=== PATIENT | male | born 1955 | race African-American/Black ===

== ENCOUNTER 2020-05-12 06:02 | Outpatient (REF) | payer MEDICARE, SELFPAY ==
[2020-05-12 07:50] LABS: Anion Gap 11 (12-20); Blood Urea Nitrogen 18 mg/dL (9-16); Calcium 9.6 mg/dL (8.4-10.2); Carbon Dioxide 28 mmol/L (22-29); Chloride 98 mmol/L (96-108); Cholesterol 183 mg/dL; Estimated Glomerular Filt Rate 48; Glucose Fasting 100 mg/dL (60-99); HDL Cholesterol 32 mg/dL; LDL Cholesterol Calculated 85 mg/dl; Potassium 4.3 mmol/l (3.3-5.1); Sodium 133 mmol/L (135-145); Triglycerides 330 mg/dL
[2020-05-12 07:51] LABS: Creatinine Urine 92.76 mg/dL; Microalbumin Urine < 5.0 mg/L
[2020-05-12 07:58] LABS: Estimated Average Glucose 166 mg/dL; Hemoglobin A1c % 7.4 %
[2020-05-13 07:07] LABS: LDL Cholesterol Direct 96 mg/dL (<100)
[2020-05-20 06:18] LABS: Fructosamine 292 umol/L (205-285)
== END 2020-05-12 06:03 | disposition home or self-care (01) ==
LOC: HO.LAB 06:02
PROVIDERS: PCP Family Medicine; Visit Provider Nurse Practitioner Gerontology
DX: E11.65 Type 2 diabetes mellitus with hyperglycemia (principal)
CPT/HCPCS: 80048; 80061; 82043; 82985; 83036; 83721

== ENCOUNTER → 2020-05-16 08:37 | Outpatient (BNVA) | payer MEDICARE, SELFPAY | PROVIDERS: PCP Family Medicine; Referring Provider Family Medicine; Visit Provider Nurse Practitioner Gerontology | DX: Z13.89 Encounter for screening for other disorder (principal) | CPT/HCPCS: 99212 ==

== ENCOUNTER 2020-08-09 07:31 | Outpatient (REF) | payer MEDICARE, SELFPAY ==
[2020-08-09 07:56] LABS: MANUAL DIFF FLAG NO
[2020-08-09 08:02] LABS: Basophils Absolute Auto 0.1 X10*3/uL (0.0-0.2); Basophils Percent Auto 1.1 % (0-2); Eosinophils Absolute Auto 0.5 X10*3/uL (0.0-0.4); Eosinophils Percent Auto 4.5 % (0-4); Hematocrit 41.6 % (42-52); Imm Gran Abs Auto 0.03 X10*3/uL (0.00-0.03); Imm Gran Pct Auto 0.3 % (0.0-0.4); Lymphocytes Absolute Auto 4.8 X10*3/uL (1.2-4.9); Lymphocytes Percent Auto 46.4 % (20-40); Mean Corpuscular HGB Conc 31.3 g/dl (31.0-36.0); Mean Corpuscular Hemoglobin 25.1 pg (27.0-33.0); Mean Corpuscular Volume 80.3 fL (80-98); Mean Platelet Volume 9.2 fL (9.4-12.4); Monocytes Absolute Auto 0.8 X10*3/uL (0.1-1.2); Monocytes Percent Auto 7.9 % (2-11); Neutrophils Absolute Auto 4.1 X10*3/uL (2.0-8.3); Neutrophils Percent Auto 39.8 % (45-73); Platelet Count 350 X10*3/uL (160-400); Red Blood Count 5.18 X10*6/uL (4.60-5.80); Red Cell Distribution Width 16.9 % (11.0-16.0); White Blood Count 10.3 X10*3/uL (4.8-10.8)
[2020-08-09 08:09] LABS: Estimated Average Glucose 163 mg/dL; Hemoglobin A1c % 7.3 %
[2020-08-09 08:31] LABS: Alanine Aminotransferase 32 U/L (0-40); Albumin Level 4.3 g/dL (3.5-5.0); Alkaline Phosphatase 100 U/L (39-117); Anion Gap 15 (12-20); Aspartate Amino Transferase 32 U/L (5-37); Bilirubin Total 0.6 mg/dL (0.0-1.0); Blood Urea Nitrogen 22 mg/dL (9-16); Calcium 9.4 mg/dL (8.4-10.2); Carbon Dioxide 25 mmol/L (22-29); Chloride 98 mmol/L (96-108); Estimated Glomerular Filt Rate 43; Glucose Random 157 mg/dL (60-115); Potassium 4.4 mmol/L (3.3-5.1); Sodium 134 mmol/L (135-145); Total Protein 8.1 g/dL (6.5-8.0)
== END 2020-08-09 07:32 | disposition home or self-care (01) ==
LOC: HO.LAB 07:31
PROVIDERS: Internal Medicine Medical Oncology; PCP Family Medicine; Visit Provider Nurse Practitioner Gerontology
DX: D75.1 Secondary polycythemia (principal); E11.65 Type 2 diabetes mellitus with hyperglycemia; Z79.4 Long term (current) use of insulin
CPT/HCPCS: 36415; 80053; 83036; 85025

== ENCOUNTER → 2020-08-09 08:01 | Outpatient (BNV) | payer MEDICARE, SELFPAY | PROVIDERS: PCP Family Medicine; Visit Provider Internal Medicine Medical Oncology | DX: D75.1 Secondary polycythemia (principal) | CPT/HCPCS: 99213; 99214 ==

== ENCOUNTER → 2020-08-15 08:34 | Outpatient (BNVA) | payer MEDICARE, SELFPAY | PROVIDERS: PCP Family Medicine; Visit Provider Nurse Practitioner Gerontology | DX: E11.65 Type 2 diabetes mellitus with hyperglycemia (principal); E11.42 Type 2 diabetes mellitus with diabetic polyneuropathy; Z79.4 Long term (current) use of insulin; I10 Essential (primary) hypertension; E78.5 Hyperlipidemia, unspecified; E66.09 Other obesity due to excess calories; Z68.39 Body mass index [BMI] 39.0-39.9, adult | CPT/HCPCS: 82947; 99212 ==

== ENCOUNTER → 2020-08-17 08:06 | Outpatient (BNVA) | payer MEDICARE, SELFPAY | PROVIDERS: PCP Nurse Practitioner Family; Visit Provider Nurse Practitioner | DX: K59.04 Chronic idiopathic constipation (principal); K21.9 Gastro-esophageal reflux disease without esophagitis; R14.0 Abdominal distension (gaseous) | CPT/HCPCS: Q3014 ==

== ENCOUNTER 2020-08-30 | Outpatient (REF) | payer MEDICARE, SELFPAY ==
[2020-09-01 12:04] LABS: FIT Int Ctl YES; FIT1 NEGATIVE (NEGATIVE); FIT2 NEGATIVE (NEGATIVE)
== END 2020-08-30 00:01 | disposition home or self-care (01) ==
LOC: HO.LNP
PROVIDERS: Visit Provider Nurse Practitioner
DX: K21.9 Gastro-esophageal reflux disease without esophagitis (principal); K58.9 Irritable bowel syndrome, unspecified
CPT/HCPCS: 82274

== ENCOUNTER 2020-09-01 11:26 | Outpatient (REF) | payer MEDICARE, SELFPAY | END 2020-09-01 11:27 | disposition home or self-care (01) | LOC: HO.LNP 11:26 | PROVIDERS: Visit Provider Nurse Practitioner | DX: Z13.89 Encounter for screening for other disorder (principal) ==

== ENCOUNTER → 2020-09-16 08:09 | Outpatient (BNVA) | payer MEDICARE, SELFPAY | PROVIDERS: PCP Nurse Practitioner Family; Visit Provider Nurse Practitioner | DX: Z12.11 Encounter for screening for malignant neoplasm of colon (principal); R14.0 Abdominal distension (gaseous); K21.9 Gastro-esophageal reflux disease without esophagitis; K59.04 Chronic idiopathic constipation | CPT/HCPCS: 99212 ==

== ENCOUNTER 2020-11-07 06:01 | Outpatient (REF) | payer MEDICARE, SELFPAY ==
[2020-11-07 06:29] LABS: MANUAL DIFF FLAG NO
[2020-11-07 06:44] LABS: Basophils Absolute Auto 0.1 X10*3/uL (0.0-0.2); Eosinophils Absolute Auto 0.3 X10*3/uL (0.0-0.4); Eosinophils Percent Auto 2.9 % (0-4); Hemoglobin 13.2 g/dl (14.0-18.0); Imm Gran Abs Auto 0.03 X10*3/uL (0.00-0.03); Imm Gran Pct Auto 0.3 % (0.0-0.4); Lymphocytes Absolute Auto 3.7 X10*3/uL (1.2-4.9); Mean Corpuscular HGB Conc 31.4 g/dl (31.0-36.0); Mean Corpuscular Hemoglobin 25.2 pg (27.0-33.0); Mean Corpuscular Volume 80.2 fL (80-98); Mean Platelet Volume 9.7 fL (9.4-12.4); Monocytes Absolute Auto 0.9 X10*3/uL (0.1-1.2); Monocytes Percent Auto 8.9 % (2-11); Neutrophils Absolute Auto 4.8 X10*3/uL (2.0-8.3); Neutrophils Percent Auto 48.9 % (45-73); Platelet Count 357 X10*3/uL (160-400); Red Blood Count 5.24 X10*6/uL (4.60-5.80); Red Cell Distribution Width 16.2 % (11.0-16.0); White Blood Count 9.7 X10*3/uL (4.8-10.8)
[2020-11-07 06:53] LABS: Alanine Aminotransferase 29 U/L (0-40); Albumin Level 4.4 g/dL (3.5-5.0); Alkaline Phosphatase 93 U/L (39-117); Anion Gap 13 (12-20); Aspartate Amino Transferase 28 U/L (5-37); Bilirubin Total 0.2 mg/dL (0.0-1.0); Blood Urea Nitrogen 22 mg/dL (9-16); Calcium 10.2 mg/dL (8.4-10.2); Carbon Dioxide 27 mmol/L (22-29); Chloride 100 mmol/L (96-108); Estimated Glomerular Filt Rate 41; Glucose Random 128 mg/dL (60-115); Potassium 4.5 mmol/L (3.3-5.1); Sodium 135 mmol/L (135-145); Total Protein 7.8 g/dL (6.5-8.0)
[2020-11-12 00:22] LABS: Fructosamine 273 umol/L (205-285)
== END 2020-11-07 06:02 | disposition home or self-care (01) ==
LOC: HO.LAB 06:01
PROVIDERS: Internal Medicine Medical Oncology; Visit Provider Nurse Practitioner Gerontology
DX: E11.22 Type 2 diabetes mellitus with diabetic chronic kidney disease (principal); N18.9 Chronic kidney disease, unspecified; D75.1 Secondary polycythemia
CPT/HCPCS: 36415; 80053; 82985; 85025; 85610

== ENCOUNTER → 2020-12-09 08:56 | Outpatient (BNVA) | payer MEDICARE, SELFPAY | PROVIDERS: Visit Provider Nurse Practitioner Gerontology | DX: E11.42 Type 2 diabetes mellitus with diabetic polyneuropathy (principal); I10 Essential (primary) hypertension; E78.5 Hyperlipidemia, unspecified; E66.01 Morbid (severe) obesity due to excess calories; Z79.4 Long term (current) use of insulin; Z68.37 Body mass index [BMI] 37.0-37.9, adult | CPT/HCPCS: 82947; 99212 ==

== ENCOUNTER → 2021-03-20 09:59 | Outpatient (BNVA) | payer MEDICARE, SELFPAY | PROVIDERS: Visit Provider Nurse Practitioner ==

== ENCOUNTER 2021-04-12 07:35 | Outpatient (REF) | payer MEDICARE, SELFPAY ==
[2021-04-12 08:50] LABS: Alanine Aminotransferase 27 U/L (0-40); Albumin Level 4.4 g/dL (3.5-5.0); Alkaline Phosphatase 82 U/L (39-117); Anion Gap 14 (12-20); Aspartate Amino Transferase 22 U/L (5-37); Bilirubin Total 0.4 mg/dL (0.0-1.0); Blood Urea Nitrogen 15 mg/dL (9-16); Carbon Dioxide 26 mmol/L (22-29); Chloride 96 mmol/L (96-108); Cholesterol 170 mg/dL; Estimated Glomerular Filt Rate 44; Glucose Fasting 149 mg/dL (60-99); HDL Cholesterol 30 mg/dL; LDL Cholesterol Calculated 74 mg/dl; Potassium 4.6 mmol/L (3.3-5.1); Sodium 131 mmol/L (135-145); Total Protein 7.9 g/dL (6.5-8.0); Triglycerides 331 mg/dL
[2021-04-12 09:10] LABS: Vitamin D 25-OH Total 78.8 ng/mL (>30)
[2021-04-12 09:25] LABS: Creatinine Urine 172.54 mg/dL; Microalbum/Creatinine Ratio Ur 2.8 ug/mg cr
== END 2021-04-12 07:36 | disposition home or self-care (01) ==
LOC: HO.LAB 07:35
PROVIDERS: Visit Provider Nurse Practitioner Gerontology
DX: E11.42 Type 2 diabetes mellitus with diabetic polyneuropathy (principal)
CPT/HCPCS: 36415; 80053; 80061; 82043; 82306

== ENCOUNTER → 2021-04-20 13:33 | Outpatient (BNVA) | payer MEDICARE, SELFPAY | PROVIDERS: Visit Provider Nurse Practitioner | DX: Z12.11 Encounter for screening for malignant neoplasm of colon (principal); K21.9 Gastro-esophageal reflux disease without esophagitis; K59.04 Chronic idiopathic constipation | CPT/HCPCS: 99212 ==

== ENCOUNTER → 2021-04-21 08:59 | Outpatient (BNVA) | payer MEDICARE, SELFPAY | PROVIDERS: PCP Registered Nurse; Visit Provider Nurse Practitioner Gerontology | DX: E11.42 Type 2 diabetes mellitus with diabetic polyneuropathy (principal); E78.5 Hyperlipidemia, unspecified; E66.01 Morbid (severe) obesity due to excess calories; I10 Essential (primary) hypertension; Z79.4 Long term (current) use of insulin; Z68.37 Body mass index [BMI] 37.0-37.9, adult | CPT/HCPCS: 82947; 83036; 99212 ==

== ENCOUNTER → 2021-07-31 09:25 | Outpatient (BNVA) | payer MEDICARE, SELFPAY | PROVIDERS: PCP Registered Nurse; Visit Provider Nurse Practitioner Gerontology | DX: E11.42 Type 2 diabetes mellitus with diabetic polyneuropathy (principal); E78.5 Hyperlipidemia, unspecified; E66.01 Morbid (severe) obesity due to excess calories; I10 Essential (primary) hypertension; Z79.4 Long term (current) use of insulin; Z68.35 Body mass index [BMI] 35.0-35.9, adult | CPT/HCPCS: 82947; 83036; 99212 ==

== ENCOUNTER → 2021-09-25 20:30 | Outpatient (REF) | payer OTHER, SELFPAY | LOC: HO.SL 20:30 | PROVIDERS: PCP Registered Nurse; Visit Provider Registered Nurse | DX: G47.33 Obstructive sleep apnea (adult) (pediatric) (principal) | CPT/HCPCS: 95810; 95811 ==

== ENCOUNTER → 2021-10-19 07:07 | Outpatient (BNVA) | payer OTHER, SELFPAY | PROVIDERS: PCP Registered Nurse; Visit Provider Nurse Practitioner | DX: K58.2 Mixed irritable bowel syndrome (principal); K21.9 Gastro-esophageal reflux disease without esophagitis; Z79.899 Other long term (current) drug therapy | CPT/HCPCS: 99212 ==

== ENCOUNTER → 2021-10-27 20:24 | Outpatient (REF) | payer OTHER, SELFPAY | LOC: HO.SL 20:24 | PROVIDERS: PCP Registered Nurse; Visit Provider Registered Nurse | DX: Z13.89 Encounter for screening for other disorder (principal) ==

== ENCOUNTER → 2021-11-17 09:03 | Outpatient (BNVA) | payer OTHER, SELFPAY | PROVIDERS: PCP Registered Nurse; Referring Provider Registered Nurse; Visit Provider Nurse Practitioner | DX: K58.2 Mixed irritable bowel syndrome (principal); K21.9 Gastro-esophageal reflux disease without esophagitis | CPT/HCPCS: 99212 ==

== ENCOUNTER 2022-03-01 08:49 | Day surgery (SDC) | payer OTHER, SELFPAY ==
--- NOTE | 2022-02-28 10:20 | HO.ANESPROP2 ---
Documented by User: Sherita Garrett NP 02/28/22 10:24 HPI - Anesthesia Eval Consult details Narrative: 66yo M for Colonoscopy chronic prn opioid PMFSH Active Problems Active Problems: All Active Problems (Updated 10/19/21 @ 09:11 by LILIA Caceres) Irritable bowel syndrome with both constipation and diarrhea (Acute) penitentiary current use of insulin (Acute) Colon cancer screening (Acute) Abdominal bloating (Acute) GERD (gastroesophageal reflux disease) (Acute) Chronic idiopathic constipation (Acute) Erythrocytosis (Acute) Renal mass (Acute) Type 2 diabetes mellitus with hyperglycemia, with long-term current use of insulin (Acute) Type 2 diabetes mellitus with polyneuropathy (Acute) Essential hypertension (Acute) Hyperlipidemia LDL goal <70 (Acute) Obesity due to excess calories (Acute) Type 2 diabetes mellitus with hyperglycemia (Acute) Past Medical History Medical History BPH (benign prostatic hyperplasia) CAD (coronary artery disease) Chronic kidney disease, stage 3 CTS (carpal tunnel syndrome) Essential hypertension Fibromyalgia GERD (gastroesophageal reflux disease) Gout Hepatitis C Hyperlipidemia LDL goal <70 Hypogonadism 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 Obesity due to excess calories Polycythemia vera Seizures Type 2 diabetes mellitus with hyperglycemia Type 2 diabetes mellitus with hyperglycemia, with long-term current use of insulin Type 2 diabetes mellitus with polyneuropathy Vitamin D deficiency Family History Family History Father Bladder cancer Mother CVD (cardiovascular disease) Diabetes Sister Colon cancer Surgical History Surgical History History of prostate surgery Hx of angioplasty Hx of biopsy Hx of colonoscopy Hx of cystoscopy Social History Social History Household Members: Spouse Housing: Apartment Are you a primary healthcare administration internship to a significant other at home: No Do you presently have visiting nurse or other home services: Yes (every 2 months through insurance) Alcohol intake: former Patient Tobacco Use Status: Current everyday Tobacco user Tobacco use type: Cigarette Substance Use Type: Crack/Cocaine, Former Substance User and Marijuana Are you DNR?: No Advance Directives: No Advance Directives Information Provided: Yes Recently lost weight without trying: No Nutrition Risks: No Nutritional Risk service: No Current occupational status: disabled Meds Allergies Allergy/AdvReac Type Severity Reaction Status Date / Time atorvastatin [Lipitor] Allergy Unknown muscle Verified 11/17/21 09:13 damage rosuvastatin [Crestor] Allergy Unknown muscle Verified 11/17/21 09:13 damage From CRESTOR Allergy Severe MUSCLES Uncoded 11/17/21 09:13 PAIN From LIPITOR Allergy Severe MUSCLES Uncoded 11/17/21 09:13 PAIN Home Medications Medication Instructions Recorded Confirmed Last Taken Type aspirin 81 mg tablet,delayed 81 mg PO DAILY 05/16/20 03/01/22 02/25/22 History release febuxostat 40 mg tablet (Uloric) 40 mg PO DAILY 05/16/20 03/01/22 Unknown History hydrochlorothiazide 25 mg tablet 25 mg PO DAILY 05/16/20 03/01/22 Unknown History losartan 50 mg tablet 50 mg PO DAILY 05/16/20 03/01/22 Unknown History metoprolol tartrate 50 mg tablet 50 mg PO BID 05/16/20 03/01/22 Unknown History mirtazapine 30 mg tablet 30 mg PO BEDTIME 05/16/20 09/01/21 Unknown History oxycodone-acetaminophen 5 mg-325 1 tab PO TID PRN Pain 05/16/20 09/01/21 Unknown History mg tablet mirabegron 50 mg tablet,extended 1 tab PO DAILY 08/09/20 09/01/21 Unknown History release 24 hr (Myrbetriq) topiramate 50 mg tablet (Topamax) 50 mg PO DAILY 08/09/20 09/01/21 Unknown History cetirizine 10 mg tablet 10 mg PO DAILY 04/21/21 03/01/22 Unknown History Exam Exam Date and Time: February 28, 2022 1020 Pertinent Lab Results Pertinent Lab Results: Laboratory Tests 09/01/21 09/01/21 08:46 08:46 WBC 9.2 Hgb 15.0 Hct 46.1 Plt Count 324 Sodium 133 L Potassium 3.7 Chloride 101 Carbon Dioxide 23 BUN 15 Creatinine 1.43 H Assessment and Plan Assessment Anesthesia Assessment: Chart Reviewed Documented by User: Johana Owen MD 03/01/22 09:14 [facility] Past Medical History Medical History BPH (benign prostatic hyperplasia) CAD (coronary artery disease) Chronic kidney disease, stage 3 CTS (carpal tunnel syndrome) Essential hypertension Fibromyalgia GERD (gastroesophageal reflux disease) Gout Hepatitis C Hyperlipidemia LDL goal <70 Hypogonadism 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 bowel syndrome) penitentiary current use of insulin Obesity due to excess calories Polycythemia vera Seizures Type 2 diabetes mellitus with hyperglycemia Type 2 diabetes mellitus with hyperglycemia, with long-term current use of insulin Type 2 diabetes mellitus with polyneuropathy Vitamin D deficiency Functional capacity: independent ambulation Family History Family History Father Bladder cancer Mother CVD (cardiovascular disease) Diabetes Sister Colon cancer Family history of problems with anesthesia: No Surgical History Surgical History History of prostate surgery Hx of angioplasty Hx of biopsy Hx of colonoscopy Hx of cystoscopy History of Problems with Anesthesia: No Social History Social History Household Members: Spouse Housing: Apartment Are you a primary healthcare administration internship to a significant other at home: No Do you presently have visiting nurse or other home services: Yes (every 2 months through insurance) Alcohol intake: former Patient Tobacco Use Status: Current everyday Tobacco user Tobacco use type: Cigarette Substance Use Type: Crack/Cocaine, Former Substance User and Marijuana Are you DNR?: No Advance Directives: No Advance Directives Information Provided: Yes Recently lost weight without trying: No Nutrition Risks: No Nutritional Risk service: No Current occupational status: disabled Meds Allergies Allergy/AdvReac Type Severity Reaction Status Date / Time atorvastatin [Lipitor] Allergy Unknown muscle Verified 11/17/21 09:13 damage rosuvastatin [Crestor] Allergy Unknown muscle Verified 11/17/21 09:13 damage From CRESTOR Allergy Severe MUSCLES Uncoded 11/17/21 09:13 PAIN From LIPITOR Allergy Severe MUSCLES Uncoded 11/17/21 09:13 PAIN Home Medications Medication Instructions Recorded Confirmed Last Taken Type aspirin 81 mg tablet,delayed 81 mg PO DAILY 05/16/20 03/01/22 02/25/22 History release febuxostat 40 mg tablet (Uloric) 40 mg PO DAILY 05/16/20 03/01/22 Unknown History hydrochlorothiazide 25 mg tablet 25 mg PO DAILY 05/16/20 03/01/22 Unknown History losartan 50 mg tablet 50 mg PO DAILY 05/16/20 03/01/22 Unknown History metoprolol tartrate 50 mg tablet 50 mg PO BID 05/16/20 03/01/22 Unknown History mirtazapine 30 mg tablet 30 mg PO BEDTIME 05/16/20 09/01/21 Unknown History oxycodone-acetaminophen 5 mg-325 1 tab PO TID PRN Pain 05/16/20 09/01/21 Unknown History mg tablet mirabegron 50 mg tablet,extended 1 tab PO DAILY 08/09/20 09/01/21 Unknown History release 24 hr (Myrbetriq) topiramate 50 mg tablet (Topamax) 50 mg PO DAILY 08/09/20 09/01/21 Unknown History cetirizine 10 mg tablet 10 mg PO DAILY 04/21/21 03/01/22 Unknown History Exam Airway Mallampati Class: III TM Dist: >3cm Neck ROM: Full Heart: RRR Lungs: CTA Assessment and Plan Final Anesthetic Review Family History of Problems with Anesthesia: No History of Problems with Anesthesia: No ASA Class: III Final Preanesthetic Review: No Changes in Pt Med Stat, Meds/Allgs Chart Reviewed, Consent Obtained/Reviewed and Anes Risks/Benef Reviewed Patient Risk: Low Anesthetic Plan Anesthetic Plan: MAC: Disposition: Standard PACU
[2022-03-01 07:23] VITALS: BMI 36.1
[2022-03-01 08:53] VITALS: BP 147/86; PULSE 79; RESP 18; TEMP 36.1; O2SAT 97
[2022-03-01 09:07] LABS: Glucose, Whole Blood 104 mg/dL (60-115)
[2022-03-01] MEDS: Lactated Ringers 1,000 ML 100 ML IVCONT (09:12)
--- NOTE | 2022-03-01 09:12 | MHC.SHP ---
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 ) History 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 Operations: Relevant previous surgery/procedure and date(s) (History of prostate surgery Hx of angioplasty Hx of biopsy Hx of colonoscopy Hx of cystoscopy) Allergies: Allergies Allergy/AdvReac Type Severity Reaction Status Date / Time atorvastatin [Lipitor] Allergy Unknown muscle Verified 11/17/21 09:13 damage rosuvastatin [Crestor] Allergy Unknown muscle Verified 11/17/21 09:13 damage From CRESTOR Allergy Severe MUSCLES Uncoded 11/17/21 09:13 PAIN From LIPITOR Allergy Severe MUSCLES Uncoded 11/17/21 09:13 PAIN Review of Systems Sugical H&P ROS: Negative: Constitution, Cardiovascular, Respiratory, Neurological, Psychiatric, Hem-Onc, Allergic/Immunologic, Gastrointestinal, Genitourinary, Musculoskeletal, Integumentary, Endocrine and Eyes/Ears/Nose/Throat Exam Surgical H&P Exam: Normal: HEENT, Normal: Heart, Normal: Lungs, Normal: Extremities, Normal: Abdomen, Normal: Skin and Normal: Neurological Plan Diagnosis/Plan: Unchanged I have reviewed the history and physical and performed a pertinent physical examination on my patient. No changes have occurred unless specified.
--- NOTE | 2022-03-01 09:37 | P.CONAN_ITS ---
[facility] Active Problems Active Problems: All Active Problems (Updated 10/19/21 @ 09:11 by LILIA Caceres) Irritable bowel syndrome with both constipation and diarrhea (Acute) snf current use of insulin (Acute) Colon cancer screening (Acute) Abdominal bloating (Acute) GERD (gastroesophageal reflux disease) (Acute) Chronic idiopathic constipation (Acute) Erythrocytosis (Acute) Renal mass (Acute) Type 2 diabetes mellitus with hyperglycemia, with long-term current use of insulin (Acute) Type 2 diabetes mellitus with polyneuropathy (Acute) Essential hypertension (Acute) Hyperlipidemia LDL goal <70 (Acute) Obesity due to excess calories (Acute) Type 2 diabetes mellitus with hyperglycemia (Acute) Past Medical History Medical History BPH (benign prostatic hyperplasia) CAD (coronary artery disease) Chronic kidney disease, stage 3 CTS (carpal tunnel syndrome) Essential hypertension Fibromyalgia GERD (gastroesophageal reflux disease) Gout Hepatitis C Hyperlipidemia LDL goal <70 Hypogonadism 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 syndrome) 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 Obesity due to excess calories Polycythemia vera Seizures Type 2 diabetes mellitus with hyperglycemia Type 2 diabetes mellitus with hyperglycemia, with long-term current use of insulin Type 2 diabetes mellitus with polyneuropathy Vitamin D deficiency Functional capacity: independent ambulation Family History Family History Father Bladder cancer Mother CVD (cardiovascular disease) Diabetes Sister Colon cancer Family history of problems with anesthesia: No Surgical History Surgical History History of prostate surgery Hx of angioplasty Hx of biopsy Hx of colonoscopy Hx of cystoscopy History of Problems with Anesthesia: No Social History Social History Household Members: Spouse Housing: Apartment Are you a primary care director to a significant other at home: No Do you presently have visiting nurse or other home services: Yes (every 2 months through insurance) Alcohol intake: former Patient Tobacco Use Status: Current everyday Tobacco user Tobacco use type: Cigarette Substance Use Type: Crack/Cocaine, Former Substance User and Marijuana Are you DNR?: No Advance Directives: No Advance Directives Information Provided: Yes Recently lost weight without trying: No Nutrition Risks: No Nutritional Risk service: No Current occupational status: disabled Meds Allergies Allergy/AdvReac Type Severity Reaction Status Date / Time atorvastatin [Lipitor] Allergy Unknown muscle Verified 11/17/21 09:13 damage rosuvastatin [Crestor] Allergy Unknown muscle Verified 11/17/21 09:13 damage From CRESTOR Allergy Severe MUSCLES Uncoded 11/17/21 09:13 PAIN From LIPITOR Allergy Severe MUSCLES Uncoded 11/17/21 09:13 PAIN Active Medications: Current Medications Lactated Ringer's (Lr) 1,000 mls @ 100 mls/hr IVCONT .Q10H ANGE Last Admin: 03/01/22 09:12 Dose: 100 mls/hr Home Medications Medication Instructions Recorded Confirmed Last Taken Type aspirin 81 mg tablet,delayed 81 mg PO DAILY 05/16/20 03/01/22 02/25/22 History release febuxostat 40 mg tablet (Uloric) 40 mg PO DAILY 05/16/20 03/01/22 Unknown History hydrochlorothiazide 25 mg tablet 25 mg PO DAILY 05/16/20 03/01/22 Unknown History losartan 50 mg tablet 50 mg PO DAILY 05/16/20 03/01/22 Unknown History metoprolol tartrate 50 mg tablet 50 mg PO BID 05/16/20 03/01/22 Unknown History mirtazapine 30 mg tablet 30 mg PO BEDTIME 05/16/20 09/01/21 Unknown History oxycodone-acetaminophen 5 mg-325 1 tab PO TID PRN Pain 05/16/20 09/01/21 Unknown History mg tablet mirabegron 50 mg tablet,extended 1 tab PO DAILY 08/09/20 09/01/21 Unknown History release 24 hr (Myrbetriq) topiramate 50 mg tablet (Topamax) 50 mg PO DAILY 08/09/20 09/01/21 Unknown History cetirizine 10 mg tablet 10 mg PO DAILY 04/21/21 03/01/22 Unknown History Exam Exam Date and Time: March 01, 2022 0937 Height,Weight and Vital Signs: Height 5 ft 5 in Weight 98.43 kg Last Vital Signs Temp 96.9 F 03/01/22 08:53 Pulse 79 03/01/22 08:53 Resp 18 03/01/22 08:53 BP 147/86 H 03/01/22 08:53 Pulse Ox 97 10/13/22 08:53 O2 Del Method 03/01/22 08:53 Pertinent Lab Results Pertinent Lab Results: Laboratory Tests 03/01/22 09:01 POC Glucose 104 Airway Mallampati Class: III TM Dist: >3cm Heart: RRR Lungs: CTA Assessment and Plan Final Anesthetic Review Family History of Problems with Anesthesia: No History of Problems with Anesthesia: No NPO: Yes ASA Class: III Final Preanesthetic Review: No Changes in Pt Med Stat, Meds/Allgs Chart Reviewed, Consent Obtained/Reviewed and Anes Risks/Benef Reviewed Patient Risk: Low Procedure Risk: Low Anesthetic Plan Anesthetic Plan: MAC: Disposition: Standard PACU
--- NOTE | 2022-03-01 09:41 | P.OP_ITS ---
Operative Note Operative Note Date of Service: 03/01/22 Narrative: Operative Information Procedure Description: Colonoscopy Indication: screening Anesthesia: MAC COLONOSCOPY Instrument: Olympus variable stiffness adult scope 190L Colonoscopy Monitoring: Vital signs and clinical assessment, continuous EKG monitoring, Pulse oximetry, Carbon Dioxide monitoring and blood pressure monitoring were done throughout the procedure. Colon withdrawal time was 10 minutes. Procedure: The patient was placed in the left lateral decubitis position and pre-procedure medications were administered. After a digital rectal examination of the ano-rectum, the video colonoscope was inserted into the rectum and advanced through the colon to the cecum/TI. The colonoscope was slowly withdrawn in a retrograde panoramic fashion and the colon mucosa was carefully examined including a retroflexed view of the rectum. Findings and interventions are described below. Procedure Difficulty: easy Findings: Terminal Ileum-normal Cecum: few tics seen Ascending Colon: normal Transverse Colon -normal Descending Colon:normal Sigmoid Colon: mild diverticulosis Rectum: Retroflexion with small internal hemorrhoids, grade I Anorectum - normal Colon preparation: [place] Bowel Preparation Scale Right colon; 2 Transverse colon: 3 Left colon; 3 (0 = Unprepared colon segment with mucosa not seen due to solid stool that cannot be cleared. 1 = Portion of mucosa of the colon segment seen, but other areas of the colon segment not well seen due to staining, residual stool and/or opaque liquid. 2 = Minor amount of residual staining, small fragments of stool and/or opaque liquid, but mucosa of colon segment seen well. 3 = Entire mucosa of colon segment seen well with no residual staining, small fragments of stool or opaque liquid) Impression and Post Procedure Diagnosis: internal hemorrhoids diverticular disease Plan: High fiber diet leaflet Avoid straining at stool, epsom salts and sitz bath, anusol supps or cream Repeat Colonoscopy in 10 years or earlier if clinically indicated Above findings were reviewed with the patient and relevant handouts were provided if indicated.
[2022-03-01 09:46] VITALS: BP 128/86; PULSE 75; RESP 16; TEMP 36.1; O2SAT 97
--- NOTE | 2022-03-01 09:47 | HO.POSTANES ---
Post Anesthesia Evaluation Post Anesthesia Evaluation Vital Signs: Vital Signs Temp Pulse Resp BP Pulse Ox O2 Del Method 03/01/22 08:53 96.9 F 79 18 147/86 H 97 Room Air Anesthesia: Monitored Mental Status: Awake Pain Control: Satisfactory Nausea/Vomiting: None Hydration: Adequate Anesthesia-Related Issues: No Anes. Related Issues
[2022-03-01 10:01] VITALS: BP 119/75; PULSE 91; RESP 16
== END 2022-03-01 10:20 | disposition home or self-care (01) ==
PROVIDERS: PCP Registered Nurse; Visit Provider Internal Medicine Gastroenterology
PROC: 0DJD8ZZ Inspection of Lower Intestinal Tract, Via Natural or Artificial Opening Endoscopic (ICD-10-PCS; CPT 45378; principal; 2022-03-01 10:10)
DX: Z12.11 Encounter for screening for malignant neoplasm of colon (principal); Z86.010 Personal history of colon polyps; Z80.0 Family history of malignant neoplasm of digestive organs; K57.30 Diverticulosis of large intestine without perforation or abscess without bleeding; K64.0 First degree hemorrhoids; K59.04 Chronic idiopathic constipation; K21.9 Gastro-esophageal reflux disease without esophagitis; E11.22 Type 2 diabetes mellitus with diabetic chronic kidney disease; I12.9 Hypertensive chronic kidney disease with stage 1 through stage 4 chronic kidney disease, or unspecified chronic kidney disease; N18.30 Chronic kidney disease, stage 3 unspecified; E11.65 Type 2 diabetes mellitus with hyperglycemia; E11.42 Type 2 diabetes mellitus with diabetic polyneuropathy; M79.7 Fibromyalgia; B19.20 Unspecified viral hepatitis C without hepatic coma; Z79.4 Long term (current) use of insulin; Z79.82 Long term (current) use of aspirin; Z79.899 Other long term (current) drug therapy; Z88.8 Allergy status to other drugs, medicaments and biological substances; F17.210 Nicotine dependence, cigarettes, uncomplicated
CPT/HCPCS: G0105; 82947

== ENCOUNTER → 2022-03-15 08:51 | Outpatient (BNVA) | payer OTHER, SELFPAY | PROVIDERS: PCP Registered Nurse; Visit Provider Nurse Practitioner | DX: K58.2 Mixed irritable bowel syndrome (principal); K21.9 Gastro-esophageal reflux disease without esophagitis; R14.0 Abdominal distension (gaseous); Z80.9 Family history of malignant neoplasm, unspecified | CPT/HCPCS: 99212 ==

== ENCOUNTER → 2022-05-08 09:03 | Outpatient (BNVA) | payer OTHER, SELFPAY | PROVIDERS: PCP Registered Nurse; Referring Provider Registered Nurse; Visit Provider Nurse Practitioner | DX: K58.2 Mixed irritable bowel syndrome (principal); K21.9 Gastro-esophageal reflux disease without esophagitis; K59.04 Chronic idiopathic constipation; R14.0 Abdominal distension (gaseous) | CPT/HCPCS: 99212 ==

== ENCOUNTER → 2022-09-05 08:23 | Outpatient (BNVA) | payer OTHER, SELFPAY | PROVIDERS: PCP Registered Nurse; Visit Provider Nurse Practitioner | DX: K58.2 Mixed irritable bowel syndrome (principal); K21.9 Gastro-esophageal reflux disease without esophagitis | CPT/HCPCS: 99212 ==

== ENCOUNTER → 2022-10-30 08:39 | Outpatient (BNVA) | payer OTHER, SELFPAY | PROVIDERS: Visit Provider Nurse Practitioner | DX: K59.04 Chronic idiopathic constipation (principal); K58.2 Mixed irritable bowel syndrome; K21.9 Gastro-esophageal reflux disease without esophagitis | CPT/HCPCS: 99212 ==

== ENCOUNTER 2023-04-23 07:43 | Outpatient (AMB) | payer OTHER, SELFPAY ==
--- NOTE | 2023-04-23 07:44 | MHC.OFFVIS ---
Intake Vital Signs 04/23/23 07:59 Height 5 ft 7 in Weight 221 lb BMI 34.6 BP 111/67 Blood Pressure Location Lt brachial Position Sitting Pulse 62 Intake Visit Reasons: 6 mnth follow up Intake Note: Patient 6 month follow chronic constipation Patient denies any GI issues. 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 Code(s): K59.04 - Chronic idiopathic constipation Plan: He continues to do well with his medications. He is on creon, omeprazole, senna and famotidine. He is very worried about his because she has a colostomy and she is stubbornly insisting on having it reversed - despite her lungs being a possible problem. ROV 6 mos. (2) Irritable bowel syndrome with both constipation and diarrhea: Code(s): K58.2 - Mixed irritable bowel syndrome (3) GERD (gastroesophageal reflux disease): Code(s): K21.9 - Gastro-esophageal reflux disease without esophagitis Medications: Refilled famotidine 40 mg PO BID 180 t abs 2RF K21.9 - Gastro-eso phageal reflux dis ease without esoph agitis gyyyqk-ujfdkvqj-ev ylase 24,000-76,00 0 -120,000 unit (C reon) administe r with meals and/o r snacks 1 cap PO .TIDAC 90 caps 6RF 30 days K58.9 - Irritable bowel syndrome wit hout diarrhea omeprazole 20 mg PO DAILY 90 caps 2RF TODAY'S VISIT We discuss his daughters , she had cancer of uncertain origin but them lost her vision and had a mass in her brain. She on her birthday. His had her colostomy reversed and she is doing well!! He continues to do well with his medications. He is on creon, omeprazole, senna and famotidine. He remains satisfied with his GI regimen. 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 Obesity due to excess calories Polycythemia vera Seizures Type 2 diabetes mellitus with hyperglycemia Type 2 diabetes mellitus with hyperglycemia, with long-term current use of insulin Type 2 diabetes mellitus with polyneuropathy Vitamin D deficiency Surgical History History of prostate surgery Hx of biopsy Hx of angioplasty Hx of cystoscopy Hx of colonoscopy Family History Father Bladder cancer Mother CVD (cardiovascular disease) Diabetes Sister Colon cancer Social History Household Members: Spouse Housing: Apartment Are you a primary manager of care to a significant other at home: No Do you presently have visiting nurse or other home services: Yes (every 2 months through insurance) Alcohol intake: former Patient Tobacco Use Status: Current everyday Tobacco user Tobacco use type: Cigarette Substance Use Type: Crack/Cocaine, Former Substance User and Marijuana service: No Current occupational status: disabled Review of Systems Const Denies fatigue, Denies fever(s), Denies night sweats, Denies poor appetite and Denies weight loss Eyes Details: glasses Reports requires corrective lenses ENT Reports Normal hearing present, Denies dental pain, Denies dysphagia, Denies hearing loss, Denies mouth pain, Denies odynophagia, Denies throat swelling, Denies tongue swelling and Reports other (Dentition adequate) Card Reports no additional complaints Resp Reports no additional complaints GI Denies abdominal pain, Denies melena, Reports bloating, Denies hematochezia, Reports constipation, Denies GI cramping, Denies dysphagia, Denies excessive flatus, Denies early satiety, Reports heartburn, Reports diarrhea, Denies nausea, Denies odynophagia, Denies vomiting and Denies hematemesis Skin/Breast Denies pruritus, Denies lesions, Denies rash and Denies jaundice Neuro Reports Normal hearing present and Denies Abnormal speech present Endo Denies fatigue Aller/Immun Denies throat swelling and Denies tongue swelling Physical Exam Vital Signs: Last Vital Signs Pulse 62 04/23/23 07:59 BP 111/67 04/23/23 07:59 BMI result Body Mass Index 34.6 Const General: cooperative, no acute distress, well developed and well groomed Nutritional Appearance: well nourished and obese Orientation/consciousness: oriented to person, oriented to place and oriented to time Limitations: No language barrier HEENT Head: Yes normocephalic and Yes atraumatic Eyes General: appearance normal, both eyes and all related structures Pupils: Equal, round and reactive pupils present Neck Neck: Yes normal visual inspection and Yes no lymphadenopathy Thyroid: Thyroid normal Resp Effort & Inspection: normal respiratory effort and able to speak in complete sentences Auscultation: clear to auscultation bilaterally Cardio Rate: regular rate Rhythm: regular rhythm Heart sounds: Normal, physiologic split S2 sound present Peripheral pulses: radial pulses present and posterior tibial pulses present GI Inspection: No distended, No Abdominal panniculus present and Yes obesity Palpation (GI): Soft to palpation, nontender, no guarding, not rigid and No hepatosplenomegaly present Percussion: Yes normal to percussion Auscultation: normal bowel sounds Rectal Exam - Male: Yes deferred Skin General skin exam: no rashes or lesions noted, turgor normal, skin not dry, no jaundice, No spider nevi and no striae Rashes: no rashes Nails: normal Neuro General: oriented to person, oriented to place and oriented to time Cranial nerves: Yes Equal, round and reactive pupils present and Yes Normal hearing present Speech: No Abnormal speech present Extrem General: Yes normal to inspection, No clubbing, No cyanosis and No edema Psych Appearance: grossly normal and well kempt Mental Status: mental status grossly normal Speech and movement: Normal speech and movement present Affect: normal affect Attitude: cooperative Thought process: Normal thought process present and not confabulating Thought content: Normal thought content present Insight: Fair insight present (Psych) Judgement: Fair judgement present (Psych) Assessment & Plan Assessment & Plan (1) Irritable bowel syndrome with both constipation and diarrhea: Code(s): K58.2 - Mixed irritable bowel syndrome (2) GERD (gastroesophageal reflux disease): Code(s): K21.9 - Gastro-esophageal reflux disease without esophagitis (3) Chronic idiopathic constipation: Comment: Occasional and resolves well with senna. Code(s): K59.04 - Chronic idiopathic constipation Plan We discuss his daughters , she had cancer of uncertain origin but them lost her vision and had a mass in her brain. She on her birthday. However, he seems to be coping well with this despite the tragedy of the situation. His had her colostomy reversed and she is doing well!! He continues to do well with his medications. He is on creon, omeprazole, senna and famotidine. He remains satisfied with his GI regimen. Return office visit in 6 months Medications: Refilled famotidine 40 mg PO BID 180 tabs 2RF K21.9 - Gastro-esophageal reflux disease without esophagitis iwdyde-vuhgwgzf-pykvojm 24,000-76,000 -120,000 unit (Creon) administer with meals and/or snacks 1 cap PO .TIDAC 30 days 90 caps 6RF K58.9 - Irritable bowel syndrome without diarrhea omeprazole 20 mg PO DAILY 90 caps 2RF sennosides (senna) 17.2 mg (2 x 8.6 mg) PO BEDTIME 30 days 60 caps 6RF constipation K59.04 - Chronic idiopathic constipation Coding Level of Care Code Est Pt Level 3 (47794) Diagnoses Irritable bowel syndrome with both constipation and diarrhea K58.2 GERD (gastroesophageal reflux disease) K21.9 Chronic idiopathic constipation K59.04
[2023-04-23 07:59] VITALS: BP 111/67; PULSE 62; BMI 34.6
== END 2023-04-23 08:33 | disposition home or self-care (01) ==
PROVIDERS: Visit Provider Nurse Practitioner
DX: K58.2 Mixed irritable bowel syndrome (principal); K21.9 Gastro-esophageal reflux disease without esophagitis; K59.04 Chronic idiopathic constipation
CPT/HCPCS: 99213

== ENCOUNTER → 2023-04-23 07:43 | Outpatient (BNVA) | payer OTHER, SELFPAY | PROVIDERS: Visit Provider Nurse Practitioner | DX: K58.2 Mixed irritable bowel syndrome (principal); K21.9 Gastro-esophageal reflux disease without esophagitis; K59.04 Chronic idiopathic constipation | CPT/HCPCS: 99212 ==

== ENCOUNTER 2023-10-23 07:27 | Outpatient (REF) | payer OTHER, SELFPAY ==
[2023-10-23 09:07] LABS: MANUAL DIFF FLAG NO
[2023-10-23 09:51] LABS: Basophils Absolute Auto 0.1 X10*3/uL (0.0-0.2); Basophils Percent Auto 1.3 % (0-2); Eosinophils Absolute Auto 0.4 X10*3/uL (0.0-0.4); Eosinophils Percent Auto 5.1 % (0-4); Hemoglobin 16.2 g/dl (14.0-18.0); Imm Gran Abs Auto 0.02 X10*3/uL (0.00-0.03); Imm Gran Pct Auto 0.2 % (0.0-0.4); Lymphocytes Absolute Auto 3.8 X10*3/uL (1.2-4.9); Lymphocytes Percent Auto 43.4 % (20-40); Mean Corpuscular HGB Conc 34.5 g/dl (31.0-36.0); Mean Corpuscular Hemoglobin 29.8 pg (27.0-33.0); Mean Corpuscular Volume 86.4 fL (80.0-98.0); Monocytes Percent Auto 11.3 % (2-11); Neutrophils Absolute Auto 3.3 x10*3/uL (2.0-8.3); Neutrophils Percent Auto 38.7 % (45-73); Platelet Count 296 X10*3/uL (160-400); Red Blood Count 5.44 X10*6/uL (4.60-5.80); Red Cell Distribution Width 14.3 % (11.0-16.0); White Blood Count 8.6 X10*3/uL (4.8-10.8)
[2023-10-23 10:20] LABS: Creatinine Urine 87.17 mg/dL; Microalbumin Urine < 5.0 mg/L
[2023-10-23 10:25] LABS: Alanine Aminotransferase 35 U/L (0-40); Albumin Level 4.2 g/dL (3.5-5.0); Alkaline Phosphatase 101 U/L (39-117); Aspartate Amino Transferase 36 U/L (5-37); Bilirubin Direct 0.2 mg/dL (0.0-0.5); Bilirubin Total 0.4 mg/dL (0.0-1.0); Blood Urea Nitrogen 20 mg/dL (9-16); Calcium 9.8 mg/dL (8.4-10.2); Carbon Dioxide 22 mmol/L (22-29); Chloride 98 mmol/L (96-108); Cholesterol 88 mg/dL (<200); Estimated Glomerular Filt Rate 44; Glucose Random 140 mg/dL (60-115); HDL Cholesterol 30 mg/dL (>40); LDL Cholesterol Calculated 8 mg/dL (<100); Potassium 3.6 mmol/L (3.3-5.1); Sodium 132 mmol/L (135-145); Total Protein 7.8 g/dL (6.5-8.0); Triglycerides 250 mg/dL (<150)
[2023-10-23 10:28] LABS: TSH reflex Free T4 1.85 uIU/mL (0.32-4.0)
[2023-10-23 10:30] LABS: HBS Num1 1.44 mIU/mL (0-7.99); HBc Num1 0.07 S/CO (0.00-0.79); HBsAGNum1 0.26 S/CO (0.00-0.99); HIV AB/AG Nonreactive (Nonreactive); HIV Num 1 0.05 S/CO (0.00-0.99); Hepatitis A Antibody IgM 0.35 Index (0-0.79); Hepatitis B Core Antibody Nonreactive (Nonreactive); Hepatitis B Surface Antigen Negative (Negative); ~HepC Num1 0.07 S/CO (0.00-0.79); ~Hepatitis A Antibody IgM Nonreactive (Nonreactive); ~Hepatitis B Surface Antibody NONREACTIVE (Nonreactive); ~Hepatitis C Antibody Nonreactive (Nonreactive)
[2023-10-23 10:43] LABS: Anion Gap 14 (12-20); Ferritin 74 ng/mL (20-250); Gamma Glutamyl Transpeptidase 175 U/L (11-51)
[2023-10-25 09:49] LABS: RPR Rapid Plasma Reagin NON-REACTIVE (NON-REACTIVE)
[2023-10-25 13:23] LABS: Alpha Fetoprotein 3.1 ng/mL (<6.1)
[2023-10-25 14:28] LABS: HCV Log PCR <1.18 NOT DETECTED Log IU/mL (NOT DETECTED); HepC Viral Load <15 NOT DETECTED IU/mL (NOT DETECTED)
[2023-10-26 22:24] LABS: Anti Nuclear Antibody Screen NEGATIVE (NEGATIVE)
[2023-10-29 06:24] LABS: Mitochondrial Antibodies NEGATIVE (NEGATIVE)
[2023-10-31 14:03] LABS: Smooth Muscle Antibody <20 U (<20)
[2023-11-09 18:53] LABS: FIB-ALT 32 U/L (9-46); FIB-Alpha-2-Macroglobulin 333 mg/dL (106-279); FIB-Apolipoprotein A1 141 mg/dL (94-176); FIB-GGT 144 U/L (3-70); FIB-Haptoglobin 157 mg/dL (43-212); FIB-Total Bilirubin 0.4 mg/dL (0.2-1.2); Liver Fibrosis Score 0.68; Liver Fibrosis Stage F3; Nec Inflam Act Grade A0-A1; Nec Inflam Act Score 0.26
== END 2023-10-23 07:28 | disposition home or self-care (01) ==
LOC: HO.LAB 07:27
PROVIDERS: PCP Registered Nurse; Visit Provider Nurse Practitioner
DX: Z00.00 Encounter for general adult medical examination without abnormal findings (principal); K76.0 Fatty (change of) liver, not elsewhere classified; K74.60 Unspecified cirrhosis of liver; K58.2 Mixed irritable bowel syndrome; K21.9 Gastro-esophageal reflux disease without esophagitis; K59.04 Chronic idiopathic constipation; M54.6 Pain in thoracic spine; Q79.0 Congenital diaphragmatic hernia; R06.00 Dyspnea, unspecified; M25.511 Pain in right shoulder; M54.50 Low back pain, unspecified
CPT/HCPCS: 36415; 80053; 80061; 80076; 81596; 82043; 82105; 82248; 82570; 82728; 82977; 84443; 85025; 86015; 86038; 86381; 86592; 86704; 86706; 86709; 86803; 87340; 87389; 87522; 99212

== ENCOUNTER 2023-10-23 07:27 | Outpatient (AMB) | payer OTHER, SELFPAY ==
--- NOTE | 2023-10-23 07:55 | A.OFFVIS_ITS ---
Vital Signs 10/23/23 07:58 Height 5 ft 6.5 in Weight 222 lb 10.67 oz BMI 35.4 BP 124/72 Blood Pressure Location Lt brachial Position Sitting Pulse 62 Intake Visit Reasons: 6 month follow up Intake Note: Rommel presents in the office as a 6 month follow up. CC: He states that he had a CT scan done that he would like to review. Pains on the right side shoulder that goes down to the lower back. told him that he needs to call his correction officer city or county jail. Sometimes he gets dizziness and he needs to lay down. He states that his correction officer city or county jail is in [facility]. He needs to go today to make an appt with them to discuss this issue. 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: No Allergies atorvastatin [Lipitor] Allergy (Unknown, Verified 10/23/23 07:58) muscle damage rosuvastatin [Crestor] Allergy (Unknown, Verified 10/23/23 07:58) muscle damage From CRESTOR Allergy (Severe, Uncoded 10/23/23 07:58) MUSCLES PAIN From LIPITOR Allergy (Severe, Uncoded 10/23/23 07:58) MUSCLES PAIN HPI HPI 6 month follow up: Details: Assessment & Plan (1) Irritable bowel syndrome with both constipation and diarrhea: Code(s): K58.2 - Mixed irritable bowel syndrome (2) GERD (gastroesophageal reflux disease): Code(s): K21.9 - Gastro-esophageal reflux disease without esophagitis (3) Chronic idiopathic constipation: Comment: Occasional and resolves well with senna. Code(s): K59.04 - Chronic idiopathic constipation Plan We discuss his daughters , she had cancer of uncertain origin but them lost her vision and had a mass in her brain. She on her birthday. However, he seems to be coping well with this despite the tragedy of the situation. His had her colostomy reversed and she is doing well!! He continues to do well with his medications. He is on creon, omeprazole, senna and famotidine. He remains satisfied with his GI regimen. Return office visit in 6 months Medications: Refilled famotidine 40 mg PO BID 180 tabs 2RF K21.9 - Gastro-esophageal reflux disease without esophagitis xrbuxe-lvnypmih-pwowvdv 24,000-76,000 -120,000 unit (Creon) administer with meals and/or snacks 1 cap PO .TIDAC 30 days 90 caps 6RF K58.9 - Irritable bowel syndrome without diarrhea omeprazole 20 mg PO DAILY 90 caps 2RF sennosides (senna) 17.2 mg (2 x 8.6 mg) PO BEDTIME 30 days 60 caps 6RF constipation K59.04 - Chronic idiopathic constipation TODAY'S VISIT [place] hernia from urology CT, ? cirrhosis He is having pain right sided chest pain that starts in the middle of the chest and then goes to the right shoulder and to the right flank/RUQ. Iti s described as a throbbing/squeezing/pumping pain. He has associated dyspnea and dizziness. It can occur at any time and he can not name any precipitating factors and will last a couple of hours. He will have to lay down r/t weakness. He shows me a urology CT that shows a possible Bochdalek hernia but does not describe the size or location. He also has possible steatosis of the liver/cirrhosis - but he has normal transaminases. I will get a liver work up and a CT of the abd to further assess this hernia as a c/f. He will be seeing his correction officer city or county jail at [facility]. This problem is not associated with eating or moving his bowels. He is on creon, omeprazole, senna and famotidine. He remains satisfied with his GI regimen. 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 Chronic idiopathic constipation Hepatitis C Hypogonadism Vitamin D deficiency CTS (carpal tunnel syndrome) Seizures 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 bowel syndrome) GERD (gastroesophageal reflux disease) Gout Chronic kidney disease, stage 3 Polycythemia vera Fibromyalgia BPH (benign prostatic hyperplasia) CAD (coronary artery disease) Type 2 diabetes mellitus with hyperglycemia, with long-term current use of insulin Type 2 diabetes mellitus with polyneuropathy Essential hypertension Hyperlipidemia LDL goal <70 Obesity due to excess calories Type 2 diabetes mellitus with hyperglycemia Surgical History History of prostate surgery Hx of biopsy Hx of angioplasty Hx of cystoscopy Hx of colonoscopy Family History Father Bladder cancer Mother CVD (cardiovascular disease) Diabetes Sister Colon cancer Social History Household Members: Spouse Housing: Apartment Are you a primary intensive care nurse to a significant other at home: No Do you presently have visiting nurse or other home services: Yes (every 2 months through insurance) Alcohol intake: former Patient Tobacco Use Status: Current everyday Tobacco user Tobacco use type: Cigarette Substance Use Type: Crack/Cocaine, Former Substance User and Marijuana service: No Current occupational status: disabled Review of Systems Const Denies fatigue, Denies fever(s), Denies night sweats, Denies poor appetite and Denies weight loss Eyes Details: glasses Reports requires corrective lenses ENT Reports Normal hearing present, Denies dental pain, Denies dysphagia, Denies hearing loss, Denies mouth pain, Denies odynophagia, Denies throat swelling, Denies tongue swelling and Reports other (Dentition adequate) Card Reports chest pain, Reports lightheadedness and Reports dyspnea Resp Reports dyspnea GI Details: Reports abdominal pain, Denies melena, Denies bloating, Denies hematochezia, Reports constipation, Denies GI cramping, Denies dysphagia, Denies excessive flatus, Denies early satiety, Reports heartburn, Denies diarrhea, Denies nausea, Denies odynophagia, Denies vomiting and Denies hematemesis Musc Reports back pain Skin/Breast Denies pruritus, Denies lesions, Denies rash and Denies jaundice Neuro Reports Normal hearing present and Denies Abnormal speech present Endo Denies fatigue Aller/Immun Denies throat swelling and Denies tongue swelling Physical Exam Vital Signs: Last Vital Signs Pulse 62 10/23/23 07:58 BP 124/72 10/23/23 07:58 BMI result Body Mass Index 35.4 Const General: cooperative, no acute distress, well developed and well groomed Nutritional Appearance: well nourished and obese Orientation/consciousness: oriented to person, oriented to place and oriented to time Limitations: No language barrier HEENT Head: Yes normocephalic and Yes atraumatic Eyes General: appearance normal, both eyes and all related structures Pupils: Equal, round and reactive pupils present Neck Neck: Yes normal visual inspection and Yes no lymphadenopathy Thyroid: Thyroid normal Resp Effort & Inspection: normal respiratory effort and able to speak in complete sentences Auscultation: clear to auscultation bilaterally Cardio Rate: regular rate Rhythm: regular rhythm Heart sounds: Normal, physiologic split S2 sound present Peripheral pulses: radial pulses present and posterior tibial pulses present GI Inspection: No distended, No Abdominal panniculus present and Yes obesity Palpation (GI): Soft to palpation, nontender, no guarding, not rigid and No hepatosplenomegaly present Percussion: Yes normal to percussion Auscultation: normal bowel sounds Rectal Exam - Male: Yes deferred Skin General skin exam: no rashes or lesions noted, turgor normal, skin not dry, no jaundice, No spider nevi and no striae Rashes: no rashes Nails: normal Neuro General: oriented to person, oriented to place and oriented to time Cranial nerves: Yes Equal, round and reactive pupils present and Yes Normal hearing present Speech: No Abnormal speech present Extrem General: Yes normal to inspection, No clubbing, No cyanosis and No edema Psych Appearance: grossly normal and well kempt Mental Status: mental status grossly normal Speech and movement: Normal speech and movement present Affect: normal affect Attitude: cooperative Thought process: Normal thought process present and not confabulating Thought content: Normal thought content present Insight: Limited insight present (Psych) Judgement: Limited judgement present (Psych) Assessment & Plan Assessment & Plan (1) Bochdalek hernia: Code(s): 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 cirrhosis He is having pain right sided chest pain that starts in the middle of the chest and then goes to the right shoulder and to the right flank/RUQ. Iti s described as a throbbing/squeezing/pumping pain. He has associated dyspnea and dizziness. It can occur at any time and he can not name any precipitating factors and will last a couple of hours. He will have to lay down r/t weakness. He shows me a urology CT that shows a possible Bochdalek hernia but does not describe the size or location. He also has possible steatosis of the liver/cirrhosis - but he has normal transaminases. I will get a liver work up and a CT of the abd to further assess this hernia as a c/f. He will be seeing his correction officer city or county jail at [facility]. This problem is not associated with eating or moving his bowels. He is on creon, omeprazole, senna and famotidine. He remains satisfied with his GI regimen. Orders: Orders CT abdomen wo IV con 10/23/23 K76.0 - Fatty (change of) liver, not elsewhere classified, M54.6 - Pain in thoracic spine, Q79.0 - Congenital diaphragmatic hernia, R06.00 - Dyspnea, unspecified Gamma Glutamyl Transpeptidase 10/23/23 K74.60 - Unspecified cirrhosis of liver, K76.0 - Fatty (change of) liver, not elsewhere classified, M54.6 - Pain in thoracic spine, Q79.0 - Congenital diaphragmatic hernia, R06.00 - Dyspnea, unspecified Ferritin 10/23/23 K74.60 - Unspecified cirrhosis of liver, K76.0 - Fatty (change of) liver, not elsewhere classified, M54.6 - Pain in thoracic spine, Q79.0 - Congenital diaphragmatic hernia, R06.00 - Dyspnea, unspecified Smooth Muscle Antibody 10/23/23 K74.60 - Unspecified cirrhosis of liver, K76.0 - Fatty (change of) liver, not elsewhere classified, M54.6 - Pain in thoracic spine, Q79.0 - Congenital diaphragmatic hernia, R06.00 - Dyspnea, unspecified Mitochondrial Antibody 10/23/23 K74.60 - Unspecified cirrhosis of liver, K76.0 - Fatty (change of) liver, not elsewhere classified, M54.6 - Pain in thoracic spine, Q79.0 - Congenital diaphragmatic hernia, R06.00 - Dyspnea, unspecified Liver Panel 10/23/23 K74.60 - Unspecified cirrhosis of liver, K76.0 - Fatty (change of) liver, not elsewhere classified, M54.6 - Pain in thoracic spine, Q79.0 - Congenital diaphragmatic hernia, R06.00 - Dyspnea, unspecified Liver Fibrosis Pnl 10/23/23 K74.60 - Unspecified cirrhosis of liver, K76.0 - Fatty (change of) liver, not elsewhere classified, M54.6 - Pain in thoracic spine, Q79.0 - Congenital diaphragmatic hernia, R06.00 - Dyspnea, unspecified XR thoracic spine 2V 10/23/23 M54.6 - Pain in thoracic spine Alpha Fetoprotein 10/23/23 K74.60 - Unspecified cirrhosis of liver, K76.0 - Fatty (change of) liver, not elsewhere classified, M54.6 - Pain in thoracic spine, Q79.0 - Congenital diaphragmatic hernia, R06.00 - Dyspnea, unspecified JOSIAS Reflex Titer and Pattern 10/23/23 K74.60 - Unspecified cirrhosis of liver, K76.0 - Fatty (change of) liver, not elsewhere classified, M54.6 - Pain in thoracic spine, Q79.0 - Congenital diaphragmatic hernia, R06.00 - Dyspnea, unspecified Hepatitis A,B,C Profile 10/23/23 K74.60 - Unspecified cirrhosis of liver, K76.0 - Fatty (change of) liver, not elsewhere classified, M54.6 - Pain in thoracic spine, Q79.0 - Congenital diaphragmatic hernia, R06.00 - Dyspnea, unspecified HIV Ab/Ag 10/23/23 K74.60 - Unspecified cirrhosis of liver, K76.0 - Fatty (change of) liver, not elsewhere classified, M54.6 - Pain in thoracic spine, Q79.0 - Congenital diaphragmatic hernia, R06.00 - Dyspnea, unspecified Coding Level of Care Code Est Pt Level 4 (30045) Diagnoses Bochdalek hernia Q79.0 Dyspnea R06.00 Hepatic steatosis K76.0 Right-sided thoracic back pain M54.6 Cirrhosis K74.60
[2023-10-23 07:58] VITALS: BP 124/72; PULSE 62; BMI 35.4
== END 2023-10-23 08:45 | disposition home or self-care (01) ==
PROVIDERS: PCP Registered Nurse; Visit Provider Nurse Practitioner
DX: Q79.0 Congenital diaphragmatic hernia (principal); R06.00 Dyspnea, unspecified; K76.0 Fatty (change of) liver, not elsewhere classified; M54.6 Pain in thoracic spine; K74.60 Unspecified cirrhosis of liver
CPT/HCPCS: 99214

== ENCOUNTER 2023-12-05 09:10 | Outpatient (AMB) | payer OTHER, SELFPAY ==
--- NOTE | 2023-12-05 09:22 | A.OFFVIS_ITS ---
Vital Signs 12/05/23 09:42 Height 5 ft 7 in Weight 227 lb 8.273 oz BMI 35.6 BP 126/66 Blood Pressure Location Rt brachial Position Sitting Pulse 60 Intake Visit Reasons: 6 Week follow up Bochdal hernia/? cirrhosis Intake Note: Rommel returns to in office follow up of labs and cirrhosis. CC: Patient states that Dr. Davis ordered a CT scan because he is having Right flank and Rt back pain. He states that he was not called from radiology to schedule CT scan ordered by Gema Castro. Hydrate Control Tender Required: No Accompanied by: Self / Same As Patient Allergies atorvastatin [Lipitor] Allergy (Unknown, Verified 12/05/23 10:06) muscle damage rosuvastatin [Crestor] Allergy (Unknown, Verified 12/05/23 10:06) muscle damage From CRESTOR Allergy (Severe, Uncoded 10/23/23 07:58) MUSCLES PAIN From LIPITOR Allergy (Severe, Uncoded 10/23/23 07:58) MUSCLES PAIN HPI HPI 6 Week follow up Bochdal hernia/? 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 cirrhosis He is having pain right sided chest pain that starts in the middle of the chest and then goes to the right shoulder and to the right flank/RUQ. Iti s described as a throbbing/squeezing/pumping pain. He has associated dyspnea and dizziness. It can occur at any time and he can not name any precipitating factors and will last a couple of hours. He will have to lay down r/t weakness. He shows me a urology CT that shows a possible Bochdalek hernia but does not describe the size or location. He also has possible steatosis of the liver/cirrhosis - but he has normal transaminases. I will get a liver work up and a CT of the abd to further assess this hernia as a c/f. 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 This problem is not associated with eating or moving his bowels. He is on creon, omeprazole, senna and famotidine. He remains satisfied with his GI regimen. Orders: Orders CT abdomen wo IV con 10/23/23 K76.0 - Fatty (change of) liver, not elsewhere classified, M54.6 - Pain in thoracic spine, Q79.0 - Congenital diaphragmatic hernia, R06.00 - Dyspnea, unspecified Gamma Glutamyl Transpeptidase 10/23/23 K74.60 - Unspecified cirrhosis of liver, K76.0 - Fatty (change of) liver, not elsewhere classified, M54.6 - Pain in thoracic spine, Q79.0 - Congenital diaphragmatic hernia, R06.00 - Dyspnea, unspecified Ferritin 10/23/23 K74.60 - Unspecified cirrhosis of liver, K76.0 - Fatty (change of) liver, not elsewhere classified, M54.6 - Pain in thoracic spine, Q79.0 - Congenital diaphragmatic hernia, R06.00 - Dyspnea, unspecified Smooth Muscle Antibody 10/23/23 K74.60 - Unspecified cirrhosis of liver, K76.0 - Fatty (change of) liver, not elsewhere classified, M54.6 - Pain in thoracic spine, Q79.0 - Congenital diaphragmatic hernia, R06.00 - Dyspnea, unspecified Mitochondrial Antibody 10/23/23 K74.60 - Unspecified cirrhosis of liver, K76.0 - Fatty (change of) liver, not elsewhere classified, M54.6 - Pain in thoracic spine, Q79.0 - Congenital diaphragmatic hernia, R06.00 - Dyspnea, unspecified Liver Panel 10/23/23 K74.60 - Unspecified cirrhosis of liver, K76.0 - Fatty (change of) liver, not elsewhere classified, M54.6 - Pain in thoracic spine, Q79.0 - Congenital diaphragmatic hernia, R06.00 - Dyspnea, unspecified Liver Fibrosis Pnl 10/23/23 K74.60 - Unspecified cirrhosis of liver, K76.0 - Fatty (change of) liver, not elsewhere classified, M54.6 - Pain in thoracic spine, Q79.0 - Congenital diaphragmatic hernia, R06.00 - Dyspnea, unspecified XR thoracic spine 2V 10/23/23 M54.6 - Pain in thoracic spine Alpha Fetoprotein 10/23/23 K74.60 - Unspecified cirrhosis of liver, K76.0 - Fatty (change of) liver, not elsewhere classified, M54.6 - Pain in thoracic spine, Q79.0 - Congenital diaphragmatic hernia, R06.00 - Dyspnea, unspecified JOSIAS Reflex Titer and Pattern 10/23/23 K74.60 - Unspecified cirrhosis of liver, K76.0 - Fatty (change of) liver, not elsewhere classified, M54.6 - Pain in thoracic spine, Q79.0 - Congenital diaphragmatic hernia, R06.00 - Dyspnea, unspecified Hepatitis A,B,C Profile 10/23/23 K74.60 - Unspecified cirrhosis of liver, K76.0 - Fatty (change of) liver, not elsewhere classified, M54.6 - Pain in thoracic spine, Q79.0 - Congenital diaphragmatic hernia, R06.00 - Dyspnea, unspecified HIV Ab/Ag 10/23/23 K74.60 - Unspecified cirrhosis of liver, K76.0 - Fatty (change of) liver, not elsewhere classified, M54.6 - Pain in thoracic spine, Q79.0 - Congenital diaphragmatic hernia, R06.00 - Dyspnea, unspecified LABS: Laboratory Tests 10/23/23 12/05/23 09:06 08:05 Estimated GFR 39 Ferritin 74 Total Bilirubin 0.5 AST 26 ALT 29 Alkaline Phosphatase 100 Liver GGT 144 H Liver Fibrosis Stage F3 Alpha Fetoprotein 3.1 TSH 1.85 JOSIAS Screen NEGATIVE Anti-Mitochondrial Ab NEGATIVE Anti-Smooth Muscle Ab <20 Hepatitis A IgM Ab Nonreactive Hep Bs Antigen Negative Hep Bs Antibody NONREACTIVE Hep B Core Total Ab Nonreactive Hepatitis C Ab (EIA) Nonreactive Hep C Viral Load <15 NOT DETECTED Hep C Viral Load Log <1.18 NOT DETECTED HIV 1&2 Ab/P24 Ag 4thGn Nonreactive THORACIC SPINE X-RAY NOT OBTAINED CT ABDOMEN PELVIS NOT OBTAINED TODAYS VISIT He was never called for the CT, unsure why. He also had a CT of the chest ordered by Dr. Davis recently. (Bochdalek hernia from urology CT, ? cirrhosis He is having pain right sided chest pain that starts in the middle of the chest and then goes to the right shoulder and to the right flank/RUQ. Iti s described as a throbbing/squeezing/pumping pain. He has associated dyspnea and dizziness. It can occur at any time and he can not name any precipitating factors and will last a couple of hours. He will have to lay down r/t weakness. ) MONTIEL appears stable. He will be having surgery on his ? jaw to remove 2 bones. This will be an in office procedure, so likely not too complicated. 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 Chronic idiopathic constipation Hepatitis C Hypogonadism Vitamin D deficiency CTS (carpal tunnel syndrome) Seizures 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 bowel syndrome) GERD (gastroesophageal reflux disease) Gout Chronic kidney disease, stage 3 Polycythemia vera Fibromyalgia BPH (benign prostatic hyperplasia) CAD (coronary artery disease) Type 2 diabetes mellitus with hyperglycemia, with long-term current use of insulin Type 2 diabetes mellitus with polyneuropathy Essential hypertension Hyperlipidemia LDL goal <70 Obesity due to excess calories Type 2 diabetes mellitus with hyperglycemia Surgical History History of prostate surgery Hx of biopsy Hx of angioplasty Hx of cystoscopy Hx of colonoscopy Family History Father Bladder cancer Mother CVD (cardiovascular disease) Diabetes Sister Colon cancer Social History Household Members: Spouse Housing: Apartment Are you a primary ocular care aide to a significant other at home: No Do you presently have visiting nurse or other home services: Yes (every 2 months through insurance) Alcohol intake: former Patient Tobacco Use Status: Current everyday Tobacco user Tobacco use type: Cigarette Substance Use Type: Crack/Cocaine, Former Substance User and Marijuana service: No Current occupational status: disabled Review of Systems Const Denies fatigue, Denies fever(s), Denies night sweats, Denies poor appetite and Denies weight loss Eyes Details: glasses Reports requires corrective lenses ENT Reports Normal hearing present, Denies dental pain, Denies dysphagia, Denies hearing loss, Denies mouth pain, Denies odynophagia, Denies throat swelling, Denies tongue swelling and Reports other (Dentition adequate) Card Reports no additional complaints Resp Reports no additional complaints GI Details: Denies abdominal pain, Denies melena, Denies bloating, Denies hematochezia, Reports constipation, Denies GI cramping, Denies dysphagia, Denies excessive flatus, Denies early satiety, Reports heartburn, Denies diarrhea, Denies nausea, Denies odynophagia, Denies vomiting and Denies hematemesis Skin/Breast Denies pruritus, Denies lesions, Denies rash and Denies jaundice Neuro Reports Normal hearing present and Denies Abnormal speech present Endo Denies fatigue Aller/Immun Denies throat swelling and Denies tongue swelling Physical Exam Vital Signs: Last Vital Signs Pulse 60 12/05/23 09:42 BP 126/66 12/05/23 09:42 BMI result Body Mass Index 35.6 Const General: cooperative, no acute distress, well developed and well groomed Nutritional Appearance: well nourished and obese Orientation/consciousness: oriented to person, oriented to place and oriented to time Limitations: No language barrier HEENT Head: Yes normocephalic and Yes atraumatic Eyes General: appearance normal, both eyes and all related structures Pupils: Equal, round and reactive pupils present Neck Neck: Yes normal visual inspection and Yes no lymphadenopathy Thyroid: Thyroid normal Resp Effort & Inspection: normal respiratory effort and able to speak in complete sentences Auscultation: clear to auscultation bilaterally Cardio Rate: regular rate Rhythm: regular rhythm Heart sounds: Normal, physiologic split S2 sound present Peripheral pulses: radial pulses present and posterior tibial pulses present GI Inspection: No distended, Yes Abdominal panniculus present and Yes obesity Palpation (GI): Soft to palpation, nontender, no guarding, not rigid and No hepatosplenomegaly present Percussion: Yes normal to percussion Auscultation: normal bowel sounds Rectal Exam - Male: Yes deferred Skin General skin exam: no rashes or lesions noted, turgor normal, skin not dry, no jaundice, No spider nevi and no striae Rashes: no rashes Nails: normal Neuro General: oriented to person, oriented to place and oriented to time Cranial nerves: Yes Equal, round and reactive pupils present and Yes Normal hearing present Speech: No Abnormal speech present Extrem General: Yes normal to inspection, No clubbing, No cyanosis and No edema Psych Appearance: grossly normal and well kempt Mental Status: mental status grossly normal Speech and movement: Normal speech and movement present Affect: normal affect Attitude: cooperative Thought process: Normal thought process present and not confabulating Thought content: Normal thought content present Insight: Limited insight present (Psych) Judgement: Limited judgement present (Psych) Assessment & Plan Assessment & Plan (1) Bochdalek hernia: Code(s): 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 Code(s): K59.04 - Chronic idiopathic constipation Category: Medical (3) GERD (gastroesophageal reflux disease): Code(s): K21.9 - Gastro-esophageal reflux disease without esophagitis Category: Medical (4) Abdominal bloating: Code(s): R14.0 - Abdominal distension (gaseous) Category: Medical Plan He was never called for the CT, unsure why. He also had a CT of the chest ordered by Dr. Davis recently. (Bochdalek hernia from urology CT, ? cirrhosis He is having pain right sided chest pain that starts in the middle of the chest and then goes to the right shoulder and to the right flank/RUQ. Iti s described as a throbbing/squeezing/pumping pain. He has associated dyspnea and dizziness. It can occur at any time and he can not name any precipitating factors and will last a couple of hours. He will have to lay down r/t weakness. ) MONTIEL appears stable. He will be having surgery on his ? jaw to remove 2 bones. This will be an in office procedure, so likely not too complicated. ROV 8 weeks Orders: Orders CT angio chest PE protocol 2 Days R07.9 - Chest pain, unspecified Coding Level of Care Code Est Pt Level 3 (26950) Diagnoses Bochdalek hernia Q79.0 Chronic idiopathic constipation K59.04 GERD (gastroesophageal reflux disease) K21.9 Abdominal bloating R14.0
[2023-12-05 09:42] VITALS: BP 126/66; PULSE 60; BMI 35.6
== END 2023-12-05 10:35 | disposition home or self-care (01) ==
PROVIDERS: PCP Registered Nurse; Visit Provider Nurse Practitioner
DX: Q79.0 Congenital diaphragmatic hernia (principal); K59.04 Chronic idiopathic constipation; K21.9 Gastro-esophageal reflux disease without esophagitis; R14.0 Abdominal distension (gaseous)
CPT/HCPCS: 99213

== ENCOUNTER → 2023-12-05 09:10 | Outpatient (BNVA) | payer OTHER, SELFPAY | PROVIDERS: PCP Registered Nurse; Visit Provider Nurse Practitioner | DX: K76.0 Fatty (change of) liver, not elsewhere classified (principal); K74.60 Unspecified cirrhosis of liver; K59.04 Chronic idiopathic constipation; Q79.0 Congenital diaphragmatic hernia; M54.6 Pain in thoracic spine; R07.9 Chest pain, unspecified; R14.0 Abdominal distension (gaseous) | CPT/HCPCS: 99212 ==

== ENCOUNTER 2024-01-23 07:09 | Outpatient (REF) | payer OTHER, SELFPAY ==
--- NOTE | ~2024-01-23 | CT_ITS ---
EXAMINATION: CT ANGIOGRAM CHEST CLINICAL INFORMATION: Right-sided chest pain. COMPARISON: Chest CT April 03, 2012 TECHNIQUE: Multiple axial images were obtained through the chest after the administration of 65 mL of Omnipaque 350 intravenous contrast. Extensive vascular post-processing including two-dimensional and three-dimensional reformatted images were created and reviewed on an independent workstation. This CT examination was performed using dose optimization techniques as appropriate, variously including the following: *Automated exposure control *Adjustment of mA and/or kV according to patient size (this includes techniques or standardized protocols for targeted exams where dose is matched to indication/reason for exam; i.e. extremities or head) *Use of iterative reconstruction technique DLP: 178 mGy-cm FINDINGS: ANGIOGRAM: Suboptimal contrast bolus timing. There is no evidence of central filling defect within the pulmonary arterial vasculature. CHEST: Lungs: No suspicious pulmonary nodule. No focal consolidation. Central airways are patent. Mediastinum: The imaged thyroid gland is unremarkable. There are no pathologically enlarged mediastinal or hilar lymph nodes. Great vessels are of normal caliber. Heart size is normal. There is no pericardial effusion. Severe coronary artery calcifications. Pleura: No pleural effusion. Axilla/Chest Wall: No acute abnormality. No axillary lymphadenopathy. UPPER ABDOMEN: The imaged portions of the upper abdominal solid viscera are unremarkable in appearance. OSSEOUS STRUCTURES: No destructive bone lesions. CT/CT angio chest PE protocol IMPRESSION: Suboptimal contrast bolus timing. No central pulmonary embolus. No acute intrathoracic abnormality. Fleischner guidelines were followed. Electronically signed by: Vu Lizarraga MD 01/23/2024 09:06 AM EDT
[2024-01-23] MEDS: iohexoL 350 MG/ML 100 ML INFUS..BTL IV (08:08)
[2024-01-27 12:37] LABS: Creatinine POC 1.4 mg/dL (0.5-1.4); GFR POC 54
== END 2024-01-23 07:10 | disposition home or self-care (01) ==
LOC: HO.CT 07:09
PROVIDERS: Nurse Practitioner; PCP Registered Nurse; Visit Provider Internal Medicine Medical Oncology
DX: R07.9 Chest pain, unspecified (principal)
CPT/HCPCS: 71275; 82565; Q9967

== ENCOUNTER 2024-02-06 10:16 | Outpatient (AMB) | payer OTHER, SELFPAY ==
--- NOTE | 2024-02-06 10:19 | MHC.OFFVIS ---
Vital Signs 02/06/24 10:20 Height 5 ft 7 in Weight 227 lb 1.218 oz BMI 35.6 BP 147/78 H Blood Pressure Location Lt brachial Position Sitting Pulse 73 Intake Visit Reasons: 8 week follow up Intake Note: Rommel presents to in office visit today in follow up of CT scan. CC: Patient reports doing well from GI standpoint. He c/o pain from kidney region. Accompanied by: Self / Same As Patient Allergies atorvastatin [Lipitor] Allergy (Unknown, Verified 02/06/24 10:33) muscle damage rosuvastatin [Crestor] Allergy (Unknown, Verified 02/06/24 10:33) muscle damage From CRESTOR Allergy (Severe, Uncoded 10/23/23 07:58) MUSCLES PAIN From LIPITOR Allergy (Severe, Uncoded 10/23/23 07:58) MUSCLES PAIN HPI HPI 8 week follow up: Details: Assessment & Plan (1) Bochdalek hernia: Code(s): 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 Code(s): K59.04 - Chronic idiopathic constipation Category: Medical (3) GERD (gastroesophageal reflux disease): Code(s): K21.9 - Gastro-esophageal reflux disease without esophagitis Category: Medical (4) Abdominal bloating: Code(s): R14.0 - Abdominal distension (gaseous) Category: Medical Plan He was never called for the CT, unsure why. He also had a CT of the chest ordered by Dr. Davis recently. (Bochdalek hernia from urology CT, ? cirrhosis He is having pain right sided chest pain that starts in the middle of the chest and then goes to the right shoulder and to the right flank/RUQ. Iti s described as a throbbing/squeezing/pumping pain. He has associated dyspnea and dizziness. It can occur at any time and he can not name any precipitating factors and will last a couple of hours. He will have to lay down r/t weakness. ) MONTIEL appears stable. He will be having surgery on his ? jaw to remove 2 bones. This will be an in office procedure, so likely not too complicated. ROV 8 weeks Orders: Orders CT angio chest PE protocol 2 Days R07.9 - Chest pain, unspecified CT ANGIO 01/23/24 FINDINGS: ANGIOGRAM: Suboptimal contrast bolus timing. There is no evidence of central filling defect within the pulmonary arterial vasculature. CHEST: Lungs: No suspicious pulmonary nodule. No focal consolidation. Central airways are patent. Mediastinum: The imaged thyroid gland is unremarkable. There are no pathologically enlarged mediastinal or hilar lymph nodes. Great vessels are of normal caliber. Heart size is normal. There is no pericardial effusion. Severe coronary artery calcifications. Pleura: No pleural effusion. Axilla/Chest Wall: No acute abnormality. No axillary lymphadenopathy. UPPER ABDOMEN: The imaged portions of the upper abdominal solid viscera are unremarkable in appearance. OSSEOUS STRUCTURES: No destructive bone lesions. CT/CT angio chest PE protocol IMPRESSION: Suboptimal contrast bolus timing. No central pulmonary embolus. No acute intrathoracic abnormality. TODAY'S VISIT He is doing well on his GI regimen. He continues on his omeprazole 20 mg in the morning and famotidine at night, Creon, and senna. We review his chest CT and it does not bore out any significant herniation or disease. I will refer him to pulmonology for ongoing dyspnea. He continues to have pain in his thoracic back that radiates to his right flank. He is seeing PVSS and will be having injections soon to see if this helps - but they also recommended that he have my lungs evaluated. He already sees a industrial organizational psychologist at [facility]. He never had the jaw surgery, they are instead trying to get better fitting dentures. ROV 6 mos. 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 Chronic idiopathic constipation Hepatitis C Hypogonadism Vitamin D deficiency CTS (carpal tunnel syndrome) Seizures 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 bowel syndrome) GERD (gastroesophageal reflux disease) Gout Chronic kidney disease, stage 3 Polycythemia vera Fibromyalgia BPH (benign prostatic hyperplasia) CAD (coronary artery disease) Type 2 diabetes mellitus with hyperglycemia, with long-term current use of insulin Type 2 diabetes mellitus with polyneuropathy Essential hypertension Hyperlipidemia LDL goal <70 Obesity due to excess calories Type 2 diabetes mellitus with hyperglycemia Surgical History History of prostate surgery Hx of biopsy Hx of angioplasty Hx of cystoscopy Hx of colonoscopy Family History Father Bladder cancer Mother CVD (cardiovascular disease) Diabetes Sister Colon cancer Social History Household Members: Spouse Housing: Apartment Are you a primary special needs caregiver to a significant other at home: No Do you presently have visiting nurse or other home services: Yes (every 2 months through insurance) Alcohol intake: former Patient Tobacco Use Status: Current everyday Tobacco user Tobacco use type: Cigarette Substance Use Type: Crack/Cocaine, Former Substance User and Marijuana service: No Current occupational status: disabled Review of Systems Const Denies fatigue, Denies fever(s), Denies night sweats, Denies poor appetite and Denies weight loss Eyes Details: glasses Reports requires corrective lenses ENT Reports Normal hearing present, Denies dental pain, Denies dysphagia, Reports otalgia, Denies hearing loss, Reports mouth pain, Denies odynophagia, Denies throat swelling, Denies tongue swelling and Reports other (Dentition adequate) Card Reports no additional complaints and Reports dyspnea on exertion Resp Reports dyspnea on exertion GI Details: Denies abdominal pain, Denies melena, Denies bloating, Denies hematochezia, Reports constipation, Denies GI cramping, Denies dysphagia, Denies excessive flatus, Denies early satiety, Reports heartburn, Denies diarrhea, Denies nausea, Denies odynophagia, Denies vomiting and Denies hematemesis Reports flank pain Musc Reports back pain Skin/Breast Denies pruritus, Denies lesions, Denies rash and Denies jaundice Neuro Reports Normal hearing present and Denies Abnormal speech present Endo Denies fatigue Aller/Immun Denies throat swelling and Denies tongue swelling Physical Exam Vital Signs: Last Vital Signs Pulse 73 02/06/24 10:20 BP 147/78 H 02/06/24 10:20 BMI result Body Mass Index 35.6 Const General: cooperative, no acute distress, well developed and well groomed Nutritional Appearance: well nourished and obese morbidly obese Orientation/consciousness: oriented to person, oriented to place and oriented to time Limitations: No language barrier HEENT Head: Yes normocephalic and Yes atraumatic Eyes General: appearance normal, both eyes and all related structures Pupils: Equal, round and reactive pupils present Neck Neck: Yes normal visual inspection and Yes no lymphadenopathy Thyroid: Thyroid normal Resp Effort & Inspection: normal respiratory effort and able to speak in complete sentences Auscultation: clear to auscultation bilaterally Cardio Rate: regular rate Rhythm: regular rhythm Heart sounds: Normal, physiologic split S2 sound present Peripheral pulses: radial pulses present and posterior tibial pulses present GI Inspection: No distended, No Abdominal panniculus present and Yes obesity Palpation (GI): Soft to palpation, nontender, no guarding, not rigid and No hepatosplenomegaly present Percussion: Yes normal to percussion Auscultation: normal bowel sounds Rectal Exam - Male: Yes deferred Skin General skin exam: no rashes or lesions noted, turgor normal, skin not dry, no jaundice, No spider nevi and no striae Rashes: no rashes Nails: normal Neuro General: oriented to person, oriented to place and oriented to time Cranial nerves: Yes Equal, round and reactive pupils present and Yes Normal hearing present Speech: No Abnormal speech present Extrem General: Yes normal to inspection, No clubbing, No cyanosis and No edema Psych Appearance: grossly normal and well kempt Mental Status: mental status grossly normal Speech and movement: Normal speech and movement present Affect: normal affect Attitude: cooperative Thought process: Normal thought process present and not confabulating Thought content: Normal thought content present Insight: Limited insight present (Psych) Judgement: Limited judgement present (Psych) Assessment & Plan Assessment & Plan (1) Chronic idiopathic constipation: Comment: Occasional and resolves well with senna. Code(s): K59.04 - Chronic idiopathic constipation Category: Medical (2) GERD (gastroesophageal reflux disease): Code(s): K21.9 - Gastro-esophageal reflux disease without esophagitis Category: Medical (3) Bochdalek hernia: Comment: Not borne out on chest CT so of questionable clinical significance aeb Code(s): Q79.0 - Congenital diaphragmatic hernia Category: Medical (4) Dyspnea: Code(s): R06.00 - Dyspnea, unspecified Category: Medical Plan He is doing well on his GI regimen. He continues on his omeprazole 20 mg in the morning and famotidine at night, Creon, and senna. We review his chest CT and it does not bore out any significant herniation or disease. I will refer him to pulmonology for ongoing dyspnea. He continues to have pain in his thoracic back that radiates to his right flank. He is seeing PVSS and will be having injections soon to see if this helps - but they also recommended that he have my lungs evaluated. He already sees a industrial organizational psychologist at [facility]. He never had the jaw surgery, they are instead trying to get better fitting dentures. ROV 6 mos. Orders: Referrals Pulmonology Referral R06.00 - Dyspnea, unspecified Medications: New sennosides (senna) 17.2 mg (2 x 8.6 mg) PO DAILY 60 tabs 6RF Refilled [id number] 24,000-76,000 -120,000 unit (Creon) administer with meals and/or snacks 1 cap PO .TIDAC 90 caps 6RF 30 days K58.9 - Irritable bowel syndrome, unspecified famotidine 40 mg PO BID 180 tabs 2RF K21.9 - Gastro-esophageal reflux disease without esophagitis omeprazole 20 mg PO DAILY 90 caps 2RF Coding Level of Care Code Est Pt Level 3 (67046) Complex EM visit Add On G2211 Diagnoses Chronic idiopathic constipation K59.04 GERD (gastroesophageal reflux disease) K21.9 Bochdalek hernia Q79.0 Dyspnea R06.00
[2024-02-06 10:20] VITALS: BP 147/78; PULSE 73; BMI 35.6
== END 2024-02-06 12:26 | disposition home or self-care (01) ==
PROVIDERS: PCP Registered Nurse; Visit Provider Nurse Practitioner
DX: K59.04 Chronic idiopathic constipation (principal); K21.9 Gastro-esophageal reflux disease without esophagitis; Q79.0 Congenital diaphragmatic hernia; R06.00 Dyspnea, unspecified
CPT/HCPCS: 99213; G2211

== ENCOUNTER → 2024-02-06 10:16 | Outpatient (BNVA) | payer OTHER, SELFPAY | PROVIDERS: PCP Registered Nurse; Visit Provider Nurse Practitioner | DX: K59.04 Chronic idiopathic constipation (principal); K21.9 Gastro-esophageal reflux disease without esophagitis; R14.0 Abdominal distension (gaseous); Q79.0 Congenital diaphragmatic hernia; R06.00 Dyspnea, unspecified | CPT/HCPCS: 99212 ==

== ENCOUNTER 2024-04-20 09:08 | Outpatient (AMB) | payer OTHER, SELFPAY ==
--- NOTE | 2024-04-20 08:55 | A.OFFVIS_ITS ---
Vital Signs 04/20/24 09:20 Height 5 ft 7 in Weight 236 lb 15.951 oz BMI 37.1 BP 134/88 Blood Pressure Location Rt brachial Position Sitting Pulse 59 Pulse Source Pulse Oximeter Pulse Oximetry (%) 97 Oxygen Delivery Method Room Air Intake Visit Reasons: Dyspnea Allergies atorvastatin [Lipitor] Allergy (Unknown, Verified 04/20/24 09:23) muscle damage rosuvastatin [Crestor] Allergy (Unknown, Verified 04/20/24 09:23) muscle damage From CRESTOR Allergy (Severe, Uncoded 04/20/24 09:23) MUSCLES PAIN From LIPITOR Allergy (Severe, Uncoded 04/20/24 09:23) MUSCLES PAIN HPI HPI Dyspnea: Details: Rommel is a pleasant 68 year old male, 20+ pyh smoker, quit 2022 with underlying h/o NM, DENTON on CPAP, HTN, DMII, HLD, Epilepsy, CKDIII, Polycythemia Vera, and BPH. He was referred for pulmonary evaluation from for persistent dyspnea for the last few years. He reports dyspnea occurs on exertion only with occasional wheezing, chest tightness and cough. He was sent for CTA to rule out PE which was negative however did reveal severe coronary artery calcifications. He is under the care of [facility] and has upcoming appointment later this month. He denies h/o asthma. He denies seasonal allergies. 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 He reports multiple family members with cancer, daughter with lung cancer and parents with unknown cancers. 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 Chronic idiopathic constipation Hepatitis C Hypogonadism Vitamin D deficiency CTS (carpal tunnel syndrome) Seizures 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 bowel syndrome) GERD (gastroesophageal reflux disease) Gout Chronic kidney disease, stage 3 Polycythemia vera Fibromyalgia BPH (benign prostatic hyperplasia) CAD (coronary artery disease) Type 2 diabetes mellitus with hyperglycemia, with long-term current use of insulin Type 2 diabetes mellitus with polyneuropathy Essential hypertension Hyperlipidemia LDL goal <70 Obesity due to excess calories Type 2 diabetes mellitus with hyperglycemia Surgical History History of prostate surgery Hx of biopsy Hx of angioplasty Hx of cystoscopy Hx of colonoscopy Family History Father Bladder cancer Mother CVD (cardiovascular disease) Diabetes Sister Colon cancer Social History Household Members: Spouse Housing: Apartment Are you a primary progressive care manager to a significant other at home: No Do you presently have visiting nurse or other home services: Yes (every 2 months through insurance) Alcohol intake: former Patient Tobacco Use Status: Current everyday Tobacco user Tobacco use type: Cigarette Substance Use Type: Crack/Cocaine, Former Substance User and Marijuana service: No Current occupational status: disabled Review of Systems Const Denies chills, Denies excessive sweating, Denies fever(s), Denies headache(s) and Denies night sweats Eyes Denies dry eyes, Denies irritation and Denies itchy eyes ENT Reports Normal hearing present, Denies headache(s), Denies nasal congestion, Denies nasal discharge, Denies post nasal drip and Denies sore throat Card Denies chest pain, Denies chest pain at rest, Denies chest pain with activity, Denies claudication, Denies leg edema, Denies orthopnea and Denies paroxysmal nocturnal dyspnea Resp Denies chest congestion, Denies excessive phlegm production, Denies pain on inspiration, Denies pain with cough and Denies stridor Musc Denies myalgias Neuro Reports Normal hearing present and Denies headache(s) Endo Denies excessive sweating Garrett/Lymph Denies lymphadenopathy Aller/Immun Denies itchy eyes and Denies seasonal rhinorrhea Physical Exam Vital Signs: Last Vital Signs Pulse 59 04/20/24 09:20 BP 134/88 04/20/24 09:20 Pulse Ox 97 04/20/24 09:20 Oxygen Delivery Method Room Air 04/20/24 09:20 BMI result Body Mass Index 37.1 Const General: cooperative, healthy appearing, comfortable, no acute distress, well developed and alert Nutritional Appearance: obese Orientation/consciousness: patient oriented x3 Limitations: no limitations HEENT Head: Yes normal to inspection, Yes normocephalic and Yes atraumatic Ears: hearing grossly normal bilaterally and external ears normal Eyes General: appearance normal, both eyes and all related structures Eyelids: Yes eyelids normal Sclerae: sclerae normal EOM: EOMs intact bilaterally Neck Neck: Yes normal visual inspection and Yes no lymphadenopathy Lymphatic: no lymphadenopathy noted Chest Chest palpation & inspection: normal inspection of the chest Resp Other: bibasilar inspiratory crackles Effort & Inspection: normal respiratory effort, able to speak in complete sentences, no audible wheezes, no cough, no stridor, not tachypneic, no tripod positioning and no use of accessory muscles Cardio Jugular venous distension: no JVD Rate: regular rate Rhythm: regular rhythm Skin Other: warm, dry General skin exam: no rashes or lesions noted Neuro General: patient oriented x3 Cranial nerves: Yes Normal hearing present Cognition (Neuro): normal cognition Gait exam (Neuro): Normal gait present Extrem General: Yes normal to inspection, Yes capillary refill normal, Yes no clubbing, cyanosis or edema and Yes no pedal edema Psych Appearance: grossly normal and well kempt Speech and movement: Normal speech and movement present and Clear speech present Affect: normal affect Attitude: cooperative Thought process: Normal thought process present Thought content: Normal thought content present Insight: Good insight present (Psych) Judgement: Good judgement present (Psych) Results Reviewed Results Reviewed: [address] [address] [address] Scan Report Signed Patient: Rommel Narvaez MR#: [id number] : 1955 Acct:[id number] Age/Sex: 68 / M ADM Date: 01/23/24 Loc: .CT Attending Dr: Amy Davis MD Ordering Physician: Gema Castro Date of Service: 01/23/24 Procedure(s): CT angio chest PE protocol Accession Number(s): [id number] cc: Gema Castro; Yoli RuizP~ EXAMINATION: CT ANGIOGRAM CHEST CLINICAL INFORMATION: Right-sided chest pain. COMPARISON: Chest CT April 03, 2012 TECHNIQUE: Multiple axial images were obtained through the chest after the administration of 65 mL of Omnipaque 350 intravenous contrast. Extensive vascular post-processing including two-dimensional and three-dimensional reformatted images were created and reviewed on an independent workstation. This CT examination was performed using dose optimization techniques as appropriate, variously including the following: *Automated exposure control *Adjustment of mA and/or kV according to patient size (this includes techniques or standardized protocols for targeted exams where dose is matched to indication/reason for exam; i.e. extremities or head) *Use of iterative reconstruction technique DLP: 178 mGy-cm FINDINGS: ANGIOGRAM: Suboptimal contrast bolus timing. There is no evidence of central filling defect within the pulmonary arterial vasculature. CHEST: Lungs: No suspicious pulmonary nodule. No focal consolidation. Central airways are patent. Mediastinum: The imaged thyroid gland is unremarkable. There are no pathologically enlarged mediastinal or hilar lymph nodes. Great vessels are of normal caliber. Heart size is normal. There is no pericardial effusion. Severe coronary artery calcifications. Pleura: No pleural effusion. Axilla/Chest Wall: No acute abnormality. No axillary lymphadenopathy. UPPER ABDOMEN: The imaged portions of the upper abdominal solid viscera are unremarkable in appearance. OSSEOUS STRUCTURES: No destructive bone lesions. CT/CT angio chest PE protocol IMPRESSION: Suboptimal contrast bolus timing. No central pulmonary embolus. No acute intrathoracic abnormality. Fleischner guidelines were followed. Electronically signed by: Vu Lizarraga MD 01/23/2024 09:06 AM EDT Dictated By: Domenico Lizarraga MD Signed By: <Electronically signed by Domenico Lizarraga MD in OV> 01/23/24 0906 DD/ 0757 TD/TT: 01/23/24 0813 Assistant [employer] Public [employer]: Assessment & Plan Assessment & Plan (1) Dyspnea: Code(s): R06.00 - Dyspnea, unspecified Category: Medical (2) Cough: Code(s): R05.9 - Cough, unspecified Category: Medical (3) Personal history of tobacco use: Code(s): Z87.891 - Personal history of nicotine dependence Category: [facility] Rommel presents for pulmonary evaluation for ongoing dyspnea and cough. Unclear etiology however may be multifactorial as he has significant occupational exposures with welding, smoking history as well as cardiac history. Will send for PFT and chest CT to assess for an evovling ILD. All questions were answered and patient is in agreement of plan. Will follow up to review results or sooner if needed. Orders: Orders PFT pulmonary function test Today R05.9 - Cough, unspecified, R06.00 - Dyspnea, unspecified CT chest wo IV con Today R05.9 - Cough, unspecified Coding Level of Care Code New Pt Level 4 (82898) Diagnoses Dyspnea R06.00 Cough R05.9 Personal history of tobacco use Z87.891
[2024-04-20 09:20] VITALS: BP 134/88; PULSE 59; O2SAT 97; BMI 37.1
== END 2024-04-20 10:19 | disposition home or self-care (01) ==
PROVIDERS: PCP Registered Nurse; Referring Provider Nurse Practitioner; Visit Provider Nurse Practitioner Family
DX: R06.00 Dyspnea, unspecified (principal); R05.9 Cough, unspecified; Z87.891 Personal history of nicotine dependence
CPT/HCPCS: 99204

== ENCOUNTER → 2024-04-20 09:08 | Outpatient (BNVA) | payer OTHER, SELFPAY | PROVIDERS: PCP Registered Nurse; Referring Provider Nurse Practitioner; Visit Provider Nurse Practitioner Family | DX: R06.00 Dyspnea, unspecified (principal); R05.9 Cough, unspecified; Z87.891 Personal history of nicotine dependence | CPT/HCPCS: 99202 ==

== ENCOUNTER 2024-06-03 06:18 | Outpatient (REF) | payer OTHER, SELFPAY ==
--- NOTE | ~2024-06-03 | CT_ITS ---
CLINICAL HISTORY: R05.9 - Cough, unspecified CT chest without contrast Comparison: 01/23/2024 Findings: The heart size is normal. Moderate Atherosclerosis calcification of the coronary artery. The visualized thyroid and mediastinum are unremarkable. Mild atelectasis of the bilateral lung base. Small opacity of the left lower lobe series 4, image 35. No pleural effusion. The upper abdomen is unremarkable. No acute fractures. IMPRESSION: Small opacity of the left lower lobe could represent atelectatic change or infection. CT chest follow-up as indicated to confirm resolution. This document has been electronically signed by: Ingrid Huerta MD on 06/04/2024 07:23:58
--- NOTE | 2024-06-03 07:45 | PFT_ITS ---
Flows: FEV1: 77 % of predicted at 2.22 L FVC: 68 % of predicted at 2.60 L FEV1/FVC: 85 % Bronchodilator response: Absent Volumes: Total lung capacity: 73 % of predicted at 4.72 L Residual volume: 75 % of predicted at 1.74 L Slow vital capacity: 72 % of predicted at 2.98 L Expiratory reserve volume: 19 % of predicted at 0.21 L Diffusion capacity: Normal Impression: Moderate restrictive ventilatory defect with no bronchodilator response. Decreased expiratory reserve volume suggests extrathoracic restriction likely secondary to abdominal obesity. MTDD
== END 2024-06-03 06:19 | disposition home or self-care (01) ==
LOC: HO.CT 06:18
PROVIDERS: PCP Registered Nurse; Visit Provider Nurse Practitioner Family
DX: R05.9 Cough, unspecified (principal); R06.00 Dyspnea, unspecified
CPT/HCPCS: 71250; 94010; 94640; 94727; 94729

== ENCOUNTER → 2024-06-03 07:06 | Outpatient (BNV) | payer OTHER, SELFPAY | PROVIDERS: PCP Registered Nurse; Visit Provider Nuclear Medicine | DX: R05.9 Cough, unspecified (principal) | CPT/HCPCS: 71250 ==

== ENCOUNTER → 2024-06-03 07:45 | Outpatient (BNV) | payer OTHER, SELFPAY | PROVIDERS: PCP Registered Nurse; Visit Provider Internal Medicine Pulmonary Disease | DX: R06.00 Dyspnea, unspecified (principal); R05.9 Cough, unspecified | CPT/HCPCS: 94060; 94727; 94729 ==

== ENCOUNTER 2024-06-22 08:56 | Outpatient (AMB) | payer OTHER, SELFPAY ==
--- NOTE | 2024-06-22 08:47 | A.OFFVIS_ITS ---
Vital Signs 06/22/24 09:05 Height 5 ft 7 in Weight 224 lb 13.944 oz BMI 35.2 BP 142/70 H Blood Pressure Location Lt brachial Position Sitting Pulse 63 Pulse Source Pulse Oximeter Pulse Oximetry (%) 97 Oxygen Delivery Method Room Air Intake Visit Reasons: Dyspnea [employer] Salesperson Required: No Bungy Jump Master: Bungy Jump Master offered & declined Accompanied by: Self / Same As Patient Allergies atorvastatin [Lipitor] Allergy (Unknown, Verified 06/22/24 09:13) muscle damage rosuvastatin [Crestor] Allergy (Unknown, Verified 06/22/24 09:13) muscle damage From CRESTOR Allergy (Severe, Uncoded 06/22/24 09:13) MUSCLES PAIN From LIPITOR Allergy (Severe, Uncoded 06/22/24 09:13) MUSCLES PAIN Medication List - Last Reconciled 06/22/24 by Jada Hilario LPN aspirin 81 mg PO DAILY blood sugar diagnostic (FreeStyle Lite Strips) As directed four times a day blood-glucose meter (FreeStyle Lite Meter kit) As directed cetirizine 10 mg PO DAILY coenzyme Q10 (Co Q-10) 100 mg PO BID dulaglutide (Trulicity) 3 mg (0.5 mL) subcut QWEEK evolocumab (Repatha Syringe) 140 mg subcut Q2W ezetimibe 10 mg PO DAILY famotidine 40 mg PO BID febuxostat (Uloric) 40 mg PO DAILY gabapentin 300 mg PO DAILY hydrochlorothiazide 25 mg PO DAILY insulin aspart U-100 (Novolog FlexPen U-100 Insulin aspart) Sliding scale 6-8 units subcut; 30 days insulin degludec (Tresiba FlexTouch U-100 insulin) 16 units subcut DAILY lancets 4/day frgosu-kefebmvs-mavcdsj 24,000-76,000 -120,000 unit (Creon) 1 cap PO .TIDAC 30 days losartan 50 mg PO DAILY metformin ER 500 mg PO BID metoprolol tartrate 50 mg PO BID mirtazapine 30 mg PO BEDTIME naloxone 4 mg/actuation 4 sprays intranasal DAILY omeprazole 20 mg PO DAILY oxycodone-acetaminophen 5-325 mg 1 tab PO TID PRN pen needle, diabetic (BD Ultra-Fine Makenna Pen Needle) 1 ea subcut QID sennosides (senna) 17.2 mg (2 x 8.6 mg) PO DAILY testosterone 40.5 mg topical QAM topiramate (Topamax) 50 mg PO DAILY vibegron (Gemtesa) 75 mg DAILY HPI HPI Dyspnea: Details: Rommel is a pleasant 68 year old male, 20+ pyh smoker, quit 2022 with underlying h/o TN, DENTON on CPAP, HTN, DMII, HLD, Epilepsy, CKDIII, Polycythemia Vera, and BPH. He was initially referred for pulmonary evaluation from for persistent dyspnea for the last few years. He is under the care of [facility] and recently underwent nuclear stress test however awaiting results, scheduled for this month. Since the last visit, he was sent for chest CT and at that time, noted chest congestion chest CT revealed LLL opacity and PCP placed on Augmentin. He completed abx last week. He reports resolution of chest congestion however continues with dyspnea at rest as well as exertion, chest tightness and orthopnea. He denies BLE edema. Today he presents to review PFT results. Of note, he has lost 12 lbs since the last visit, with changes to diet. [facility] Medical History Colon cancer screening Irritable bowel syndrome with both constipation and diarrhea prison current use of insulin Chronic idiopathic constipation Hepatitis C Hypogonadism Vitamin D deficiency CTS (carpal tunnel syndrome) Seizures 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 bowel syndrome) GERD (gastroesophageal reflux disease) Gout Chronic kidney disease, stage 3 Polycythemia vera Fibromyalgia BPH (benign prostatic hyperplasia) CAD (coronary artery disease) Type 2 diabetes mellitus with hyperglycemia, with long-term current use of insulin Type 2 diabetes mellitus with polyneuropathy Essential hypertension Hyperlipidemia LDL goal <70 Obesity due to excess calories Type 2 diabetes mellitus with hyperglycemia Surgical History History of prostate surgery Hx of biopsy Hx of angioplasty Hx of cystoscopy Hx of colonoscopy Family History Father Bladder cancer Mother CVD (cardiovascular disease) Diabetes Sister Colon cancer Social History (Updated 06/22/24 @ 09:14 by Jada Hilario LPN) Household Members: Spouse Housing: Apartment Are you a primary long term care administrator to a significant other at home: No Do you presently have visiting nurse or other home services: Yes (every 2 months through insurance) Alcohol intake: former Patient Tobacco Use Status: Former Tobacco user Tobacco use type: Cigar Substance Use Type: Crack/Cocaine, Former Substance User and Marijuana service: No Current occupational status: disabled Review of Systems Const Denies chills, Denies excessive sweating, Denies fever(s), Denies headache(s) and Denies night sweats Eyes Denies dry eyes, Denies irritation and Denies itchy eyes ENT Reports Normal hearing present, Denies headache(s), Denies nasal congestion, Denies nasal discharge, Denies post nasal drip and Denies sore throat Card Denies chest pain, Denies chest pain at rest, Denies chest pain with activity, Denies claudication, Denies leg edema and Denies paroxysmal nocturnal dyspnea Resp Denies chest congestion, Denies excessive phlegm production, Denies pain on inspiration, Denies pain with cough and Denies stridor Musc Denies myalgias Neuro Reports Normal hearing present and Denies headache(s) Endo Denies excessive sweating Garrett/Lymph Denies lymphadenopathy Aller/Immun Denies itchy eyes and Denies seasonal rhinorrhea Physical Exam Vital Signs: Last Vital Signs Pulse 63 06/22/24 09:05 BP 142/70 H 06/22/24 09:05 Pulse Ox 97 06/22/24 09:05 Oxygen Delivery Method Room Air 06/22/24 09:05 BMI result Body Mass Index 35.2 Const General: cooperative, healthy appearing, comfortable, no acute distress, well developed and alert Nutritional Appearance: obese Orientation/consciousness: patient oriented x3 Limitations: no limitations HEENT Head: Yes normal to inspection, Yes normocephalic and Yes atraumatic Ears: hearing grossly normal bilaterally and external ears normal Eyes General: appearance normal, both eyes and all related structures Eyelids: Yes eyelids normal Sclerae: sclerae normal EOM: EOMs intact bilaterally Neck Neck: Yes normal visual inspection and Yes no lymphadenopathy Lymphatic: no lymphadenopathy noted Chest Chest palpation & inspection: normal inspection of the chest Resp Effort & Inspection: normal respiratory effort, able to speak in complete sentences, no audible wheezes, no cough, no stridor, not tachypneic, no tripod positioning and no use of accessory muscles Auscultation: clear to auscultation bilaterally Cardio Jugular venous distension: no JVD Rate: regular rate Rhythm: regular rhythm Skin Other: warm, dry General skin exam: no rashes or lesions noted Neuro General: patient oriented x3 Cranial nerves: Yes Normal hearing present Cognition (Neuro): normal cognition Gait exam (Neuro): Normal gait present Extrem General: Yes normal to inspection, Yes capillary refill normal, Yes no clubbing, cyanosis or edema and Yes no pedal edema Psych Appearance: grossly normal and well kempt Speech and movement: Normal speech and movement present and Clear speech present Affect: normal affect Attitude: cooperative Thought process: Normal thought process present Thought content: Normal thought content present Insight: Good insight present (Psych) Judgement: Good judgement present (Psych) Results Reviewed Results Reviewed: [address] [address] [address] Scan Report Signed Patient: Rommel Narvaez MR#: [id number] : 1955 Acct:[id number] Age/Sex: 68 / M ADM Date: 06/03/24 Loc: HO.CT Attending Dr: Coni Alvarado NP Ordering Physician: Coni Alvarado NP Date of Service: 06/03/24 Procedure(s): CT chest wo IV con Accession Number(s): [id number] cc: Yoli Ruiz CUSTOMER RELATIONS ASSISTANT; Coni Alvarado NP~ Report Number: [id number]: Total DLP = 221.00 mGy-cm CLINICAL HISTORY: R05.9 - Cough, unspecified CT chest without contrast Comparison: 01/23/2024 Findings: The heart size is normal. Moderate Atherosclerosis calcification of the coronary artery. The visualized thyroid and mediastinum are unremarkable. Mild atelectasis of the bilateral lung base. Small opacity of the left lower lobe series 4, image 35. No pleural effusion. The upper abdomen is unremarkable. No acute fractures. IMPRESSION: Small opacity of the left lower lobe could represent atelectatic change or infection. CT chest follow-up as indicated to confirm resolution. This document has been electronically signed by: Ingrid Huerta MD on 06/04/2024 07:23:58 Dictated By: Ingrid Huerta MD Signed By: <Electronically signed by Ingrid Huerta MD in OV> 06/04/24 0724 DD/ 2 TD/TT: 06/04/24722 Sheriffs: Assessment & Plan Assessment & Plan (1) Dyspnea: Code(s): R06.00 - Dyspnea, unspecified Category: Medical (2) Cough: Code(s): R05.9 - Cough, unspecified Category: Medical (3) Personal history of tobacco use: Code(s): Z87.891 - Personal history of nicotine dependence Category: Social Hx Plan Reviewed chest CT which revealed moderate atherosclerosis calcification of the coronary artery and recently underwent nuclear stress test on 06/18. He has not reviewed results with cardiology yet. There was also note of LLL opacity with associated atelectasis and evidence of small airways disease. He was treated for PNA by PCP and reports improvements in chest congestion, willl repeat chest CT in 8 weeks to assess for resolution. Reviewed PFT which revealed moderate restrictive ventilatory defect with no bronchodilator response. Decreased expiratory reserve volume suggests extrathoracic restriction likely secondary to abdominal obesity. Discussed importance of weight loss. There was bronchodilator response in small to medium airways only. DLCO normal. Will empirically trial Advair. Discussed importance of good oral hygiene to prevent thrush. All questions were answered and patient is in agreement of plan. Will follow up in 8-10 weeks or sooner if needed. Orders: Orders CT chest wo IV con 8 Weeks R91.8 - Other nonspecific abnormal finding of lung field, Z87.01 - Personal history of pneumonia (recurrent) Medications: New fluticasone propion-salmeterol 115-21 mcg/actuation (Advair HFA) 2 puffs inhalation Q12H 12 grams 3RF Coding Level of Care Code Est Pt Level 4 (02363) Diagnoses Dyspnea R06.00 Cough R05.9 Personal history of tobacco use Z87.891
[2024-06-22 09:05] VITALS: BP 142/70; PULSE 63; O2SAT 97; BMI 35.2
--- OUTSIDE RECORDS SUMMARY | 2024-06-22 09:15 | XMS_ITS | Encounter Summary ---
Author Organization [employer] Address [address] [place] [address] Care Team Providers Care Pci Security Consultant Name Role Phone Yoli Ruiz Primary Care Provider [phone] Encounter Details Date Type Department Care Team (Latest Contact Info) Description 08/20/2018 Abstract [facility] CONVERSIONS Dental, Provider, DDS Social History Tobacco Use Types Packs/Day Years Used Date Smoking Tobacco: Never Assessed Sex and Gender Information Value Date Recorded Sex Assigned at Male 03/19/2022 10:15 AM EDT Legal Sex Male 10:15 AM EDT Gender Identity Male 03/19/2022 10:15 AM EDT Sexual Orientation Straight 10/24/2022 8: 12 AM EDT documented as of this encounter Plan of Treatment Upcoming Encounters Date Type Department Care Team (Late st Contact Info) Description 08/05/2024 9:00 AM EDT Clinical Support [facility] MED & PEDS [address] [place] [address] Qunyh Walker, RN [address] [place] [address] documented as of this encounter Visit Diagnoses Not on filedocumented in this encounter Care Teams Pci Security Consultant Relationship Specialty Start Date End Date Yoli Ruiz FNP [address] [place] [address] PCP - General Family Medicine 03/13/21 documented as of this encounter
--- OUTSIDE RECORDS SUMMARY | 2024-06-22 09:15 | XMS_ITS | Clinical Summary ---
Author Organization [facility] Address [address] [facility] [address] [facility] [address] [place] [address] Phone Care Team Providers Care Watch Case Polisher Name Role Phone Yoli Ruiz STEPHEN Primary Care Provider [phone] Allergies Active Allergy Reactions Criticality Noted Date Comments Atorvastatin Other (see comments) 12/21/2020 Rosuvastatin Other (see comments) 12/21/2020 Medications Insulin Lispro, 1 Unit Dial, 100 UNIT/ML solution pen-injector Active Aspirin Low Dose 81 MG EC tablet Take 81 mg by mouth 1 (one) time each day 10/31/2020 Active famotidine (PEPCID) 20 MG tablet Take 20 mg by mouth 1 (one) time each day 11/07/2020 Active hydroCHLOROthia zide 25 MG tablet Take 25 mg by mouth 1 (one) time each day 12/06/2020 Active metoprolol tartrate (LOPRESSOR) 50 MG tablet Take 50 mg by mouth 2 (two) times a day 09/26/2011 Active mirtazapine (REMERON) 30 MG tablet Take 30 mg by mouth 1 (one) time each day 11/29/2020 Active gabapentin (NEURONTIN) 300 MG capsule Take 300 mg by mouth 1 (one) time each day Active Tresiba FlexTouch 200 UNIT/ML injection 09/15/2020 Active Dulaglutide (Trulicity) 1.5 MG/0.5ML solution pen-injector Inject 1 pre-filled pen syringe under the skin 1 (one) time each day Active metFORMIN (GLUCOPHAGE) 500 MG tablet Take 1,000 mg by mouth 2 (two) times a day with meals Active oxyCODONE-aceta minophen (PERCOCET) 5-325 MG per tablet Take 1 tablet by mouth every 8 (eight) hours if needed for moderate pain Active Febuxostat (ULORIC) 40 MG tablet Take 40 mg by mouth 1 (one) time each day Active losartan (COZAAR) 50 MG tabletIndicatio ns:Stage 3a chronic kidney disease (HCC) Take 1 tablet (50 mg total) by mouth 1 (one) time each day 30 tablet 1 07/24/2021 Active Creon 64848-62814 units capsule 12/27/2021 Activ e Testosterone (AndroGel Pump) 20.25 MG/ACT (1.62%) gel Place on the skin Active Repatha 140 MG/ML solution prefilled syringe Inject 140 mg under the skin 09/12/2023 Active Vibegron (Gemtesa) 75 MG tablet Take by mouth Active Active Problems Problem Noted Date Diagnosed Date 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 Pt in agreement with plan. Last Assessment & Plan: -Pt with initial BG 56 in office, said had not yet eaten lunch. Symptomatic: dry mouth. No sweating, dizziness, blurry vision, abd discomfort -Brought candies from home, consumed in office and reported resolution of symptoms -Did not have time for BG recheck, but reports will check as soon as he gets home. ED precautions reviewed Seizure disorder 06/19/2021 Polycythemia vera 06/19/2021 Migraine 03/21/2021 Chronic kidney disease stage 2 12/21/2020 Edema 12/21/2020 Hypertensive heart disease without heart failure 12/21/2020 Hypertensive renal disease 12/21/2020 Renal disorder due to type 2 diabetes mellitus 0 12/21/2020 Stage 3a chronic kidney disease 12/21/2020 Renal mass 08/06/2018 Insomnia 12/17/2014 Polymyositis 05/01/2012 Depressive disorder 02/22/2012 Male hypogonadism 02/22/2012 Gastroesophageal reflux disease 11/29/2011 Gout 11/29/2011 Left ventricular hypertrophy 11/29/2011 Osteoarthritis of hip 11/29/2011 Hyperlipidemia 11/13/2011 Hypertension 11/13/2011 Obstructive sleep apnea syndrome 11/13/2011 Overview (11/14/2022): -History of DENTON, completed sleep study in facility on 09/25/21 -Impression: mild to moderate degree of sleep apnea, loud snoring with increased severity in REM. The total AHI was 13/hr REM Ahi was 30/hr and oxygen rufus was 78% -Recommendation - Start pt on AutoPAP 5-20cm of water -Pt has been using machine with old supplies, and reports improvement in sleep quality and improvement in energy level and daily functioning when using CPAP Last Assessment & Plan: -Pt benefiting from use of CPAP and should continue with therapy Immunizations Name Administration Dates Next Due Influenza Split 02/10/2013,02/22/2012 Influenza Split High Dose Pr eservative Free IM 07/08/2019,01/26/2019 Influenza Vaccine, Quadrival ent, Adjuvanted 01/27/2020 Influenza, Quadrivalent, Pre servative Free 01/25/2018,03/21/2017,07/26/2016,01/17,01/21/2015 Influenza, Unspecified 01/29/2022,2021,03/05/2014,02/16 Moderna SARS-COV-2 05/29/2022 Pneumococcal Conjugate Pcv 20 12/20/2021 Pneumococcal Polysaccharide 09/16/2014 Shingrix 12/20/2021 Td 09/21/2004 Tdap 07/26/2016 Zoster 09/16/2014 Social History Tobacco Use Types Packs/Day Years Used Date Smoking Tobacco: Never Smokeless Tobacco: Never Alcohol Use Standard Drinks/Week Comments Never 0 (1 standard drink = 0.6 oz pur e alcohol) Sex and Gender Information Value Date Recorded Sex Assigned at Not on file Legal Sex Male 5:03 PM EST Gender Identity Not on file Sexual Orientation Not on file Last Filed Vital Signs Vital Sign Reading Time Taken Comments Blood Pressure 134/62 11/13/2023 1:57 PM EDT Pulse 84 11/13/2023 1:57 PM EDT Temperature - - Respiratory Rate - - Oxygen Saturation 96% 11/13/2023 1:57 PM EDT Inhaled Oxygen Concentration - - Weight 104 kg (228 lb 9.6 oz) 11/13/2023 1:57 PM EDT Height - - Body Mass Index - - Plan of Treatment Upcoming Encounters Date Type Department Care Team (Late st Contact Info) Description 08/12/2024 1:45 PM EDT Office Visit [facility] [address] [address] Nikita Peguero MD [address] [address] Health Maintenance Due Date Last Done Comments Colorectal Cancer Screening: Annual FOBT 2002 Colorectal Cancer Screening: Colonoscopy 2002 Colorectal Cancer Screening: Sigmoidoscopy 2002 Hepatitis B Vaccine (1 of 3 - Risk 3-dose series) 2013 Diabetes: Ophthalmology Exam 06/19/2020 Diabetes: Pedal Pulse Checked 06/19/2020 Diabetes: Sensory Foot Exam 06/19/2020 Diabetes: Visual Foot Exam 06/19/2020 Influenza Vaccine (#1) 2024 2, 07/26/2021, 01/27/2020, Additional history exists Diabetes: Hemoglobin A1C 01/21/2024 10/21/2023, 06/20 Pneumococcal Vaccine: 65+ Years Completed 2, 09/16/2014 Insurance [facility] ([id number]) [facility] ([id number]) Care Teams Watch Case Polisher Relationship Specialty Start Date End Date Yoli Ruiz FNP [address] [place], [place] [phone] PCP - General 11/13/23
--- OUTSIDE RECORDS SUMMARY | 2024-06-22 09:15 | XMS_ITS | Encounter Summary ---
Author Organization [facility] [employer] [facility] [employer] Address [address] [facility] [address] [place] [address] Care Team Providers Care Director Of Neighborhood Service Center Name Role Phone Yoli Ruiz Primary Care Provider [phone] Encounter Details Date Type Department Care Team (Late st Contact Info) Description 09/24/2022 Orders Only [facility] MED & PEDS [address] [place] [address] Alessandra Alcala LPN Social History Tobacco Use Types Packs/Day Years [...] Orientation Straight 10/24/2022 8: 12 AM EDT COVID-19 Exposure Response Date Recorded In the last 10 days, have yo u been in contact with someone who was confirmed or suspected to have Coronavirus/COVID-19? No / Unsure 09/27/2022 9:42 AM EDT documented as of this encounter Plan of Treatment Upcoming Encounters Date Type Department Care Team (Late st Contact Info) Description 08/05/2024 9:00 AM EDT Clinical Support [facility] MED & PEDS [address] [place] [address] Quynh Walker, NASRIN [address] [place] [address] documented as of this encounter Visit Diagnoses Not on filedocumented in this encounter Care Teams Director Of Neighborhood Service Center Relationship Specialty Start Date End Date Yoli Ruiz FNP [address] [place] [address] PCP - General Family Medicine 03/13/21 documented as of this encounter
--- OUTSIDE RECORDS SUMMARY | 2024-06-22 09:15 | XMS_ITS | Encounter Summary ---
Author Organization [employer] Address [address] [facility] [place] [address] Care Team Providers Care Materials Tech Name Role Phone Yoli Ruiz STEPHEN Primary Care Provider [phone] Encounter Details Date Type Department Care Team ([facility] st Contact Info) Description 04/05/[address] [facility] MEDICINE [address] [place], [place] [id number] Mis Boyd Social History Tobacco Use Types Packs/Day Years Used Date Smoking Tobacco: Some Days Cigarettes Passive Smoke Exposure: Never Smokeless Tobacco: Never Alcohol Use Standard Drinks/Week Comments Never 0 (1 standard drink = 0.6 oz pur e alcohol) Housing Stability Answer Date Recorded What is your housing situation today? I have sada kraus 03/11/[address] you li ve. Do you have problems with any of the following? None of the above 03/11/2023 Food Insecurity Answer Date Recorded Within the past 12 months, y ou worried that your food would run out before you got money to buy more: Never True 03/11/2023 Within the past 12 months,th e food you bought just didn't last and you didn't have enough money to get more: Never True Transportation Answer Date Recorded In the past 12 months, has l ack of transportation kept you from medical appts, meetings, work or from getting things needed for daily living? No 03/11/2023 Utilities Answer Date Recorded In the past 12 months, has t he electric, gas, oil or water company threatened to shut off services in your home? No 03/11/2023 Sex and Gender Information Value Date Recorded Sex Assigned at Male 03/19/2022 10:15 AM EDT Legal Sex Male 10:15 AM EDT Gender Identity Male 03/19/2022 10:15 AM EDT Sexual Orientation Straight 10/24/2022 8: 12 AM EDT documented as of this encounter Plan of Treatment Upcoming Encounters Date Type Department Care Team ([facility] st Contact Info) Description 08/05/2024 9:00 AM EDT Clinical Support [facility] MED & PEDS [address] [place] [address] Quynh Walker, RN [address] [place] [address] documented as of this encounter Procedures Procedure Name Priority Date/Time Associated Diagnosis Comments COLONOSCOPY Routine 03/01/2022 documented in this encounter Results * Hm Colonoscopy (03/01/2022) Colonoscopy Normal Normal Narrative Mis Boyd - 03/01/2022 Repeat in 10 years Historical Provider HEALTH MAINTENANCE Final Result documented in this encounter Visit Diagnoses Not on filedocumented in this encounter Care Teams Materials Tech Relationship Specialty Start Date End Date Yoli Ruiz FNP [address] [place] [address] PCP - General Family Medicine 03/13/21 documented as of this encounter
--- OUTSIDE RECORDS SUMMARY | 2024-06-22 09:15 | XMS_ITS | Encounter Summary ---
Author Organization [employer] Address [address] 7t [place] [address] Care Team Providers Care Furniture Packer Name Role Phone Yoli Ruiz Primary Care Provider [phone] Reason for Visit * Reason Onset Date Comments Med Refill 01/15/2024 Encounter Details Date Type Department Care Team (Late st Contact Info) Description 01/15/2024 Telephone [facility] MEDICINE [address] [place] [address] Yoli Ruiz FNP [address] [place] [address] Med Refill Social History Tobacco Use Types Packs/Day Years Used Date Smoking Tobacco: Former Cigarettes Passive Smoke Exposure: Never Smokeless Tobacco: Never Alcohol Use Standard Drinks/Week Comments Never 0 (1 standard drink = 0.6 oz pur e alcohol) Depression Answer Date Recorded Patient Health Questionnaire-9 Score 3 06/23/2023 Patient Health Questionnaire-9 Score 3 06/23/2023 Last PHQ-9: Questionnaire Data Not on file 0 06/23/2023 Housing Stability Answer Date Recorded What is [...] off services in your home? No 03/11/2023 Depression Answer Date Recorded Patient Health Questionnaire-2 Score 0 06/23/2023 Sex and Gender Information Value Date Recorded Sex Assigned at Male 03/19/2022 10:15 AM EDT Legal Sex Male 10:15 AM EDT Gender Identity Male 03/19/2022 10:15 AM EDT Sexual Orientation Straight 10/24/2022 8: 12 AM EDT documented as of this encounter Miscellaneous Notes * Telephone Encounter - Elroy Dykes - 01/15/2024 8:36 AM EDT TC from pt requesting medication refill. Medications needing refill : oxyCODONE-acetaminophen (Percocet) 5-325 MG tablet To be sent to: [facility]/pharmacy #[id number] MANDA REYES - [address] [facility] documented in this encounter Plan of Treatment Upcoming Encounters Date Type Department Care Team (Late st Contact Info) Description 08/05/2024 9:00 AM EDT Clinical Support [facility] MED & PEDS 505 [place] [address] Quynh Walker, RN 505 [place] [address] documented as of this encounter Visit Diagnoses Not on filedocumented in this encounter Additional Health Concerns Assessment Noted Time PHQ-9 Depression Total Score: 3 06/23/19 24 9:53 AM EST documented as of this encounter Care Teams Furniture Packer Relationship Specialty Start Date End Date Yoli Ruiz FNP [address] [place] [address] PCP - General Family Medicine 03/13/21 documented as of this encounter
--- OUTSIDE RECORDS SUMMARY | 2024-06-22 09:15 | XMS_ITS | Encounter Summary ---
Author Organization [employer] Address [address] 7t [place] [address] Care Team Providers Care Education Trainer Name Role Phone Yoli Ruiz Primary Care Provider [phone] Reason for Visit * Reason Onset Date Comments Med Refill 06/29/2022 Encounter Details Date Type Department Care Team (Late st Contact Info) Description 06/29/2022 Telephone [facility] MEDICINE [address] [place] [address] Yoli Ruiz FNP [address] [place] [address] Med Refill Social History Tobacco Use Types Packs/Day Years Used Date Smoking Tobacco: Never Assessed Depression Answer Date Recorded Patient Health Questionnaire-9 Score 3 06/23/2023 Patient Health Questionnaire-9 Score 3 06/23/2023 Last PHQ-9: Questionnaire Data Not on file 0 06/23/2023 Housing Stability Answer Date Recorded What is your housing situation today? Not on scotty e 03/27/[address] you li ve. Do you have problems with any of the following? None of the above 03/27/2024 Food Insecurity Answer Date Recorded Within the past 12 months, y ou worried that your food would run out before you got money to buy more: Never True 03/27/2024 Within the past 12 months,th e food you bought just didn't last and you didn't have enough money to get more: Never True 12/2023 Transportation Answer Date Recorded In the past 12 months, has l ack of transportation kept you from medical appts, meetings, work or from getting things needed for daily living? No 03/27/2024 Utilities Answer Date Recorded In the past 12 months, has t he electric, gas, oil or water company threatened to shut off services in your home? No 03/27/2024 Depression Answer Date Recorded Patient Health Questionnaire-2 Score 0 06/23/2023 Internet Access Answer Date Recorded Internet Access Q1 Yes 03/27/2024 Internet Access Q2 Not on file 03/27/2024 Sex and Gender Information Value Date Recorded [...] suspected to have Coronavirus/COVID-19? No / Unsure 11/26/2022 7:51 AM EDT documented as of this encounter Miscellaneous Notes * Telephone Encounter - Greta Parks - 06/29/2022 8:37 AM EST Tc from pt requesting a med refill on oxycodone 5 mg Please contact at [phone] documented in this encounter Plan of Treatment Upcoming Encounters Date Type Department Care Team ([facility] st Contact Info) Description 08/05/2024 9:00 AM EDT Clinical Support [facility] MED & PEDS [address] [place] [address] Quynh Walker RN 505 [place] [address] documented as of this encounter Visit Diagnoses Not on filedocumented in this encounter Care Teams Education Trainer Relationship Specialty Start Date End Date Yoli Ruiz FNP 230 [place] [address] PCP - General Family Medicine 03/13/21 documented as of this encounter
--- OUTSIDE RECORDS SUMMARY | 2024-06-22 09:15 | XMS_ITS | Encounter Summary ---
Author Organization [employer] Address [address] 7t [place] [address] Care Team Providers Care Deflector Operator Name Role Phone Yoli Ruiz Primary Care Provider [phone] Reason for Visit * Reason Onset Date Comments Med Refill 02/13/2024 Encounter Details Date Type Department Care Team (Late st Contact Info) Description 02/13/2024 Telephone [facility] MEDICINE [address] [place] [address] Yoli Ruiz FNP [address] [place] [address] Med Refill Social History Tobacco Use Types [...] * Telephone Encounter - Greta Parks - 02/13/2024 8:33 AM EDT Tc from pt requesting a refill for oxyCODONE-acetaminophen (Percocet) 5-325 MG tablet documented in this encounter Plan of Treatment Upcoming Encounters Date Type Department Care Team (Late st Contact Info) Description 08/05/2024 9:00 AM EDT Clinical Support [facility] MED & PEDS 505 [place] [address] Quynh Walker, RN 505 [place] [address] documented as of this encounter Visit Diagnoses Not on filedocumented in this encounter Additional Health Concerns Assessment Noted Time PHQ-9 Depression Total Score: 3 06/23/19 24 9:53 AM EST documented as of this encounter Care Teams Deflector Operator Relationship Specialty Start Date End Date Yoli Ruiz FNP [address] [place] [address] PCP - General Family Medicine 03/13/21 documented as of this encounter
--- OUTSIDE RECORDS SUMMARY | 2024-06-22 09:15 | XMS_ITS | Encounter Summary ---
Author Organization [employer] Address [address] 7t [place] [address] Care Team Providers Care Blunger Loader Name Role Phone Yoli Ruiz Primary Care Provider [phone] Reason for Visit * Reason Onset Date Comments FYI 05/14/2023 Encounter Details Date Type Department Care Team ([facility] st Contact Info) Description 05/14/2023 Telephone [facility] MEDICINE [address] [place] [address] Yoli Ruiz FNP [address] [place], [place] [phone] FYI Social History Tobacco Use Types Packs/Day Years [...] encounter Miscellaneous Notes * Telephone Encounter - Carmelina Salas RN - 05/14/2023 11:14 AM EST Returned call to [facility] pharmacy regarding message below. Informed pharmacist to add note to pt chart regarding intolerance to statins as well as documented allergy. Tin verbalized understanding and agrees with plan. * Telephone Encounter - STEPHEN Sommers - 05/14/2023 10:57 AM EST Similar message received from [facility] in Mar 2022: Tc from [facility] with [facility] requesting pcp to review chart to see if provider recommends statin therapy to prevent ASCVD. If you have any questions please contact [phone] EXT [phone] 03/29/2022 1:28 PM Yoli Ruiz Communication: Urgency:when available. Comment: Please inform [facility] that patient has a history of intolerance to statin listed in Cardiology consult notes, as well as allergy to atorvastatin and rosuvastatin listed in our records. History of elevated CPK in labs. Thank you. Please review information above with pharmacist so that they may add to patient's record. Thank you. * Telephone Encounter - Greta Parks - 05/14/2023 9:38 AM EST Tc from Tin clinical pharmacist from [facility] would like to inform PCP that through ADA guidelines since pt has diabetes they should be on a monitoring statins. Advised will leave message as a FYI Please contact at [phone] EXT [phone] documented in this encounter Plan of Treatment Upcoming Encounters Date Type Department Care Team ([facility] st Contact Info) Description 08/05/2024 9:00 AM EDT Clinical Support [facility] MED & PEDS [address] [place] [address] Quynh Walker, RN [address] [place] [address] documented as of this encounter Visit Diagnoses Not on filedocumented in this encounter Care Teams Blunger Loader Relationship Specialty Start Date End Date Yoli Ruiz FNP [address] [place] [address] PCP - General Family Medicine 03/13/21 documented as of this encounter
--- OUTSIDE RECORDS SUMMARY | 2024-06-22 09:15 | XMS_ITS | Encounter Summary ---
Author Organization [employer] Address [address] [facility] 7t [place] [address] Care Team Providers Care Soubrette Name Role Phone Yoil Ruiz STEPHEN Primary Care Provider [phone] Reason for Visit * Reason Comments Med Refill Encounter Details Date Type Department Care Team ([facility] Contact Info) Description 10/19/[address] [facility] MEDICINE 230 [place], [place] [phone] Name, MD Jam 230 [place] [address] Chronic pain syndrome Social History Tobacco Use Types Packs/Day Years Used Date Smoking Tobacco: Some Days Cigarettes Smokeless Tobacco: Never Alcohol Use Standard Drinks/Week [...] suspected to have Coronavirus/COVID-19? No / Unsure 10/11/2022 8:45 AM EDT documented as of this encounter Plan of Treatment Upcoming Encounters Date Type Department Care Team ([facility] Contact Info) Description 08/05/2024 9:00 AM EDT Clinical Support [facility] CHC MED & PEDS 505 [place], [place] [phone] Quynh Walker RN 505 [place] [address] documented as of this encounter Visit Diagnoses Diagnosis Chronic pain syndrome documented in this encounter Care Teams Soubrette Relationship Specialty Start Date End Date [place] [address] PCP - General Family Medicine 03/13/21 documented as of this encounter
--- OUTSIDE RECORDS SUMMARY | 2024-06-22 09:15 | XMS_ITS | Encounter Summary ---
Author Organization [employer] Address [address] [facility] 7t [place] [address] Care Team Providers Care Telecommunications Cable Jointer Name Role Phone Yoli Ruiz Primary Care Provider [phone] Reason for Visit * Reason Onset Date Comments Med Refill 06/05/2024 Encounter Details Date Type Department Care Team ([facility] st Contact Info) Description 06/05/2024 Refill [facility] CH[facility] MED & PEDS 505 [place] [address] Yoli Ruiz FNP [address] [place] [address] Chronic pain syndrome; Long-term current use of opiate analgesic; Osteoarthritis of hip, unspecified laterality, unspecified osteoarthritis type; Lumbar spondylosis Social History Tobacco Use Types Packs/Day Years [...] encounter Miscellaneous Notes * Telephone Encounter - Kirsten Stoddard - 06/05/2024 8:36 AM EST TC from pt requesting medication refill. Medications needing refill : oxyCODONE-acetaminophen (Percocet) 5-325 MG tablet To be sent to: [facility]/pharmacy #[id number] MANDA REYES - [address] [facility] documented in this encounter Plan of Treatment Upcoming Encounters Date Type Department Care Team ([facility] Contact Info) Description 08/05/2024 9:00 AM EDT Clinical Support [facility] CH[facility] MED & PEDS [address] [facility] [place] [address] Quynh Walker, NASRIN 505 [place] [address] documented as of this encounter Visit Diagnoses Diagnosis Chronic pain syndrome Long-term current use of opiate analgesic Encounter for long-term (current) use of other medications Osteoarthritis of hip, unspecified laterality, unspecified osteoarthritis type Lumbar spondylosis Lumbosacral spondylosis without myelopathy documented in this encounter Additional Health Concerns Assessment Noted Time PHQ-9 Depression Total Score: 3 06/23/19 24 9:53 AM EST documented as of this encounter Care Teams Telecommunications Cable Jointer Relationship Specialty Start Date End Date Yoli Ruiz FNP 230 [place] [address] PCP - General Family Medicine 03/13/21 documented as of this encounter
--- OUTSIDE RECORDS SUMMARY | 2024-06-22 09:15 | XMS_ITS | Encounter Summary ---
Author Organization [employer] Address [address] 7t [place] [address] Care Team Providers Care Nursing Assoc Name Role Phone Yoli Ruiz Primary Care Provider [phone] Reason for Visit * Reason Onset Date Comments Med Refill 03/28/2023 Encounter Details Date Type Department Care Team (Late st Contact Info) Description 03/28/2023 Telephone [facility] MEDICINE 230 [place] [address] Yoli Ruiz FNP [address] [place] [address] Med Refill Social History Tobacco Use Types [...] encounter Miscellaneous Notes * Telephone Encounter - Katarzyna Kelley - 03/28/2023 8:32 AM EST Tc from pt requesting med refill on; oxyCODONE-acetaminophen (Percocet) 5-325 MG tablet [facility]/pharmacy #[id number] MANDA REYES - [address] [facility] documented in this encounter Plan of Treatment Upcoming Encounters Date Type Department Care Team (Late st Contact Info) Description 08/05/2024 9:00 AM EDT Clinical Support [facility] MED & PEDS 505 [place] [address] Quynh Walker, RN 505 [place] [address] documented as of this encounter Visit Diagnoses Not on filedocumented in this encounter Care Teams Nursing Assoc Relationship Specialty Start Date End Date Yoli Ruiz FNP 230 [place] [address] PCP - General Family Medicine 03/13/21 documented as of this encounter
--- OUTSIDE RECORDS SUMMARY | 2024-06-22 09:15 | XMS_ITS | Encounter Summary ---
Author Organization [facility] Address [address] [place] [address] 7t [place] [address] Care Team Providers Care Head Filter Press Tender Name Role Phone Yoli Ruiz Primary Care Provider [phone] Encounter Details Date Type Department Care Team (Late Contact Info) Description 08/13/2022 Orders Only [facility] MED & PEDS [address] [place] [address] Alessandra Alcala LPN Social History Tobacco Use [...] Description 08/05/2024 9:00 AM EDT Clinical Support [facility] MED & PEDS 505 [place] [address] Quynh Walker, RN 505 [place] [address] documented as of this encounter Visit Diagnoses Not on filedocumented in this encounter Care Teams Head Filter Press Tender Relationship Specialty Start Date End Date Yoli Ruiz FNP [address] [place] [address] PCP - General Family Medicine 03/13/21 documented as of this encounter
--- OUTSIDE RECORDS SUMMARY | 2024-06-22 09:15 | XMS_ITS | Encounter Summary ---
Author Organization [facility] Address [address] [facility] [address] [place] [address] Phone Care Team Providers Care Site Administrator Name Role Phone Yoli Ruiz MANAGER SHIPPING Primary Care Provider [phone] Encounter Details Date Type Department Care Team (Late st Contact Info) Description 07/24/2021 Telephone [facility] [address] [facility] [address] [place] [address] Nikita Peguero MD [address] [address] Social History Tobacco Use Types Packs/Day Years Used Date Smoking Tobacco: Never Smokeless Tobacco: Never Alcohol Use Standard Drinks/Week Comments Never 0 (1 standard drink = 0.6 oz pur e alcohol) Sex and Gender Information Value Date Recorded Sex Assigned at Not on file Legal Sex Male 5:03 PM EST Gender Identity Not on file Sexual Orientation Not on file documented as of this encounter Miscellaneous Notes * Telephone Encounter - Kim Mendez - 07/24/2021 11:40 AM EST Pt called he needs a refill for losartan. Please send to [facility] on [facility] in [place]. Thank you documented in this encounter Plan of Treatment Upcoming Encounters Date Type Department Care Team (Late st Contact Info) Description 08/12/2024 1:45 PM EDT Office Visit [facility] [address] [facility] [address] [place] [address] [place] [address] [address] documented as of this encounter Visit Diagnoses Not on filedocumented in this encounter Care Teams Site Administrator Relationship Specialty Start Date End Date Yoli Ruiz FNP [address] [place] [address] PCP - General 11/13/23 documented as of this encounter
--- OUTSIDE RECORDS SUMMARY | 2024-06-22 09:15 | XMS_ITS | Encounter Summary ---
Author Organization [employer] Address [address] 7t [place] [address] Care Team Providers Care Missionary Coordinator Name Role Phone Yoli Ruiz Primary Care Provider Encounter Details Date Type Department Care Team (Late Contact Info) Description 11/28/2022 Orders Only [facility] MEDICINE [address] [place], [place] [phone] Yoli Ruiz FNP 505 [place], [place] [phone] Social History Tobacco Use Types Packs/Day Years [...] Encounters Date Type Department Care Team (Late Contact Info) Description 08/05/2024 9:00 AM EDT Clinical Support [facility] CH[facility] MED & PEDS 505 [place], [place] [phone] Quynh Walker, RN [address] [place], [place] [phone] documented as of this encounter Visit Diagnoses Not on filedocumented in this encounter Care Teams Missionary Coordinator Relationship Specialty Start Date End Date Yoli Ruiz FNP [address] [place] [address] PCP - General Family Medicine 03/13/21 documented as of this encounter
--- OUTSIDE RECORDS SUMMARY | 2024-06-22 09:15 | XMS_ITS | Encounter Summary ---
Author Organization [employer] Address [address] 7t [place] [address] Care Team Providers Care Ammonia Still Operator Name Role Phone Yoli Esteban Primary Care Provider [phone] Reason for Visit * Reason Onset Date Comments Walk-In 06/04/2024 Encounter Details Date Type Department Care Team ([facility] st Contact Info) Description 06/04/2024 Telephone [facility] MED & PEDS [address] [place] [address] Yoli Esteban FNP 505 [place] [address] Walk-In Social History Tobacco Use Types Packs/Day Years [...] encounter Miscellaneous Notes * Telephone Encounter - Dinorah Mayo RN - 06/04/2024 12:04 PM EST TC to patient to let patient know medication was sent to [facility] pharmacy. Pt stated understanding. * Addendum Note - STEPHEN Sommers - 06/04/2024 11:43 AM ESTAddended by: YOLI ESTEBAN on: 06/04/2024 11:43 AM Modules accepted: Orders * Telephone Encounter - STEPHEN Sommers - 06/04/2024 11:[address] scan reviewed. Augmentin twice daily x 7 days sent to the [facility] pharmacy. Please call to let Mr. Narvaez know and to follow-up with any concerning symptoms. Thank you!! * Telephone Encounter - Abhishek Whitney RN - 06/04/2024 10:39 AM EST Spoke with patient who state that he completed a CT of the chest yesterday that was ordered by Marcelle Alvarado NP from [facility]. Patient had a visit this morning with Dr. Davis (Hem/Onc) whoinformed patient of results and suggested to him to follow up with ordering provider Marcelle for possible treatment due to his medical conditions. Patient went to the ordering provider's office and spoke with the company secretary who sent the message to the provider but Marcelle only works at that officeonly on Saturday according to patient. Patient then came here since ordering provider is not responding and is requesting if PCP can prescribe the antibiotic. Pt reported mild REDD and cough yesterday. RN offered to schedule an appointment today, pt declined and would like message to be sent to PCP. CTchest report in the chart, please review and advise nurse's. Thanks. * Telephone Encounter - Maulikdarlene Raman - 06/04/2024 9:45 AM EST Pt walked in stating he was seen at [facility] -seeing cancer specialist who stated during -CT scan saw that pt may be on the verge of starting pneumonia. Pt is here sitting in the far back by window area. documented in this encounter Plan of Treatment Upcoming Encounters Date Type Department Care Team (Late st Contact Info) Description 08/05/2024 9:00 AM EDT Clinical Support [facility] MED & PEDS [address] [place] [address] Quynh Walker, NASRIN 505 [place] [address] documented as of this encounter Visit Diagnoses Not on filedocumented in this encounter Additional Health Concerns Assessment Noted Time PHQ-9 Depression Total Score: 3 06/23/19 24 9:53 AM EST documented as of this encounter Care Teams Ammonia Still Operator Relationship Specialty Start Date End Date Yoli Esteban FNP 230 [place] [address] PCP - General Family Medicine 03/13/21 documented as of this encounter
--- OUTSIDE RECORDS SUMMARY | 2024-06-22 09:15 | XMS_ITS | Encounter Summary ---
Author Organization [employer] Address [address] 7[address] [place] [address] Care Team Providers Care Padding Machine Operator Name Role Phone Yoli Ruiz Primary Care Provider [phone] Reason for Visit * Reason Onset Date Comments Med Refill 11/27/2023 Encounter Details Date Type Department Care Team (Late st Contact Info) Description 11/27/2023 Telephone [facility] MEDICINE [address] [place] [address] Yoli Ruiz FNP [address] [place] [address] Med Refill Social History Tobacco Use Types [...] * Telephone Encounter - Katarzyna Kelley - 11/27/2023 8:30 AM EDT TC from pt requesting medication refill. Medications needing refill : oxyCODONE-acetaminophen (Percocet) 5-325 MG tablet To be sent to: [facility]/pharmacy #[id number] MANDA REYES - [address] [facility] documented in this encounter Plan of Treatment Upcoming Encounters Date Type Department Care Team (Late st Contact Info) Description 08/05/2024 9:00 AM EDT Clinical Support [facility] MED & PEDS 505 [place] [address] Quynh Walker, RN 505 [place] [address] documented as of this encounter Visit Diagnoses Not on filedocumented in this encounter Additional Health Concerns Assessment Noted Time PHQ-9 Depression Total Score: 3 06/23/19 24 9:53 AM EST documented as of this encounter Care Teams Padding Machine Operator Relationship Specialty Start Date End Date Yoli Ruiz FNP [address] [place] [address] PCP - General Family Medicine 03/13/21 documented as of this encounter
--- OUTSIDE RECORDS SUMMARY | 2024-06-22 09:15 | XMS_ITS | Encounter Summary ---
Author Organization [email or web address] Address [address] [place] [address] Care Team Providers Care Marble Polisher Hand Name Role Phone Yoli Ruiz STEPHEN Primary Care Provider [phone] Encounter Details Date Type Department Care Team (Late st Contact Info) Description 06/03/2024 Orders Only [facility] External Provider, [facility] Social History Tobacco Use Types Packs/Day Years [...] Description 08/05/2024 9:00 AM EDT Clinical Support [facility] [address] [place] [address] Quynh Walker, RN [address] [place] [address] documented as of this encounter Procedures Procedure Name Priority Date/Time Associated Diagnosis Comments CT CHEST WO CONTRAST Routine 06/04/2024 7:23 AM EST documented in this encounter Results * CT Chest w/o Contrast (06/04/2024 7:23 AM EST) Anatomical Region Laterality Modality Body, Chest Computed Tomogra phy 06/04/2024 7:23 AM EST Narrative 06/04/2024 7:25 AM EST ? [facility] ?[address] ?[place] [address] ? CT Scan Report ? Signed ? Patient: Brice,Rommel ?MR#: [id number] ?? [id number] ? : 1955 ?Acct:[id number] ? Age/Sex: 68 / M ?ADM Date: 01/15/25 ? Loc: HO.CT ? Attending Dr: Coni Alvarado FILLING STATION ATTENDANT ? Ordering Physician: Coni Alvarado NP ?? Date of Service: 06/03/24 ?? Procedure(s): CT chest wo IV con ?? Accession Number(s): [id number] ? cc: Yoli Ruiz WIRE INSPECTOR; Coni Alvarado FILLING STATION ATTENDANT ? Report Number: ?? [id number]: Total DLP = ??221.00 mGy-cm ? CLINICAL HISTORY: R05.9 - Cough, unspecified ? CT chest without contrast ? Comparison: 01/23/2024 ? Findings: ?? The heart size is normal. Moderate Atherosclerosis calcification of the ?? coronary artery. ?? The visualized thyroid and mediastinum are unremarkable. ? Mild atelectasis of the bilateral lung base. Small opacity of the left ?? lower lobe series 4, image 35. No pleural effusion. ? The upper abdomen is unremarkable. ?? No acute fractures. ? IMPRESSION: ?? Small opacity of the left lower lobe could represent atelectatic change or ?? infection. CT chest follow-up as indicated to confirm resolution. ? This document has been electronically signed by: Ingrid Huerta MD on ?? 06/04/2024 07:23:58 ? Dictated By: ?Ingrid Huerta MD ? Signed By: ?<Electronically signed by Ingrid Huerta MD in OV> ? 06/04/24 0724 ? DD/ 2 ? TD/TT: 06/04/24722 ? Portfolio Lead: ? Procedure Note Ted Baumann - 06/04/[address] [place] [address] [address] Scan Report Signed Patient: Rommel NarvaezMR#: [id number] : 4Acct:[id number] Age/Sex: 68 / MADM Date: 06/03/24 Loc: HO.CT Attending Dr: Coni Alvarado NP Ordering Physician: Coni Alvarado NP Date of Service: 06/03/24 Procedure(s): CT chest wo IV con Accession Number(s): [id number] cc: Yoli Ruiz WIRE INSPECTOR; Coni Alvarado NP Report Number: [id number]: Total DLP = 221.00 mGy-cm CLINICAL HISTORY: R05.9 - Cough, unspecified CT chest without contrast Comparison: 01/23/2024 Findings: The heart size is normal. Moderate Atherosclerosis calcification of the coronary artery. The visualized thyroid and mediastinum are unremarkable. Mild atelectasis of the bilateral lung base. Small opacity of the left lower lobe series 4, image 35. No pleural effusion. The upper abdomen is unremarkable. No acute fractures. IMPRESSION: Small opacity of the left lower lobe could represent atelectatic change or infection. CT chest follow-up as indicated to confirm resolution. This document has been electronically signed by: Ingrid Huerta MD on 06/04/2024 07:23:58 Dictated By: Ingrid Huerta MD Signed By: <Electronically signed by Ingrid Huerta MD in OV> 06/04/24723 DD/ 2 TD/TT: 06/04/24722 Portfolio Lead: [facility] External Provider IMG CT PROCEDURES Edited Result - Final documented in this encounter Visit Diagnoses Not on filedocumented in this encounter Additional Health Concerns Assessment Noted Time PHQ-9 Depression Total Score: 3 06/23/19 24 9:53 AM EST documented as of this encounter Care Teams Marble Polisher Hand Relationship Specialty Start Date End Date Yoli Ruiz FNP [address] [place] [id number] PCP - General Family Medicine 03/13/21 documented as of this encounter
--- OUTSIDE RECORDS SUMMARY | 2024-06-22 09:15 | XMS_ITS | Encounter Summary ---
Author Organization [employer] Address [address] [place] [address] Care Team Providers Care Information Operator Name Role Phone Yoli Ruiz STEPHEN Primary Care Provider [phone] Reason for Visit * Reason Comments Med Refill Encounter Details Date Type Department Care Team (Late st Contact Info) Description 06/01/2024 Refill [facility] [address] [place] [address] Yoandy Adhikari MD [address] [place], [place] [id number] Primary hypertension (Primary Dx) Social History Tobacco Use Types Packs/Day Years [...] as of this encounter Miscellaneous Notes * Assessment & Plan Note - STEPHEN Sommers - 06/01/2024 1:52 PM ESTAssociated Problem(s): Hypertension Followed by Cardiology - Dr. Sanabria Med regimen: Losartan 50mg daily Metoprolol 50mg BID Hydrochlorothiazide 25mg daily Elevated in office, reports well controlled per home readings. No med adjustments made today. Continue low salt diet, routine physical activity documented in this encounter Plan of Treatment Upcoming Encounters Date Type Department Care Team (Late st Contact Info) Description 08/05/2024 9:00 AM EDT Clinical Support [facility] [address] [place] [address] Quynh Walker RN [address] [place] [address] documented as of this encounter Visit Diagnoses Diagnosis Primary hypertension- Primary Unspecified essential hypertension documented in this encounter Additional Health Concerns Assessment Noted Time PHQ-9 Depression Total Score: 3 06/23/19 24 9:53 AM EST documented as of this encounter Care Teams Information Operator Relationship Specialty Start Date End Date Yoli Ruiz FNP [address] [place] [address] PCP - General Family Medicine 03/13/21 documented as of this encounter
--- OUTSIDE RECORDS SUMMARY | 2024-06-22 09:16 | XMS_ITS | Clinical Summary ---
Author Organization [employer] Address [address] [place] [address] [address] [place] [address] Care Team Providers Care Pricing Director Name Role Phone Yoli Ruiz STEPHEN Primary Care Provider [phone] Allergies Active Allergy Reactions Criticality Noted Date Comments Statins 06/12/2010 Other reaction(s): myalgia: INCREASED CPK Medications omeprazole (PriLOSEC) [address] capsule Take 1 capsule by mouth at bed time. 022 Active Polyethyl Glycol-Propyl Glycol 0.4-0.3 % solution As needed 015 Active SUMAtriptan (Imitrex) 50 MG tablet Take 1 tablet by mouth. Active topiramate (Topamax) 50 MG tablet Take 1 tablet by mouth every 12 (twelve) hours. Active naloxone (Narcan) 4 mg/0.1 mL nasal sprayIndications: Lumbar spondylosis Administer 1 spray (4 mg) into affected nostril(s) if needed for opioid reversal. 2 each 2 023 Active famotidine (Pepcid) 40 MG tablet 023 Active hydroCHLOROthiazi de (HYDRODiuril) 25 MG tablet 023 Active Creon 37169-52359 units capsule PLEASE SEE ATTACHED FOR DETAILED DIRECTIONS 023 Active senna (Senokot) 8.6 MG tablet TAKE 2 SOFTGELS BY MOUTH AT BEDTIME FOR CONSTIPATION Active Testosterone 20.25 MG/ACT (1.62%) gel APPLY 3 PUMPS TO NONHAIRY AREA OF SKIN DAILY, ROTATE SITES. 023 Active Blood Glucose Monitoring Suppl (Furnish.co.uk Lite) w/Device kit Use to test blood sugar QID for diabetes 1 kit 1 023 Active cetirizine (ZyrTEC) 10 MG tabletIndications :Allergic rhinitis, unspecified seasonality, unspecified trigger TAKE 1 TABLET BY MOUTH EVERY DAY NEEDED FOR RUNNY NOSE/SEASONAL ALLERGIES. 90 tablet 3 023 Active dulaglutide (Trulicity) 3 MG/0.5ML solution pen-injector Inject 3 mg under the skin 1 (one) time per week. 12 each 2 024 Active glucose blood (FREESTYLE LITE) test stripIndications: Type 2 diabetes mellitus without complication, with long-term current use of insulin (CMS/HCC) USE TO TEST BLOOD SUGAR THREE TIMES A DAY 100 strip 11 024 Active losartan (Cozaar) 50 MG tabletIndications :Primary hypertension TOME ANDRES TABLETA TODOS LOS BISHOP 90 tablet 3 024 Active gabapentin (Neurontin) 300 MG capsuleIndication s:Type 2 diabetes mellitus with stage 3a chronic kidney disease, with long-term current use of insulin (CMS/HCC) TAKE 1 CAPSULE POR VIA ORAL AL ACOSTARSE 90 capsule 3 024 Active mirtazapine (Remeron) 30 MG tablet Take 30 mg by mouth at bedtime. CUBA RIVERA Active Repatha 140 MG/ML injection Inject 140 mg under the skin every 14 (fourteen) days. PEREZ PANG 024 Active ezetimibe (Zetia) 10 MG tablet Take 10 mg by mouth Once per day. PEREZ PANG 024 Active rosuvastatin (Crestor) 5 MG tablet Take 5 mg by mouth at bedtime. PEREZ PANG 024 Active Gemtesa 75 MG tablet Take 75 mg by mouth Once per day. 024 Active dulaglutide (Trulicity) 1.5 MG/0.5ML solution pen-injectorIndic ations:Type 2 diabetes mellitus with stage 3a chronic kidney disease, with long-term current use of insulin (CMS/[facility]) Inject 1.5 mg under the skin 1 (one) time per week. 12 each 2 024 Active Tresiba FlexTouch 100 UNIT/ML injection INJECT 16 UNITS UNDER THE SKIN ONCE DAILY BEFORE BED 15 mL 2 024 Active insulin aspart (NovoLOG FLEXPEN) 100 UNIT/ML penIndications:Ty pe 2 diabetes mellitus with stage 3a chronic kidney disease, with long-term current use of insulin ([facility]) INJECT INSULIN POR VIA SUBCUTANEA DIRECTED BEFORE MEALS: 6 UNITS WITH BREAKFAST, 8 UNITS WITH LUNCH, 8 UNITS WITH DINNER 3 mL 3 024 Active Icosapent Ethyl (Vascepa) 1 g capsule TOME 2 C PSULAS POR V A ORAL DOS VECES AL D A CON LAS COMIDAS FOR 90 DAYS 024 Active aspirin (Aspirin Low Dose) 81 MG EC tablet TAKE 1 TABLET BY MOUTH EVERY DAY 90 tablet 3 024 Active febuxostat (Uloric) 40 MG tabletIndications :Chronic gout without tophus, unspecified cause, unspecified site TAKE 1 TABLET BY MOUTH EVERY DAY 90 tablet 024 Active metFORMIN XR (Glucophage-XR) 500 MG 24 hr tabletIndications :Type 2 diabetes mellitus without complication, unspecified whether oysterman insulin use ([facility]) TAKE 1 TABLET BY MOUTH EVERY 12 HOURS 180 tablet 1 Active metoprolol tartrate (Lopressor) 50 MG tablet TAKE 1 TABLET BY MOUTH TWICE A DAY 180 tablet 1 025 Active oxyCODONE-acetami nophen (Percocet) 5-325 MG tabletIndications :Chronic pain syndrome,Long-ter m current use of opiate analgesic,Osteoar thritis of hip, unspecified laterality, unspecified osteoarthritis type,Lumbar spondylosis Take 1 tablet by mouth every 8 (eight) hours if needed for severe pain for up to 28 days. Do not start before June 08, 2024. 84 tablet 025 2024 Active metoprolol tartrate (Lopressor) 50 MG tablet TAKE 1 TABLET BY MOUTH TWICE A DAY 180 tablet 024 2024 Discontinued oxyCODONE-acetami nophen (Percocet) 5-325 MG tabletIndications :Chronic pain syndrome,Long-ter m current use of opiate analgesic,Osteoar thritis of hip, unspecified laterality, unspecified osteoarthritis type,Lumbar spondylosis Take 1 tablet by mouth every 8 (eight) hours if needed for severe pain for up to 28 days. Do not start before May 11, 2024. 84 tablet 024 2024 Discontinued(R eorder (will not trigger notification to Pharmacy)) amoxicillin-clavu lanate (Augmentin) 875-125 MG tablet Take 1 tablet by mouth 2 times daily for 7 days. 14 tablet 025 2024 Active Problems Problem Noted Date Diagnosed Date Shortness of breath 03/29/2024 Overview (03/29/2024): Referred to Pulm by [facility] in Jan 2024 for ongoing dyspnea Long-term current use of opiate analgesic 2023 Overview (01/15/2024): Medication: Percocet 5-325mg Q8H PRN Indication: lumbar spondylosis, hip OA Last ACCOUNTING OFFICER Agreement: 05/30/23 OAB (overactive bladder) 10/22/2023 Overview (10/22/2023): Following with [facility] Urology Previous tx: Sandro Continues on Gemtesa through Urology, well controlled Fatty infiltration of liver 06/23/2023 Overview (12/30/2023): -Feb 2023: CT with impression of diffuse fatty infiltration of liver, question of cirrhosis -Hep B&C neg 09/20/21 -10/23/23: Liver fibrosis panel - F3 -Pending further liver workup from [facility] starting 12/05/23 Assessment & Plan (10/22/2023 9:56 AM EDT): Reviewed basic information regarding condition as well as further monitoring/testing. Pt planning to follow up with [facility] tomorrow to discuss liver health Assessment & Plan (06/23/2023 9:42 AM EST): ?? Reviewed basic information regarding condition as well as further monitoring/testing. ?? Further labs: hepatitis ABC panel, liver function panel, liver fibrosis, AFP ?? Further imaging: Abd US with elastography ?? Pt currently with various responsibilities/upcoming appts. Handout with education provided, with plan for pt to review and further discuss at follow up. Other irritable bowel syndrome 03/10/2023 Overview (03/10/2023): ?? Followed by [facility] - August Castro DOCTOR OF DENTAL SURGERY ?? Continues with senna 2 tablets nightly and Creon through GI Healthcare maintenance 03/10/2023 Overview (03/29/2024): Optometry: SHAVONNE Jan 2024 at [facility]. Next due: Jan 2025. Dental: [facility] Dental Colonoscopy: last 01/07/[address] Monroe - tubular adenoma, followed by GI. Pt reports completed repeat colonoscopy and was told WNL. Request records. 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 Assessment & Plan (03/29/2024 8:20 PM EST): A1c today 7.6%, stable Continues with current regimen Assessment & Plan (10/22/2023 10:09 AM EDT): Continues with gabapentin 300mg nightly for neuropathy. Assessment & Plan (12/18/2022 7:30 PM EDT): ?? Start gabapentin 300mg nightly for neuropathy. Reviewed med safety and SE. May plan to increase to 600mg nightly after one month PRN Assessment & Plan (07/07/2022 2:50 PM EST): -Pt with initial BG 56 in office, said had not yet eaten lunch. Symptomatic: dry mouth. No sweating, dizziness, blurry vision, abd discomfort -Brought candies from home, consumed in office and reported resolution of symptoms -Did not have time for BG recheck, but reports will check as soon as he gets home. ED precautions reviewed Seizure disorder 06/19/2021 Assessment & Plan (10/22/2023 10:03 AM EDT): Followed by Neurology - Dr. Cano Continues with Topiramate 50mg BID Well controlled Lumbar spondylosis 06/19/2021 Overview (03/29/2024): Followed by PS&S - DONALD Canela August 2022: received bilateral L5 transforaminal steroid injections 04/23/23: PS&S consult note - f/up repeat bilat L5 transforaminal epidural steroid injections with reported 80% improvement in pain Mar 2024: s/p repeat bilateral L5 transforaminal epidural steroid injections Assessment & Plan (10/22/2023 10:16 AM EDT): Continues with oxycodone-acetaminophen 5-325mg Q8H PRN Established with ACCOUNTING OFFICER Program Encouraged use of pharm and non-pharm modalities Migraine 03/21/2021 Overview (10/22/2023): Followed by Neurology - Dr. Cano Continues with sumatriptan 50mg PRN Diabetic nephropathy associa mary with type 2 diabetes mellitus 12/21/2020 Stage 3b chronic kidney disease 12/21/2020 Overview (10/22/2023): Following with Nephrology - Dr. Peguero Scr stable: 1.3-1.6 RK mass s/p ablation, following with urology Encouraged monitor BP/BG values, avoid NSAIDs Hypertensive renal disease 12/21/2020 Renal mass 08/06/2018 Assessment & Plan (10/22/2023 10:08 AM EDT): Followed by [facility] Assessment & Plan (03/10/2023 9:28 PM EDT): ?? Followed by [facility] Insomnia 12/17/2014 Overview (10/22/2023): Following with Psychiatrist - Dr. Rivera Continues with mirtazapine 30mg nightly Assessment & Plan (10/22/2023 10:05 AM EDT): Sleeping approx 8 hours per night Dysthymia 12/17/2014 Overview (10/22/2023): Following with psychiatrist - Dr. 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 Followed by [facility] - August Gloria DOCTOR OF DENTAL SURGERY ?? Continues on famotidine 40mg BID and omeprazole 20mg nightly through GI Gout 11/29/2011 Left ventricular hypertrophy 11/29/2011 Assessment & Plan (10/22/2023 10:07 AM EDT): Followed by Cardiology - Dr. Sanabria Osteoarthritis of hip 11/29/2011 Hyperlipidemia 11/13/2011 Overview (10/22/2023): Followed by Cardiology w. hx rxn (elevated CK) with statin in past Current med regimen: Repatha 140mg/mL subcutaneous Q2 weeks Ezetimibe 10mg daily Rosuvastatin 5mg nightly Assessment & Plan (10/22/2023 10:12 AM EDT): -Check fasting lipids -Encouraged lifestyle interventions Hypertension 11/13/2011 Assessment & Plan (06/01/2024 1:52 PM EST): Followed by Cardiology - Dr. Sanabria Med regimen: Losartan 50mg daily Metoprolol 50mg BID Hydrochlorothiazide 25mg daily Elevated in office, reports well controlled per home readings. No med adjustments made today. Continue low salt diet, routine physical activity Assessment & Plan (10/22/2023 10:07 AM EDT): Followed by Cardiology - Dr. Sanabria Med regimen: Losartan 50mg daily Metoprolol 50mg daily Hydrochlorothiazide 25mg daily Elevated in office, reports well controlled per home readings. No med adjustments made today. Continue low salt diet, routine physical activity Assessment & Plan (03/11/2023 9:39 AM EDT): ?? Continues with hydrochlorothiazide metoprolol 50mg BID, losartan 50mg daily ?? Elevated in office, but reports well controlled at home ?? Follow up precautions reviewed Obstructive sleep apnea syndrome 11/13/2011 Overview (10/22/2023): -History of [facility], completed sleep study in facility on 09/25/21 -Impression: mild to moderate degree of sleep apnea, loud snoring with increased severity in REM. The total AHI was 13/hr REM Ahi was 30/hr and oxygen rufus was 78% -Recommendation - Start pt on AutoPAP 5-20cm of water -Reports improvement in sleep quality and improvement in energy level and daily functioning when using CPAP Assessment & Plan (07/07/2022 2:45 PM EST): -Pt benefiting from use of CPAP and should continue with therapy Resolved Problems Problem Noted Date Diagnosed Date Resolved Date Edema 12/21/2020 12/18/2022 Stage 3a chronic kidney disease 12/21/2020 03/10/2023 Depressive disorder 02/22/2012 10/22/19 24 Encounters Date Type Department Care Team Description 06/05/2024 Refill [facility] [address] [place] [address] Phalen, Yoli, DRAMA DIRECTOR Chronic pain syndrome; Long-term current use of opiate analgesic; Osteoarthritis of hip, unspecified laterality, unspecified osteoarthritis type; Lumbar spondylosis 06/04/2024 Telephone [facility] [address] [place] [address] Phalolive Yoli, DRAMA DIRECTOR Walk-In 06/03/2024 Orders Only [facility] External Provider, [facility] 06/01/2024 Refill [facility] [address] [place] [address] Yoandy Adhikari MD Primary hypertension (Primary Dx) 05/12/2024 Refill [facility] [address] [place] [address] Yoli Ruiz, DRAMA DIRECTOR Type 2 diabetes mellitus without complication, unspecified whether oysterman insulin use ([facility]) 05/07/2024 9:00 AM EST Clinical Support [facility] [address] [place] [address] Quynh Walker RN Lumbar spondylosis 05/07/2024 Travel 05/07/2024 Refill [facility] [address] [place] [address] Phalen, Yoli, DRAMA DIRECTOR Chronic pain syndrome; Long-term current use of opiate analgesic; Osteoarthritis of hip, unspecified laterality, unspecified osteoarthritis type; Lumbar spondylosis 04/28/2024 Refill [facility] [address] [place] [address] Phalolive Yoli, DRAMA DIRECTOR Chronic gout without tophus, unspecified cause, unspecified site 04/21/2024 Refill [facility] [address] [place] [address] Phalen, Yoli, DRAMA DIRECTOR 04/10/2024 Refill [facility] [address] [place] [address] Phalen, Yoli, DRAMA DIRECTOR Chronic pain syndrome; Long-term current use of opiate analgesic; Osteoarthritis of hip, unspecified laterality, unspecified osteoarthritis type; Lumbar spondylosis 04/08/2024 1:45 PM EST Office Visit [facility] [address] [place] [address] Nikita Arauz DMD 03/27/2024 9:15 AM EST Office Visit [facility] [address] [place] [address] Yoli Ruiz FNP Oral lesion (Primary Dx); Diabetic nephropathy associated with type 2 diabetes mellitus ([facility]); Type 2 diabetes mellitus with stage 3a chronic kidney disease, with long-term current use of insulin ([facility]); Healthcare maintenance; Shortness of breath; Lumbar spondylosis 03/27/2024 Travel 03/26/2024 Telephone [facility] [address] [place] [address] Pat Ivy MA Chart Prep from Last 3 Months Immunizations Name Administration Dates Next Due Influenza High-dose Quadriva lent Preservative Free 03/11/2023,01/29/2022,07/26/2021 Influenza Quadrivalent Adjuvanted 01/27/2020 Influenza injectable quadriv alent preservative free 01/25/2018,03/21/2017,07/26/2016,01/17,01/21/2015 Influenza, High Dose Seasona l, Preservative Free 07/08/2019,01/26/2019 Influenza, IIV3, injectable 03/05/2014, 1 Influenza, Split (incl. juan fied surface antigen) 02/10/2013,02/22/2012 Influenza, Unspecified 01/29/2022,2021,03/05/2014,02/16 Moderna Covid-19 Vaccine 6+ Bivalent 05/29/2022 Pfizer Covid-19 Vaccine 12+ 03/18/2023 Pneumococcal Conjugate PCV 20 12/20/2021 Pneumococcal Polysaccharide PPSV23 09/16/2014 RSV Adjuvant 05/22/2023 TD (adult), 2 Lf tetanus tox oid, preservative free, adsorbed 09/21/2004 Tdap 07/26/2016 Zoster, Recombinant 12/20/2021 Zoster, live 12/20/2021,09/16/2014 Social History Tobacco Use Types Packs/Day Years Used Date Smoking Tobacco: Former Cigarettes Passive Smoke Exposure: Never Smokeless Tobacco: Never Tobacco Cessation:Counseling Given: Not Answered Alcohol Use Standard Drinks/Week Comments Never 0 [...] Orientation Straight 10/24/2022 8: 12 AM EDT Last Filed Vital Signs Vital Sign Reading Time Taken Comments Blood Pressure 125/76 03/27/2024 9:11 AM EST Pulse 60 03/27/2024 9:11 AM EST Temperature 36.8 ??C (98.2 ??F) 03/27/2024 9:11 AM ES T Respiratory Rate 16 03/27/2024 9:11 AM EST Oxygen Saturation 98% 03/27/2024 9:11 AM EST Inhaled Oxygen Concentration - - Weight 104 kg (230 lb) 03/27/2024 9:11 AM EST Height 167.6 cm (5' 6 ) 03/27/2024 9:11 AM EST Body Mass Index 37.12 03/27/2024 9:11 AM EST Plan of Treatment Upcoming Encounters Date Type Department Care Team (Late st Contact Info) Description 08/05/2024 9:00 AM EDT Clinical Support [facility] [address] [place] [address] Quynh Walker, RN [address] [place] [address] Health Maintenance Due Date Last Done Comments CT Colonography 1955 FIT DNA/Cologuard 1955 FOBT 1955 Sigmoidoscopy 1955 Diabetes: Foot Exam 09/04/1963 Hepatitis A Vaccines (1 of 2 - Risk 2-dose series) 1972 Hepatitis B Vaccines (1 of 3 - Risk 3-dose series) 2013 FIT 08/30/2021 08/30/2020 Zoster Vaccines (3 of 3) 02/14/2022 022, 12/20/2021, 09/16/2014 Diabetes: Hemoglobin A1C 01/21/2024 024, 06/21/2023, 03/11/2023, Additional history exists SDOH Screening 03/11/2024 03/11/2023 Depression Screening 06/23/2024 06/23/2023, 06/23/19 Dental Oral Exam 08/10/2024 02/10/2024, , 10/11/2022, Additional history exists Dental Prophylaxis 08/10/2024 02/10/2024, 0 07/12/2023, 10/24/2022, Additional history exists Lipid Panel 10/22/2024 10/23/2023, 03/21, 04/12/2021 Dental X-Ray: Bitewings 02/10/2025 02/10/20 24, 10/11/2022, 08/20/2018, Additional history exists Tobacco Screening 03/20/2025 03/20/2024 Alcohol/Substance Use Screening 03/27/2025 03/27/2024 Dental X-Ray: Full Mouth 10/12/2025 10/11/2022, 12/18 Eye Exam 01/26/2026 01/27/2024 DTaP/Tdap/Td Vaccines (2 - Td or Tdap) 07/26/2026 07/26/2016, 09/21/2004 Colonoscopy 03/01/2032 03/01/2022 Colorectal Cancer Screening 03/01/2032 Pneumococcal Vaccine: 50+ Years Completed 12/20/2021, 09/16/2014 RSV Patients and Patients Aged 60 years or older Completed 05/22/2023 Hepatitis C Screening Completed 10/23/2023 , 10/23/2023, 09/20/2021 COVID-19 Vaccine Completed 03/19/2024, , 05/29/2022, Additional history exists Influenza Vaccine Completed 03/19/2024, , 01/29/2022, Additional history exists HIB Vaccines Aged Out No longer eligi ble based on patient's age to complete this topic HPV Vaccines Aged Out No longer eligi ble based on patient's age to complete this topic IPV Vaccines Aged Out No longer eligi ble based on patient's age to complete this topic Meningococcal Vaccine Aged Out No mary jo nato eligible based on patient's age to complete this topic RSV under 20 months Aged Out No longe r eligible based on patient's age to complete this topic Rotavirus Vaccines Aged Out No longer eligible based on patient's age to complete this topic Procedures Procedure Name Priority Date/Time Associated Diagnosis Comments CT CHEST WO CONTRAST Routine 06/04/2024 7:23 AM EST POCT RESHMA-14 URINE DRUG SCREEN Routine 05/07/2024 9:02 AM EST Lumbar spondylosis DIAGNOSTIC - CLINICAL ORAL EVALUATIONS - RE-EVALUATION - POST-OPERATIVE OFFICE VISIT Routine 04/08/2024 1:45 PM EST PROPHYLAXIS - ADULT Routine 02/10/2024 3 :00 PM EDT BITEWINGS - 4 RADIOGRAPHIC IMAGES Routine 02/10/2024 3:00 PM EDT PERIODIC ORAL EVALUATION - ESTABLISHED PATIENT Routine 02/10/2024 3:00 PM EDT Dental caries Periodontal disease Partial edentulism, class I HM DIABETES EYE EXAM Routine 01/27/2024 HEPATITIS PANEL, GENERAL Routine 10/23/2023 9:06 AM EDT LIPID PANEL, STANDARD Routine 10/23/2023 9:06 AM EDT Healthcare maintenance Encounter for routine history and physical examination of adult POCT GLYCATED HEMOGLOBIN, TOTAL Routine 10/21/2023 11:27 AM EDT Type 2 diabetes mellitus with stage 3a chronic kidney disease, with long-term current use of insulin (CMS/HCC) DIAGNOSTIC - DIAGNOSTIC IMAGING - INTRAORAL - COMPREHENSIVE SERIES OF RADIOGRAPHIC IMAGES Routine 10/11/2022 9:00 AM EDT HM COLONOSCOPY Routine 03/01/2022 [facility] HISTORICAL FECAL IMMUNOCHEMICAL TEST X1 (FIT) Routine 08/30/2020 12:00 AM EDT from Last 3 Months or Most Recently Relevant to Health Maintenance Results * CT Chest w/o Contrast (06/04/2024 7:23 AM EST) Anatomical Region Laterality Modality Body, Chest Computed Tomogra phy 06/04/2024 7:23 AM EST Narrative 06/04/2024 7:25 AM EST ? [facility] ?[address] ?[place] [address] ? CT Scan Report ? Signed ? Patient: Brice,Rommel ?MR#: [id number] ?? [id number] ? : 1955 ?Acct:[id number] ? Age/Sex: 68 / M ?ADM Date: 06/03/ ? Loc: HO.CT ? Attending Dr: Coni Alvarado SOLUTION CONSULTANT ? Ordering Physician: Coni Alvarado SOLUTION CONSULTANT ?? Date of Service: 01/15/25 ?? Procedure(s): CT chest wo IV con ?? Accession Number(s): [id number] ? cc: Yoli Ruiz DRAMA DIRECTOR; Coni Alvarado SOLUTION CONSULTANT ? Report Number: ?? [id number]: Total DLP = ??221.00 mGy-cm ? CLINICAL [...] ? DD/ 2 ? TD/TT: 06/04/24722 ? Dairy Technician: ? Procedure Note Pastor, Image - 06/04/[address] [place] [address] [address] Scan Report Signed Patient: Rommel NarvaezMR#: [id number] : 1955cct:[id number] Age/Sex: 68 / MADM Date: 06/03/24 Loc: HO.CT Attending Dr: Coni Alvarado NP Ordering Physician: Coni Alvarado NP Date of Service: 06/03/24 Procedure(s): CT chest wo IV con Accession Number(s): [id number] cc: Yoli Ruiz DRAMA DIRECTOR; Coni Alvarado NP Report Number: [id number]: Total DLP = 221.00 mGy-cm CLINICAL HISTORY: [...] signed by Ingrid Huerta MD in OV> 06/04/2424 DD/ 2 TD/TT: 06/04/24722 Dairy Technician: [facility] External Provider IMG CT PROCEDURES Edited Result - Final * POCT RESHMA-14 Urine Drug Screen (05/07/2024 9:02 AM EST) Oxycodone Screen, Urine Positive Urine Urine specimen obtained by clean catch procedure / Unknown 05/07/2024 9:02 AM EST Narrative Quynh Walker RN - 05/07/2024 9:02 AM EST Lot# [id number] Exp: 04-25-25 Yoli Ruiz DRAMA DIRECTOR POINT OF CARE TEST ENTER/EDIT ORDERABLES Final Result * Hm Diabetes Eye Exam (01/27/2024) Eye Exam Normal Normal Historical Provider HEALTH MAINTENANCE Edited Result - Final * Hepatitis Panel, General (10/23/2023 9:06 AM EDT) Hepatitis A IgM Nonreactive Nonreactive [facility] Comment:IgM antibodies to REDD V not detected; does not exclude earlyacute or recovered HAV infection. ~Hepatitis B Surface Antibody NONREACTIVE Nonreactive [facility] Comment:Nonreactive: < 8.00 mIU/mL Hepatitis B Core Antibody Nonreactive Nonreactive [facility] Hepatitis C Antibody Nonreactive Nonreactive [facility] Comment:Antibodies to HCV no t detected; does not exclude early acuteHCV infection. Hepatitis B Surface Ag Negative Negative [facility] 10/23/2023 9:06 AM EDT 10/23/2023 9:06 AM EDT us Generic External Data Provider LAB BLOOD ORDERAB LES Final Result [facility] [address] [place] [address] [phone] * (ABNORMAL) Lipid Panel, Standard (10/23/2023 9:06 AM EDT) Triglycerides 250(H) <150 mg/dL [facility] Comment:Desirable Triglyceri de: less than 150 mg/dLBorderline High Triglyceride 150-199 mg/dLHigh Triglyceride: 200-499 mg/dLVery High Triglyceride: greater than or equal to 5OO mg/dL Cholesterol 88 <200 mg/dL [facility] Comment:Desirable Cholestero l: less than 200 mg/dLBorderline High Cholesterol: 200-239 mg/dLHigh Cholesterol: greater than 239 mg/dL LDL Cholesterol Calculated 8 <100 mg/dL [facility] Comment:Desirable LDL: less than 100 mg/dLNear Optimal/Above Optimal LDL: 110- 129 mg/dLBorderline High LDL: 130-159 mg/dLHigh LDL: 160-189 mg/dLVery High LDL: greater than or equal to 190 mg/dL HDL Cholesterol 30(L) >40 mg/dL [facility] Comment:Desirable HDL: great er than 40 mg/dL Note: This HDL assay may give artificially low results in patients with liver disease. Blood Venous blood specimen / Unknown 10/23/2023 9:06 AM EDT 10/23/2023 9:06 AM EDT us Yoli Ruiz DRAMA DIRECTOR LAB BLOOD ORDERABLES Final Res ult [facility] [address] [place] [address] [phone] * (ABNORMAL) POCT HGB A1C (10/21/2023 11:27 AM EDT) Hemoglobin A1C 7.6(A) 4.0 - 6.0 % QC Media Lot # [id number] Lot# Expiration Date Blood 10/21/2023 11:2 7 AM EDT Yoli Odinolive DRAMA DIRECTOR POINT OF CARE TEST ENTER/EDIT ORDERABLES Final Result * Hm Colonoscopy (03/01/2022) Colonoscopy Normal Normal Narrative Mis Boyd - 03/01/2022 Repeat in 10 years Historical Provider MD HEALTH MAINTENANCE Final Result * Fecal immunochemical test x1 (FIT) (08/30/2020 12:00 AM EDT) FIT Date 1 4110620 [facility] FIT Date 2 4120620 [facility] FIT Lot [id number] [facility] FIT1 NEGATIVE NEGATIVE [facility] FIT2 NEGATIVE NEGATIVE [facility] 08/30/2020 Historical Provider HISTORICAL/NON ORDERABLE LABS Final Result [facility] [address] from Last 3 Months or Most Recently Relevant to Health Maintenance Insurance [facility] [place] [id number] [place] [id number] Care Teams Pricing Director Relationship Specialty Start Date End Date Yoli Ruiz FNP [address] [place] [id number] PCP - General Family Medicine 03/13/21
== END 2024-06-22 09:35 | disposition home or self-care (01) ==
PROVIDERS: PCP Registered Nurse; Visit Provider Nurse Practitioner Family
DX: R06.00 Dyspnea, unspecified (principal); R05.9 Cough, unspecified; Z87.891 Personal history of nicotine dependence
CPT/HCPCS: 99214

== ENCOUNTER → 2024-06-22 08:56 | Outpatient (BNVA) | payer OTHER, SELFPAY | PROVIDERS: PCP Registered Nurse; Visit Provider Nurse Practitioner Family | DX: R06.00 Dyspnea, unspecified (principal); R05.9 Cough, unspecified; Z87.891 Personal history of nicotine dependence | CPT/HCPCS: 99212 ==

== ENCOUNTER 2024-08-11 10:04 | Outpatient (AMB) | payer OTHER, SELFPAY ==
[2024-08-11 10:09] VITALS: BP 113/81; PULSE 60; BMI 36.2
--- NOTE | 2024-08-11 10:09 | MHC.OFFVIS ---
Vital Signs 08/11/24 10:09 Height 5 ft 7 in Weight 231 lb 0.711 oz BMI 36.2 BP 113/81 Blood Pressure Location Lt brachial Position Sitting Pulse 60 Intake Visit Reasons: CIC, GERD Intake Note: Patient in office today in follow up of CIC and GERD. CC: Patient reports bleeding from nose and mouth since he began fluticasone-salmeterol inhaler and was advised to d/c by his doctor. He also c/o lower back pain. Agricultural Equipment Operator Required: No Accompanied by: Self / Same As Patient Allergies atorvastatin [Lipitor] Allergy (Unknown, Verified 08/11/24 10:27) muscle damage rosuvastatin [Crestor] Allergy (Unknown, Verified 08/11/24 10:27) muscle damage From CRESTOR Allergy (Severe, Uncoded 06/22/24 09:13) MUSCLES PAIN From LIPITOR Allergy (Severe, Uncoded 06/22/24 09:13) MUSCLES PAIN HPI HPI CIC, GERD: Details: Assessment & Plan (1) Chronic idiopathic constipation: Comment: Occasional and resolves well with senna. Code(s): K59.04 - Chronic idiopathic constipation Category: Medical (2) GERD (gastroesophageal reflux disease): Code(s): K21.9 - Gastro-esophageal reflux disease without esophagitis Category: Medical (3) Bochdalek hernia: Comment: Not borne out on chest CT so of questionable clinical significance aeb Code(s): Q79.0 - Congenital diaphragmatic hernia Category: Medical (4) Dyspnea: Code(s): R06.00 - Dyspnea, unspecified Category: Medical Plan He is doing well on his GI regimen. He continues on his omeprazole 20 mg in the morning and famotidine at night, Creon, and senna. We review his chest CT and it does not bore out any significant herniation or disease. I will refer him to pulmonology for ongoing dyspnea. He continues to have pain in his thoracic back that radiates to his right flank. He is seeing [facility] and will be having injections soon to see if this helps - but they also recommended that he have my lungs evaluated. He already sees a punch out crew member at [facility]. He never had the jaw surgery, they are instead trying to get better fitting dentures. ROV 6 mos. Orders: Referrals Pulmonology Referral R06.00 - Dyspnea, unspecified Medications: New sennosides (senna) 17.2 mg (2 x 8.6 mg) PO DAILY 60 tabs 6RF Refilled pqjwkh-nnjhdvsc-xcyapxj 24,000-76,000 -120,000 unit (Creon) administer with meals and/or snacks 1 cap PO .TIDAC 90 caps 6RF 30 days K58.9 - Irritable bowel syndrome, unspecified famotidine 40 mg PO BID 180 tabs 2RF K21.9 - Gastro-esophageal reflux disease without esophagitis omeprazole 20 mg PO DAILY 90 caps 2RF TODAYS VISI He is moving to a new apt and this is quite a lot of work for him. He is having trouble fitting every thing in the new apt, despite it being larger! He continues to have dyspnea, has had recurrent pneumonias that he feels did not respond well to the strong abx. There is atelectasis and a haziness in the LLL and someone seems to have told him that it may be cancer - but he does not know who. He has a repeat CT upcoming. There was an rx for an Advair inhaler, but this caused bleeding from his throat and nose. It is unclear if he was following proper rinsing hygeine after use. He also will be seeing Dr. Peguero soon. ROV next available parviz joselineal response to CIC tx [facility] Medical History Colon cancer screening Irritable bowel syndrome with both constipation and diarrhea manager long term care current use of insulin Chronic idiopathic constipation Hepatitis C Hypogonadism Vitamin D deficiency CTS (carpal tunnel syndrome) Seizures 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 bowel syndrome) GERD (gastroesophageal reflux disease) Gout Chronic kidney disease, stage 3 Polycythemia vera Fibromyalgia BPH (benign prostatic hyperplasia) CAD (coronary artery disease) Type 2 diabetes mellitus with hyperglycemia, with long-term current use of insulin Type 2 diabetes mellitus with polyneuropathy Essential hypertension Hyperlipidemia LDL goal <70 Obesity due to excess calories Type 2 diabetes mellitus with hyperglycemia Surgical History History of prostate surgery Hx of biopsy Hx of angioplasty Hx of cystoscopy Hx of colonoscopy Family History Father Bladder cancer Mother CVD (cardiovascular disease) Diabetes Sister Colon cancer Social History Household Members: Spouse Housing: Apartment Are you a primary hospice care consultant to a significant other at home: No Do you presently have visiting nurse or other home services: Yes (every 2 months through insurance) Alcohol intake: former Patient Tobacco Use Status: Former Tobacco user Tobacco use type: Cigar Substance Use Type: Crack/Cocaine, Former Substance User and Marijuana service: No Current occupational status: disabled Review of Systems Const Denies fatigue, Denies fever(s), Denies night sweats, Denies poor appetite and Denies weight loss Eyes Details: glasses Reports requires corrective lenses ENT Reports Normal hearing present, Denies dental pain, Denies dysphagia, Denies hearing loss, Reports epistaxis, Denies mouth pain, Denies odynophagia, Denies throat swelling, Denies tongue swelling and Reports other (Dentition adequate) Card Reports dyspnea Resp Reports dyspnea GI Details: Denies abdominal pain, Denies melena, Reports bloating, Denies hematochezia, Denies constipation, Denies GI cramping, Denies dysphagia, Denies excessive flatus, Denies early satiety, Reports heartburn, Denies diarrhea, Denies nausea, Denies odynophagia, Denies vomiting and Denies hematemesis Musc Reports back pain, Reports myalgias and Reports arthralgias Skin/Breast Denies pruritus, Denies lesions, Denies rash and Denies jaundice Neuro Reports Normal hearing present and Denies Abnormal speech present Endo Denies fatigue Aller/Immun Denies throat swelling and Denies tongue swelling Physical Exam Vital Signs: Last Vital Signs Pulse 60 08/11/24 10:09 BP 113/81 08/11/24 10:09 BMI result Body Mass Index 36.2 Const General: cooperative, no acute distress, well developed and well groomed Nutritional Appearance: well nourished and obese Orientation/consciousness: oriented to person, oriented to place and oriented to time Limitations: No language barrier HEENT Head: Yes normocephalic and Yes atraumatic Eyes General: appearance normal, both eyes and all related structures Pupils: Equal, round and reactive pupils present Neck Neck: Yes normal visual inspection and Yes no lymphadenopathy Thyroid: Thyroid normal Resp Effort & Inspection: normal respiratory effort and able to speak in complete sentences Auscultation: clear to auscultation bilaterally Cardio Rate: regular rate Rhythm: regular rhythm Heart sounds: Normal, physiologic split S2 sound present Peripheral pulses: radial pulses present and posterior tibial pulses present GI Inspection: No distended, No Abdominal panniculus present and Yes obesity Palpation (GI): Soft to palpation, nontender, no guarding, not rigid and No hepatosplenomegaly present Percussion: Yes normal to percussion Auscultation: normal bowel sounds Rectal Exam - Male: Yes deferred Skin General skin exam: no rashes or lesions noted, turgor normal, skin not dry, no jaundice, No spider nevi and no striae Rashes: no rashes Nails: normal Neuro General: oriented to person, oriented to place and oriented to time Cranial nerves: Yes Equal, round and reactive pupils present and Yes Normal hearing present Speech: No Abnormal speech present Extrem General: Yes normal to inspection, No clubbing, No cyanosis and No edema Psych Appearance: grossly normal and well kempt Mental Status: mental status grossly normal Speech and movement: Normal speech and movement present Affect: normal affect Attitude: cooperative Thought process: Normal thought process present and not confabulating Thought content: Normal thought content present Insight: Fair insight present (Psych) Judgement: Fair judgement present (Psych) Assessment & Plan Assessment & Plan (1) Chronic idiopathic constipation: Comment: Occasional and resolves well with senna. Code(s): K59.04 - Chronic idiopathic constipation Category: Medical (2) GERD (gastroesophageal reflux disease): Code(s): K21.9 - Gastro-esophageal reflux disease without esophagitis Category: Medical (3) Cirrhosis: Comment: On imaging study Code(s): K74.60 - Unspecified cirrhosis of liver Category: Medical Plan He is moving to a new apt and this is quite a lot of work for him. He is having trouble fitting every thing in the new apt, despite it being larger! He continues to have dyspnea, has had recurrent pneumonias that he feels did not respond well to the strong abx. There is atelectasis and a haziness in the LLL and someone seems to have told him that it may be cancer - but he does not know who. He has a repeat CT upcoming. There was an rx for an Advair inhaler, but this caused bleeding from his throat and nose. It is unclear if he was following proper rinsing hygeine after use. He also will be seeing Dr. Peguero soon. ROV next available parviz eval response to CIC tx (his has upcoming ventral hernia surgery). Medications: Refilled omeprazole 20 mg PO DAILY 90 caps 2RF famotidine 40 mg PO BID 180 tabs 2RF K21.9 - Gastro-esophageal reflux disease without esophagitis gfiubc-eaumfxlr-crmscam 24,000-76,000 -120,000 unit (Creon) administer with meals and/or snacks 1 cap PO .TIDAC 90 caps 6RF 30 days K58.9 - Irritable bowel syndrome, unspecified Coding Level of Care Code Est Pt Level 3 (22017) Diagnoses Chronic idiopathic constipation K59.04 GERD (gastroesophageal reflux disease) K21.9 Cirrhosis K74.60
--- OUTSIDE RECORDS SUMMARY | 2024-08-11 11:53 | XMS_ITS | Clinical Summary ---
Author Organization [facility] Address [address] [facility] [address] [place] [address] Phone Care Team Providers Care Manager Audit Name Role Phone Yoli Ruiz STEPHEN Primary Care Provider [phone] Allergies Active Allergy Reactions Criticality Noted Date [...] day 30 tablet 1 07/24/2021 Active Creon 26909-06473 units capsule 12/27/2021 Activ e Testosterone (AndroGel Pump) 20.25 MG/ACT (1.62%) gel Place on the skin Active Repatha 140 MG/ML solution prefilled syringe Inject 140 mg under the skin 09/12/2023 Active Vibegron (Gemtesa) 75 MG tablet Take by mouth Active Active Problems Problem Noted Date Diagnosed Date 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 ([id number]) [facility] ([id number]) Care Teams Manager Audit Relationship Specialty Start Date End Date Yoli Ruiz FNP [address] [place], [place] [phone] PCP - General 11/13/23
--- OUTSIDE RECORDS SUMMARY | 2024-08-11 11:53 | XMS_ITS | Encounter Summary ---
Author Organization [employer] Address [address] [facility] [address] [place] [address] Care Team Providers Care Packaging Line Attendant Name Role Phone Yoli Ruiz Primary Care Provider [phone] Encounter Details Date Type Department Care Team (Late Contact Info) Description 09/24/2022 Orders Only [facility] MED & PEDS [address] [place], [place] [phone] Alessandra Alcala LPN Social History Tobacco Use [...] Care Team (Late st Contact Info) Description 09/29/2024 9:45 AM EDT Office Visit [facility] MEDICINE [address] [place], [place] [phone] documented as of this encounter Visit Diagnoses Not on filedocumented in this encounter Care Teams Packaging Line Attendant Relationship Specialty Start Date End Date Yoli Ruiz FNP [address] [place], [place] [phone] PCP - General Family Medicine 03/13/21 documented as of this encounter
--- OUTSIDE RECORDS SUMMARY | 2024-08-11 11:53 | XMS_ITS | Encounter Summary ---
Author Organization [facility] Address [address] [facility] [facility] [address] [place] [address] Phone Care Team Providers Care Rocket Engine Mechanic Name Role Phone Yoli Ruiz FILLING TECHNICIAN Primary Care Provider Encounter Details Date Type Department Care Team (Late st Contact Info) Description 07/24/2021 Telephone [facility] [address] [facility] [address] [place] [address] Nikita Peguero MD [address] [address] Social History Tobacco Use Types [...] a refill for losartan. Please send to [facility] on [facility] in [place]. Thank you documented in this encounter Plan of Treatment Upcoming Encounters Date Type Department Care Team (Late st Contact Info) Description 08/12/2024 1:45 PM EDT Office Visit [facility] [address] [facility] [address] [place] [address] Nikita Peguero MD [address] [address] documented as of this encounter Visit Diagnoses Not on filedocumented in this encounter Care Teams Rocket Engine Mechanic Relationship Specialty Start Date End Date Yoli Ruiz FNP [address] [place] [address] PCP - General 11/13/23 documented as of this encounter
--- OUTSIDE RECORDS SUMMARY | 2024-08-11 11:53 | XMS_ITS | Encounter Summary ---
Author Organization [employer] Address [address] [facility] [address] [place] [address] Care Team Providers Care Entry Clerk Name Role Phone Yoli Ruiz Primary Care Provider [phone] Encounter Details Date Type Department Care Team (Late st Contact Info) Description 08/13/2022 Orders Only [facility] CHC MED & PEDS [address] [place] [address] Alessandra Alcala LPN Social History Tobacco Use [...] Description 09/29/2024 9:45 AM EDT Office Visit [facility] MEDICINE [address] [place] [address] documented as of this encounter Visit Diagnoses Not on filedocumented in this encounter Care Teams Entry Clerk Relationship Specialty Start Date End Date Yoli Ruiz FNP [address] [place] [address] PCP - General Family Medicine 03/13/21 documented as of this encounter
--- OUTSIDE RECORDS SUMMARY | 2024-08-11 11:53 | XMS_ITS | Encounter Summary ---
Author Organization [employer] Address [address] [place] [address] Care Team Providers Care White Work Cleaner Name Role Phone Yoli Ruiz Primary Care Provider [phone] Encounter Details Date Type Department Care Team (Latest Contact Info) Description 08/20/2018 Abstract [facility] CONVERSIONS Dental, Provider, DDS Social History [...] Upcoming Encounters Date Type Department Care Team ( st Contact Info) Description 09/29/2024 9:45 AM EDT Office Visit [facility] MEDICINE [address] [place] [address] documented as of this encounter Visit Diagnoses Not on filedocumented in this encounter Care Teams White Work Cleaner Relationship Specialty Start Date End Date Yoli Ruiz FNP [address] [place] [address] PCP - General Family Medicine 03/13/21 documented as of this encounter
--- OUTSIDE RECORDS SUMMARY | 2024-08-11 11:53 | XMS_ITS | Encounter Summary ---
Author Organization [employer] Address [address] [facility] [address] [place] [address] Care Team Providers Care Museum Docent Name Role Phone Yoli Ruiz Primary Care Provider [phone] Reason for Visit * Reason Onset Date Comments Med Refill 03/28/2023 Encounter Details Date Type Department Care Team (Late st Contact Info) Description 03/28/2023 Telephone [facility] MEDICINE [address] [place] [address] Yoli Ruiz FNP [address] [place] [address] Med Refill Social History Tobacco Use Types [...] refill on; oxyCODONE-acetaminophen (Percocet) 5-325 MG tablet [facility]/pharmacy #[id number] - [place] - [address] [facility] documented in this encounter Plan of Treatment Upcoming Encounters Date Type Department Care Team (Late st Contact Info) Description 09/29/2024 9:45 AM EDT Office Visit [facility] MEDICINE [address] [place] [address] documented as of this encounter Visit Diagnoses Not on filedocumented in this encounter Care Teams Museum Docent Relationship Specialty Start Date End Date Yoli Ruiz FNP [address] [place] [address] PCP - General Family Medicine 03/13/21 documented as of this encounter
--- OUTSIDE RECORDS SUMMARY | 2024-08-11 11:53 | XMS_ITS | Encounter Summary ---
Author Organization [employer] Address [address] [facility] [address] [place] [address] Care Team Providers Care Sign Wirer Name Role Phone Yoli Ruiz Primary Care Provider [phone] Reason for Visit * Reason Onset Date Comments Med Refill 11/27/2023 Encounter Details Date Type Department Care Team (Late st Contact Info) Description 11/27/2023 Telephone [facility] MEDICINE [address] [place] [address] Yoli Ruiz FNP [address] [place] [address] Med Refill Social History Tobacco Use Types [...] 5-325 MG tablet To be sent to: [facility]/pharmacy #[id number] - [place] - [address] [facility] documented in this encounter Plan of Treatment Upcoming Encounters Date Type Department Care Team (Late st Contact Info) Description 09/29/2024 9:45 AM EDT Office Visit [facility] MEDICINE [address] [place] [address] documented as of this encounter Visit Diagnoses Not on filedocumented in this encounter Additional Health Concerns Assessment Noted Time PHQ-9 Depression Total Score: 3 06/23/19 24 9:53 AM EST documented as of this encounter Care Teams Sign Wirer Relationship Specialty Start Date End Date Yoli Ruiz FNP [address] [place] [address] PCP - General Family Medicine 03/13/21 documented as of this encounter
--- OUTSIDE RECORDS SUMMARY | 2024-08-11 11:53 | XMS_ITS | Encounter Summary ---
Author Organization [employer] Address [address] [facility] [address] [place] [address] Care Team Providers Care Display Trimmer Name Role Phone Yoli Ruiz Primary Care Provider [phone] Reason for Visit * Reason Onset Date Comments Med Refill 01/15/2024 Encounter Details Date Type Department Care Team (Late st Contact Info) Description 01/15/2024 Telephone [facility] MEDICINE [address] [place] [address] Yoli Ruiz FNP [address] [place] [address] Med Refill Social History Tobacco Use Types [...] 5-325 MG tablet To be sent to: [facility]/pharmacy #[id number] - [place] - [address] [facility] documented in this encounter Plan of Treatment Upcoming Encounters Date Type Department Care Team (Late st Contact Info) Description 09/29/2024 9:45 AM EDT Office Visit [facility] MEDICINE [address] [place] [address] documented as of this encounter Visit Diagnoses Not on filedocumented in this encounter Additional Health Concerns Assessment Noted Time PHQ-9 Depression Total Score: 3 06/23/19 24 9:53 AM EST documented as of this encounter Care Teams Display Trimmer Relationship Specialty Start Date End Date Yoli Ruiz FNP [address] [place] [address] PCP - General Family Medicine 03/13/21 documented as of this encounter
--- OUTSIDE RECORDS SUMMARY | 2024-08-11 11:54 | XMS_ITS | Clinical Summary ---
Author Organization [employer] Address [address] [place] [address] 7[address] [place] [address] Care Team Providers Care Front End Developer Javascript Html Css Name Role Phone Yoli Ruiz STEPHEN Primary Care Provider [phone] Allergies Active Allergy Reactions Criticality Noted Date [...] (HYDRODiuril) 25 MG tablet 023 Active Creon 45521-30146 units capsule PLEASE SEE ATTACHED FOR DETAILED DIRECTIONS 023 Active senna (Senokot) 8.6 MG tablet TAKE 2 SOFTGELS BY MOUTH AT BEDTIME FOR CONSTIPATION Active Testosterone 20.25 MG/ACT (1.62%) gel APPLY 3 PUMPS TO NONHAIRY AREA OF SKIN DAILY, ROTATE SITES. 023 Active Blood Glucose Monitoring Suppl (2NGageU Lite) w/Device kit Use to test blood [...] complication, with long-term current use of insulin ([facility]) USE TO TEST BLOOD SUGAR THREE TIMES A DAY 100 strip 11 024 Active losartan (Cozaar) 50 MG tabletIndications :Primary hypertension TOME ANDRES TABLETA TODOS LOS BISHOP 90 tablet 3 024 Active gabapentin (Neurontin) 300 MG capsuleIndication s:Type 2 diabetes mellitus with stage 3a chronic kidney disease, with long-term current use of insulin (CMS/[facility]) TAKE 1 CAPSULE POR VIA ORAL AL [...] by mouth Once per day. 024 Active Tresiba FlexTouch 100 UNIT/ML injection INJECT 16 UNITS UNDER THE SKIN ONCE DAILY BEFORE BED 15 mL 2 024 Active insulin aspart (NovoLOG FLEXPEN) 100 UNIT/ML penIndications:Ty pe 2 diabetes mellitus with stage 3a chronic kidney disease, with long-term current use of insulin ([facility]) INJECT INSULIN POR VIA SUBCUTANEA DIRECTED BEFORE [...] 2 diabetes mellitus without complication, unspecified whether intermediate insulin use (CMS/HCC) TAKE 1 TABLET BY MOUTH EVERY 12 HOURS 180 tablet 1 024 Active metoprolol tartrate (Lopressor) 50 MG tablet TAKE 1 TABLET BY MOUTH TWICE A DAY 180 tablet 1 025 Active Dulaglutide 1.5 MG/0.5ML solution auto-injectorIndi cations:Type 2 diabetes mellitus with stage 3a chronic kidney disease, with long-term current use of insulin (CMS/HCC) Inject 1.5 mg under the skin 1 (one) time per week. 2 mL 2 025 Active oxyCODONE-acetami nophen (Percocet) 5-325 MG tabletIndications :Chronic pain syndrome,Long-ter m current use of opiate analgesic,Osteoar thritis of hip, unspecified laterality, unspecified osteoarthritis type,Lumbar spondylosis Take 1 tablet by mouth every 8 (eight) hours if needed for severe pain for up to 28 days. Do not start before August 01, 2024. 84 tablet 025 2024 Active oxyCODONE-acetami nophen (Percocet) 5-325 MG tabletIndications :Chronic pain syndrome,Long-ter m current use of opiate analgesic,Osteoar thritis of hip, unspecified laterality, unspecified osteoarthritis type,Lumbar spondylosis Take 1 tablet by mouth every 8 (eight) hours if needed for severe pain for up to 28 days. Do not start before July 06, 2024. 84 tablet 025 2024 Discontinued(R eorder (will not trigger notification to Pharmacy)) Active Problems Problem Noted Date Diagnosed Date Shortness of breath 03/29/2024 Overview (07/12/2024): Referred to Pulm by [facility] in Jan 2024 for ongoing dyspnea Established with [facility] [place] Apr 2024 - MARANDA Alvarado 06/03/2024: CT chest demonstrated small opacity of the left lower lobe could represent atelectatic change or infection. Tx with augmentin with mild symptom improvement May 2024: nuclear stress test normal, EF 52%. Neg EKG with normal myocardial perfusion imaging PFT through Pulm demonstrated moderate restrictive ventilatory defect w/ no bronchodilator response Empiric tx with Advair initiated Jun 2024 Assessment & Plan (07/12/2024 8:18 PM EST): Reports has not noticed improvement s/p initiation of Advair. Planning to contact [facility] [place] next week to discuss possibly stopping Advair d/t increase in nasal dryness and nose bleeds Long-term current use of opiate analgesic 2023 Overview (01/15/2024): Medication: Percocet 5-325mg Q8H PRN Indication: lumbar spondylosis, hip OA Last [employer] Agreement: 05/30/23 OAB (overactive bladder) 10/22/2023 Overview (10/22/2023): Following with [facility] Previous tx: Sandro Continues on Gemtesa through Urology, well controlled Fatty infiltration of liver 06/23/2023 Overview (12/30/2023): -Feb 2023: CT with impression of diffuse fatty infiltration of liver, question of cirrhosis -Hep B&C neg 09/20/21 -10/23/23: Liver fibrosis panel - F3 -Pending further liver workup from [facility] starting 12/05/23 Assessment & Plan (10/22/2023 9:56 AM EDT): Reviewed basic information regarding condition as well as further monitoring/testing. Pt planning to follow up with [facility] [place] tomorrow to discuss liver health Assessment & [...] syndrome 03/10/2023 Overview (03/10/2023): ?? 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 Continues with senna 2 tablets nightly and Creon through GI Healthcare maintenance 03/10/2023 Overview (03/29/2024): Optometry: SHAVONNE Jan 2024 at [facility]. Next due: Jan 2025. Dental: [facility] Dental Colonoscopy: last 01/07/[address] Monroe - tubular adenoma, followed by GI. Pt reports completed repeat colonoscopy and was told WNL. Request records. 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 Assessment & Plan (07/12/2024 8:25 PM EST): A1c increased compared to previous, reports it has been due to lack of Trulicity prescription. Unclear if pharmacy contacted our office. Prescription sent to pharmacy today. Encouraged to call office with any difficulties in the future. Will decrease from Trulicity 3 mg subcu weekly to 1.5 mg subcu weekly due to restart. Assessment & Plan (03/29/2024 8:20 PM EST): [...] with oxycodone-acetaminophen 5-325mg Q8H PRN Established with [employer] Program Encouraged use of pharm and non-pharm [...] Plan (10/22/2023 10:08 AM EDT): Followed by [facility] Assessment & Plan (03/10/2023 9:28 PM EDT): ?? Followed by [facility] Insomnia 12/17/2014 Overview (10/22/2023): Following with Psychiatrist - Dr. Rivera Continues with mirtazapine 30mg nightly Assessment & Plan (10/22/2023 10:05 AM EDT): Sleeping approx 8 hours per night Dysthymia 12/17/2014 Overview (10/22/2023): Following with psychiatrist - Dr. 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 Continues on famotidine 40mg BID and omeprazole 20mg nightly through GI Gout 11/29/2011 Left ventricular hypertrophy 11/29/2011 Assessment & Plan (10/22/2023 10:07 AM EDT): Followed by Cardiology Luisa Sanabria Osteoarthritis of hip 11/29/2011 Hyperlipidemia 11/13/2011 Overview (10/22/2023): Followed by Cardiology w. hx rxn (elevated CK) with statin in past Current med regimen: Repatha 140mg/mL subcutaneous Q2 weeks Ezetimibe 10mg daily Rosuvastatin 5mg nightly Assessment & Plan (10/22/2023 10:12 AM EDT): -Check fasting lipids -Encouraged lifestyle interventions Hypertension 11/13/2011 Overview (07/12/2024): May 2024: nuclear stress test normal, EF 52%. Neg EKG with normal myocardial perfusion imaging Assessment & Plan (07/12/2024 8:24 PM EST): Followed by Cardiology - Dr. Sanabria Med regimen: Losartan 50mg daily Metoprolol 50mg BID Hydrochlorothiazide 25mg daily Well-controlled, continue current regimen Continue low salt diet, routine physical activity Assessment & Plan (06/01/2024 1:52 PM EST): Followed by Cardiology Luisa Sanabria Med regimen: Losartan 50mg daily Metoprolol [...] Encounters Date Type Department Care Team Description 08/11/2024 Refill [facility] [address] [place] [address] Yoli Ruiz FNP Primary hypertension 08/05/2024 9:00 AM EDT Clinical Support [facility] [address] [place] [address] Quynh Walker, NASRIN Lumbar spondylosis (Primary Dx); [facility] (current) use of opiate analgesic 08/05/2024 Travel 08/05/2024 Telephone [facility] [address] [place] [address] Quynh Walker RN 07/30/2024 Refill [facility] [address] [place] [address] Yoli Ruiz FNP Chronic pain syndrome; Long-term current use of opiate analgesic; Osteoarthritis of hip, unspecified laterality, unspecified osteoarthritis type; Lumbar spondylosis 07/10/2024 2:30 PM EST Office Visit [facility] [address] [place] [address] Phalen, Yoli, FIELD ARTILLERY CANNONEER Type 2 diabetes mellitus with stage 3a chronic kidney disease, with long-term current use of insulin ([facility]) (Primary Dx); Shortness of breath; Primary hypertension; Male hypogonadism; OAB (overactive bladder) 07/10/2024 Travel 07/09/2024 Telephone [facility] [address] [place] [address] Pat Ivy MA Chart Prep 07/07/2024 Telephone [facility] [address] [place] [address] Yoli Ruiz, FIELD ARTILLERY CANNONEER February recall 07/02/2024 Refill [facility] [address] [place] [address] Yoli Ruiz, FIELD ARTILLERY CANNONEER Chronic pain syndrome; Long-term current use of opiate analgesic; Osteoarthritis of hip, unspecified laterality, unspecified osteoarthritis type; Lumbar spondylosis 06/05/2024 Refill [facility] [address] [place] [address] Yoli Ruiz, FIELD ARTILLERY CANNONEER Chronic pain syndrome; Long-term current use of opiate analgesic; Osteoarthritis of hip, unspecified laterality, unspecified osteoarthritis type; Lumbar spondylosis 06/04/2024 Telephone [facility] [address] [place] [address] Yoli Ruiz, FIELD ARTILLERY CANNONEER Walk-In 06/03/2024 Orders Only [facility] External Provider, [facility] 06/01/2024 Refill [facility] [address] [place] [address] Yoandy Adhikari MD Primary hypertension (Primary Dx) from Last 3 Months Immunizations Name Administration [...] Answer Date Recorded Patient Health Questionnaire-9 Score 4 07/10/2024 Patient Health Questionnaire-9 Score 4 07/10/2024 Last PHQ-9: Questionnaire Data Not on file 0 07/10/2024 Housing Stability Answer Date Recorded What is [...] Answer Date Recorded Patient Health Questionnaire-2 Score 1 07/10/2024 Internet Access Answer Date Recorded Internet Access [...] Sign Reading Time Taken Comments Blood Pressure 133/88 07/10/2024 2:31 PM EST Pulse 70 07/10/2024 2:31 PM EST Temperature 36.3 ??C (97.3 ??F) 07/10/2024 2:31 PM ES T Respiratory Rate 19 07/10/2024 2:31 PM EST Oxygen Saturation 98% 07/10/2024 2:31 PM EST Inhaled Oxygen Concentration - - Weight 105 kg (232 lb 2 oz) 07/10/2024 2:[address] Height 167.6 cm (5' 6 ) 07/10/2024 2:31 PM EST Body Mass Index 37.47 07/10/2024 2:31 PM EST Plan of Treatment Upcoming Encounters Date Type Department Care Team (Late st Contact Info) Description 09/29/2024 9:45 AM EDT Office Visit [facility] [address] [place] [phone] Health Maintenance Due Date Last Done Comments CT Colonography 1955 FIT DNA/Cologuard 1955 FOBT 1955 Sigmoidoscopy 1955 Diabetes: Foot Exam 09/04/1963 Hepatitis A Vaccines (1 of 2 - Risk 2-dose series) 1972 Hepatitis B Vaccines (1 of 3 - Risk 3-dose series) 2013 FIT 08/30/2021 08/30/2020 Zoster Vaccines (3 of 3) 02/14/2022 022, 12/20/2021, 09/16/2014 SDOH Screening 03/11/2024 03/11/2023 Dental Oral Exam 08/10/2024 02/10/2024, , 10/11/2022, Additional history exists Dental Prophylaxis 08/10/2024 02/10/2024, 0 07/12/2023, 10/24/2022, Additional history exists Diabetes: Hemoglobin A1C 10/07/2024 025, 10/21/2023, 06/21/2023, Additional history exists Lipid Panel 10/22/2024 10/23/2023, 03/21, 04/12/2021 Dental X-Ray: Bitewings 02/10/2025 02/10/20 24, 10/11/2022, 08/20/2018, Additional history exists Alcohol/Substance Use Screening 03/27/2025 03/27/2024 Depression Screening 07/10/2025 07/10/2024, 07/10/19 Tobacco Screening 07/10/2025 07/10/2024 Dental X-Ray: Full Mouth 10/12/2025 10/11/2022, 12/18 [...] Procedure Name Priority Date/Time Associated Diagnosis Comments POCT RESHMA-14 URINE DRUG SCREEN Routine 08/05/2024 9:03 AM EDT [facility] (current) use of opiate analgesic Lumbar spondylosis POCT GLYCATED HEMOGLOBIN, TOTAL Routine 07/10/2024 2:58 PM EST Type 2 diabetes mellitus with stage 3a chronic kidney disease, with long-term current use of insulin ([facility]) POCT GLUCOSE Routine 07/10/2024 2:57 PM EST Type 2 diabetes mellitus with stage 3a chronic kidney disease, with long-term current use of insulin ([facility]) CT CHEST WO CONTRAST Routine 06/04/2024 7:23 AM EST PROPHYLAXIS - ADULT Routine 02/10/2024 3 [...] routine history and physical examination of adult INTRAORAL - COMPLETE SERIES OF RADIOGRAPHIC IMAGES Routine 10/11/2022 9:00 AM EDT HM COLONOSCOPY Routine 03/01/2022 ZZZ HISTORICAL FECAL IMMUNOCHEMICAL TEST X1 (FIT) Routine 08/30/2020 12:00 AM EDT from Last 3 Months or Most Recently Relevant to Health Maintenance Results * POCT RESHMA-14 Urine Drug Screen (08/05/2024 9:03 AM EDT) Oxycodone Screen, Urine Positive Urine Urine specimen obtained by clean catch procedure / Unknown 08/05/2024 9:03 AM EDT Narrative Quynh Walker RN - 08/05/2024 9:03 AM EDT Lot# [id number] Exp: 01-06-26 us Yoli Ruiz FIELD ARTILLERY CANNONEER POINT OF CARE TEST ENTER/EDIT ORDERABLES Final Result * (ABNORMAL) POCT HGB A1C (07/10/2024 2:58 PM EST) Pathologist [facility] Hemoglobin A1C 8.5(A) 4.0 - 6.0 % QC Media Lot # [id number] Lot# Expiration Date ,026 Blood 07/10/2024 2:58 PM EST Yoli Ruiz FIELD ARTILLERY CANNONEER POINT OF CARE TEST ENTER/EDIT ORDERABLES Final Result * (ABNORMAL) POCT Glucose (07/10/2024 2:57 PM EST) Pathologist [facility] Glucose Blood, POC 227(A) 60 - 200 mg/dL QC Media Lot # [id number] Lot# Expiration Date [id number] Blood Capillary blood specimen / Unknown 07/10/2024 2:57 PM EST Yoli Ruiz [facility] POINT OF CARE TEST ENTER/EDIT ORDERABLES Final Result * CT Chest w/o Contrast (06/04/2024 7:23 AM EST) Anatomical Region Laterality Modality Body, Chest Computed Tomogra phy 06/04/2024 7:23 AM EST Narrative 06/04/2024 7:25 AM EST ? [facility] ?[address] ?[place] [address] ? CT Scan Report ? Signed ? Patient: Brice,Rommel ?MR#: [id number] ?? [id number] ? : 1955 ?Acct:[id number] ? Age/Sex: 68 / M ?ADM Date: 01/15/25 ? Loc: HO.CT ? Attending Dr: Coni Alvarado CUSHION MAKER ? Ordering Physician: Coni Alvarado NP ?? Date of Service: 06/03/24 ?? Procedure(s): CT chest wo IV con ?? Accession Number(s): [id number] ? cc: Yoli Ruiz FIELD ARTILLERY CANNONEER; Coni Alvarado CUSHION MAKER ? Report Number: ?? [id number]: Total DLP = ??221.00 mGy-cm ? CLINICAL [...] by Ingrid Huerta MD in OV> ? 06/04/24723 ? DD/ 2 ? TD/TT: 06/04/24722 ? Housekeeper/Custodian/Laundry Worker: ? Procedure Note Pastor, Image - 06/04/[address] [address] [address] Scan Report Signed Patient: Rommel NarvaezMR#: [id number] : 4Acct:[id number] Age/Sex: 68 / MADM Date: 06/03/24 Loc: HO.CT Attending Dr: Coni Alvarado CUSHION MAKER Ordering Physician: Coni Alvarado NP Date of Service: 06/03/24 Procedure(s): CT chest wo IV con Accession Number(s): [id number] cc: Yoli Ruiz FIELD ARTILLERY CANNONEER; Coni Alvarado NP Report Number: [id number]: Total DLP = 221.00 mGy-cm CLINICAL HISTORY: [...] in OV> 06/04/24723 DD/ 2 TD/TT: 06/04/24722 Housekeeper/Custodian/Laundry Worker: [facility] External Provider IMG CT PROCEDURES Edited Result - Final * Diabetes Eye Exam (01/27/2024) Eye Exam Normal Normal Historical Provider HEALTH MAINTENANCE Edited Result - Final * Hepatitis Panel, General (10/23/2023 9:06 AM EDT) Hepatitis A IgM Nonreactive Nonreactive [facility] Comment:IgM antibodies to REDD V not detected; does not exclude earlyacute or recovered HAV infection. ~Hepatitis B Surface Antibody NONREACTIVE Nonreactive [facility] Comment:Nonreactive: < 8.00 mIU/mL Hepatitis B Core Antibody Nonreactive Nonreactive [facility] Hepatitis C Antibody Nonreactive Nonreactive [facility] Comment:Antibodies to HCV no t detected; does not exclude early acuteHCV infection. Hepatitis B Surface Ag Negative Negative [facility] 10/23/2023 9:06 AM EDT 10/23/2023 9:06 AM EDT Generic External Data Provider LAB BLOOD ORDERAB LES Final Result [facility] [address] [place] [address] [phone] * (ABNORMAL) Lipid Panel, Standard (10/23/2023 9:06 AM EDT) Triglycerides 250(H) <150 mg/dL [facility] Comment:Desirable Triglyceri de: less than 150 mg/dLBorderline High Triglyceride 150-199 mg/dLHigh Triglyceride: 200-499 mg/dLVery High Triglyceride: greater than or equal to 5OO mg/dL Cholesterol 88 <200 mg/dL [facility] Comment:Desirable Cholestero l: less than 200 mg/dLBorderline High Cholesterol: 200-239 mg/dLHigh Cholesterol: greater than 239 mg/dL LDL Cholesterol Calculated 8 <100 mg/dL [facility] Comment:Desirable LDL: less than 100 mg/dLNear Optimal/Above Optimal LDL: 110- 129 mg/dLBorderline High LDL: 130-159 mg/dLHigh LDL: 160-189 mg/dLVery High LDL: greater than or equal to 190 mg/dL HDL Cholesterol 30(L) >40 mg/dL [facility] Comment:Desirable HDL: great er than 40 mg/dL Note: This HDL assay may give artificially low results in patients with liver disease. Blood Venous blood specimen / Unknown 10/23/2023 9:06 AM EDT 10/23/2023 9:06 AM EDT Yoli Ruiz FIELD ARTILLERY CANNONEER LAB BLOOD ORDERABLES Final Res ult Performing Organization Address City/[facility]/ZIP Co de Phone Number [facility] [address] [place] [address] [phone] * Hm Colonoscopy (03/01/2022) Colonoscopy Normal Normal Narrative Mis Boyd - 03/01/2022 Repeat in 10 years Historical Provider HEALTH MAINTENANCE Final Result * Fecal immunochemical test x1 (FIT) (08/30/2020 12:00 AM EDT) FIT Date 1 4110620 [facility] FIT Date 2 4120620 [facility] FIT Lot [id number] [facility] FIT1 NEGATIVE NEGATIVE [facility] FIT2 NEGATIVE NEGATIVE [facility] 08/30/2020 us Historical Provider MD HISTORICAL/NON ORDERABLE LABS Final Result Performing Organization Address City/State/[facility] Co de Phone Number [facility] [address] from Last 3 Months or Most Recently Relevant to Health Maintenance Insurance [facility] - [facility] Care Teams Front End Developer Javascript Html Css Relationship Specialty Start Date End Date Yoli Ruiz FNP [address] [place] [phone] PCP - General Family Medicine 03/13/21
--- OUTSIDE RECORDS SUMMARY | 2024-08-11 11:54 | XMS_ITS | Encounter Summary ---
Author Organization [employer] Address [address] [place] [address] [address] [place] [address] Care Team Providers Care Farm General Manager Name Role Phone Yoli Ruiz STEPHEN Primary Care Provider [phone] Reason for Visit * Reason Comments Med Refill Encounter Details Date Type Department Care Team (Late st Contact Info) Description 10/19/2022 Refill [facility] [address] [place] [address] [phone] Name, MD Jam [address] [place] [address] [phone] Chronic pain syndrome Social History Tobacco Use [...] Description 09/29/2024 9:45 AM EDT Office Visit [facility] [address] [place] [address] [phone] documented as of this encounter Visit Diagnoses Diagnosis Chronic pain syndrome documented in this encounter Care Teams Farm General Manager Relationship Specialty Start Date End Date Yoli Ruiz FNP [address] [place] [address] PCP - General Family Medicine 03/13/21 documented as of this encounter
--- OUTSIDE RECORDS SUMMARY | 2024-08-11 11:54 | XMS_ITS | Encounter Summary ---
Author Organization [employer] Address [address] [place] [address] Care Team Providers Care Canoe Inspector Name Role Phone Yoli Ruiz Primary Care Provider [phone] Reason for Visit * Reason Comments Med Refill Encounter Details Date Type Department Care Team (Late st Contact Info) Description 08/11/2024 Refill [facility] [address] [place] [address] Yoli Ruiz FNP [address] [place], [place] [phone] Primary hypertension Social History Tobacco Use Types Packs/Day Years [...] Description 09/29/2024 9:45 AM EDT Office Visit [facility] [address] [place] [address] documented as of this encounter Visit Diagnoses Diagnosis Primary hypertension Unspecified essential hypertension documented in this encounter Additional Health Concerns Assessment Noted Time PHQ-9 Depression Total Score: 4 07/10/19 25 3:45 PM EST documented as of this encounter Care Teams Canoe Inspector Relationship Specialty Start Date End Date Yoli Ruiz FNP [address] [place] [address] PCP - General Family Medicine 03/13/21 documented as of this encounter
--- OUTSIDE RECORDS SUMMARY | 2024-08-11 11:54 | XMS_ITS | Encounter Summary ---
Author Organization [employer] Address [address] [place] [address] Care Team Providers Care Loan Processor Name Role Phone oYli Ruiz Primary Care Provider [phone] Encounter Details Date Type Department Care Team (Late Contact Info) Description 11/28/2022 Orders Only [facility] [address] [place] [phone] Yoli Ruiz FNP [address] [place], [place] [phone] Social History Tobacco Use Types Packs/Day Years [...] Description 09/29/2024 9:45 AM EDT Office Visit [facility] [address] [place] [address] [phone] documented as of this encounter Visit Diagnoses Not on filedocumented in this encounter Care Teams Loan Processor Relationship Specialty Start Date End Date Yoli Ruiz FNP [address] [place] [address] PCP - General Family Medicine 03/13/21 documented as of this encounter
--- OUTSIDE RECORDS SUMMARY | 2024-08-11 11:54 | XMS_ITS | Encounter Summary ---
Author Organization [employer] Address [address] 7[address] [place] [address] Care Team Providers Care Senior Business Objects Developer Name Role Phone Yoli Ruiz STEPHEN Primary Care Provider [phone] Encounter Details Date Type Department Care Team (Latest Contact Info) Description 08/05/2024 Travel Social History Tobacco Use Types Packs/Day Years [...] Description 09/29/2024 9:45 AM EDT Office Visit [facility] [address] [place] [address] documented as of this encounter Visit Diagnoses Not on filedocumented in this encounter Additional Health Concerns Assessment Noted Time PHQ-9 Depression Total Score: 4 07/10/19 25 3:45 PM EST documented as of this encounter Care Teams Senior Business Objects Developer Relationship Specialty Start Date End Date Yoli Ruiz FNP [address] [place] [address] PCP - General Family Medicine 03/13/21 documented as of this encounter
--- OUTSIDE RECORDS SUMMARY | 2024-08-11 11:54 | XMS_ITS | Clinical Summary ---
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 Social History Tobacco Use Types Packs/Day Years Used Date Smoking Tobacco: Never Assessed Sex and Gender Information Value Date Recorded Sex Assigned at Not on file Legal Sex Male 12:35 PM EST Gender Identity Not on file Sexual Orientation Not on file Plan of Treatment Health Maintenance Due Date Last Done Comments DTaP,Tdap,and Td Vaccines (1 - Tdap) 1972 Pneumococcal Vaccine: 50+ Ye ars (1 of 1 - PCV) 09/04/2003 Zoster Vaccines (1 of 2) 09/04/2003 COVID-19 Vaccine ( - 2023-2 5 season) 2024 Influenza Vaccine (#1) 2024 Abdominal Aortic Aneurysm (A AA) Screen 07/10/2024 Cholesterol Screening (Lipid Panel) 07/10/2024 Colorectal Cancer Screening: Colonoscopy 07/10/2024 Depression Screening 07/10/2024 Falls Risk Assessment 07/10/2024 Hepatitis C Screening 07/10/2024 Social Influencers of Health Screening 07/10/2024 RSV Immunization Patients 60 + Years Old (1 - 1-dose 75+ series) 2028 HIB Vaccines Aged Out No longer eligi ble based on patient's age to complete this topic HPV Vaccines Aged Out No longer eligi ble based on patient's age to complete this topic Hepatitis A Vaccines Aged Out No long er eligible based on patient's age to complete this topic Hepatitis B Vaccines Aged Out No long er eligible based on patient's age to complete this topic IPV Vaccines Aged Out No longer eligi ble based on patient's age to complete this topic MMR Vaccines Aged Out No longer eligi ble based on patient's age to complete this topic Meningococcal ACWY Vaccine Aged Out N o longer eligible based on patient's age to complete this topic Meningococcal B Vacine Aged Out No lo nger eligible based on patient's age to complete this topic RSV Immunization Patients Un allison 20 months Aged Out No longer eligible b ased on patient's age to complete this topic Varicella Vaccines Aged Out No longer eligible based on patient's age to complete this topic Procedures Procedure Name Priority Date/Time Associated Diagnosis Comments HEPATIC FUNCTION PANEL Routine 07/10/2024 8:31 AM EST Testicular hypofunction COMPLETE BLOOD COUNT Routine 07/10/2024 8:31 AM EST 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 RBC 4.80 4.50 - 5.50 M/mcL LAB HEMETOLOGY METHOD 07/10/2024 1:[address] [facility] Hemoglobin 14.3 13.5 - 17.5 g/dL LAB HEMETOLOGY METHOD 07/10/2024 1:[address] [facility] Hematocrit 42.1 42.0 - 54.0 % LAB HEMETOLOGY METHOD 07/10/2024 1:[address] [facility] MCV 88.3 79.0 - 98.0 FL LAB HEMETOLOGY METHOD 07/10/2024 1:[address] [facility] MCH 30.0 27.0 - 32.0 pcg LAB HEMETOLOGY METHOD 07/10/2024 1:[address] [facility] MCHC 34.0 32.0 - 37.0 g/dL LAB HEMETOLOGY METHOD 07/10/2024 1:12 PM EST [facility] RDW 14.0 11.0 - 15.0 % LAB HEMETOLOGY METHOD 07/10/2024 1:12 PM EST [facility] Platelets 320 130 - 400 K/mcL LAB HEMETOLOGY METHOD 07/10/2024 1:12 PM EST [facility] MPV 10.7 7.0 - 11.0 FL LAB HEMETOLOGY METHOD 07/10/2024 1:12 PM EST [facility] NRBC 0.0 <1.0 % LAB HEMETOLOGY METHOD 07/10/2024 1:12 PM EST [facility] NRBC Absolute 0.00 <0.10 K/mcL LAB HEMETOLOGY METHOD 07/10/2024 1:[address] [facility] Blood Venous blood specimen / Unknown 07/10/2024 8:31 AM EST 07/10/2024 12:42 PM EST us Oliver BENNETT LAB BLOOD ORDERABLES Final Res ult [facility] [address] [place] [address], [place] [phone] * Hepatic function panel (07/10/2024 8:31 AM EST) Total Protein 7.3 6.0 - 8.0 g/dL LAB CHEMISTRY METHOD 07/10/2024 1:52 PM EST [facility] Albumin 3.7 3.2 - 5.0 g/dL LAB CHEMISTRY METHOD 07/10/2024 1:52 PM EST [facility] Total Bilirubin 0.4 0.0 - 1.4 mg/dL LAB CHEMISTRY METHOD 07/10/2024 1:52 PM EST [facility] Bilirubin, Direct 0.2 0.0 - 0.3 mg/dL LAB CHEMISTRY METHOD 07/10/2024 1:52 PM EST [facility] Bilirubin, Indirect 0.2 0.0 - 1.1 mg/dL LAB CHEMISTRY METHOD 07/10/2024 1:52 PM EST [facility] ALT (SGPT) 42 10 - 60 unit/L LAB CHEMISTRY METHOD 07/10/2024 1:[address] [facility] AST (SGOT) 29 10 - 42 unit/L LAB CHEMISTRY METHOD 07/10/2024 1:52 PM EST [facility] Alkaline Phosphatase 118 42 - 121 unit/L LAB CHEMISTRY METHOD 07/10/2024 1:[address] [facility] Blood Venous blood specimen / Unknown 07/10/2024 8:31 AM EST 07/10/2024 12:42 PM EST us Oliver BENNETT LAB BLOOD ORDERABLES Final Res ult [facility] [address] [place] [address], [place] [phone] from Last 3 Months Insurance [facility] Member Subscriber Plan / Payer (Ef fective 2019-Present) Name:Rommel Copeland Relation to Subscriber:Self Name:Rommel Copeland Payer ID:[id number] Group ID:[id number] Type:Not on file Address: [address] [place] [address] Care Teams Director Shopper Marketing Relationship Specialty Start Date End Date Physician, Pcp Unknown PCP - General 07/10/24
--- OUTSIDE RECORDS SUMMARY | 2024-08-11 11:54 | XMS_ITS | Encounter Summary ---
Author Organization [employer] Address [address] 7[address] [place] [address] Care Team Providers Care Sand Technologist Name Role Phone Yoli Ruiz Primary Care Provider [phone] Reason for Visit * Reason Onset Date Comments Med Refill 07/30/2024 Encounter Details Date Type Department Care Team (Late st Contact Info) Description 07/30/[address] [facility] [address] [place] [address] Yoli Ruiz FNP [address] [place] [address] Chronic pain syndrome; Long-term current use of [...] encounter Miscellaneous Notes * Telephone Encounter - Isabella Perez - 07/30/2024 8:32 AM EDT TC from pt requesting medication refill. Medications needing refill : oxyCODONE-acetaminophen (Percocet) 5-325 MG tablet To be sent to: [facility]/pharmacy #[id number] - [place] - [facility] [place]IDY LEE documented in this encounter Plan of Treatment Upcoming Encounters Date Type Department Care Team (Late st Contact Info) Description 09/29/2024 9:45 AM EDT Office Visit [facility] [address] [place] [address] documented as of this encounter Visit Diagnoses [...] documented as of this encounter Care Teams Sand Technologist Relationship Specialty Start Date End Date Yoli Ruiz FNP [address] [place] [address] PCP - General Family Medicine 03/13/21 documented as of this encounter
--- OUTSIDE RECORDS SUMMARY | 2024-08-11 11:54 | XMS_ITS | Encounter Summary ---
Author Organization [employer] Address [address] [place] [address] Care Team Providers Care Button Spindler Name Role Phone Yoli Ruiz MARINE CARGO SURVEYOR Primary Care Provider [phone] Encounter Details Date Type Department Care Team ([facility] Contact Info) Description 08/05/2024 Telephone [facility] [address] [place] [address] Quynh Walker, RN [address] [place] [address] Social History Tobacco Use Types Packs/Day Years [...] encounter Miscellaneous Notes * Telephone Encounter - STEPHEN Sommers - 08/05/2024 7:58 AM EDT Tier 3 (HOUSECALLS NURSE visits Q4 months) x 1 year, then re-eval. Thanks! * Telephone Encounter - Quynh Walker RN - 08/05/2024 7:56 AM EDT ..What HOUSECALLS NURSE Tier would you like this patient to be? Tier 1 = HIGH RISK, Monthly HOUSECALLS NURSE visits Tier 2 = MODerate RISK, Q3 Month visits Tier 3 = LOW RISK = Q4-6 month visits documented in this encounter Plan of Treatment Upcoming Encounters Date Type Department Care Team (Late st Contact Info) Description 09/29/2024 9:45 AM EDT Office Visit [facility] [address] [place] [address] documented as of this encounter Visit Diagnoses Not on filedocumented in this encounter Additional Health Concerns Assessment Noted Time PHQ-9 Depression Total Score: 4 07/10/19 25 3:45 PM EST documented as of this encounter Care Teams Button Spindler Relationship Specialty Start Date End Date Yoli Ruiz FNP [address] [place] [address] PCP - General Family Medicine 03/13/21 documented as of this encounter
--- OUTSIDE RECORDS SUMMARY | 2024-08-11 11:54 | XMS_ITS | Encounter Summary ---
Author Organization [employer] Address [address] [place] [address] Care Team Providers Care Parking Lot Spotter Name Role Phone Yoli Ruiz DATA OPERATIONS MANAGER Primary Care Provider [phone] Reason for Visit * Reason Comments controlled substance treatment Encounter Details Date Type Department Care Team (Latest Contact Info) Description 08/05/2024 9:00 AM EDT Clinical Support [facility] [address] [place] [address] Quynh Walker RN [address] [place] [address] Lumbar spondylosis (Primary Dx); assisted (current) use of opiate analgesic Social History Tobacco Use Types Packs/Day Years [...] AM EDT documented as of this encounter Progress Notes * Quynh Walker RN - 08/05/2024 9:00 AM EDT S: Pt here for RETIREMENT PLAN SPECIALIST Revisit. Prescribed Percocet 5mg/325mg Q8hr PRN. States he has been taking as prescribed, last pill was taken this morning. States he does not have any pain right now and states his medication is usually 90% effective at alleviating his pain.Patient denies smoking cigarettes, ETOH use, Illicit Drug use and Marijuana use. Takes Gabapentin 300mg at bedtime. Last PCP visit was 07/10/24. f/u for back cortisone injections. No questions/ concerns at this time. O: SCT Tier 3. Pt currently prescribed Percocet 5mg/325mg Q8hr PRN. WIRE THREADER verified today. Rx last filled on 08/03/24. Pill count performed. Pt has 79 pills at this time, 77 expected. Medication is not overused by patient. UTOX completed. Positive for OXY only, UTOX as expected. .BPI updated today. Pain severity score of (3.5), activity interference score of (7.5). Previous BPI completed (05/30/23) with pain severity score of (5), activity interference score of (6). A: RETIREMENT PLAN SPECIALIST Contract Revisit: Chronic Opioid use related to pain. P: Pt to continue taking medication only as prescribed. Chronic pain group scheduled for appointment scheduled for 09/29/24 @ 9:30am. F/U sooner PRN. Appointment reminder given. Pt verbalized understanding and agreed to plan. documented in this encounter Plan of Treatment Upcoming Encounters Date Type Department Care Team (Late st Contact Info) Description 09/29/2024 9:45 AM EDT Office Visit [facility] [address] [place] [address] documented as of this encounter Procedures Procedure Name Priority Date/Time Associated Diagnosis Comments POCT RESHMA-14 URINE DRUG SCREEN Routine 08/05/2024 9:03 AM EDT sales and marketing coordinator (current) use of opiate analgesic Lumbar spondylosis documented in this encounter Results * POCT RESHMA-14 Urine Drug Screen (08/05/2024 9:03 AM EDT) Oxycodone Screen, Urine Positive Urine Urine specimen obtained by clean catch procedure / Unknown 08/05/2024 9:03 AM EDT Narrative Quynh Walker RN - 08/05/2024 9:03 AM EDT Lot# [id number] Exp: 01-06-26 Yoli MITCHELL POINT OF CARE TEST ENTER/EDIT ORDERABLES Final Result documented in this encounter Visit Diagnoses Diagnosis Lumbar spondylosis- Primary Lumbosacral spondylosis without myelopathy sales and marketing coordinator (current) use of opiate analgesic documented in this encounter Additional Health Concerns Assessment Noted Time PHQ-9 Depression Total Score: 4 07/10/19 25 3:45 PM EST documented as of this encounter Care Teams Parking Lot Spotter Relationship Specialty Start Date End Date Yoli Ruiz FNP [address] [place] [address] PCP - General Family Medicine 03/13/21 documented as of this encounter
--- OUTSIDE RECORDS SUMMARY | 2024-08-11 11:54 | XMS_ITS | Encounter Summary ---
Author Organization [employer] Address [address] [place] [address] Care Team Providers Care Back Sizer Name Role Phone Yoli Ruiz STEPHEN Primary Care Provider [phone] Encounter Details Date Type Department Care Team ([facility] st Contact Info) Description 04/05/2023 Abstract [facility] [address] [place], [place] [id number] Mis oByd Social History Tobacco Use Types Packs/Day Years [...] Upcoming Encounters Date Type Department Care Team ([facility] st Contact Info) Description 09/29/2024 9:45 AM EDT Office Visit [facility] [address] [place] [address] documented as of this encounter Procedures Procedure Name Priority Date/Time Associated Diagnosis Comments HM COLONOSCOPY Routine 03/01/2022 documented in this encounter Results * Hm Colonoscopy (03/01/2022) Colonoscopy Normal Normal Narrative Deb Mis - 03/01/2022 Repeat in 10 years Historical Provider HEALTH MAINTENANCE Final Result documented in this encounter Visit Diagnoses Not on filedocumented in this encounter Care Teams Back Sizer Relationship Specialty Start Date End Date Yoli Ruiz FNP [address] [place] [address] PCP - General Family Medicine 03/13/21 documented as of this encounter
--- OUTSIDE RECORDS SUMMARY | 2024-08-11 11:54 | XMS_ITS | Encounter Summary ---
Author Organization [facility] Address [address] [place] [address] Care Team Providers Care Stage Setting Painter Apprentice Name Role Phone Physician, Pcp Unknown Primary Care Provider Yocasta vailable Encounter Details Date Type Department Care Team (Late st Contact Info) Description 07/10/2024 Lab Requisition [facility] - Main Lab [address] [facility] [place] [address] Oliver Villalta PA [address] [place] [address] [place] [address] Testicular hypofunction Social History Tobacco Use Types Packs/Day Years Used Date Smoking Tobacco: Never Assessed Sex and Gender Information Value Date Recorded Sex Assigned at Not on file Legal Sex Male 12:35 PM EST Gender Identity Not on file Sexual Orientation Not on file documented as of this encounter Plan of Treatment Not on file documented as of this encounter Procedures Procedure Name Priority Date/Time Associated Diagnosis Comments COMPLETE BLOOD COUNT Routine 07/10/2024 8:31 AM EST Testicular hypofunction HEPATIC FUNCTION PANEL Routine 07/10/2024 8:31 AM EST Testicular hypofunction documented in this encounter Results * Hepatic function panel (07/10/2024 8:31 AM EST) Total Protein 7.3 6.0 - 8.0 g/dL LAB CHEMISTRY METHOD 07/10/2024 1:52 PM EST [facility] Albumin 3.7 3.2 - 5.0 g/dL LAB CHEMISTRY METHOD 07/10/2024 1:52 PM EST [facility] Total Bilirubin 0.4 0.0 - 1.4 mg/dL LAB CHEMISTRY METHOD 07/10/2024 1:52 PM EST [facility] Bilirubin, Direct 0.2 0.0 - 0.3 mg/dL LAB CHEMISTRY METHOD 07/10/2024 1:52 PM [facility] Bilirubin, Indirect 0.2 0.0 - 1.1 mg/dL LAB CHEMISTRY METHOD 07/10/2024 1:52 PM [facility] ALT (SGPT) 42 10 - 60 unit/L LAB CHEMISTRY METHOD 07/10/2024 1:52 PM [facility] AST (SGOT) 29 10 - 42 unit/L LAB CHEMISTRY METHOD 07/10/2024 1:52 PM [facility] Alkaline Phosphatase 118 42 - 121 unit/L LAB CHEMISTRY METHOD 07/10/2024 1:52 PM [facility] Blood Venous blood specimen / Unknown 07/10/2024 8:31 AM EST 07/10/2024 12:42 PM EST us Oliver BENNETT LAB BLOOD ORDERABLES Final Res ult [facility] [address] [place] [address], * Complete blood count (07/10/2024 8:31 AM EST) WBC 7.8 4.8 - 10.8 K/mcL LAB HEMETOLOGY METHOD 07/10/2024 1:12 PM [facility] RBC 4.80 4.50 - 5.50 M/mcL LAB HEMETOLOGY METHOD 07/10/2024 1:12 PM [facility] Hemoglobin 14.3 13.5 - 17.5 g/dL LAB HEMETOLOGY METHOD 07/10/2024 1:12 PM [facility] Hematocrit 42.1 42.0 - 54.0 % LAB HEMETOLOGY METHOD 07/10/2024 1:12 PM EST [facility] MCV 88.3 79.0 - 98.0 FL LAB HEMETOLOGY METHOD 07/10/2024 1:12 PM EST [facility] MCH 30.0 27.0 - 32.0 pcg LAB HEMETOLOGY METHOD 07/10/2024 1:12 PM [facility] MCHC 34.0 32.0 - 37.0 g/dL LAB HEMETOLOGY METHOD 07/10/2024 1:12 PM EST [facility] RDW 14.0 11.0 - 15.0 % LAB HEMETOLOGY METHOD 07/10/2024 1:12 PM [facility] Platelets 320 130 - 400 K/mcL LAB HEMETOLOGY METHOD 07/10/2024 1:12 PM [facility] MPV 10.7 7.0 - 11.0 FL LAB HEMETOLOGY METHOD 07/10/2024 1:12 PM [facility] NRBC 0.0 <1.0 % LAB HEMETOLOGY METHOD 07/10/2024 1:12 PM [facility] NRBC Absolute 0.00 <0.10 K/mcL LAB HEMETOLOGY METHOD 07/10/2024 1:12 PM [facility] Blood Venous blood specimen / Unknown 07/10/2024 8:31 AM EST 07/10/2024 12:42 PM EST us Oliver BENNETT LAB BLOOD ORDERABLES Final Res ult [facility] [address] [place] [address], documented in this encounter Visit Diagnoses Diagnosis Testicular hypofunction Other testicular hypofunction documented in this encounter Care Teams Stage Setting Painter Apprentice Relationship Specialty Start Date End Date Physician, Pcp Unknown PCP - General 07/10/24 documented as of this encounter
== END 2024-08-11 11:00 | disposition home or self-care (01) ==
LOC: HO.HGI 10:04
PROVIDERS: PCP Registered Nurse; Visit Provider Nurse Practitioner
DX: K59.04 Chronic idiopathic constipation (principal); K21.9 Gastro-esophageal reflux disease without esophagitis; K74.60 Unspecified cirrhosis of liver
CPT/HCPCS: 99213

== ENCOUNTER → 2024-08-11 10:04 | Outpatient (BNVA) | payer OTHER, SELFPAY | PROVIDERS: PCP Registered Nurse; Visit Provider Nurse Practitioner | DX: K21.9 Gastro-esophageal reflux disease without esophagitis (principal); K59.04 Chronic idiopathic constipation; K74.60 Unspecified cirrhosis of liver | CPT/HCPCS: 99212 ==

== ENCOUNTER 2024-08-12 06:57 | Outpatient (REF) | payer OTHER, SELFPAY ==
--- NOTE | ~2024-08-12 | CT_ITS ---
CLINICAL HISTORY: Z87.01 - Personal history of pneumonia (recurrent) CT chest without contrast Comparison: CT/SR - CT CHEST WO IV CON - 06/03/24 07:23 EST Findings: The heart size is normal. Atherosclerosis calcification of the coronary artery. The visualized thyroid and mediastinum are unremarkable. Mild atelectasis of the lung base. There is interval improvement of the small opacity of the left lung base series 4, image 88. The visualized upper abdomen is unremarkable. No acute fractures. IMPRESSION: Interval improvement of the small opacity of the left lung base. No new acute finding. This document has been electronically signed by: Ingrid Huerta MD on 08/12/2024 13:35:24
--- OUTSIDE RECORDS SUMMARY | 2024-08-12 06:59 | XMS_ITS | Encounter Summary ---
Author Organization [employer] Address [address] [place] [address] Care Team Providers Care Crop Adjuster Name Role Phone Yoli Ruiz Primary Care Provider [phone] Encounter Details Date Type Department Care Team (Latest Contact Info) Description 08/20/2018 Abstract [facility] CONVERSIONS Dental, Provider, DDS Social History Tobacco [...] Description 09/29/2024 9:45 AM EDT Office Visit [facility] MEDICINE [address] [place] [address] documented as of this encounter Visit Diagnoses Not on filedocumented in this encounter Care Teams Crop Adjuster Relationship Specialty Start Date End Date Yoli Ruiz FNP [address] [place] [address] PCP - General Family Medicine 03/13/21 documented as of this encounter
--- OUTSIDE RECORDS SUMMARY | 2024-08-12 06:59 | XMS_ITS | Encounter Summary ---
Author Organization [facility] Address [address] [facility] [address] [place] [address] Phone Care Team Providers Care Overnight Stocker Name Role Phone Yoli Ruiz AU PAIR Primary Care Provider [phone] Encounter Details Date Type Department Care Team (Late st Contact Info) Description 07/24/2021 Telephone [facility] [address] [facility] [address] [place] [address] Nikita Peguero MD [address] [address] Social History Tobacco Use Types [...] a refill for losartan. Please send to [facility] in [place]. Thank you documented in this encounter Plan of Treatment Upcoming Encounters Date Type Department Care Team (Late st Contact Info) Description 08/12/2024 1:45 PM EDT Office Visit [facility] [address] [facility] [address] [place] [address] Nikita Peguero MD [address] [address] documented as of this encounter Visit Diagnoses Not on filedocumented in this encounter Care Teams Overnight Stocker Relationship Specialty Start Date End Date Yoli Ruiz FNP [address] [place] [address] PCP - General 11/13/23 documented as of this encounter
--- OUTSIDE RECORDS SUMMARY | 2024-08-12 06:59 | XMS_ITS | Encounter Summary ---
Author Organization [employer] Address [address] [facility] [address] [address] [place] [address] Care Team Providers Care Rug Cutter Helper Name Role Phone Yoli Ruiz STEPHEN Primary Care Provider [phone] Encounter Details Date Type Department Care Team ([facility] st Contact Info) Description 04/05/2023 Abstract [facility] MEDICINE [address] [place], [place] [phone] Mis Boyd Social History Tobacco Use Types [...] Upcoming Encounters Date Type Department Care Team ([facility] st Contact Info) Description 09/29/2024 9:45 AM EDT Office Visit [facility] [address] [place] [address] documented as of this encounter Procedures Procedure Name Priority Date/Time Associated Diagnosis Comments HM COLONOSCOPY Routine 03/01/2022 documented in this encounter Results * Hm Colonoscopy (03/01/2022) Colonoscopy Normal Normal Narrative Deb Mis - 03/01/2022 Repeat in 10 years Historical Provider HEALTH MAINTENANCE Final Result documented in this encounter Visit Diagnoses Not on filedocumented in this encounter Care Teams Rug Cutter Helper Relationship Specialty Start Date End Date Yoli Ruiz FNP [address] [place] [address] PCP - General Family Medicine 03/13/21 documented as of this encounter
--- OUTSIDE RECORDS SUMMARY | 2024-08-12 06:59 | XMS_ITS | Encounter Summary ---
Author Organization [employer] Address [address] [place] [address] Care Team Providers Care Grade Teacher Name Role Phone Yoli Ruiz Primary Care Provider [phone] Encounter Details Date Type Department Care Team (Late Contact Info) Description 11/28/2022 Orders Only [facility] MEDICINE [address] [place] [address] Yoli Ruiz FNP [address] [place], [place] [phone] Social History Tobacco Use Types Packs/Day Years [...] 9:45 AM EDT Office Visit [facility] MEDICINE [address] [place] [phone] documented as of this encounter Visit Diagnoses Not on filedocumented in this encounter Care Teams Grade Teacher Relationship Specialty Start Date End Date Yoli Ruiz FNP [address] [place] [address] PCP - General Family Medicine 03/13/21 documented as of this encounter
--- OUTSIDE RECORDS SUMMARY | 2024-08-12 06:59 | XMS_ITS | Encounter Summary ---
Author Organization [employer] Address [address] [facility] [address] [place] [address] Care Team Providers Care Cut Out Machine Operator Name Role Phone Yoli Ruiz Primary Care Provider [phone] Reason for Visit * Reason Onset Date Comments Med Refill 03/28/2023 Encounter Details Date Type Department Care Team (Late st Contact Info) Description 03/28/2023 Telephone [facility] MED[facility]INE [address] [place] [address] Yoli Ruiz FNP [address] [place] [address] Med Refill Social History Tobacco Use Types [...] refill on; oxyCODONE-acetaminophen (Percocet) 5-325 MG tablet [facility]/pharmacy #[id number] - MANDA REYES - [address] [facility] documented in this encounter Plan of Treatment Upcoming Encounters Date Type Department Care Team (Late st Contact Info) Description 09/29/2024 9:45 AM EDT Office Visit [facility] MED[facility]INE [address] [place] [address] documented as of this encounter Visit Diagnoses Not on filedocumented in this encounter Care Teams Cut Out Machine Operator Relationship Specialty Start Date End Date Yoli Ruiz FNP [address] [place] [address] PCP - General Family Medicine 03/13/21 documented as of this encounter
--- OUTSIDE RECORDS SUMMARY | 2024-08-12 06:59 | XMS_ITS | Clinical Summary ---
Author Organization [address] [facility] Address [address] [place] [address] Phone Care Team Providers Care Prospecting Observer Name Role Phone Physician, Pcp Unknown Primary Care Provider Yocasta vailable Encounters Date Type Department Care Team Description 07/10/2024 Lab Requisition [facility] - Main Lab [address] [facility] [place] [address] Oliver Villalta PA Testicular hypofunction [...] K/mcL LAB HEMETOLOGY METHOD 07/10/2024 1:12 PM [facility] RBC 4.80 4.50 - 5.50 M/mcL LAB HEMETOLOGY METHOD 07/10/2024 1:12 PM [facility] Hemoglobin 14.3 13.5 - 17.5 g/dL LAB HEMETOLOGY METHOD 07/10/2024 1:12 PM [facility] Hematocrit 42.1 42.0 - 54.0 % LAB HEMETOLOGY METHOD 07/10/2024 1:12 PM [facility] MCV 88.3 79.0 - 98.0 FL LAB HEMETOLOGY METHOD 07/10/2024 1:12 PM [facility] MCH 30.0 27.0 - 32.0 pcg LAB HEMETOLOGY METHOD 07/10/2024 1:12 PM [facility] MCHC 34.0 32.0 - 37.0 g/dL LAB HEMETOLOGY METHOD 07/10/2024 1:12 PM EST [facility] RDW 14.0 11.0 - 15.0 % LAB HEMETOLOGY METHOD 07/10/2024 1:12 PM EST [facility] LAB Platelets 320 130 - 400 K/mcL LAB HEMETOLOGY METHOD 07/10/2024 1:12 PM EST [facility] MPV 10.7 7.0 - 11.0 FL LAB HEMETOLOGY METHOD 07/10/2024 1:12 PM EST [facility] NRBC 0.0 <1.0 % LAB HEMETOLOGY METHOD 07/10/2024 1:12 PM EST [facility] LAB NRBC Absolute 0.00 <0.10 K/mcL LAB HEMETOLOGY METHOD 07/10/2024 1:12 PM [facility] Blood Venous blood specimen / Unknown 07/10/2024 8:31 AM EST 07/10/2024 12:42 PM EST us Oliver BENNETT LAB BLOOD ORDERABLES Final Res ult [facility] [address] [place] [address], [place] [phone] * Hepatic function panel (07/10/2024 8:31 AM EST) Total Protein 7.3 6.0 - 8.0 g/dL LAB CHEMISTRY METHOD 07/10/2024 1:52 PM EST [facility] Albumin 3.7 3.2 - 5.0 g/dL LAB CHEMISTRY METHOD 07/10/2024 1:52 PM EST [facility] Total Bilirubin 0.4 0.0 - 1.4 mg/dL LAB CHEMISTRY METHOD 07/10/2024 1:52 PM EST [facility] Bilirubin, Direct 0.2 0.0 - 0.3 mg/dL LAB CHEMISTRY METHOD 07/10/2024 1:52 PM EST [facility] Bilirubin, Indirect 0.2 0.0 - 1.1 mg/dL LAB CHEMISTRY METHOD 07/10/2024 1:52 PM EST [facility] ALT (SGPT) 42 10 - 60 unit/L LAB CHEMISTRY METHOD 07/10/2024 1:52 PM [facility] AST (SGOT) 29 10 - 42 unit/L LAB CHEMISTRY METHOD 07/10/2024 1:52 PM EST [facility] Alkaline Phosphatase 118 42 - 121 unit/L LAB CHEMISTRY METHOD 07/10/2024 1:52 PM [facility] Blood Venous blood specimen / Unknown 07/10/2024 8:31 AM EST 07/10/2024 12:42 PM EST us Oliver BENNETT LAB BLOOD ORDERABLES Final Res ult [facility] [address] [place] [address], [place] [phone] from Last 3 Months Insurance [facility] Member Subscriber Plan / Payer (Ef fective 2019-Present) Name:Rommel Copeland Relation to Subscriber:Self Name:Rommel Copeland Payer ID:[id number] Group ID:[id number] Type:Not on file Address: [address] [place] [address] Care Teams Prospecting Observer Relationship Specialty Start Date End Date Physician, Pcp Unknown PCP - General 07/10/24
--- OUTSIDE RECORDS SUMMARY | 2024-08-12 06:59 | XMS_ITS | Encounter Summary ---
Author Organization [employer] Address [address] [place] [address] Care Team Providers Care Vp Account Director Name Role Phone Yoli Ruiz MAINFRAME ANALYST Primary Care Provider [phone] Reason for Visit * Reason Comments controlled substance treatment Encounter Details Date Type Department Care Team (Latest Contact Info) Description 08/05/2024 9:00 AM EDT Clinical Support [facility] MED [facility] PEDS [address] [place] [address] Quynh Walker RN [address] [place] [address] Lumbar spondylosis (Primary Dx); [facility] (current) use of opiate analgesic Social History [...] 9:00 AM EDT S: Pt here for GIS COORDINATOR Revisit. Prescribed Percocet 5mg/325mg Q8hr PRN. States [...] Pt currently prescribed Percocet 5mg/325mg Q8hr PRN. STUDENT RECORDS COORDINATOR verified today. Rx last filled on 08/03/24. Pill count performed. Pt has 79 pills at this time, 77 expected. Medication is not overused by patient. UTOX completed. Positive for OXY only, UTOX as expected. .BPI updated today. Pain severity score of (3.5), activity interference score of (7.5). Previous BPI completed (05/30/23) with pain severity score of (5), activity interference score of (6). 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 Lumbar spondylosis documented in this encounter Results * POCT RESHMA-14 Urine Drug Screen (08/05/2024 9:03 AM EDT) Oxycodone Screen, Urine Positive Urine Urine specimen obtained by clean catch procedure / Unknown 08/05/2024 9:03 AM EDT Narrative Quynh Walker RN - 08/05/2024 9:03 AM EDT Lot# [id number] Exp: 01-06-26 Yoli MITCHELL POINT OF CARE TEST ENTER/EDIT ORDERABLES Final Result documented in this encounter Visit Diagnoses Diagnosis Lumbar spondylosis- Primary Lumbosacral spondylosis without myelopathy 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
--- OUTSIDE RECORDS SUMMARY | 2024-08-12 06:59 | XMS_ITS | Encounter Summary ---
Author Organization [facility] Address [address] [place] [address] Care Team Providers Care Certified Pharmacist Assistant Name Role Phone Physician, Pcp Unknown Primary Care Provider Yocasta vailable Encounter Details Date Type Department Care Team (Late st Contact Info) Description 07/10/2024 Lab Requisition [facility] - Main Lab [address] [facility] [place] [address] Oliver Villalta PA [address] [place] [address] Testicular hypofunction Social History Tobacco Use Types [...] LAB CHEMISTRY METHOD 07/10/2024 1:52 PM EST [facility] Albumin 3.7 3.2 - 5.0 g/dL LAB CHEMISTRY METHOD 07/10/2024 1:52 PM EST [facility] Total Bilirubin 0.4 0.0 - 1.4 mg/dL LAB CHEMISTRY METHOD 07/10/2024 1:52 PM EST [facility] Bilirubin, Direct 0.2 0.0 - 0.3 mg/dL LAB CHEMISTRY METHOD 07/10/2024 1:52 PM [facility] Bilirubin, Indirect 0.2 0.0 - 1.1 mg/dL LAB CHEMISTRY METHOD 07/10/2024 1:52 PM [facility] ALT (SGPT) 42 10 - 60 unit/L LAB CHEMISTRY METHOD 07/10/2024 1:52 PM [facility] AST (SGOT) 29 10 - 42 unit/L LAB CHEMISTRY METHOD 07/10/2024 1:52 PM [facility] Alkaline Phosphatase 118 42 - 121 unit/L LAB CHEMISTRY METHOD 07/10/2024 1:52 PM [facility] Blood Venous blood specimen / Unknown 07/10/2024 8:31 AM EST 07/10/2024 12:42 PM EST us Oliver BENNETT LAB BLOOD ORDERABLES Final Res ult [facility] [address] [place] [address], * Complete blood count (07/10/2024 8:31 AM EST) WBC 7.8 4.8 - 10.8 K/mcL LAB HEMETOLOGY METHOD 07/10/2024 1:12 PM [facility] RBC 4.80 4.50 - 5.50 M/mcL LAB HEMETOLOGY METHOD 07/10/2024 1:12 PM [facility] Hemoglobin 14.3 13.5 - 17.5 g/dL LAB HEMETOLOGY METHOD 07/10/2024 1:12 PM [facility] Hematocrit 42.1 42.0 - 54.0 % LAB HEMETOLOGY METHOD 07/10/2024 1:12 PM EST [facility] MCV 88.3 79.0 - 98.0 FL LAB HEMETOLOGY METHOD 07/10/2024 1:12 PM EST [facility] MCH 30.0 27.0 - 32.0 pcg LAB HEMETOLOGY METHOD 07/10/2024 1:12 PM [facility] MCHC 34.0 32.0 - 37.0 g/dL LAB HEMETOLOGY METHOD 07/10/2024 1:12 PM EST [facility] RDW 14.0 11.0 - 15.0 % LAB HEMETOLOGY METHOD 07/10/2024 1:12 PM [facility] Platelets 320 130 - 400 K/mcL LAB HEMETOLOGY METHOD 07/10/2024 1:12 PM [facility] MPV 10.7 7.0 - 11.0 FL LAB HEMETOLOGY METHOD 07/10/2024 1:12 PM [facility] NRBC 0.0 <1.0 % LAB HEMETOLOGY METHOD 07/10/2024 1:12 PM [facility] NRBC Absolute 0.00 <0.10 K/mcL LAB HEMETOLOGY METHOD 07/10/2024 1:12 PM [facility] Blood Venous blood specimen / Unknown 07/10/2024 8:31 AM EST 07/10/2024 12:42 PM EST us Oliver BENNETT LAB BLOOD ORDERABLES Final Res ult [facility] [address] [place] [address], documented in this encounter Visit Diagnoses Diagnosis Testicular hypofunction Other testicular hypofunction documented in this encounter Care Teams Certified Pharmacist Assistant Relationship Specialty Start Date End Date Physician, Pcp Unknown PCP - General 07/10/24 documented as of this encounter
--- OUTSIDE RECORDS SUMMARY | 2024-08-12 06:59 | XMS_ITS | Clinical Summary ---
Author Organization [facility] Address [address] [facility] [address] [place] [address] Phone Care Team Providers Care Medical Records Technician Name Role Phone Yoli Ruiz STEPHEN Primary Care Provider [phone] Allergies Active Allergy Reactions Criticality Noted Date [...] day 30 tablet 1 07/24/2021 Active Creon 55891-89668 units capsule 12/27/2021 Activ e Testosterone (AndroGel Pump) 20.25 MG/ACT (1.62%) gel Place on the skin Active Repatha 140 MG/ML solution prefilled syringe Inject 140 mg under the skin 09/12/2023 Active Vibegron (Gemtesa) 75 MG tablet Take by mouth Active Active Problems Problem Noted Date Diagnosed Date 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 Lumbar spondylosis 06/19/2021 Type 2 diabetes mellitus 06/19/2021 Overview (11/14/2022): Following / [facility] endocrinology -Well controlled with Last hemoglobin A1c [...] Office Visit [facility] [place] [address] [address] Nikita Peguero MD [address] [address] Health Maintenance Due Date Last [...] Vaccine: 65+ Years Completed 2, 09/16/2014 Insurance [facility] ([id number]) [facility] ([id number]) Care Teams Medical Records Technician Relationship Specialty Start Date End Date Yoli Ruiz FNP [address] [place], [place] [phone] PCP - General 11/13/23
--- OUTSIDE RECORDS SUMMARY | 2024-08-12 06:59 | XMS_ITS | Encounter Summary ---
Author Organization [employer] Address [address] [place] [address] [address]t [place] [address] Care Team Providers Care Network Associate Name Role Phone Yoli Ruiz STEPHEN Primary Care Provider [phone] Reason for Visit * Reason Comments Med Refill Encounter Details Date Type Department Care Team (Late st Contact Info) Description 10/19/2022 Refill [facility] [address] [place] [address] [phone] Name, MD Jam [address] [place] [address] [phone] Chronic pain syndrome Social History Tobacco Use [...] 09/29/2024 9:45 AM EDT Office Visit [facility] [address] [place] [address] [phone] documented as of this encounter Visit Diagnoses Diagnosis Chronic pain syndrome documented in this encounter Care Teams Network Associate Relationship Specialty Start Date End Date Yoli Ruiz FNP [address] [place] [address] PCP - General Family Medicine 03/13/21 documented as of this encounter
--- OUTSIDE RECORDS SUMMARY | 2024-08-12 06:59 | XMS_ITS | Encounter Summary ---
Author Organization [employer] Address [address] [facility] [address] [place] [address] Care Team Providers Care Sanitation Inspector Name Role Phone Yoli Ruiz Primary Care Provider [phone] Reason for Visit * Reason Onset Date Comments Med Refill 11/27/2023 Encounter Details Date Type Department Care Team (Late st Contact Info) Description 11/27/2023 Telephone [facility]INE [address] [place] [address] Yoli Ruiz FNP [address] [place] [address] Med Refill Social History Tobacco Use Types [...] 5-325 MG tablet To be sent to: [facility]/pharmacy #[id number] - MANDA REYES - [address] [facility] documented in this encounter Plan of Treatment Upcoming Encounters Date Type Department Care Team (Late st Contact Info) Description 09/29/2024 9:45 AM EDT Office Visit [facility] [address] [place] [address] documented as of this encounter Visit Diagnoses Not on filedocumented in this encounter Additional Health Concerns Assessment Noted Time PHQ-9 Depression Total Score: 3 06/23/19 24 9:53 AM EST documented as of this encounter Care Teams Sanitation Inspector Relationship Specialty Start Date End Date Yoli Ruiz FNP [address] [place] [address] PCP - General Family Medicine 03/13/21 documented as of this encounter
--- OUTSIDE RECORDS SUMMARY | 2024-08-12 06:59 | XMS_ITS | Encounter Summary ---
Author Organization [employer] Address [address] [facility] [address] [place] [address] Care Team Providers Care Garbage Collector Name Role Phone Yoli Ruiz Primary Care Provider [phone] Reason for Visit * Reason Onset Date Comments Med Refill 01/15/2024 Encounter Details Date Type Department Care Team (Late st Contact Info) Description 01/15/2024 Telephone [facility] MEDICINE [address] [place] [address] Yoli Ruiz FNP [address] [place] [address] Med Refill Social History Tobacco Use Types [...] 5-325 MG tablet To be sent to: [facility]/pharmacy #[id number] - MANDA REYES - [address] [facility] documented in this encounter Plan of Treatment Upcoming Encounters Date Type Department Care Team (Late st Contact Info) Description 09/29/2024 9:45 AM EDT Office Visit [facility] MEDICINE [address] [place] [address] documented as of this encounter Visit Diagnoses Not on filedocumented in this encounter Additional Health Concerns Assessment Noted Time PHQ-9 Depression Total Score: 3 06/23/19 24 9:53 AM EST documented as of this encounter Care Teams Garbage Collector Relationship Specialty Start Date End Date Yoli Ruiz FNP [address] [place] [address] PCP - General Family Medicine 03/13/21 documented as of this encounter
--- OUTSIDE RECORDS SUMMARY | 2024-08-12 06:59 | XMS_ITS | Encounter Summary ---
Author Organization [employer] Address [address] [facility] [facility] [address] [facility] [address] [place] [address] Care Team Providers Care Ophthalmic Medical Technician Name Role Phone Yoli Ruiz Primary Care Provider [phone] Encounter Details Date Type Department Care Team (Late st Contact Info) Description 08/13/2022 Orders Only [facility] [address] [place] [address] Alessandra Alcala LPN Social History Tobacco Use [...] Description 09/29/2024 9:45 AM EDT Office Visit [facility] MEDICINE [address] [place] [address] documented as of this encounter Visit Diagnoses Not on filedocumented in this encounter Care Teams Ophthalmic Medical Technician Relationship Specialty Start Date End Date Yoli Ruiz FNP [address] [place] [address] PCP - General Family Medicine 03/13/21 documented as of this encounter
--- OUTSIDE RECORDS SUMMARY | 2024-08-12 07:00 | XMS_ITS | Encounter Summary ---
Author Organization [employer] Address [address] [facility] [address] [place] [address] Care Team Providers Care Lawn Mower Sharpener Name Role Phone Yoli Ruiz Primary Care Provider [phone] Reason for Visit * Reason Onset Date Comments Med Refill 07/30/2024 Encounter Details Date Type Department Care Team (Late st Contact Info) Description 07/30/2024 Refill [facility] MEDICINE [address] [place] [address] Yoli Ruiz FNP [address] [place] [address] Chronic pain syndrome; Long-term current use of [...] 5-325 MG tablet To be sent to: [facility]/pharmacy #[id number] - MANDA REYES - [facility] [place] documented in this encounter Plan of Treatment Upcoming Encounters Date Type Department Care Team (Late st Contact Info) Description 09/29/2024 9:45 AM EDT Office Visit [facility] MEDICINE [address] [place] [address] documented as of this encounter Visit Diagnoses [...] documented as of this encounter Care Teams Lawn Mower Sharpener Relationship Specialty Start Date End Date Yoli Ruiz FNP [address] [place] [id number] PCP - General Family Medicine 03/13/21 documented as of this encounter
--- OUTSIDE RECORDS SUMMARY | 2024-08-12 07:00 | XMS_ITS | Encounter Summary ---
Author Organization [email or web address] Address [address] [facility] [facility] [address] [place] [address] Care Team Providers Care Information Clerk Brokerage Name Role Phone Yoli Ruiz Primary Care Provider Reason for Visit * Reason Comments Med Refill Encounter Details Date Type Department Care Team (Late st Contact Info) Description 08/11/2024 Refill [facility] [address] [place] [address] Yoli Ruiz FNP [address] [place], [place] [phone] Primary hypertension Social History Tobacco Use Types [...] Description 09/29/2024 9:45 AM EDT Office Visit [facility] [address] [place] [address] documented as of this encounter Visit Diagnoses Diagnosis Primary hypertension Unspecified essential hypertension documented in this encounter Additional Health Concerns Assessment Noted Time PHQ-9 Depression Total Score: 4 07/10/19 25 3:45 PM EST documented as of this encounter Care Teams Information Clerk Brokerage Relationship Specialty Start Date End Date Yoli Ruiz FNP [address] [place] [address] PCP - General Family Medicine 03/13/21 documented as of this encounter
--- OUTSIDE RECORDS SUMMARY | 2024-08-12 07:00 | XMS_ITS | Clinical Summary ---
Author Organization [employer] Address [address] [place] [address] 7t [place] [address] Care Team Providers Care Radiology Aide Name Role Phone Yoli Ruiz STEPHEN Primary Care Provider [phone] Allergies Active Allergy Reactions Criticality Noted Date [...] (HYDRODiuril) 25 MG tablet 023 Active Creon 98927-82967 units capsule PLEASE SEE ATTACHED FOR DETAILED DIRECTIONS 023 Active senna (Senokot) 8.6 MG tablet TAKE 2 SOFTGELS BY MOUTH AT BEDTIME FOR CONSTIPATION Active Testosterone 20.25 MG/ACT (1.62%) gel APPLY 3 PUMPS TO NONHAIRY AREA OF SKIN DAILY, ROTATE SITES. 023 Active Blood Glucose Monitoring Suppl (Angelfish Lite) w/Device kit Use to test blood [...] A DAY 100 strip 11 024 Active gabapentin (Neurontin) 300 MG capsuleIndication s:Type 2 diabetes mellitus with stage 3a chronic kidney disease, with long-term current use of insulin (CMS/HCC) TAKE 1 CAPSULE POR VIA ORAL AL ACOSTARSE 90 capsule 3 024 Active mirtazapine (Remeron) 30 MG tablet Take 30 mg by mouth at bedtime. SUBRAMANYAM,CUBA HERNANDEZI GANJIGUNTE Active Repatha 140 MG/ML injection Inject 140 [...] disease, with long-term current use of insulin (CMS/[facility]) INJECT INSULIN POR VIA SUBCUTANEA DIRECTED BEFORE [...] 2 diabetes mellitus without complication, unspecified whether carbon printer insulin use (CMS/HCC) TAKE 1 TABLET BY MOUTH EVERY 12 HOURS 180 tablet 1 024 Active metoprolol tartrate (Lopressor) 50 MG tablet TAKE 1 TABLET BY MOUTH TWICE A DAY 180 tablet 1 025 Active Dulaglutide 1.5 MG/0.5ML solution auto-injectorIndi cations:Type 2 diabetes mellitus with stage 3a chronic kidney disease, with long-term current use of insulin (CMS/[facility]) Inject 1.5 mg under the skin 1 [...] 01, 2024. 84 tablet 025 2024 Active losartan (Cozaar) 50 MG tabletIndications :Primary hypertension TOME 1 TABLETA POR VIA ORAL TODOS LOS BISHOP 90 tablet 3 025 Active losartan (Cozaar) 50 MG tabletIndications :Primary hypertension TOME ANDRES TABLETA TODOS LOS BISHOP 90 tablet 3 024 2024 Discontinued oxyCODONE-acetami nophen (Percocet) 5-325 [...] 03/29/2024 Overview (07/12/2024): Referred to Pulm by [facility] in Jan 2024 for ongoing dyspnea Established with [facility] Apr 2024 - MARANDA Alvarado 06/03/2024: CT chest demonstrated small opacity of the left lower lobe could represent atelectatic change or infection. Tx with augmentin with mild symptom improvement May 2024: nuclear stress test normal, EF 52%. Neg EKG with normal myocardial perfusion imaging PFT through Pul demonstrated moderate restrictive ventilatory defect w/ no bronchodilator response Empiric tx with Advair initiated Jun 2024 Assessment & Plan (07/12/2024 8:18 PM EST): Reports has not noticed improvement s/p initiation of Advair. Planning to contact [facility] next week to discuss possibly stopping Advair d/t increase in nasal dryness and nose bleeds Long-term current use of opiate analgesic 2023 Overview (01/15/2024): Medication: Percocet 5-325mg Q8H PRN Indication: lumbar spondylosis, hip OA Last [facility] Agreement: 05/30/23 OAB (overactive bladder) 10/22/2023 Overview (10/22/2023): Following with [facility] Previous tx: Sandro Continues on Gemtesa through Urology, well controlled Fatty infiltration of liver 06/23/2023 Overview (12/30/2023): -Feb 2023: CT with impression of diffuse fatty infiltration of liver, question of cirrhosis -Hep B&C neg 09/20/21 -10/23/23: Liver fibrosis panel - F3 -Pending further liver workup from [facility] starting 12/05/23 Assessment & Plan (10/22/2023 9:56 AM EDT): Reviewed basic information regarding condition as well as further monitoring/testing. Pt planning to follow up with [facility] tomorrow to discuss liver health Assessment [...] syndrome 03/10/2023 Overview (03/10/2023): ?? Followed by [facility] - August Castro VISITOR SERVICES COORDINATOR ?? Continues with senna 2 tablets nightly and Creon through GI Healthcare maintenance 03/10/2023 Overview (03/29/2024): Optometry: SHAVONNE Jan 2024 at [facility]. Next due: Jan 2025. Dental: [facility] Dental Colonoscopy: last 01/07/[address] Monroe - tubular adenoma, followed by GI. Pt reports completed repeat colonoscopy and was told WNL. Request records. Last PE: 10/21/23 Polycythemia vera 06/19/2021 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 Type 2 diabetes mellitus 06/19/2021 Overview (07/12/2024): -Previously following with [facility] (in transition with new provider) Lab [...] with oxycodone-acetaminophen 5-325mg Q8H PRN Established with [facility] Program Encouraged use of pharm and non-pharm [...] Plan (10/22/2023 10:08 AM EDT): Followed by [facility] Assessment & Plan (03/10/2023 9:28 PM EDT): ?? Followed by [facility] Insomnia 12/17/2014 Overview (10/22/2023): Following with Psychiatrist - Dr. Rivera Continues with mirtazapine 30mg nightly Assessment & Plan (10/22/2023 10:05 AM EDT): Sleeping approx 8 hours per night Dysthymia 12/17/2014 Overview (10/22/2023): Following with psychiatrist - Dr. 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 Followed by [facility] - August Castro VISITOR SERVICES COORDINATOR ?? Continues on famotidine 40mg BID and [...] Type Department Care Team Description 08/11/2024 Refill [facility] [address] [place] [address] Yoli Ruiz FNP Primary hypertension 08/05/2024 9:00 AM EDT Clinical Support [facility] [address] [place] [address] Quynh Walker, NASRIN Lumbar spondylosis (Primary Dx); sustainability project manager (current) use of opiate analgesic 08/05/2024 Travel 08/05/2024 Telephone [facility] [address] [place] [address] Quynh Walker, NASRIN 07/30/2024 Refill [facility] [address] [place] [address] Yoli Ruiz FNP Chronic pain syndrome; Long-term current use of opiate analgesic; Osteoarthritis of hip, unspecified laterality, unspecified osteoarthritis type; Lumbar spondylosis 07/10/2024 2:30 PM EST Office Visit [facility] [address] [place] [address] Yoli Ruiz FNP Type 2 diabetes mellitus with stage 3a chronic kidney disease, with long-term current use of insulin ([facility]) (Primary Dx); Shortness of breath; Primary hypertension; Male hypogonadism; OAB (overactive bladder) 07/10/2024 Travel 07/09/2024 Telephone [facility] [address] [place] [address] Pat Ivy MA Chart Prep 07/07/2024 Telephone [facility] [address] [place] [address] Yoli Ruiz FNP June07/02/2024 Refill [facility] [address] [place] [address] Yoli Ruiz FNP Chronic pain syndrome; Long-term current use of opiate analgesic; Osteoarthritis of hip, unspecified laterality, unspecified osteoarthritis type; Lumbar spondylosis 06/05/2024 Refill [facility] [address] [place] [address] Yoli Ruiz FNP Chronic pain syndrome; Long-term current use of opiate analgesic; Osteoarthritis of hip, unspecified laterality, unspecified osteoarthritis type; Lumbar spondylosis 06/04/2024 Telephone [facility] [address] [place] [address] Yoli Ruiz FNP Walk-In 06/03/2024 Orders Only [facility] External Provider, [facility] 06/01/2024 Refill [facility] [address] [place] [address] Yoandy Adhikari MD Primary hypertension (Primary Dx) [...] 09/29/2024 9:45 AM EDT Office Visit [facility] MED[facility]INE [address] [place] [phone] Health Maintenance Due Date Last Done Comments [...] DRUG SCREEN Routine 08/05/2024 9:03 AM EDT long-term (current) use of opiate analgesic Lumbar spondylosis POCT GLYCATED HEMOGLOBIN, TOTAL Routine 07/10/2024 2:58 PM EST Type 2 diabetes mellitus with stage 3a chronic kidney disease, with long-term current use of insulin ([facility]) POCT GLUCOSE Routine 07/10/2024 2:57 PM EST Type 2 diabetes mellitus with stage 3a chronic kidney disease, with long-term current use of insulin ([facility]) CT CHEST WO CONTRAST Routine 06/04/2024 7:23 [...] Urine Drug Screen (08/05/2024 9:03 AM EDT) Pathologist [facility] Oxycodone Screen, Urine Positive Urine Urine specimen obtained by clean catch procedure / Unknown 08/05/2024 9:03 AM EDT Narrative Quynh Walker RN - 08/05/2024 9:03 AM EDT Lot# [id number] Exp: 01-06-26 [facility] POINT OF CARE TEST ENTER/EDIT ORDERABLES Final Result * (ABNORMAL) POCT HGB A1C (07/10/2024 2:58 PM EST) Pathologist [facility] Hemoglobin A1C 8.5(A) 4.0 - 6.0 % [employer] Lot # [id number] Lot# Expiration Date Blood 07/10/2024 2:58 PM EST Yoli [facility] POINT OF CARE TEST ENTER/EDIT ORDERABLES Final Result * (ABNORMAL) POCT Glucose (07/10/2024 2:57 PM EST) Pathologist [facility] Glucose Blood, POC 227(A) 60 - 200 mg/dL [employer] Lot # [id number] Lot# Expiration Date [id number] Blood Capillary blood specimen / Unknown 07/10/2024 2:57 PM EST [facility] POINT OF CARE TEST ENTER/EDIT ORDERABLES Final Result * CT Chest w/o Contrast (06/04/2024 7:23 AM EST) Anatomical Region Laterality Modality Body, Chest Computed Tomogra phy 06/04/2024 7:23 AM EST Narrative 06/04/2024 7:25 AM EST ? [facility] ?[address] ?[place] [address] ? CT Scan Report ? Signed ? Patient: Brice,Rommel ?MR#: [id number] ?? [id number] ? : 1955 ?Acct:[id number] ? Age/Sex: 68 / M ?ADM Date: 06/03/24 ? Loc: HO.CT ? Attending Dr: Coni Alvarado PHYS THERAPIST ? Ordering Physician: Coni Alvarado PHYS THERAPIST ?? Date of Service: 06/03/24 ?? Procedure(s): CT chest wo IV con ?? Accession Number(s): [id number] ? cc: Yoli Ruiz METAL SPONGE MAKING MACHINE OPERATOR; Coni Alvarado PHYS THERAPIST ? Report Number: ?? [id number]: Total DLP = ??221.00 mGy-cm ? CLINICAL [...] ?? 06/04/2024 07:23:58 ? Dictated By: ?Ingrid Huerat MD ? Signed By: ?<Electronically signed by Ingrid Huerta MD in OV> ? 06/04/24 0724 ? DD/ 2 ? TD/TT: 06/04/24722 ? Social Media Strategist: ? Procedure Note Pastor, Image - 06/04/[address] [address] [address] Scan Report Signed Patient: Rommel NarvaezMR#: [id number] : 4Acct:[id number] Age/Sex: 68 / MADM Date: 06/03/24 Loc: HO.CT Attending Dr: Coni Alvarado PHYS THERAPIST Ordering Physician: Coni Alvarado NP Date of Service: 06/03/24 Procedure(s): CT chest wo IV con Accession Number(s): [id number] cc: OdinoliveYoli METAL SPONGE MAKING MACHINE OPERATOR; Vinayakjose ramonConi PHYS THERAPIST Report Number: [id number]: Total DLP = 221.00 mGy-cm CLINICAL HISTORY: [...] in OV> 06/04/24723 DD/ 2 TD/TT: 06/04/24722 Social Media Strategist: [facility] External Provider IMG CT PROCEDURES Edited Result - Final * Diabetes Eye Exam (01/27/2024) Eye Exam Normal Normal Historical Provider HEALTH MAINTENANCE Edited Result - Final * Hepatitis Panel, General (10/23/2023 9:06 AM EDT) Hepatitis A IgM Nonreactive Nonreactive [facility] Comment:IgM antibodies to REDD V not detected; does not exclude earlyacute or recovered HAV infection. ~Hepatitis B Surface Antibody NONREACTIVE Nonreactive [facility] Comment:Nonreactive: < 8.00 mIU/mL Hepatitis B Core Antibody Nonreactive Nonreactive [facility] Hepatitis C Antibody Nonreactive Nonreactive [facility] Comment:Antibodies to HCV no t detected; does not exclude early acuteHCV infection. Hepatitis B Surface Ag Negative Negative [facility] 10/23/2023 9:06 AM EDT 10/23/2023 9:06 AM EDT us Generic External Data Provider LAB BLOOD ORDERAB LES Final Result Performing Organization Address [facility]/ZIP Co de Phone Number [facility] [address] [place] [address] [phone] * (ABNORMAL) Lipid Panel, Standard (10/23/2023 9:06 AM EDT) Triglycerides 250(H) <150 mg/dL [facility] Comment:Desirable Triglyceri de: less than 150 mg/dLBorderline High Triglyceride 150-199 mg/dLHigh Triglyceride: 200-499 mg/dLVery High Triglyceride: greater than or equal to 5OO mg/dL Cholesterol 88 <200 mg/dL [facility] Comment:Desirable Cholestero l: less than 200 mg/dLBorderline High Cholesterol: 200-239 mg/dLHigh Cholesterol: greater than 239 mg/dL LDL Cholesterol Calculated 8 <100 mg/dL [facility] Comment:Desirable LDL: less than 100 mg/dLNear Optimal/Above Optimal LDL: 110- 129 mg/dLBorderline High LDL: 130-159 mg/dLHigh LDL: 160-189 mg/dLVery High LDL: greater than or equal to 190 mg/dL HDL Cholesterol 30(L) >40 mg/dL [facility] Comment:Desirable HDL: great er than 40 mg/dL Note: This HDL assay may give artificially low results in patients with liver disease. Blood Venous blood specimen / Unknown 10/23/2023 9:06 AM EDT 10/23/2023 9:06 AM EDT us Yoli Ruiz METAL SPONGE MAKING MACHINE OPERATOR LAB BLOOD ORDERABLES Final Res ult Performing Organization Address City/[facility]/ZIP Co de Phone Number [facility] [address] [place] [address] [phone] * Hm Colonoscopy (03/01/2022) Colonoscopy Normal Normal Narrative Mis Boyd - 03/01/2022 Repeat in 10 years us Historical Provider HEALTH MAINTENANCE Final Result * Fecal immunochemical test x1 (FIT) (08/30/2020 12:00 AM EDT) FIT Date 1 4110620 [facility] FIT Date 2 4120620 [facility] FIT Lot [id number] [facility] FIT1 NEGATIVE NEGATIVE [facility] FIT2 NEGATIVE NEGATIVE [facility] 08/30/2020 us Historical Provider HISTORICAL/NON ORDERABLE LABS Final Result [facility] [address] from Last 3 Months or Most Recently Relevant to Health Maintenance Insurance [facility] - [facility] Care Teams Radiology Aide Relationship Specialty Start Date End Date Yoli Ruiz FNP [address] [place] [address] PCP - General Family Medicine 03/13/21
--- OUTSIDE RECORDS SUMMARY | 2024-08-12 07:00 | XMS_ITS | Encounter Summary ---
Author Organization [employer] Address [address] [place] [address] Care Team Providers Care Infantry Operations Specialist Name Role Phone Yoli Ruiz STEPHEN Primary Care Provider [phone] Encounter Details Date Type Department Care Team ([facility] Contact Info) Description 08/05/2024 Telephone [facility] [address] [place] [address] Quynh Walker, RN [address] [place] [address] Social History Tobacco Use Types Packs/Day Years [...] - 08/05/2024 7:58 AM EDT Tier 3 (INDUSTRIAL DESIGNER visits Q4 months) x 1 year, then re-eval. Thanks! * Telephone Encounter - Quynh Walker RN - 08/05/2024 7:56 AM EDT ..What INDUSTRIAL DESIGNER Tier would you like this patient to be? Tier 1 = HIGH RISK, Monthly INDUSTRIAL DESIGNER visits Tier 2 = MODerate RISK, Q3 Month visits Tier 3 = LOW RISK = Q4-6 month visits documented in this encounter Plan of Treatment Upcoming Encounters Date Type Department Care Team (Late st Contact Info) Description 09/29/2024 9:45 AM EDT Office Visit [facility] [address] [place] [address] documented as of this encounter Visit Diagnoses Not on filedocumented in this encounter Additional Health Concerns Assessment Noted Time PHQ-9 Depression Total Score: 4 07/10/19 25 3:45 PM EST documented as of this encounter Care Teams Infantry Operations Specialist Relationship Specialty Start Date End Date Yoli Ruiz FNP [address] [place] [address] PCP - General Family Medicine 03/13/21 documented as of this encounter
--- OUTSIDE RECORDS SUMMARY | 2024-08-12 07:00 | XMS_ITS | Encounter Summary ---
Author Organization [employer] Address [address] [place] [address] Care Team Providers Care Operations General Agent Name Role Phone Yoli Ruiz STEPHEN Primary Care Provider [phone] Encounter Details Date Type Department Care Team [...] Description 09/29/2024 9:45 AM EDT Office Visit [facility] [address] [place] [address] documented as of this encounter Visit Diagnoses Not on filedocumented in this encounter Additional Health Concerns Assessment Noted Time PHQ-9 Depression Total Score: 4 07/10/19 25 3:45 PM EST documented as of this encounter Care Teams Operations General Agent Relationship Specialty Start Date End Date Yoli Ruiz FNP [address] [place] [address] PCP - General Family Medicine 03/13/21 documented as of this encounter
== END 2024-08-12 06:58 | disposition home or self-care (01) ==
LOC: HO.CT 06:57
PROVIDERS: PCP Registered Nurse; Visit Provider Nurse Practitioner Family
DX: R91.8 Other nonspecific abnormal finding of lung field (principal); Z87.01 Personal history of pneumonia (recurrent)
CPT/HCPCS: 71250

== ENCOUNTER → 2024-08-12 07:01 | Outpatient (BNV) | payer OTHER, SELFPAY | PROVIDERS: PCP Registered Nurse; Visit Provider Nuclear Medicine | DX: Z87.01 Personal history of pneumonia (recurrent) (principal) | CPT/HCPCS: 71250 ==

== ENCOUNTER 2024-09-28 08:17 | Outpatient (AMB) | payer OTHER, SELFPAY ==
--- OUTSIDE RECORDS SUMMARY | 2024-09-28 08:20 | XMS_ITS | Encounter Summary ---
Author Organization [facility] Address [address] [facility] [address] [place] [address] Phone Care Team Providers Care Elephant Keeper Name Role Phone Yoli Ruiz STATEMENT REQUEST CLERK Primary Care Provider [phone] Encounter Details Date Type Department Care Team (Late st Contact Info) Description 07/24/2021 Telephone [facility] [address] [facility] [address] [place] [address] Nikita Peguero MD [phone] [address] Social History Tobacco Use Types [...] a refill for losartan. Please send to [facility] on [facility] in [place]. Thank you documented in this encounter Plan of Treatment Upcoming Encounters Date Type Department Care Team (Late st Contact Info) Description 02/11/2025 1:15 PM EDT Office Visit [facility] [address] [address] Nikita Peguero MD [address] [address] documented as of this encounter Visit Diagnoses Not on filedocumented in this encounter Care Teams Elephant Keeper Relationship Specialty Start Date End Date Yoli Ruiz FNP [address] [place] [address] PCP - General 11/13/23 documented as of this encounter
--- OUTSIDE RECORDS SUMMARY | 2024-09-28 08:20 | XMS_ITS | Clinical Summary ---
Author Organization [facility] Address [address] [facility] [address] [place] [address] Phone Care Team Providers Care Manager Home Improvement Name Role Phone Yoli Ruiz STEPHEN Primary Care Provider [phone] Allergies Active Allergy Reactions Criticality Noted Date [...] day 30 tablet 1 07/24/2021 Active Creon 00730-94035 units capsule 12/27/2021 Activ e Testosterone (AndroGel Pump) 20.25 MG/ACT (1.62%) gel Place on the skin Active Repatha 140 MG/ML solution prefilled syringe Inject 140 mg under the skin 09/12/2023 Active Vibegron (Gemtesa) 75 MG tablet Take by mouth Active fluticasone-natalia meterol (ADVAIR HFA) 115-21 MCG/ACT inhaler INHALE DANDO DOS SOPLIDOS CADA DOCE HORAS 07/18/2024 Active Active Problems Problem Noted Date Diagnosed Date Stage 3b chronic kidney disease 08/12/2024 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 Lumbar spondylosis 06/19/2021 Type 2 diabetes mellitus 06/19/2021 Overview (11/14/2022): Following / [facility] endocrinology -Well controlled [...] of CPAP and should continue with therapy Encounters Date Type Department Care Team Description 08/12/2024 1:45 PM EDT Office Visit [facility] [address] [place] [phone] Nikita Peguero MD Stage 3b chronic kidney disease (HCC) (Primary Dx); Renal disorder due to type 2 diabetes mellitus <Other diabetic kidney complication> (HCC) from Last 3 Months Immunizations Immunization Administration Dates Next Due Influenza Split 02/10/2013,02/22/2012 Influenza Split High Dose Pr eservative Free IM 07/08/2019,01/26/2019 Influenza Vaccine, Quadrival ent, Adjuvanted 01/27/2020 Influenza, Quadrivalent, Pre servative Free 01/25/2018,03/21/2017,07/26/2016,01/17,01/21/2015 Influenza, Unspecified 01/29/2022,2021,03/05/2014,02/16 Moderna SARS-COV-2 05/29/2022 Pneumococcal Conjugate Pcv 20 12/20/2021 Pneumococcal Polysaccharide 09/16/2014 Shingrix 12/20/2021 Td 09/21/2004 Tdap 07/26/2016 Zoster 12/20/2021,09/16/2014 Social History Tobacco Use Types Packs/Day [...] Sign Reading Time Taken Comments Blood Pressure 150/80 08/12/2024 1:56 PM EDT Pulse 67 08/12/2024 1:56 PM EDT Temperature - - Respiratory Rate - - Oxygen Saturation 99% 08/12/2024 1:56 PM EDT Inhaled Oxygen Concentration - - Weight 105 kg (231 lb 3.2 oz) 08/12/2024 1:56 PM EDT Height - - Body Mass Index - - Plan of Treatment Upcoming Encounters Date Type Department Care Team (Late st Contact Info) Description 02/11/2025 1:15 PM EDT Office Visit [facility] [address] [phone] Nikita Peguero MD [address] [address] Health Maintenance Due Date Last Done Comments Colorectal Cancer Screening: Annual FOBT 2002 Colorectal Cancer Screening: Colonoscopy 2002 Colorectal Cancer Screening: Sigmoidoscopy 2002 Hepatitis B Vaccine (1 of 3 - Risk 3-dose series) 2013 Diabetes: Ophthalmology Exam 06/19/2020 Diabetes: Pedal Pulse Checked 06/19/2020 Diabetes: Sensory Foot Exam 06/19/2020 Diabetes: Visual Foot Exam 06/19/2020 Diabetes: Hemoglobin A1C 10/07/2024 025, 10/21/2023, 07/06/2022 Influenza Vaccine (Season Ended) 2025 01/29/2022, 07/26/2021, 01/27/2020, Additional history exists Pneumococcal Vaccine: 50+ Years Completed , 09/16/2014 Pneumococcal Vaccine: Peds ( 0 to 5 Years) and At-Risk Patients (6 to 49 Years) Discontinued 12/20/2021, 09/16/[address] [place] [address] ([id number]) [place] [address] ([id number]) Care Teams Manager Home Improvement Relationship Specialty Start Date End Date Yoli Ruiz FNP [address] [place] [id number] PCP - General 11/13/23
--- OUTSIDE RECORDS SUMMARY | 2024-09-28 08:20 | XMS_ITS | Encounter Summary ---
Author Organization [facility] Address [address] [place] [address] Care Team Providers Care Transfer Iron Operator Name Role Phone Physician, Pcp Unknown Primary Care Provider Yocasta vailable Encounter Details Date Type Department Care Team (Late st Contact Info) Description 07/10/2024 Lab Requisition [facility] - Main Lab [address] [facility] [place] [address] Oliver Villalta PA [address] [place] [address] Testicular hypofunction Social History Tobacco Use Types [...] Res ult [facility] [address] [place] [address], * Complete blood count (07/10/2024 8:31 AM [...] Res ult [facility] [address] [place] [address], documented in this encounter Visit Diagnoses Diagnosis Testicular hypofunction Other testicular hypofunction documented in this encounter Care Teams Transfer Iron Operator Relationship Specialty Start Date End Date Physician, Pcp Unknown PCP - General 07/10/24 documented as of this encounter
--- OUTSIDE RECORDS SUMMARY | 2024-09-28 08:20 | XMS_ITS | Clinical Summary ---
Author Organization 299 [facility] Address [address] [place] [address] Phone Care Team Providers Care Field Engineer Name Role Phone Physician, Pcp Unknown Primary Care Provider Yocasta vailable Encounters Date Type Department Care Team Description 07/10/[address] [facility] - Main Lab [address] [facility] [place] [address] Oliver Villalta PA Testicular hypofunction [...] Vaccine ( - 2023-2 5 season) 2024 Abdominal Aortic Aneurysm (A AA) Screen 07/10/2024 Cholesterol Screening (Lipid Panel) 07/10/2024 Colorectal Cancer Screening: Colonoscopy 07/10/2024 Depression Screening 07/10/2024 Falls Risk Assessment 07/10/2024 Hepatitis C Screening 07/10/2024 Social Influencers of Health Screening 07/10/2024 Influenza Vaccine (Season Ended) 2025 RSV Immunization Adult Patie nts (1 - 1-dose 75+ series) 2028 HIB [...] age to complete this topic Meningococcal B Vaccine Aged Out No l onger eligible based on patient's age to complete [...] K/mcL LAB HEMETOLOGY METHOD 07/10/2024 1:12 PM [facility] RBC 4.80 4.50 - 5.50 M/mcL LAB HEMETOLOGY METHOD 07/10/2024 1:12 PM [facility] Hemoglobin 14.3 13.5 - 17.5 g/dL LAB HEMETOLOGY METHOD 07/10/2024 1:12 PM [facility] Hematocrit 42.1 42.0 - 54.0 % LAB HEMETOLOGY METHOD 07/10/2024 1:12 PM [facility] MCV 88.3 79.0 - 98.0 FL LAB HEMETOLOGY METHOD 07/10/2024 1:12 PM [facility] MCH 30.0 27.0 - 32.0 pcg LAB HEMETOLOGY METHOD 07/10/2024 1:12 PM [facility] MCHC 34.0 32.0 - 37.0 g/dL LAB HEMETOLOGY METHOD 07/10/2024 1:12 PM EST [facility] RDW 14.0 11.0 - 15.0 % LAB HEMETOLOGY METHOD 07/10/2024 1:12 PM EST [facility] Platelets 320 130 - 400 K/mcL LAB HEMETOLOGY METHOD 07/10/2024 1:12 PM EST [facility] MPV 10.7 7.0 - 11.0 FL LAB HEMETOLOGY METHOD 07/10/2024 1:12 PM EST [facility] NRBC 0.0 <1.0 % LAB HEMETOLOGY METHOD 07/10/2024 1:12 PM EST [facility] NRBC Absolute 0.00 <0.10 K/mcL LAB HEMETOLOGY METHOD 07/10/2024 1:12 PM EST [facility] Blood Venous blood specimen / Unknown 07/10/2024 8:31 AM EST 07/10/2024 12:42 PM EST us Oliver Villalta PA LAB BLOOD ORDERABLES Final Res ult [facility] [address] [place] [address], [place] [phone] * Hepatic function panel (07/10/2024 8:31 AM EST) Total Protein 7.3 6.0 - 8.0 g/dL LAB CHEMISTRY METHOD 07/10/2024 1:52 PM EST [facility] Albumin 3.7 3.2 - 5.0 g/dL LAB CHEMISTRY METHOD 07/10/2024 1:52 PM EST [facility] Total Bilirubin 0.4 0.0 - 1.4 mg/dL LAB CHEMISTRY METHOD 07/10/2024 1:52 PM EST [facility] Bilirubin, Direct 0.2 0.0 - 0.3 mg/dL LAB CHEMISTRY METHOD 07/10/2024 1:52 PM EST [facility] Bilirubin, Indirect 0.2 0.0 - 1.1 mg/dL LAB CHEMISTRY METHOD 07/10/2024 1:52 PM EST [facility] ALT (SGPT) 42 10 - 60 unit/L LAB CHEMISTRY METHOD 07/10/2024 1:52 PM [facility] AST (SGOT) 29 10 - 42 unit/L LAB CHEMISTRY METHOD 07/10/2024 1:52 PM EST [facility] Alkaline Phosphatase 118 42 - 121 unit/L LAB CHEMISTRY METHOD 07/10/2024 1:52 PM [facility] Blood Venous blood specimen / Unknown 07/10/2024 8:31 AM EST 07/10/2024 12:42 PM EST us Oliver BENNETT LAB BLOOD ORDERABLES Final Res ult [facility] [address] [place] [address], [place] [phone] from Last 3 Months Insurance [facility] Member Subscriber Plan / Payer (Ef fective 2019-Present) Name:Rommel Copeland Relation to Subscriber:Self Name:Rommel Copeland Payer ID:[id number] Group ID:[id number] Type:Not on file Address: [address] [place] [address] Care Teams Field Engineer Relationship Specialty Start Date End Date Physician, Pcp Unknown PCP - General 07/10/24
--- NOTE | 2024-09-28 08:37 | A.OFFVIS_ITS ---
Vital Signs 09/28/24 08:45 Height 5 ft 7 in Weight 228 lb 2.855 oz BMI 35.7 BP 126/84 Blood Pressure Location Rt brachial Position Sitting Pulse 66 Pulse Source Pulse Oximeter Pulse Oximetry (%) 98 Oxygen Delivery Method Room Air Intake Visit Reasons: dyspnea Allergies atorvastatin [Lipitor] Allergy (Unknown, Verified 09/28/24 08:50) muscle damage rosuvastatin [Crestor] Allergy (Unknown, Verified 09/28/24 08:50) muscle damage From CRESTOR Allergy (Severe, Uncoded 09/28/24 08:50) MUSCLES PAIN From LIPITOR Allergy (Severe, Uncoded 09/28/24 08:50) MUSCLES PAIN HPI HPI dyspnea: Details: Rommel is a pleasant 69 year old male, 20+ pyh smoker, quit 2022 with underlying h/o OR, DENTON on CPAP, HTN, DMII, HLD, Epilepsy, CKDIII, Polycythemia Vera, and BPH. He is under the care of [facility] and underwent nuclear stress test, reportedly normal findings. No records to review. He was treated for LLL PNA in May, PCP placed on Augmentin and repeat CT chest in July revealed resolution of opacity, with no other significant findings. He reports good control of respiratory symptoms at this time using AirDuo. He denies any visits to urgent care or hospitalizations related to respiratory distress since the last visit. 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 Chronic idiopathic constipation Hepatitis C Hypogonadism Vitamin D deficiency CTS (carpal tunnel syndrome) Seizures 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 bowel syndrome) GERD (gastroesophageal reflux disease) Gout Chronic kidney disease, stage 3 Polycythemia vera Fibromyalgia BPH (benign prostatic hyperplasia) CAD (coronary artery disease) Type 2 diabetes mellitus with hyperglycemia, with long-term current use of insulin Type 2 diabetes mellitus with polyneuropathy Essential hypertension Hyperlipidemia LDL goal <70 Obesity due to excess calories Type 2 diabetes mellitus with hyperglycemia Surgical History History of prostate surgery Hx of biopsy Hx of angioplasty Hx of cystoscopy Hx of colonoscopy Family History Father Bladder cancer Mother CVD (cardiovascular disease) Diabetes Sister Colon cancer Social History Household Members: Spouse Housing: Apartment Are you a primary home health aide caregiver to a significant other at home: No Do you presently have visiting nurse or other home services: Yes (every 2 months through insurance) Alcohol intake: former Patient Tobacco Use Status: Former Tobacco user Tobacco use type: Cigar Substance Use Type: Crack/Cocaine, Former Substance User and Marijuana service: No Current occupational status: disabled Review of Systems Const Denies chills, Denies excessive sweating, Denies fever(s), Denies headache(s) and Denies night sweats Eyes Denies dry eyes, Denies irritation and Denies itchy eyes ENT Reports Normal hearing present, Denies headache(s), Denies nasal congestion, Denies nasal discharge, Denies post nasal drip and Denies sore throat Card Denies chest pain, Denies chest pain at rest, Denies chest pain with activity, Denies claudication, Denies leg edema and Denies paroxysmal nocturnal dyspnea Resp Denies chest congestion, Denies excessive phlegm production, Denies pain on inspiration, Denies pain with cough and Denies stridor Musc Denies myalgias Neuro Reports Normal hearing present and Denies headache(s) Endo Denies excessive sweating Garrett/Lymph Denies lymphadenopathy Aller/Immun Denies itchy eyes and Denies seasonal rhinorrhea Physical Exam Vital Signs: Last Vital Signs Pulse 66 09/28/24 08:45 BP 126/84 09/28/24 08:45 Pulse Ox 98 09/28/24 08:45 Oxygen Delivery Method Room Air 09/28/24 08:45 BMI result Body Mass Index 35.7 Const General: cooperative, healthy appearing, comfortable, no acute distress, well developed and alert Nutritional Appearance: obese Orientation/consciousness: patient oriented x3 Limitations: no limitations HEENT Head: Yes normal to inspection, Yes normocephalic and Yes atraumatic Ears: hearing grossly normal bilaterally and external ears normal Eyes General: appearance normal, both eyes and all related structures Eyelids: Yes eyelids normal Sclerae: sclerae normal EOM: EOMs intact bilaterally Neck Neck: Yes normal visual inspection and Yes no lymphadenopathy Lymphatic: no lymphadenopathy noted Chest Chest palpation & inspection: normal inspection of the chest Resp Effort & Inspection: normal respiratory effort, able to speak in complete sentences, no audible wheezes, no cough, no stridor, not tachypneic, no tripod positioning and no use of accessory muscles Auscultation: clear to auscultation bilaterally Cardio Jugular venous distension: no JVD Rate: regular rate Rhythm: regular rhythm Skin Other: warm, dry General skin exam: no rashes or lesions noted Neuro General: patient oriented x3 Cranial nerves: Yes Normal hearing present Cognition (Neuro): normal cognition Gait exam (Neuro): Normal gait present Extrem General: Yes normal to inspection, Yes capillary refill normal, Yes no clubbing, cyanosis or edema and Yes no pedal edema Psych Appearance: grossly normal and well kempt Speech and movement: Normal speech and movement present and Clear speech present Affect: normal affect Attitude: cooperative Thought process: Normal thought process present Thought content: Normal thought content present Insight: Good insight present (Psych) Judgement: Good judgement present (Psych) Assessment & Plan Assessment & Plan (1) Dyspnea: Code(s): R06.00 - Dyspnea, unspecified Category: Medical (2) Cough: Code(s): R05.9 - Cough, unspecified Category: Medical (3) Personal history of tobacco use: Code(s): Z87.891 - Personal history of nicotine dependence Category: Social Hx Plan At this time, Rommel reports good control of respiratory symptoms on current regimen. He did note intermittent hoarseness with inhaler use however has been better about oral hygiene post inhaler with resolution. Reviewed chest CT which revealed moderate atherosclerosis calcification of the coronary artery and recently underwent nuclear stress test on 06/18, awaiting report from cardiology. Will repeat in 1 year to assess stability of findings due to smoking history, 07/2025. Of note, patient may be moving back to [place], unsure when, but will notify office. All questions were answered and patient is in agreement of plan. Will follow up in 3-6 months or sooner if needed. Orders: Orders CT chest wo IV con 10 Months Z87.891 - Personal history of nicotine dependence Coding Level of Care Code Est Pt Level 4 (30992) Diagnoses Dyspnea R06.00 Cough R05.9 Personal history of tobacco use Z87.894
[2024-09-28 08:45] VITALS: BP 126/84; PULSE 66; O2SAT 98; BMI 35.7
== END 2024-09-28 09:08 | disposition home or self-care (01) ==
LOC: HO.HPS 08:18
PROVIDERS: PCP Registered Nurse; Visit Provider Nurse Practitioner Family
DX: R06.00 Dyspnea, unspecified (principal); R05.9 Cough, unspecified; Z87.891 Personal history of nicotine dependence
CPT/HCPCS: 99214

== ENCOUNTER → 2024-09-28 08:17 | Outpatient (BNVA) | payer OTHER, SELFPAY | PROVIDERS: PCP Registered Nurse; Visit Provider Nurse Practitioner Family | DX: R06.00 Dyspnea, unspecified (principal); R05.9 Cough, unspecified; G47.33 Obstructive sleep apnea (adult) (pediatric); Z99.89 Dependence on other enabling machines and devices; Z87.891 Personal history of nicotine dependence | CPT/HCPCS: 99212 ==

== ENCOUNTER 2024-10-24 12:53 | Inpatient (IN) | payer OTHER, SELFPAY ==
[2024-10-24] VITALS (10 sets, daily range): BP systolic 105–158; BP diastolic 71–101; PULSE 67–87; RESP 12–19; TEMP 36–36.6; O2SAT 93–98; BMI 22.4; BMI 35.6
--- NOTE | ~2024-10-24 | CT_ITS ---
CLINICAL HISTORY: generalized abdominal pain CT abdomen and pelvis without contrast Comparison: None Findings: Examination is limited by without contrast. Lung bases are clear. No pleural effusion. Liver is enlarged. Pancreas, Spleen and both adrenals show normal size, shape and attenuation on present unenhanced scan. No CBD dilatation. No calcified gallstone in the gallbladder. Both kidneys reveal normal in size, shape, position and attenuation. No kidney stone. Mild fullness of the bilateral renal pelvis. Possible post ablation change of the lower pole right kidney. The IVC, aorta and portal vein are within normal position and caliber. Atherosclerosis calcification of the aorta. No evidence of retroperitoneal lymphadenopathy or ascites. There is a 1.6 x 2.4 cm cystic lesion of the left pelvis adjacent to the external iliac vessel series 2, image 73. The visible parts of the bowel loops show no obvious mass lesions or wall thickening. Moderate amount of fecal material within the colon. Colonic diverticulosis. No evidence of acute appendicitis. No bowel obstruction. Urinary bladder reveals normal lumen and nguyen. The pelvic organs are unremarkable. Visualized osseous structures appear unremarkable. No lytic or sclerotic bony lesion. IMPRESSION: Hepatomegaly. Colonic diverticulosis. Mild fullness of the bilateral renal pelvis. Possible post ablation change of the lower pole right kidney. Clinical correlation is recommended. Cystic lesion of the left side of the pelvis with uncertain clinical significance. Additional findings as above. This document has been electronically signed by: Ingrid Huerta MD on 10/24/2024 17:05:06
--- NOTE | 2024-10-24 13:40 | ED.GENADULT ---
HPI - General Adult General Chief complaint: Abdominal Pain Stated complaint: l side pain Time Seen by Provider: 10/24/24 15:31 Source: patient Mode of arrival: ambulatory Limitations: no limitations History of Present Illness ED Provider: HPI narrative: 69-year-old male with a history of chronic constipation and chronic abdominal pain, presenting with generalized abdominal pain for the past 2 months, denies vomiting, diarrhea, has intermittent nausea, no chest pain or shortness of breath, did not really endorse significant weakness. Workup revealed hyponatremia. He is a diabetic, has history of hypotension and he takes hydrochlorothiazide. Related Data Home Medications ?Medication ?Instructions ?Recorded ?Confirmed aspirin 81 mg tablet,delayed 81 mg PO DAILY 05/16/20 06/22/24 release febuxostat 40 mg tablet (Uloric) 40 mg PO DAILY 05/16/20 06/22/24 hydrochlorothiazide 25 mg tablet 25 mg PO DAILY 05/16/20 06/22/24 losartan 50 mg tablet 50 mg PO DAILY 05/16/20 06/22/24 metoprolol tartrate 50 mg tablet 50 mg PO BID 05/16/20 06/22/24 mirtazapine 30 mg tablet 30 mg PO BEDTIME 05/16/20 06/22/24 oxycodone-acetaminophen 5 mg-325 1 tab PO TID PRN Pain 05/16/20 06/22/24 mg tablet topiramate 50 mg tablet (Topamax) 50 mg PO DAILY 08/09/20 06/22/24 cetirizine 10 mg tablet 10 mg PO DAILY 04/21/21 06/22/24 naloxone 4 mg/actuation nasal spray 4 spray intranasal DAILY 05/08/22 06/22/24 testosterone 40.5 mg topical QAM 10/30/22 06/22/24 coenzyme Q10 100 mg capsule (Co 100 mg PO BID 06/06/23 06/04/24 Q-10) vibegron 75 mg tablet (Gemtesa) 75 mg DAILY 06/06/23 06/22/24 ezetimibe 10 mg tablet 10 mg PO DAILY 10/23/23 06/22/24 gabapentin 300 mg capsule 300 mg PO DAILY 10/23/23 06/22/24 insulin degludec 100 unit/mL (3 16 unit subcut DAILY 10/23/23 06/22/24 mL) subcutaneous pen (Tresiba FlexTouch U-100 insulin) metformin 500 mg tablet,extended 500 mg PO BID 10/23/23 06/22/24 release 24 hr evolocumab 140 mg/mL subcutaneous 140 mg subcut QWEEK 08/11/24 syringe (Repatha Syringe) Previous Rx's ?Medication ?Instructions ?Recorded blood-glucose meter (FreeStyle #1 ea 12/09/20 Lite Meter kit) lancets 28 gauge #400 ea 12/09/20 pen needle, diabetic 32 gauge x 1 ea subcut QID #360 ea 10/30/21 (BD Ultra-Fine Makenna Pen Needle) insulin aspart U-100 100 unit/mL See Rx Instructions subcut 02/12/22 (3 mL) subcutaneous pen (Novolog .COMPLEX 30 days #3 mL FlexPen U-100 Insulin aspart) blood sugar diagnostic (FreeStyle #400 ea 04/02/22 Lite Strips) dulaglutide 3 mg/0.5 mL 3 mg (0.5 mL) subcut QWEEK #6 mL 05/22/23 subcutaneous pen injector (Trulicity) sennosides 8.6 mg tablet (senna) 17.2 mg (2 x 8.6 mg) PO DAILY #60 02/06/24 tabs famotidine 40 mg tablet 40 mg PO BID #180 tabs 08/11/24 [id number] 1 cap PO .TIDAC 30 days #90 caps 08/11/24 24,000-76,000-120,000 unit capsule,delayed rel (Creon) omeprazole 20 mg capsule,delayed 20 mg PO DAILY #90 caps 08/11/24 release fluticasone 113 mcg-salmeterol 14 1 inh inhalation BID #1 ea 08/18/24 mcg/actuation breath activated powdr (AirDuo RespiClick) Allergies Allergy/AdvReac Type Severity Reaction Status Date / Time atorvastatin [Lipitor] Allergy Unknown muscle Verified 10/24/24 13:42 damage rosuvastatin [Crestor] Allergy Unknown muscle Verified 10/24/24 13:42 damage From CRESTOR Allergy Severe MUSCLES Uncoded 09/28/24 08:50 PAIN From LIPITOR Allergy Severe MUSCLES Uncoded 09/28/24 08:50 PAIN Review of Systems Constitutional: Constitutional: Reports as per [facility] Past Medical History Medical History Colon cancer screening Irritable bowel syndrome with both constipation and diarrhea halfway current use of insulin Chronic idiopathic constipation Hepatitis C Hypogonadism Vitamin D deficiency CTS (carpal tunnel syndrome) Seizures 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 bowel syndrome) GERD (gastroesophageal reflux disease) Gout Chronic kidney disease, stage 3 Polycythemia vera Fibromyalgia BPH (benign prostatic hyperplasia) CAD (coronary artery disease) Type 2 diabetes mellitus with hyperglycemia, with long-term current use of insulin Type 2 diabetes mellitus with polyneuropathy Essential hypertension Hyperlipidemia LDL goal <70 Obesity due to excess calories Type 2 diabetes mellitus with hyperglycemia Surgical History History of prostate surgery Hx of biopsy Hx of angioplasty Hx of cystoscopy Hx of colonoscopy Family History Family History Father Bladder cancer Mother CVD (cardiovascular disease) Diabetes Sister Colon cancer Social History Social History Household Members: Spouse Housing: Apartment Are you a primary cna caregiver to a significant other at home: No Do you presently have visiting nurse or other home services: Yes (every 2 months through insurance) Alcohol intake: former Patient Tobacco Use Status: Former Tobacco user Tobacco use type: Cigar Substance Use Type: Crack/Cocaine, Former Substance User and Marijuana service: No Current occupational status: disabled Physical Exam ED Vital Signs: Vital Signs - 24 hr 10/24/24 13:40 Temperature 97.9 F Pulse Rate 76 Respiratory Rate 18 Blood Pressure 130/88 Pulse Oximetry 97 Oxygen Delivery Method Room Air BMI result Body Mass Index 22.4 Const Other: Gen: ?Heavy-set male HEENT: Non dry mucosa Neck: Supple, no LAD CV: RRR, Resp: ?No wheezing rales rhonchi no stridor moving air well Abd: ?Bowel sounds are present, no tenderness no rebound no rigidity MSK: FROM, strength 5/5 all extremities, no lower extremity edema Skin: Warm, dry, intact, Neuro: ?Alert and oriented x3, moving upper and lower extremities symmetrically, no obvious facial asymmetry noted Course Course Course Narrative: This is a Rapid Medical Exam performed in triage by Yudith Pino PA-C. Full HPI, ROS and PE to be performed by primary ED provider. 69-year-old male with past medical history of cirrhosis, GERD, diabetes, HLD presenting to the ED c/o L sided abd pain x over a week w/nausea. denies N/V, fever PE: Nontoxic appearing, ambulating with steady gait Plan: Labs, UA Medical Decision Making Medical Decision Making [facility] Narrative: 15:52 patient presented with chronic nausea and chronic abdominal pain, likely worse in the past couple of weeks, his sodium level is 117 which places him at risk for seizures, I already spoke with Dr. 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 Craven just to make sure there was no management he would recommend and silverware buffing machine operator recommended to hold off on any treatment at this time I am adding on additional blood work and urinalysis, I suspect this is likely due to hydrochlorothiazide. Possibly this is hypovolemic hyponatremia. Overall anticipating admission. Admission/Observation Consideration of admission/observation: Escalation of care including admission/observation considered Consult Healthcare Provider Management of the patient was discussed with: Gold Tooler (ICU and nephrology) Lab Data [facility] Lab Attestation statement: I reviewed the patient's lab results. 10/24/24 14:46 10/24/24 14:46 Labs: Lab Results 10/24/24 10/24/24 Range/Units 14:46 14:48 WBC 12.9 H (4.8-10.8) X10*3/uL RBC 5.27 (4.60-5.80) X10*6/uL Hgb 15.9 (14.0-18.0) g/dl Hct 43.3 (42.0-52.0) % MCV 82.2 (80.0-98.0) fL MCH 30.2 (27.0-33.0) pg MCHC 36.7 H (31.0-36.0) g/dl RDW 13.0 (11.0-16.0) % Plt Count 289 (160-400) X10*3/uL MPV 8.8 L (9.4-12.4) fL Immature Gran % (Auto) 0.3 (0.0-0.4) % Neut % (Auto) 52.1 (45-73) % Lymph % (Auto) 32.0 (20-40) % Yolo % (Auto) 11.0 (2-11) % Eos % (Auto) 3.7 (0-4) % Baso % (Auto) 0.9 (0-2) % Lymph # (Auto) 4.1 (1.2-4.9) X10*3/uL Yolo # (Auto) 1.4 H (0.1-1.2) X10*3/uL Eos # (Auto) 0.5 H (0.0-0.4) X10*3/uL Baso # (Auto) 0.1 (0.0-0.2) X10*3/uL Abs Immat Gran (auto) 0.04 H (0.00-0.03) X10*3/uL Absolute Neuts (auto) 6.7 (2.0-8.3) x10*3/uL Absolute Nucleated RBC 0.000 (0.0-0.012) X10*3/uL Nucleated RBC % (auto) 0.0 (0.0-0.2) /100WBC Sodium 117 L* (135-145) mmol/L Potassium 3.8 (3.3-5.1) mmol/L Chloride 83 L (96-108) mmol/L Carbon Dioxide 24 (22-29) mmol/L Anion Gap 14 (12-20) BUN 13 (9-16) mg/dL Creatinine 1.50 H (0.5-1.4) mg/dL Estim Creat Clear Calc 40.1 Estimated GFR 46 Random Glucose 126 H (60-115) mg/dL Calcium 9.8 (8.4-10.2) mg/dL Magnesium 1.8 (1.6-2.6) mg/dL Total Bilirubin 0.7 (0.0-1.0) mg/dL Direct Bilirubin 0.4 (0.0-0.5) mg/dL AST 31 (5-37) U/L ALT 31 (0-40) U/L Total Protein 7.8 (6.5-8.0) g/dL Albumin 4.9 (3.5-5.0) g/dL Lipase 61 (8-78) U/L Urine Color Dark Yellow Urine Appearance Clear Urine pH 6.0 (5.0-9.0) Ur Specific Garland 1.020 (1.005-1.025) Urine Protein 30 (1+) H (Neg-Trace) mg/dL Urine Glucose (UA) Negative (Negative) mg/dL Urine Ketones Trace (Negative) mg/dL Urine Blood Negative (Negative) Urine Nitrite Negative (Negative) Ur Leukocyte Esterase Trace H (Negative) Urine RBC 0-2 (0-2) /HPF Urine WBC 0-5 (0-5) /HPF Ur Squamous Epith Cells 0-2 (0-2) /HPF Urine Bacteria None Seen (None Seen) Hyaline Casts 0-2 (0-2) /LPF Chronic Conditions Patient?s care impacted by: Diabetes and Hypertension Critical Care Time Critical Care Time Critical Care Time: Yes Total Critical Care Time: 45 Attestation: Time is exclusive of separately billable procedures. Time includes: direct patient care, patient reassessment, coordination of patient care, interpretation of data (laboratory data, pulse oximetry, arterial blood gases and chest xrays), review of patient's medical records, medical consultation and documentation of patient care. Procedures excluded from critical care time: central intravenous line placement and electrocardiography. Discharge Plan Discharge Clinical Impression: Drug-induced hyponatremia, Type 2 diabetes mellitus with hyperglycemia, Essential hypertension Prescriptions: No Action pen needle, diabetic [BD Ultra-Fine Makenna Pen Needle] 32 gauge x 5/32 needle 1 ea subcut QID Qty: 360 3RF insulin aspart U-100 [Novolog FlexPen U-100 Insulin] 100 unit/mL (3 mL) insulin pen See Rx Instructions subcut .COMPLEX 30 Days Qty: 3 3RF Patient Comments: Sliding scale 6-8 units Rx Instructions: Sliding scale 6-8 units subcut; (DME) FreeStyle Lite Strips Strip See Rx Instructions .ROUTE .MEDSUPPLY Qty: 400 3RF Rx Instructions: As directed four times a day Trulicity 3 mg/0.5 mL pen injector 3 mg subcut QWEEK Qty: 6 2RF fluticasone propion-salmeterol [AirDuo RespiClick] 113-14 mcg/actuation aerosol powdr breath activated 1 inh inhalation BID Qty: 1 6RF topiramate [Topamax] 50 mg Tablet 50 mg PO DAILY coenzyme Q10 [Co Q-10] 100 mg Capsule 100 mg PO BID Gemtesa 75 mg tablet 75 mg DAILY oxycodone-acetaminophen 5-325 mg tablet 1 tab PO TID PRN (Reason: Pain) mirtazapine 30 mg tablet 30 mg PO BEDTIME aspirin 81 mg tablet,delayed release (DR/EC) 81 mg PO DAILY losartan 50 mg tablet 50 mg PO DAILY metoprolol tartrate 50 mg tablet 50 mg PO BID hydrochlorothiazide 25 mg tablet 25 mg PO DAILY febuxostat [Uloric] 40 mg tablet 40 mg PO DAILY (DME) blood-glucose meter [FreeStyle Lite Meter] Kit See Rx Instructions .ROUTE .MEDSUPPLY Qty: 1 0RF Rx Instructions: As directed (DME) lancets 28 gauge misc See Rx Instructions topical TID Qty: 400 3RF Rx Instructions: 4/day cetirizine 10 mg tablet 10 mg PO DAILY naloxone 4 mg/actuation spray,non-aerosol 4 spray intranasal DAILY testosterone 20.25 mg/1.25 gram (1.62 %) gel in metered-dose pump 40.5 mg topical QAM omeprazole 20 mg capsule,delayed release(DR/EC) 20 mg PO DAILY Qty: 90 2RF famotidine 40 mg tablet 40 mg PO BID Qty: 180 2RF Creon 24,000-76,000 -120,000 unit capsule,delayed release(DR/EC) 1 cap PO .TIDAC 30 Days Qty: 90 6RF Rx Instructions: administer with meals and/or snacks metformin 500 mg tablet extended release 24 hr 500 mg PO BID ezetimibe 10 mg tablet 10 mg PO DAILY insulin degludec [Tresiba FlexTouch U-100] 100 unit/mL (3 mL) insulin pen 16 unit subcut DAILY gabapentin 300 mg capsule 300 mg PO DAILY Repatha Syringe 140 mg/mL syringe 140 mg subcut QWEEK sennosides [senna] 8.6 mg tablet 17.2 mg PO DAILY Qty: 60 6RF Print Language: Thai
[2024-10-24 14:52] LABS: MANUAL DIFF FLAG NO
[2024-10-24 14:55] LABS: Appearance Urine Clear; Color Urine Dark Yellow; Glucose Urine UA Negative (Negative); Leukocyte Esterase Urine Trace (Negative); Nitrite Urine Negative (Negative); UMIC TRIGGER UACC YES; Urine Blood Negative (Negative); Urine Ketones Trace mg/dL (Negative); Urine Protein 30 (1+) mg/dL (Neg-Trace)
[2024-10-24 14:57] LABS: Bacteria Urine None Seen (None Seen); Hyaline Casts Urine 0-2 /LPF (0-2); RBC Urine 0-2 /HPF (0-2); Squamous Epithelial Cell Urine 0-2 /HPF (0-2); WBC Urine 0-5 /HPF (0-5)
[2024-10-24 14:57] LABS: Basophils Absolute Auto 0.1 X10*3/uL (0.0-0.2); Basophils Percent Auto 0.9 % (0-2); Eosinophils Absolute Auto 0.5 X10*3/uL (0.0-0.4); Eosinophils Percent Auto 3.7 % (0-4); Hematocrit 43.3 % (42.0-52.0); Hemoglobin 15.9 g/dl (14.0-18.0); Imm Gran Abs Auto 0.04 X10*3/uL (0.00-0.03); Imm Gran Pct Auto 0.3 % (0.0-0.4); Lymphocytes Absolute Auto 4.1 X10*3/uL (1.2-4.9); Mean Corpuscular HGB Conc 36.7 g/dl (31.0-36.0); Mean Corpuscular Hemoglobin 30.2 pg (27.0-33.0); Mean Corpuscular Volume 82.2 fL (80.0-98.0); Mean Platelet Volume 8.8 fL (9.4-12.4); Monocytes Absolute Auto 1.4 X10*3/uL (0.1-1.2); Neutrophils Absolute Auto 6.7 x10*3/uL (2.0-8.3); Neutrophils Percent Auto 52.1 % (45-73); Platelet Count 289 X10*3/uL (160-400); Red Blood Count 5.27 X10*6/uL (4.60-5.80); White Blood Count 12.9 X10*3/uL (4.8-10.8)
[2024-10-24 15:24] LABS: Alanine Aminotransferase 31 U/L (0-40); Albumin Level 4.9 g/dL (3.5-5.0); Anion Gap 14 (12-20); Aspartate Amino Transferase 31 U/L (5-37); Bilirubin Direct 0.4 mg/dL (0.0-0.5); Bilirubin Total 0.7 mg/dL (0.0-1.0); Blood Urea Nitrogen 13 mg/dL (9-16); Calcium 9.8 mg/dL (8.4-10.2); Carbon Dioxide 24 mmol/L (22-29); Chloride 83 mmol/L (96-108); Creatinine Clr Calc Pharmacy 40.1; Estimated Glomerular Filt Rate 46; Glucose Random 126 mg/dL (60-115); Lipase 61 U/L (8-78); Magnesium 1.8 mg/dL (1.6-2.6); Potassium 3.8 mmol/L (3.3-5.1); Sodium 117 mmol/L (135-145); Total Protein 7.8 g/dL (6.5-8.0)
--- NOTE | 2024-10-24 15:54 | ECG_ITS ---
Test Reason : LOW SODIUM Blood Pressure : */* mmHG Vent. Rate : 71 BPM Atrial Rate : 71 BPM P-R Int : 168 ms QRS Dur : 90 ms QT Int : 422 ms P-R-T Axes : * 11 40 degrees QTcB Int : 458 ms Normal sinus rhythm Normal ECG When compared with ECG of 20-Apr-2010 07:08, No significant changes seen Referred By: Vic Alfonso Electronically Signed By: ALEJANDRA ORTIZ
[2024-10-24] MEDS: Heparin Sodium,Porcine 5,000 UNIT/ML VIAL 5000 UNIT SUBCUT (16:44)
[2024-10-24] MEDS: Sodium Chloride Tab 1 GM TABLET 2 GM PO ×2 (16:44→21:30)
--- NOTE | 2024-10-24 18:01 | PHA.MEDREC ---
Addendum entered by Tucker Mitchell PharmD 10/24/24 18:27: reviewed Original Note: Pharmacy Consult ? Medication Reconciliation Pharmacy has completed the medication reconciliation. Spoke with patient to confirm medications. He was on 3 mg of Trulicity but his recent rx was for 1.5 mg which he has been taking on Saturdays (did not have today). He administers Repatha every Saturday which he did yesterday. He is no longer taking ezetimibe or CO-Q10. He takes famotidine at bedtime only. He takes 8 units of Novolog TIDWM. He injects 16 units of Tresiba at bedtime. He is no longer taking sumatriptam. He uses testosterone gel intermittenly. He stops using it when he feels better . He last used the gel about 1 week ago. He is no longer using Wixela, he reports he feels better when he is not using it, last had 4-5 weeks ago. He reports he had some medications this morning.
[2024-10-24 18:04] LABS: Potassium Urine Random 35.9 mmol/L; Sodium Urine Random < 20.0 mmol/L
[2024-10-24 18:12] LABS: Glucose, Whole Blood 136 mg/dL (60-115)
--- NOTE | 2024-10-24 18:42 | PC.NURSE ---
Patient arrived to the unit from ED via stretcher at 1745, was able to transfer from stretcher to bed with stand by assist. Patient decline eap consultant services stating my Faroese is good . Patient reports recent fall at home, does not c/o pain at this time. BP elevated on arrival 157/89 patient stated he takes medication for HTN.
[2024-10-24 18:43] LABS: Alkaline Phosphatase 85 U/L (39-117)
[2024-10-24 18:56] LABS: Osmolality, Serum 242 mosm/kg (281-305)
[2024-10-24 18:56] LABS: Osmolality Urine 391 mosm/kg (373-1093)
--- NOTE | 2024-10-24 19:33 | P.HPCC_ITS ---
History of Present Illness Date of Service: 10/24/24 Attending physician on admission: Skyler Villar Chief Complaint: hyponatremia Mr. Narvaez is a 69-year-old male with past history of type 2 diabetes, HTN, CAD,? HLD, CKD stage 3, hepatitis-C,? IBS with constipation and diarrhea, polycythemia vera, seizures who presents to the emergency room with complaint of worsening chronic abdominal pain. He reports intermittent nausea but no vomiting or diarrhea.?Workup revealed a sodium level of 117. On arrival to the emergency room, the patient?s blood pressure was 130/88, heart rate 76, temp 97.9, with O2 sat 97% on room air.? Laboratory data significant for? WBC 12.9, sodium 117, chloride 83, creatinine 1.50, glucose 126. Imaging: ? Abdominal CT revealed hepatomegaly, colonic diverticulosis, mild fullness of the bilateral renal pelvis. Review of Systems 2 Review of Systems: Yes all other systems are reviewed and are negative Constitutional: Constitutional: Denies fever(s) Eyes: Eyes: Denies change in vision ENT: Reports Normal hearing present, Denies dizziness and Denies nasal congestion Cardiovascular: Cardiovascular: Denies chest pain, Reports epigastric discomfort, Denies leg edema, Denies lightheadedness and Denies dyspnea Respiratory: Respiratory: Denies dyspnea and Denies wheezing Gastrointestinal: Gastrointestinal: Reports as per HPI Musculoskeletal: Musculoskeletal: Denies muscle weakness, Denies numbness and Denies tingling Integumentary/Breasts: Skin/Breast: Denies lesions, Denies rash and Denies wounds Neurologic: Reports Normal hearing present, Denies confusion, Denies dizziness, Denies numbness and Denies tingling Psychiatric: Psychiatric: Denies confusion Endocrine: Endocrine: Reports as per HPI Hematologic/Lymphatic: Hematologic/Lymphatic: Reports as per HPI Allergic/Immunologic: Allergic/Immunologic: Denies wheezing PMFSH Past Medical History Medical History Colon cancer screening Irritable bowel syndrome with both constipation and diarrhea 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 Chronic idiopathic constipation Hepatitis C Hypogonadism Vitamin D deficiency CTS (carpal tunnel syndrome) Seizures 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 bowel syndrome) GERD (gastroesophageal reflux disease) Gout Chronic kidney disease, stage 3 Polycythemia vera Fibromyalgia BPH (benign prostatic hyperplasia) CAD (coronary artery disease) Type 2 diabetes mellitus with hyperglycemia, with long-term current use of insulin Type 2 diabetes mellitus with polyneuropathy Essential hypertension Hyperlipidemia LDL goal <70 Obesity due to excess calories Type 2 diabetes mellitus with hyperglycemia Family History Family History Father Bladder cancer Mother CVD (cardiovascular disease) Diabetes Sister Colon cancer Surgical History Surgical History History of prostate surgery Hx of biopsy Hx of angioplasty Hx of cystoscopy Hx of colonoscopy Social History Social History Household Members: Spouse Housing: House Are you a primary patient care assistant to a significant other at home: No Do you presently have visiting nurse or other home services: No Alcohol intake: former Patient Tobacco Use Status: Former Tobacco user Tobacco use type: Cigar Smoked in Last 30 Days: No Use of substances other than those prescribed or required for medical reasons: No Substance Use Type: Crack/Cocaine, Former Substance User and Marijuana Currently Displaying Signs/Symptoms of Drug Intoxication Withdrawal: No Have you been hit, kicked, punched, or otherwise hurt by someone within the past year? If so, by whom?: No Advance Directives: No Advance Directives Information Provided: No Do you have a plan to hurt others: No Plan Recently lost weight without trying: No Eating poorly because of decreased appetite: No Nutrition Risks: Difficulty swallowing Poor oral hygiene: No service: No Current occupational status: disabled Meds Allergies Allergy/AdvReac Type Severity Reaction Status Date / Time atorvastatin [Lipitor] Allergy Unknown muscle Verified 10/24/24 13:42 damage rosuvastatin [Crestor] Allergy Unknown muscle Verified 10/24/24 13:42 damage From CRESTOR Allergy Severe MUSCLES Uncoded 09/28/24 08:50 PAIN From LIPITOR Allergy Severe MUSCLES Uncoded 09/28/24 08:50 PAIN Active Medications: Current Medications Heparin Sodium (Porcine) (Heparin Sodium,Porcine 5,000 Unit/Ml Vial) 5,000 unit SUBCUT Q8H ANGE Last Admin: 10/24/24 16:44 Dose: 5,000 unit Insulin Human Lispro (Insulin Lispro 100 Unit/Ml 3 Ml Vial) 0 unit SUBCUT QIDACHS [facility]; Protocol Last Admin: 10/24/24 18:13 Dose: Not Given Sodium Chloride (Sodium Chloride Tab 1 Gm Tablet) 2 gm PO BID [facility] Last Admin: 10/24/24 16:44 Dose: 2 gm Home Medications ?Medication ?Instructions ?Recorded ?Confirmed ?Last Taken ?Type aspirin 81 mg tablet,delayed 81 mg PO DAILY 05/16/20 10/24/24 02/25/22 History release febuxostat 40 mg tablet (Uloric) 40 mg PO DAILY 05/16/20 10/24/24 Unknown History hydrochlorothiazide 25 mg tablet 25 mg PO DAILY 05/16/20 10/24/24 Unknown History losartan 50 mg tablet 50 mg PO DAILY 05/16/20 10/24/24 Unknown History metoprolol tartrate 50 mg tablet 50 mg PO BID 05/16/20 10/24/24 Unknown History mirtazapine 30 mg tablet 30 mg PO BEDTIME 05/16/20 10/24/24 Unknown History oxycodone-acetaminophen 5 mg-325 1 tab PO TID PRN Pain 05/16/20 10/24/24 Unknown History mg tablet topiramate 50 mg tablet (Topamax) 50 mg PO DAILY 08/09/20 10/24/24 Unknown History cetirizine 10 mg tablet 10 mg PO DAILY PRN Allergy Symptoms 04/21/21 10/24/24 Unknown History testosterone 3 pump topical DAILY PRN hormone 10/30/22 10/24/24 Unknown History therapy vibegron 75 mg tablet (Gemtesa) 75 mg DAILY 06/06/23 10/24/24 Unknown History gabapentin 300 mg capsule 300 mg PO BEDTIME 10/23/23 10/24/24 Unknown History insulin degludec 100 unit/mL (3 16 unit subcut BEDTIME 10/23/23 10/24/24 Unknown History mL) subcutaneous pen (Tresiba FlexTouch U-100 insulin) metformin 500 mg tablet,extended 500 mg PO BID 10/23/23 10/24/24 Unknown History release 24 hr evolocumab 140 mg/mL subcutaneous 140 mg subcut FR 08/11/24 10/24/24 10/23/24 History syringe (Repatha Syringe) aripiprazole 2 mg tablet 2 mg PO DAILY 10/24/24 10/24/24 Unknown History dulaglutide 1.5 mg/0.5 mL 1.5 mg subcut SA 10/24/24 10/24/24 10/17/24 History subcutaneous pen injector (Trulicity) famotidine 40 mg tablet 40 mg PO BEDTIME 10/24/24 10/24/24 Unknown History insulin aspart U-100 100 unit/mL 8 unit subcut TIDWM 10/24/24 10/24/24 Unknown History (3 mL) subcutaneous pen (Novolog FlexPen U-100 Insulin aspart) [id number] 1 cap PO TIDAC 10/24/24 10/24/24 Unknown History 24,000-76,000-120,000 unit capsule,delayed rel (Creon) sennosides 8.6 mg tablet (senna) 8.6 mg PO DAILY 10/24/24 10/24/24 Unknown History Physical Exam 2 Vital Signs: Vital Signs: Last Vital Signs Temp 96.8 F 10/24/24 18:00 Pulse 80 10/24/24 18:55 Resp 13 10/24/24 18:55 BP 140/101 H 10/24/24 18:55 Pulse Ox 95 10/24/24 18:55 O2 Del Method Room Air 10/24/24 18:55 BMI result Body Mass Index 35.6 Const: General: No confusion Orientation/consciousness: No confusion HEENT: Head: Yes normocephalic and Yes atraumatic General nose exam: Normal external nose present (Nares patent, septum midline, sinuses nontender bilaterally.) Mouth: Normal oral and palatal mucosa present (No thrush, tongue in midline, mucosa moist.) Throat: Yes other (No erythema, no exudate.) Neck: Neck: Yes supple (no thyromegaly, trachea midline.) Carotids: normal carotid upstroke Resp: Auscultation: clear to auscultation bilaterally (normal work of breathing, no accessory muscle use) Cardio: Jugular venous distension: no JVD Rate: regular rate Rhythm: r egular rhythm Heart sounds: no gallops, no murmurs and no rubs Peripheral pulses: Peripheral pulses 2+ throughout GI: Palpation (GI): Soft to palpation (nondistended.) and nontender Neuro: General: No confusion Cranial nerves: Yes Normal hearing present Extrem: General: Yes full ROM, Yes capillary refill normal and Yes no clubbing, cyanosis or edema Psych: Affect: normal affect Attitude: cooperative Results Labs 10/25/24 08:09 10/25/24 05:31 Labs: Laboratory Results - last 24 hr 10/24/24 10/24/24 10/24/24 14:46 14:48 16:45 MCV 82.2 MCH 30.2 MCHC 36.7 H RDW 13.0 Plt Count 289 MPV 8.8 L Immature Gran % (Auto) 0.3 Neut % (Auto) 52.1 Lymph % (Auto) 32.0 [place] % (Auto) 11.0 Eos % (Auto) 3.7 Baso % (Auto) 0.9 Lymph # (Auto) 4.1 [place] # (Auto) 1.4 H Eos # (Auto) 0.5 H Baso # (Auto) 0.1 Abs Immat Gran (auto) 0.04 H Absolute Neuts (auto) 6.7 Absolute Nucleated RBC 0.000 Nucleated RBC % (auto) 0.0 Anion Gap 14 Estim Creat Clear Calc 40.1 Estimated GFR 46 POC Glucose Random Glucose 126 H Osmolality 242 L Calcium 9.8 Magnesium 1.8 Total Bilirubin 0.7 Direct Bilirubin 0.4 AST 31 ALT 31 Alkaline Phosphatase 85 Total Protein 7.8 Albumin 4.9 Lipase 61 Urine Color Dark Yellow Urine Appearance Clear Urine pH 6.0 Ur Specific [place] 1.020 Urine Protein 30 (1+) H Urine Glucose (UA) Negative Urine Ketones Trace Urine Blood Negative Urine Nitrite Negative Ur Leukocyte Esterase Trace H Urine RBC 0-2 Urine WBC 0-5 Ur Squamous Epith Cells 0-2 Urine Bacteria None Seen Hyaline Casts 0-2 Urine Osmolality Ur Random Sodium Ur Random Potassium Ur Random Chloride 10/24/24 10/24/24 17:03 18:09 MCV MCH MCHC RDW Plt Count MPV Immature Gran % (Auto) Neut % (Auto) Lymph % (Auto) [place] % (Auto) Eos % (Auto) Baso % (Auto) Lymph # (Auto) [place] # (Auto) Eos # (Auto) Baso # (Auto) Abs Immat Gran (auto) Absolute Neuts (auto) Absolute Nucleated RBC Nucleated RBC % (auto) Anion Gap Estim Creat Clear Calc Estimated GFR POC Glucose 136 H Random Glucose Osmolality Calcium Magnesium Total Bilirubin Direct Bilirubin AST ALT Alkaline Phosphatase Total Protein Albumin Lipase Urine Color Urine Appearance Urine pH Ur Specific [place] Urine Protein Urine Glucose (UA) Urine Ketones Urine Blood Urine Nitrite Ur Leukocyte Esterase Urine RBC Urine WBC Ur Squamous Epith Cells Urine Bacteria Hyaline Casts Urine Osmolality 391 Ur Random Sodium < 20.0 Ur Random Potassium 35.9 Ur Random Chloride 34.0 Assessment and Plan (1) Drug-induced hyponatremia: Status: Acute Plan 69-year-old male with past history of type 2 diabetes, HTN, CAD,? HLD, CKD stage 3, hepatitis-C,? IBS with constipation and diarrhea, polycythemia vera, seizures admitted to ICU for management of hyponatremia.? Plan: Neuro:? no acute issues Cardiac:? no acute issues.? Underlying hypertension. Pulmonary: No acute issues Renal: no acute issues.? Underlying CKD 3. Endo: Hyponatremia likely due to Hydrochlorothiazide use.?Sodium chloride tabs. Diet. Monitor electrolytes. GI: Chronic abdominal pain.? Abdominal CT with no acute issues. ID:? no acute issues. Heme/Onc:? No acute issues. Underlying polycythemia vera. Psych: ? No acute issues. Diet:? Regular diet with p.o. Water restriction 1500ml/day. Prophylaxis: Heparin Patient's care was discussed in detail with Dr. Villar.? He is aware of all the above as well as the plan of care for this patient. Total time managing care of this patient today: 45 minutes.
[2024-10-24 20:20] LABS: Anion Gap 15 (12-20); Blood Urea Nitrogen 13 mg/dL (9-16); Calcium 9.2 mg/dL (8.4-10.2); Carbon Dioxide 19 mmol/L (22-29); Chloride 86 mmol/L (96-108); Creatinine Clr Calc Pharmacy 55.9; Estimated Glomerular Filt Rate 53; Glucose Random 148 mg/dL (60-115); Potassium 3.8 mmol/L (3.3-5.1); Sodium 116 mmol/L (135-145)
[2024-10-24 20:53] LABS: Glucose, Whole Blood 177 mg/dL (60-115)
[2024-10-24] MEDS: Sodium Chloride 3 % 100 ML 30 ML IV (21:29)
[2024-10-24] MEDS: Insulin Lispro 100 UNIT/ML 3 ML VIAL SUBCUT (21:30)
[2024-10-24] MEDS: Famotidine 20 MG TABLET 40 MG PO (21:31)
[2024-10-25] VITALS (19 sets, daily range): BP systolic 95–159; BP diastolic 57–91; PULSE 66–102; RESP 12–20; TEMP 36.1–36.9; O2SAT 94–98; BMI 36.0
[2024-10-25] MEDS: Heparin Sodium,Porcine 5,000 UNIT/ML VIAL 5000 UNIT SUBCUT ×4 (00:24→23:20)
[2024-10-25 01:12] LABS: Anion Gap 15 (12-20); Blood Urea Nitrogen 13 mg/dL (9-16); Calcium 9.4 mg/dL (8.4-10.2); Carbon Dioxide 21 mmol/L (22-29); Chloride 90 mmol/L (96-108); Creatinine Clr Calc Pharmacy 63.5; Estimated Glomerular Filt Rate > 60; Glucose Random 134 mg/dL (60-115); Potassium 3.2 mmol/L (3.3-5.1); Sodium 123 mmol/L (135-145)
[2024-10-25 06:21] LABS: Albumin Level 3.9 g/dL (3.5-5.0); Anion Gap 13 (12-20); Blood Urea Nitrogen 12 mg/dL (9-16); Calcium 9.2 mg/dL (8.4-10.2); Carbon Dioxide 21 mmol/L (22-29); Chloride 89 mmol/L (96-108); Creatinine Clr Calc Pharmacy 61.8; Estimated Glomerular Filt Rate 59; Glucose Random 139 mg/dL (60-115); Magnesium 1.9 mg/dL (1.6-2.6); Phosphorus 3.8 mg/dL (2.7-4.5); Sodium 119 mmol/L (135-145)
[2024-10-25 07:10] LABS: Glucose, Whole Blood 153 mg/dL (60-115)
[2024-10-25] MEDS: Insulin Lispro 100 UNIT/ML 3 ML VIAL SUBCUT ×3 (07:30→17:08)
[2024-10-25] MEDS: Sodium Chloride Tab 1 GM TABLET 2 GM PO ×3 (07:30→21:20)
[2024-10-25 08:37] LABS: Basophils Absolute Auto 0.1 X10*3/uL (0.0-0.2); Basophils Percent Auto 0.8 % (0-2); Eosinophils Absolute Auto 0.3 X10*3/uL (0.0-0.4); Eosinophils Percent Auto 2.9 % (0-4); Hemoglobin 16.1 g/dl (14.0-18.0); Imm Gran Abs Auto 0.04 X10*3/uL (0.00-0.03); Imm Gran Pct Auto 0.4 % (0.0-0.4); Lymphocytes Absolute Auto 2.7 X10*3/uL (1.2-4.9); Lymphocytes Percent Auto 25.6 % (20-40); Mean Corpuscular HGB Conc 35.8 g/dl (31.0-36.0); Mean Corpuscular Hemoglobin 29.7 pg (27.0-33.0); Mean Platelet Volume 9.2 fL (9.4-12.4); Monocytes Absolute Auto 0.9 X10*3/uL (0.1-1.2); Monocytes Percent Auto 8.2 % (2-11); Neutrophils Absolute Auto 6.5 x10*3/uL (2.0-8.3); Neutrophils Percent Auto 62.1 % (45-73); Platelet Count 288 X10*3/uL (160-400); Red Blood Count 5.42 X10*6/uL (4.60-5.80); Red Cell Distribution Width 12.8 % (11.0-16.0); White Blood Count 10.5 X10*3/uL (4.8-10.8)
[2024-10-25 08:40] LABS: MANUAL DIFF FLAG NO
--- NOTE | 2024-10-25 10:12 | P.PNCC_ITS ---
Subjective Subjective Date of Service: 10/25/24 Interval History: 69-year-old gentleman with underlying hepatitis C, diabetes mellitus, CAD, CKD 3, seizures, polycythemia vera room admitted on 10/24/2024 with nausea and subacute hyponatremia with sodium level of 117, but no neurologic symptoms. Patient was started on supplemental sodium chloride with slow rise in his sodium. His CT abdomen was essentially benign. He continues to deny any other complaints. No events overnight. Critical Care Time (minutes): 0 Physical Exam 2 Vital Signs: Vital Signs: Last Vital Signs Temp 98.4 F 10/25/24 08:00 Pulse 77 10/25/24 09:00 Resp 18 10/25/24 09:00 BP 105/70 10/25/24 09:00 Pulse Ox 95 10/25/24 09:00 O2 Del Method Room Air 10/25/24 09:00 BMI result Body Mass Index 36.0 Const: General: no acute distress, alert and awake Eyes: Sclerae: sclerae normal EOM: EOMs intact bilaterally Neck: Neck: Yes no lymphadenopathy, Yes trachea midline and Yes supple Resp: Effort & Inspection: normal respiratory effort and no respiratory distress Auscultation: clear to auscultation bilaterally Cardio: Rate: regular rate Rhythm: regular rhythm Heart sounds: no gallops, no murmurs and no rubs GI: Palpation (GI): Soft to palpation and Other GI palpation findings present ( Nontender) Auscultation: normal bowel sounds Extrem: General: Yes no pedal edema, No clubbing and No cyanosis Objective Data Labs 10/25/24 08:09 10/25/24 05:31 Labs: Laboratory Results - last 24 hr 10/24/24 10/24/24 10/24/24 14:46 14:48 16:45 WBC 12.9 H RBC 5.27 Hgb 15.9 Hct 43.3 MCV 82.2 MCH 30.2 MCHC 36.7 H RDW 13.0 Plt Count 289 MPV 8.8 L Immature Gran % (Auto) 0.3 Neut % (Auto) 52.1 Lymph % (Auto) 32.0 [place] % (Auto) 11.0 Eos % (Auto) 3.7 Baso % (Auto) 0.9 Lymph # (Auto) 4.1 [place] # (Auto) 1.4 H Eos # (Auto) 0.5 H Baso # (Auto) 0.1 Abs Immat Gran (auto) 0.04 H Absolute Neuts (auto) 6.7 Absolute Nucleated RBC 0.000 Nucleated RBC % (auto) 0.0 Sodium 117 L* Potassium 3.8 Chloride 83 L Carbon Dioxide 24 Anion Gap 14 BUN 13 Creatinine 1.50 H Estim Creat Clear Calc 40.1 Estimated GFR 46 POC Glucose Random Glucose 126 H Osmolality 242 L Calcium 9.8 Phosphorus Magnesium 1.8 Total Bilirubin 0.7 Direct Bilirubin 0.4 AST 31 ALT 31 Alkaline Phosphatase 85 Total Protein 7.8 Albumin 4.9 Lipase 61 Urine Color Dark Yellow Urine Appearance Clear Urine pH 6.0 Ur Specific [place] 1.020 Urine Protein 30 (1+) H Urine Glucose (UA) Negative Urine Ketones Trace Urine Blood Negative Urine Nitrite Negative Ur Leukocyte Esterase Trace H Urine RBC 0-2 Urine WBC 0-5 Ur Squamous Epith Cells 0-2 Urine Bacteria None Seen Hyaline Casts 0-2 Urine Osmolality Ur Random Sodium Ur Random Potassium Ur Random Chloride 10/24/24 10/24/24 10/24/24 17:03 18:09 19:44 WBC RBC Hgb Hct MCV MCH MCHC RDW Plt Count MPV Immature Gran % (Auto) Neut % (Auto) Lymph % (Auto) [place] % (Auto) Eos % (Auto) Baso % (Auto) Lymph # (Auto) [place] # (Auto) Eos # (Auto) Baso # (Auto) Abs Immat Gran (auto) Absolute Neuts (auto) Absolute Nucleated RBC Nucleated RBC % (auto) Sodium 116 L* Potassium 3.8 Chloride 86 L Carbon Dioxide 19 L Anion Gap 15 BUN 13 Creatinine 1.34 Estim Creat Clear Calc 55.9 Estimated GFR 53 POC Glucose 136 H Random Glucose 148 H Osmolality Calcium 9.2 D Phosphorus Magnesium Total Bilirubin Direct Bilirubin AST ALT Alkaline Phosphatase Total Protein Albumin Lipase Urine Color Urine Appearance Urine pH Ur Specific [place] Urine Protein Urine Glucose (UA) Urine Ketones Urine Blood Urine Nitrite Ur Leukocyte Esterase Urine RBC Urine WBC Ur Squamous Epith Cells Urine Bacteria Hyaline Casts Urine Osmolality 391 Ur Random Sodium < 20.0 Ur Random Potassium 35.9 Ur Random Chloride 34.0 10/24/24 10/25/24 10/25/24 20:49 00:54 05:31 WBC RBC Hgb Hct MCV MCH MCHC RDW Plt Count MPV Immature Gran % (Auto) Neut % (Auto) Lymph % (Auto) [place] % (Auto) Eos % (Auto) Baso % (Auto) Lymph # (Auto) [place] # (Auto) Eos # (Auto) Baso # (Auto) Abs Immat Gran (auto) Absolute Neuts (auto) Absolute Nucleated RBC Nucleated RBC % (auto) Sodium 123 L 119 L* Potassium 3.2 L 4.0 D Chloride 90 L 89 L Carbon Dioxide 21 L 21 L Anion Gap 15 13 BUN 13 12 Creatinine 1.18 1.22 Estim Creat Clear Calc 63.5 61.8 Estimated GFR > 60 59 POC Glucose 177 H Random Glucose 134 H 139 H Osmolality Calcium 9.4 9.2 Phosphorus 3.8 Magnesium 1.9 Total Bilirubin Direct Bilirubin AST ALT Alkaline Phosphatase Total Protein Albumin 3.9 Lipase Urine Color Urine Appearance Urine pH Ur Specific [place] Urine Protein Urine Glucose (UA) Urine Ketones Urine Blood Urine Nitrite Ur Leukocyte Esterase Urine RBC Urine WBC Ur Squamous Epith Cells Urine Bacteria Hyaline Casts Urine Osmolality Ur Random Sodium Ur Random Potassium Ur Random Chloride 10/25/24 10/25/24 07:07 08:09 WBC 10.5 RBC 5.42 Hgb 16.1 Hct 45.0 MCV 83.0 MCH 29.7 MCHC 35.8 RDW 12.8 Plt Count 288 MPV 9.2 L Immature Gran % (Auto) 0.4 Neut % (Auto) 62.1 Lymph % (Auto) 25.6 [place] % (Auto) 8.2 Eos % (Auto) 2.9 Baso % (Auto) 0.8 Lymph # (Auto) 2.7 [place] # (Auto) 0.9 Eos # (Auto) 0.3 Baso # (Auto) 0.1 Abs Immat Gran (auto) 0.04 H Absolute Neuts (auto) 6.5 Absolute Nucleated RBC 0.000 Nucleated RBC % (auto) 0.0 Sodium Potassium Chloride Carbon Dioxide Anion Gap BUN Creatinine Estim Creat Clear Calc Estimated GFR POC Glucose 153 H Random Glucose Osmolality Calcium Phosphorus Magnesium Total Bilirubin Direct Bilirubin AST ALT Alkaline Phosphatase Total Protein Albumin Lipase Urine Color Urine Appearance Urine pH Ur Specific [place] Urine Protein Urine Glucose (UA) Urine Ketones Urine Blood Urine Nitrite Ur Leukocyte Esterase Urine RBC Urine WBC Ur Squamous Epith Cells Urine Bacteria Hyaline Casts Urine Osmolality Ur Random Sodium Ur Random Potassium Ur Random Chloride Progress Note: A&P Assessment and plan (1) Type 2 diabetes mellitus with polyneuropathy: Status: Acute (2) Cirrhosis: Status: Acute (3) Acute hyponatremia: Status: Acute (4) CAD (coronary artery disease): Status: Acute Plan Assessment: 69-year-old gentleman with underlying hep C cirrhosis, diabetes mellitus, CKD, seizure disorder with asymptomatic hyponatremia Plan: Neuro: No acute issues. Underlying seizure disorder, continue antiepileptic regimen. Cardiac: No acute issues. Underlying history of CAD. Pulmonary: No acute issues. Renal: Acute hyponatremia, improving, continue supplemental sodium chloride. Continue to monitor renal indices and urine output. Endo: No acute issues. Underlying diabetes mellitus. GI: No acute issues. Underlying hep C cirrhosis. ID: No acute issues Heme/Onc: No acute issues. Psych: No acute issues. Miscellaneous: No acute issues. Prophylaxis: Heparin Diet: Diabetic Quality Stroke Does the patient have a stroke diagnosis?: No VTE Prior VTE?: No VTE Risk Level:: Medical - moderate - high VTE Device Contraindication: N/A - Device Ordered VTE Drug Contraindication: N/A - Med Ordered
[2024-10-25] MEDS: Sodium Chloride 3 % 100 ML 33 ML IV (10:25)
--- NOTE | 2024-10-25 11:17 | MHC.CM.PN ---
IMM DELIVERED. CM MET WITH PT AT BEDSIDE IN ICU. PT LIVES WITH SPOUSE [address] IN [place]. PT USES A CANE/WALKER NEEDED FOR MOBILITY AID. PT HAS CPAP FOR SLEEP AND UNSURE OF VENDOR'S NAME. + HCP AT HOME, PT WILL REQUEST BRING IN COPY. PCP EDDA [employer]EB[employer]. DP: HOME, NO SERVICES IS THE GOAL. PT 'S SPOUSE WILL TRANSPORT HOME. [facility]/NEEDS.
[2024-10-25 11:33] LABS: Glucose, Whole Blood 160 mg/dL (60-115)
[2024-10-25 15:15] LABS: Anion Gap 17 (12-20); Blood Urea Nitrogen 12 mg/dL (9-16); Calcium 9.8 mg/dL (8.4-10.2); Carbon Dioxide 21 mmol/L (22-29); Chloride 92 mmol/L (96-108); Creatinine Clr Calc Pharmacy 60.3; Estimated Glomerular Filt Rate 57; Glucose Random 175 mg/dL (60-115); Potassium 3.7 mmol/L (3.3-5.1); Sodium 126 mmol/L (135-145)
[2024-10-25 16:31] LABS: Glucose, Whole Blood 157 mg/dL (60-115)
--- NOTE | 2024-10-25 17:30 | PC.NURSE ---
Assumed care at 0700. Pt A&O x4, pleasant disposition. 3% NS administered with positive effect on Na levels.? No complaints of abdominal pain, nausea or vomiting. Pt to be transferred to med-surg. Report given to Itz ALEXANDRA at approx 1730. See MAR and assessments for further details. Care plan ongoing. Safety measures in place.
[2024-10-25 19:51] LABS: Glucose, Whole Blood 128 mg/dL (60-115)
[2024-10-25] MEDS: Famotidine 20 MG TABLET 40 MG PO (21:20)
[2024-10-26 03:06] VITALS: BP 121/60; PULSE 79; RESP 18; TEMP 36.1; O2SAT 96
[2024-10-26 06:00] VITALS: BMI 31.5
[2024-10-26 07:05] LABS: MANUAL DIFF FLAG NO
[2024-10-26 07:06] VITALS: BP 147/82; PULSE 85; RESP 16; TEMP 36.3; O2SAT 96
[2024-10-26 07:11] VITALS: BP 172/73; PULSE 63; RESP 16; TEMP 36.3; O2SAT 100
[2024-10-26 07:14] LABS: Basophils Absolute Auto 0.1 X10*3/uL (0.0-0.2); Basophils Percent Auto 1.3 % (0-2); Eosinophils Absolute Auto 0.3 X10*3/uL (0.0-0.4); Eosinophils Percent Auto 4.1 % (0-4); Hematocrit 44.9 % (42.0-52.0); Hemoglobin 15.8 g/dl (14.0-18.0); Imm Gran Abs Auto 0.03 X10*3/uL (0.00-0.03); Imm Gran Pct Auto 0.4 % (0.0-0.4); Lymphocytes Absolute Auto 2.4 X10*3/uL (1.2-4.9); Lymphocytes Percent Auto 31.9 % (20-40); Mean Corpuscular HGB Conc 35.2 g/dl (31.0-36.0); Mean Corpuscular Hemoglobin 29.6 pg (27.0-33.0); Mean Corpuscular Volume 84.1 fL (80.0-98.0); Monocytes Absolute Auto 0.8 X10*3/uL (0.1-1.2); Monocytes Percent Auto 9.8 % (2-11); Neutrophils Percent Auto 52.5 % (45-73); Platelet Count 254 X10*3/uL (160-400); Red Blood Count 5.34 X10*6/uL (4.60-5.80); Red Cell Distribution Width 13.1 % (11.0-16.0); White Blood Count 7.7 X10*3/uL (4.8-10.8)
[2024-10-26 07:20] LABS: Glucose, Whole Blood 163 mg/dL (60-115)
[2024-10-26 07:38] LABS: Albumin Level 4.2 g/dL (3.5-5.0); Anion Gap 15 (12-20); Blood Urea Nitrogen 11 mg/dL (9-16); Calcium 9.6 mg/dL (8.4-10.2); Carbon Dioxide 20 mmol/L (22-29); Chloride 95 mmol/L (96-108); Creatinine Clr Calc Pharmacy 58.8; Estimated Glomerular Filt Rate 60; Glucose Random 146 mg/dL (60-115); Phosphorus 3.1 mg/dL (2.7-4.5); Potassium 3.7 mmol/L (3.3-5.1); Sodium 126 mmol/L (135-145)
[2024-10-26] MEDS: Heparin Sodium,Porcine 5,000 UNIT/ML VIAL 5000 UNIT SUBCUT (07:54)
[2024-10-26] MEDS: Insulin Lispro 100 UNIT/ML 3 ML VIAL SUBCUT ×2 (07:55→11:58)
[2024-10-26] MEDS: ARIPiprazole 2 MG TABLET PO (07:56)
[2024-10-26] MEDS: Topiramate 25 MG TABLET 50 MG PO (07:56)
[2024-10-26] MEDS: Sodium Chloride Tab 1 GM TABLET 2 GM PO (08:05)
--- NOTE | 2024-10-26 09:51 | P.PNIM_ITS ---
Subjective Subjective Date of Service: 10/26/24 Interval History: stepped down from ICU yesterday; denies any headache or abd pain Review of Systems Review of Systems: Yes all other systems are reviewed and are negative Physical Exam 2 Vital Signs: Vital Signs: Last Vital Signs Temp 97.3 F 10/26/24 07:11 Pulse 63 10/26/24 07:11 Resp 16 10/26/24 07:11 BP 172/73 H 10/26/24 07:11 Pulse Ox 100 10/26/24 07:11 O2 Del Method Room Air 10/26/24 07:11 BMI result Body Mass Index 31.5 Gen: in no acute distress HEENT: sclera anicteric, moist mucus membranes Neck: supple Lungs: clear to auscultation bilaterally Heart: regular rate and rhythm, no murmurs Abd: soft, non-tender, non-distended Ext: no edema Skin: warm/well-perfused Neuro: alert and oriented x3, no focal findings Psych: appropriate affect Objective Data Active Medications Lipase/Protease/Amylase (Lipase/Prot/Amylase 24/76/120k 1 Cap Capsule.) 1 cap PO TIDAC [facility] Aripiprazole (Aripiprazole 2 Mg Tablet) 2 mg PO DAILY [facility] Last Admin: 10/26/24 07:56 Dose: 2 mg Documented By: VENUS Aspirin (Aspirin Enteric Coated 81 Mg Tablet.) 81 mg PO DAILY [facility] Enoxaparin Sodium (Enoxaparin Sodium 40 Mg/0.4 Ml Syringe) 40 mg SUBCUT Q24H [facility] Famotidine (Famotidine 20 Mg Tablet) 40 mg PO BEDTIME [facility] Last Admin: 10/25/24 21:20 Dose: 40 mg Documented By: JAIRO Gabapentin (Gabapentin 300 Mg Capsule) 300 mg PO BEDTIME [facility] Insulin Human Lispro (Insulin Lispro 100 Unit/Ml 3 Ml Vial) 0 unit SUBCUT QIDACHS [facility]; Protocol Last Admin: 10/26/24 07:55 Dose: 2 unit Documented By: VENUS Loratadine (Loratadine 10 Mg Tablet) 10 mg PO DAILY PRN PRN Reason: Allergy Symptoms Losartan Potassium (Losartan Potassium 50 Mg Tablet) 50 mg PO DAILY [facility]; Protocol Metoprolol Tartrate (Metoprolol Tartrate 50 Mg Tablet) 50 mg PO BID [facility]; Protocol Mirtazapine (Mirtazapine 30 Mg Tablet) 30 mg PO BEDTIME [facility] Omeprazole (Omeprazole 20 Mg Capsule.Dr) 20 mg PO DAILY@0630 [facility] Senna (Sennosides 8.6 Mg Tablet) 8.6 mg PO DAILY [facility] Sodium Chloride (Sodium Chloride Tab 1 Gm Tablet) 2 gm PO TID [facility] Last Admin: 10/26/24 08:05 Dose: 2 gm Documented By: VENUS Topiramate (Topiramate 25 Mg Tablet) 50 mg PO DAILY [facility] Last Admin: 10/26/24 07:56 Dose: 50 mg Documented By: VENUS Labs 10/26/24 06:29 10/26/24 06:29 Labs: Laboratory Results - last 24 hr 10/25/24 10/25/24 10/25/24 11:30 14:17 16:28 MCV MCH MCHC RDW Plt Count MPV Immature Gran % (Auto) Neut % (Auto) Lymph % (Auto) [place] % (Auto) Eos % (Auto) Baso % (Auto) Lymph # (Auto) [place] # (Auto) Eos # (Auto) Baso # (Auto) Abs Immat Gran (auto) Absolute Neuts (auto) Absolute Nucleated RBC Nucleated RBC % (auto) Anion Gap 17 Estim Creat Clear Calc 60.3 Estimated GFR 57 POC Glucose 160 H 157 H Random Glucose 175 H Calcium 9.8 D Phosphorus Magnesium Albumin 10/25/24 10/26/24 10/26/24 19:43 06:29 07:08 MCV 84.1 MCH 29.6 MCHC 35.2 RDW 13.1 Plt Count 254 MPV 10.0 Immature Gran % (Auto) 0.4 Neut % (Auto) 52.5 Lymph % (Auto) 31.9 [place] % (Auto) 9.8 Eos % (Auto) 4.1 H Baso % (Auto) 1.3 Lymph # (Auto) 2.4 [place] # (Auto) 0.8 Eos # (Auto) 0.3 Baso # (Auto) 0.1 Abs Immat Gran (auto) 0.03 Absolute Neuts (auto) 4.0 Absolute Nucleated RBC 0.000 Nucleated RBC % (auto) 0.0 Anion Gap 15 Estim Creat Clear Calc 58.8 Estimated GFR 60 POC Glucose 128 H 163 H Random Glucose 146 H Calcium 9.6 Phosphorus 3.1 Magnesium 2.0 Albumin 4.2 Assessment and Plan (1) Drug-induced hyponatremia: Status: Acute Plan d3 for 69yo M with DM2, CKD3, seizure disorder, polycythemia, HCV, history of benign tumor s/p ablation, HTN, FM, GRED, gout, and IBS admitted to ICU for hypoNa with level 116 without symptoms, likely thiazide effect stepped down to M/S 10/25 hypoNa - likely thiazide effect; d/c'ed HCTZ; continue NaCl tabs; recheck BMP tomorrow L renal cystic lesion on CT - hx ablation, follow up with Heme-Onc (Ryan) and Urology (Sohail) HTN - continue losartan + metoprolol tartrate; d/c'ed HCTZ as above; increase doses of other antihypertensives if needed to compensate CKD3 - SCr at baseline DM2 - correction-dose lispro mood disorder - aripiprazole, mirtazapine FM - gabapentin seizure disorder - topiramate VTE - enoxaparin dispo - anticipate home once Na improved In my clinical judgment, the patient requires continued inpatient hospitalization for the following reasons: hypoNa Total time managing care of this patient today: 35 minutes. Quality Stroke Does the patient have a stroke diagnosis?: No VTE Prior VTE?: No VTE Risk Level:: Medical - moderate - high VTE Device Contraindication: N/A - Device Ordered VTE Drug Contraindication: N/A - Med Ordered
[2024-10-26] MEDS: Sennosides 8.6 MG TABLET PO (10:16)
[2024-10-26] MEDS: Enoxaparin Sodium 40 MG/0.4 ML SYRINGE SUBCUT (10:16)
[2024-10-26 10:17] VITALS: BP 145/86; PULSE 87
[2024-10-26] MEDS: Metoprolol Tartrate 50 MG TABLET PO (10:17)
[2024-10-26] MEDS: Losartan Potassium 50 MG TABLET PO (10:17)
[2024-10-26] MEDS: Omeprazole 20 MG CAPSULE.DR PO (10:18)
[2024-10-26] MEDS: Aspirin Enteric Coated 81 MG TABLET.DR PO (10:18)
[2024-10-26 11:06] LABS: Glucose, Whole Blood 202 mg/dL (60-115)
[2024-10-26] MEDS: oxyCODONE HCl Immed Release 5 MG TABLET PO (11:59)
[2024-10-26] MEDS: Lipase/Prot/Amylase 24/76/120K 1 CAP CAPSULE.DR PO (11:59)
--- NOTE | 2024-10-26 13:53 | P.DS_ITS ---
DS: Providers Provider Date of Service: 10/26/24 Date of admission: 10/24/24 16:20 Date of discharge: 10/26/24 Primary care physician: STEPHEN Sommers DS: Diagnosis Discharge Diagnosis (1) Drug-induced hyponatremia: Status: Acute (2) Left against medical advice: Status: Acute DS: Summary Hospital Course Hospital Course: from admission H+P by gold leaf printer MAJOR CASE DETECTIVE Nneka Melvin, 10/24/24: Mr. Narvaez is a 69-year-old male with past history of type 2 diabetes, HTN, CAD,? HLD, CKD stage 3, hepatitis-C,? IBS with constipation and diarrhea, polycythemia vera, seizures who presents to the emergency room with complaint of worsening chronic abdominal pain. He reports intermittent nausea but no vomiting or diarrhea.?Workup revealed a sodium level of 117. On arrival to the emergency room, the patient?s blood pressure was 130/88, heart rate 76, temp 97.9, with O2 sat 97% on room air.? Laboratory data significant for? WBC 12.9, sodium 117, chloride 83, creatinine 1.50, glucose 126. Imaging: ? Abdominal CT revealed hepatomegaly, colonic diverticulosis, mild fullness of the bilateral renal pelvis. From my progress note 10/26/24: 69yo M with DM2, CKD3, seizure disorder, polycythemia, HCV, history of benign tumor s/p ablation, HTN, FM, GRED, gout, and IBS admitted to ICU for hypoNa with level 116 without symptoms, likely thiazide effect stepped down to M/S 10/25 hypoNa - likely thiazide effect; d/c'ed HCTZ; continue NaCl tabs; recheck BMP tomorrow L renal cystic lesion on CT - hx ablation, follow up with Heme-Onc (Ryan) and Urology (Sohail) HTN - continue losartan + metoprolol tartrate; d/c'ed HCTZ as above; increase doses of other antihypertensives if needed to compensate CKD3 - SCr at baseline DM2 - correction-dose lispro mood disorder - aripiprazole, mirtazapine FM - gabapentin seizure disorder - topiramate VTE - enoxaparin dispo - anticipate home once Na improved Unfortunately, he quite suddenly decided to sign out of the hospital against medical advice on 10/26/24 despite counseling on the risks of potential disability and . He was advised to return to the hospital as soon as he decides to receive appropriate standard medical care. Time Attestation Discharge Coordination Time (in mins): 35 Quality: Safe Use of Opioids Does Pt have an Active Cancer Diagnosis on the Problem List?: No Quality: Stroke Does the patient have a stroke diagnosis?: No Physical Exam Vital Signs: Vital Signs: Last Vital Signs Temp 97.3 F 10/26/24 07:11 Pulse 87 10/26/24 10:17 Resp 16 10/26/24 07:11 BP 145/86 H 10/26/24 10:17 Pulse Ox 100 10/26/24 07:11 O2 Del Method Room Air 10/26/24 07:11 BMI result Body Mass Index 31.5 DS: Data Data Completed and Pending Labs on day of discharge: Laboratory Results - last 24 hr 10/25/24 10/25/24 10/25/24 14:17 16:28 19:43 WBC RBC Hgb Hct MCV MCH MCHC RDW Plt Count MPV Immature Gran % (Auto) Neut % (Auto) Lymph % (Auto) [place] % (Auto) Eos % (Auto) Baso % (Auto) Lymph # (Auto) [place] # (Auto) Eos # (Auto) Baso # (Auto) Abs Immat Gran (auto) Absolute Neuts (auto) Absolute Nucleated RBC Nucleated RBC % (auto) Sodium 126 L Potassium 3.7 Chloride 92 L Carbon Dioxide 21 L Anion Gap 17 BUN 12 Creatinine 1.25 Estim Creat Clear Calc 60.3 Estimated GFR 57 POC Glucose 157 H 128 H Random Glucose 175 H Calcium 9.8 D Phosphorus Magnesium Albumin 10/26/24 10/26/24 10/26/24 06:29 07:08 11:02 WBC 7.7 RBC 5.34 Hgb 15.8 Hct 44.9 MCV 84.1 MCH 29.6 MCHC 35.2 RDW 13.1 Plt Count 254 MPV 10.0 Immature Gran % (Auto) 0.4 Neut % (Auto) 52.5 Lymph % (Auto) 31.9 [place]abella % (Auto) 9.8 Eos % (Auto) 4.1 H Baso % (Auto) 1.3 Lymph # (Auto) 2.4 [place] # (Auto) 0.8 Eos # (Auto) 0.3 Baso # (Auto) 0.1 Abs Immat Gran (auto) 0.03 Absolute Neuts (auto) 4.0 Absolute Nucleated RBC 0.000 Nucleated RBC % (auto) 0.0 Sodium 126 L Potassium 3.7 Chloride 95 L Carbon Dioxide 20 L Anion Gap 15 BUN 11 Creatinine 1.20 Estim Creat Clear Calc 58.8 Estimated GFR 60 POC Glucose 163 H 202 H Random Glucose 146 H Calcium 9.6 Phosphorus 3.1 Magnesium 2.0 Albumin 4.2 Discharge Plan Discharge Patient Disposition: Left Against Medical Advice Discharge Diagnosis: hyponatremia left against medical advice Referrals: Yoli Ruiz FNP [Primary Care Provider] - 1 Week Discharge Medications: Continued (DME) FreeStyle Lite Strips Strip See Rx Instructions .ROUTE .MEDSUPPLY Qty: 400 3RF Rx Instructions: As directed four times a day topiramate [Topamax] 50 mg Tablet 50 mg PO DAILY Gemtesa 75 mg tablet 75 mg DAILY aripiprazole 2 mg tablet 2 mg PO DAILY Trulicity 1.5 mg/0.5 mL pen injector 1.5 mg SUBCUT SA sennosides [senna] 8.6 mg tablet 8.6 mg PO DAILY famotidine 40 mg tablet 40 mg PO BEDTIME insulin aspart U-100 [Novolog FlexPen U-100 Insulin] 100 unit/mL (3 mL) insulin pen 8 unit subcut TIDWM Patient Comments: Sliding scale 6-8 units Rx Instructions: Sliding scale 6-8 units subcut; Creon 24,000-76,000 -120,000 unit capsule,delayed release(DR/EC) 1 cap PO TIDAC Rx Instructions: administer with meals and/or snacks oxycodone-acetaminophen 5-325 mg tablet 1 tab PO TID PRN (Reason: Pain) mirtazapine 30 mg tablet 30 mg PO BEDTIME aspirin 81 mg tablet,delayed release (DR/EC) 81 mg PO DAILY losartan 50 mg tablet 50 mg PO DAILY metoprolol tartrate 50 mg tablet 50 mg PO BID febuxostat [Uloric] 40 mg tablet 40 mg PO DAILY (DME) blood-glucose meter [FreeStyle Lite Meter] Kit See Rx Instructions .ROUTE .MEDSUPPLY Qty: 1 0RF Rx Instructions: As directed (DME) lancets 28 gauge misc See Rx Instructions topical TID Qty: 400 3RF Rx Instructions: 4/day cetirizine 10 mg tablet 10 mg PO DAILY PRN (Reason: Allergy Symptoms) testosterone 20.25 mg/1.25 gram (1.62 %) gel in metered-dose pump 3 pump topical DAILY PRN (Reason: hormone therapy) Patient Comments: Uses intermittently. Stops using when he feels better omeprazole 20 mg capsule,delayed release(DR/EC) 20 mg PO DAILY Qty: 90 2RF metformin 500 mg tablet extended release 24 hr 500 mg PO BID insulin degludec [Tresiba FlexTouch U-100] 100 unit/mL (3 mL) insulin pen 16 unit subcut BEDTIME gabapentin 300 mg capsule 300 mg PO BEDTIME Repatha Syringe 140 mg/mL syringe 140 mg subcut FR Discontinued hydrochlorothiazide 25 mg tablet 25 mg PO DAILY Discharge Orders: Discharge Order (Routine); Ordered 10/26/24 Ordered By: Uvaldo Chau Print Language: Faroese Other Ambulatory Orders: Basic Metabolic Panel (Routine) Timeframe: 1 Day Facility: [facility] - Location: Laboratory Ordered By: Uvaldo Chau Care Plan Goals: resolution of hyponatremia Health Concerns: hyponatremia left against medical advice Plan of Treatment: stop hydrochlorothiaizde check labs in 1 day return to hospital as soon as you decide you would like to receive appropriate standard medical care Assessment: See Discharge Summary.
--- NOTE | 2024-10-26 14:09 | MHC.CM.PN ---
PT DOWNGRADE FROM ICU, PT DISCHARGED AMA.
== END 2024-10-26 14:54 | disposition left against medical advice (07) | DRG 641 ==
LOC: HO.ED 15:45 → HO.EDOVER 16:21 → HO.ICU 16:35 → HO.S3 10-25 17:05
PROVIDERS: Nurse Practitioner Family; Physician Assistant; Admitting Provider Internal Medicine Pulmonary Disease; Emergency Provider Emergency Medicine; PCP Registered Nurse; Visit Provider Family Medicine
DX: E87.1 Hypo-osmolality and hyponatremia (principal); I12.9 Hypertensive chronic kidney disease with stage 1 through stage 4 chronic kidney disease, or unspecified chronic kidney disease; N18.30 Chronic kidney disease, stage 3 unspecified; E11.22 Type 2 diabetes mellitus with diabetic chronic kidney disease; I25.10 Atherosclerotic heart disease of native coronary artery without angina pectoris; K59.09 Other constipation; T50.2X5A Adverse effect of carbonic-anhydrase inhibitors, benzothiadiazides and other diuretics, initial encounter; K74.69 Other cirrhosis of liver; M79.7 Fibromyalgia; G40.909 Epilepsy, unspecified, not intractable, without status epilepticus; B19.20 Unspecified viral hepatitis C without hepatic coma; D75.1 Secondary polycythemia; Z95.5 Presence of coronary angioplasty implant and graft; Z87.891 Personal history of nicotine dependence; Z79.4 Long term (current) use of insulin; Z79.51 Long term (current) use of inhaled steroids; Z79.82 Long term (current) use of aspirin; Z79.85 Long-term (current) use of injectable non-insulin antidiabetic drugs; Z79.899 Other long term (current) drug therapy
CPT/HCPCS: 36415; 74176; 80048; 80076; 81001; 82040; 82436; 82947; 83690; 83735; 83930; 83935; 84100; 84133; 84300; 85025; 93005; 99285; J1644; J1650; J7131

== ENCOUNTER → 2024-10-24 15:43 | Outpatient (BNV) | payer OTHER, SELFPAY | PROVIDERS: Admitting Provider Internal Medicine Pulmonary Disease; Emergency Provider Emergency Medicine; PCP Registered Nurse; Visit Provider Nuclear Medicine | DX: R16.0 Hepatomegaly, not elsewhere classified (principal) | CPT/HCPCS: 74176 ==

== ENCOUNTER → 2024-10-24 15:54 | Outpatient (BNV) | payer OTHER, SELFPAY | PROVIDERS: Admitting Provider Internal Medicine Pulmonary Disease; Emergency Provider Emergency Medicine; PCP Registered Nurse; Visit Provider Internal Medicine | DX: E87.1 Hypo-osmolality and hyponatremia (principal) | CPT/HCPCS: 93010 ==

== ENCOUNTER → 2024-10-24 16:20 | Outpatient (BNV) | payer OTHER, SELFPAY | PROVIDERS: Admitting Provider Internal Medicine Pulmonary Disease; Emergency Provider Emergency Medicine; PCP Registered Nurse; Visit Provider Nurse Practitioner Family | DX: E87.1 Hypo-osmolality and hyponatremia (principal); T50.905A Adverse effect of unspecified drugs, medicaments and biological substances, initial encounter | CPT/HCPCS: 99222 ==

== ENCOUNTER → 2024-10-24 16:20 | Outpatient (BNV) | payer OTHER, SELFPAY | PROVIDERS: Admitting Provider Internal Medicine Pulmonary Disease; Emergency Provider Emergency Medicine; PCP Registered Nurse; Visit Provider Internal Medicine Pulmonary Disease | DX: E11.42 Type 2 diabetes mellitus with diabetic polyneuropathy (principal); K74.60 Unspecified cirrhosis of liver; E87.1 Hypo-osmolality and hyponatremia; I25.10 Atherosclerotic heart disease of native coronary artery without angina pectoris | CPT/HCPCS: 99232 ==

== ENCOUNTER → 2024-10-24 16:20 | Outpatient (BNV) | payer OTHER, SELFPAY | PROVIDERS: Admitting Provider Internal Medicine Pulmonary Disease; Emergency Provider Emergency Medicine; PCP Registered Nurse; Visit Provider Family Medicine | DX: E87.1 Hypo-osmolality and hyponatremia (principal); T50.905A Adverse effect of unspecified drugs, medicaments and biological substances, initial encounter; Z53.29 Procedure and treatment not carried out because of patient's decision for other reasons | CPT/HCPCS: 99239; 99499 ==

== ENCOUNTER 2024-10-27 00:44 | Inpatient (IN) | payer OTHER, SELFPAY ==
[2024-10-27] VITALS (13 sets, daily range): BP systolic 115–189; BP diastolic 57–107; PULSE 76–119; RESP 16–21; TEMP 36.1–37.4; O2SAT 95–98; BMI 36.0
--- NOTE | ~2024-10-27 | CT_ITS ---
CLINICAL HISTORY: AMS CT Head WO Contrast COMPARISON: None FINDINGS: Detail limited by artifacts. No acute intracranial hemorrhage. No evidence of acute infarction. Diffuse cortical volume loss. Mild nonspecific white matter hypodensities, most commonly associated with chronic microangiopathic changes. No mass-effect or midline shift. No hydrocephalus. Visualized orbits are normal. Clear paranasal sinuses. Clear mastoid air cells. No acute fracture. Unremarkable soft tissues. IMPRESSION: No acute intracranial findings. Nonemergent/incidental findings in the report. This document has been electronically signed by: Dewayne Wills MD on 10/27/2024 03:45:49
--- NOTE | ~2024-10-27 | XR_ITS ---
CLINICAL HISTORY: weakness 1 view chest x-ray Comparison: CT/SR - CT ABDOMEN PELVIS WO IV CON - 10/24/24 16:[address]/SR - CT CHEST WO IV CON - 08/12/24 07:07 EDT Findings: No consolidation or effusion. Normal size heart. No acute fracture. IMPRESSION: 1. No acute findings. This document has been electronically signed by: Alysha Rosas MD on 10/27/2024 02:06:15
--- NOTE | 2024-10-27 01:12 | ED.GENADULT ---
HPI - General Adult General Chief complaint: General Medical Stated complaint: Unknown CC Time Seen by Provider: 10/27/24 01:16 Source: patient, EMS and old records reviewed Mode of arrival: EMS Limitations: other (confusion) History of Present Illness ED Provider: CARMELA FAROOQ narrative: 69 yo male with PMH of seizures, cirrhosis, hyponatremia, DM, CAD, GERD, HTN, HLD, obesity who states these people from [place] come and follow him but only at night. He was driving tonight and they were following him so he went to the police station. He denies trauma, head strike, fevers, chest pain, dyspnea, n/v/d. He is paranoid stating these south americ[place] are putting things in his food. He then starts someone is stealing his percocet. He is oriented but then starts talking about things in his food and people are coming. He was just admitted for hypoNa and left AMA yesterday Na 116 to 126. There is no mention of paranoia on DC spouse Maggy notes he has been paranoid for about 1 week - she notes he signed out AMA today, left house at 10pm paranoid MD complaint: paranoia Onset (ago): day(s) (1) Radiation: non-radiation Severity: severe Relieving factors: none Exacerbating factors: other Associated symptoms: denies other symptoms Treatments prior to arrival: none Related Data Home Medications ?Medication ?Instructions ?Recorded ?Confirmed aspirin 81 mg tablet,delayed 81 mg PO DAILY 05/16/20 10/24/24 release febuxostat 40 mg tablet (Uloric) 40 mg PO DAILY 05/16/20 10/24/24 hydrochlorothiazide 25 mg tablet 25 mg PO DAILY 05/16/20 10/24/24 losartan 50 mg tablet 50 mg PO DAILY 05/16/20 10/24/24 metoprolol tartrate 50 mg tablet 50 mg PO BID 05/16/20 10/24/24 mirtazapine 30 mg tablet 30 mg PO BEDTIME 05/16/20 10/24/24 oxycodone-acetaminophen 5 mg-325 1 tab PO TID PRN Pain 05/16/20 10/24/24 mg tablet topiramate 50 mg tablet (Topamax) 50 mg PO DAILY 08/09/20 10/24/24 cetirizine 10 mg tablet 10 mg PO DAILY PRN Allergy Symptoms 04/21/21 10/24/24 testosterone 3 pump topical DAILY PRN hormone 10/30/22 10/24/24 therapy vibegron 75 mg tablet (Gemtesa) 75 mg DAILY 06/06/23 10/24/24 gabapentin 300 mg capsule 300 mg PO BEDTIME 10/23/23 10/24/24 insulin degludec 100 unit/mL (3 16 unit subcut BEDTIME 10/23/23 10/24/24 mL) subcutaneous pen (Tresiba FlexTouch U-100 insulin) metformin 500 mg tablet,extended 500 mg PO BID 10/23/23 10/24/24 release 24 hr evolocumab 140 mg/mL subcutaneous 140 mg subcut FR 08/11/24 10/24/24 syringe (Repatha Syringe) aripiprazole 2 mg tablet 2 mg PO DAILY 10/24/24 10/24/24 dulaglutide 1.5 mg/0.5 mL 1.5 mg subcut SA 10/24/24 10/24/24 subcutaneous pen injector (Trulicity) famotidine 40 mg tablet 40 mg PO BEDTIME 10/24/24 10/24/24 insulin aspart U-100 100 unit/mL 8 unit subcut TIDWM 10/24/24 10/24/24 (3 mL) subcutaneous pen (Novolog FlexPen U-100 Insulin aspart) [id number] 1 cap PO TIDAC 10/24/24 10/24/24 24,000-76,000-120,000 unit capsule,delayed rel (Creon) sennosides 8.6 mg tablet (senna) 8.6 mg PO DAILY 10/24/24 10/24/24 Previous Rx's ?Medication ?Instructions ?Recorded blood-glucose meter (FreeStyle #1 ea 12/09/20 Lite Meter kit) lancets 28 gauge #400 ea 12/09/20 blood sugar diagnostic (FreeStyle #400 ea 04/02/22 Lite Strips) omeprazole 20 mg capsule,delayed 20 mg PO DAILY #90 caps 08/11/24 release Allergies Allergy/AdvReac Type Severity Reaction Status Date / Time atorvastatin [Lipitor] Allergy Unknown muscle Verified 10/27/24 01:21 damage rosuvastatin [Crestor] Allergy Unknown muscle Verified 10/27/24 01:21 damage From CRESTOR Allergy Severe MUSCLES Uncoded 09/28/24 08:50 PAIN From LIPITOR Allergy Severe MUSCLES Uncoded 09/28/24 08:50 PAIN Review of Systems Review of Systems: Constitutional : No Fever, No Chills ENT/Mouth : No Ear Pain, No Nasal Congestion, No sore throat Eyes: No Eye Pain, No Swelling, No Redness Cardiovascular : No Chest Pain, No SOB Respiratory : No Cough, No Sputum, No Dyspnea Gastrointestinal : No Nausea, No Vomiting, No Diarrhea, No Hematochezia, No Melena Genitourinary : No Dysuria, No Urinary Frequency, No Hematuria Musculoskeletal : No Myalgias Skin : No Skin Lesions, No rash Neuro : No Weakness, No Numbness, No Paresthesias, No Dizziness, No Headache Psych : positive Anxiety, positive Depression, no SI/HI Heme/Lymph: No Lymphadenopathy Endocrine : No Polyuria, No Polydipsia All other systems reviewed and are negative [facility] Past Medical History Attestation statement: The following information was validated with the patient. Source: old records reviewed Medical History Left against medical advice Colon cancer screening Irritable bowel syndrome with both constipation and diarrhea correction current use of insulin Chronic idiopathic constipation Hepatitis C Hypogonadism Vitamin D deficiency CTS (carpal tunnel syndrome) Seizures 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 bowel syndrome) GERD (gastroesophageal reflux disease) Gout Chronic kidney disease, stage 3 Polycythemia vera Fibromyalgia BPH (benign prostatic hyperplasia) CAD (coronary artery disease) Type 2 diabetes mellitus with hyperglycemia, with long-term current use of insulin Type 2 diabetes mellitus with polyneuropathy Essential hypertension Hyperlipidemia LDL goal <70 Obesity due to excess calories Type 2 diabetes mellitus with hyperglycemia Surgical History History of prostate surgery Hx of biopsy Hx of angioplasty Hx of cystoscopy Hx of colonoscopy Family History Family History Father Bladder cancer Mother CVD (cardiovascular disease) Diabetes Sister Colon cancer Social History Social History Household Members: Spouse Housing: House Are you a primary overnight caregiver to a significant other at home: No Do you presently have visiting nurse or other home services: No Alcohol intake: former Patient Tobacco Use Status: Former Tobacco user Tobacco use type: Cigar Substance Use Type: Crack/Cocaine, Former Substance User and Marijuana Advance Directives: No Advance Directives Information Provided: No service: No Current occupational status: disabled Physical Exam ED Vital Signs: Vital Signs - 24 hr 10/27/24 01:13 10/27/24 03:24 Temperature 97.9 F Pulse Rate 91 96 Respiratory Rate 20 18 Blood Pressure 181/107 H 172/101 H Pulse Oximetry 97 95 Oxygen Delivery Method Room Air Room Air BMI result Body Mass Index 36.0 Appearance: Alert. Oriented X2. Mild acute distress. but then starts talking about stuff in his food or those people. he become anxious and panics Eyes: Pupils equal, round and reactive to light. ENT: Pharynx normal. atraumatic Neck: Normal inspection. Neck supple. CVS: Normal heart rate and rhythm. Pulses normal. Respiratory: No respiratory distress. Breath sounds normal. Abdomen: Soft and nontender. Skin: Skin warm and dry. Normal skin color. Normal skin turgor. Extremities: No lower extremity edema. No calf ttp Neuro: Oriented X 2. No motor deficit. No sensory deficit. CN2-12 intact. steady gait Course Course Course Narrative: 69 yo male with PMH of seizures, cirrhosis, hyponatremia, DM, CAD, GERD, HTN, HLD, obesity who states these people from [place] come and follow him but only at night. He was driving tonight and they were following him so he went to the police station. He denies trauma, head strike, fevers, chest pain, dyspnea, n/v/d. At this time he will need labs, UA, EKG, CT head, ammonia level. He is paranoid stating these [place] are putting things in his food. He then starts someone is stealing his percocet. He is oriented but then starts talking about things in his food and people are coming. Medical Decision Making Medical Decision Making MDM Narrative: 69 yo male with PMH of seizures, cirrhosis, hyponatremia, DM, CAD, GERD, HTN, HLD, obesity who states these people from [place] come and follow him but only at night. He was driving tonight and they were following him so he went to the police station. He denies trauma, head strike, fevers, chest pain, dyspnea, n/v/d. At this time he will need labs, UA, EKG, CT head, ammonia level. Differential Diagnosis Differential Diagnoses: The differential diagnosis associated with the presentation includes toxic or metabolic pathology, ICH, hepatic enceophalopathy Admission/Observation Consideration of admission/observation: Escalation of care including admission/observation considered will admit given his confusion/paranoia x 1 week Consult Healthcare Provider Management of the patient was discussed with: Hospitalist (will admit) Lab Data MDM Lab Attestation statement: I reviewed the patient's lab results. 10/27/24 02:28 10/27/24 02:28 Labs: Lab Results 10/27/24 Range/Units 02:28 WBC 12.3 H (4.8-10.8) X10*3/uL RBC 5.00 (4.60-5.80) X10*6/uL Hgb 15.0 (14.0-18.0) g/dl Hct 41.4 L (42.0-52.0) % MCV 82.8 (80.0-98.0) fL MCH 30.0 (27.0-33.0) pg MCHC 36.2 H (31.0-36.0) g/dl RDW 13.3 (11.0-16.0) % Plt Count 298 (160-400) X10*3/uL MPV 8.8 L (9.4-12.4) fL Immature Gran % (Auto) 0.3 (0.0-0.4) % Neut % (Auto) 64.4 (45-73) % Lymph % (Auto) 23.1 (20-40) % Dixie % (Auto) 9.8 (2-11) % Eos % (Auto) 1.3 (0-4) % Baso % (Auto) 1.1 (0-2) % Lymph # (Auto) 2.8 (1.2-4.9) X10*3/uL [place] # (Auto) 1.2 (0.1-1.2) X10*3/uL Eos # (Auto) 0.2 (0.0-0.4) X10*3/uL Baso # (Auto) 0.1 (0.0-0.2) X10*3/uL Abs Immat Gran (auto) 0.04 H (0.00-0.03) X10*3/uL Absolute Neuts (auto) 7.9 (2.0-8.3) x10*3/uL Absolute Nucleated RBC 0.000 (0.0-0.012) X10*3/uL Nucleated RBC % (auto) 0.0 (0.0-0.2) /100WBC PT 11.5 (10.9-12.4) SEC INR 1.0 (0.9-1.1) Sodium 125 L (135-145) mmol/L Potassium 3.6 (3.3-5.1) mmol/L Chloride 93 L (96-108) mmol/L Carbon Dioxide 19 L (22-29) mmol/L Anion Gap 17 (12-20) BUN 12 (9-16) mg/dL Creatinine 1.42 H (0.5-1.4) mg/dL Estim Creat Clear Calc 53.1 Estimated GFR 49 Random Glucose 125 H (60-115) mg/dL Calcium 9.8 (8.4-10.2) mg/dL Magnesium 1.9 (1.6-2.6) mg/dL Total Bilirubin 0.5 (0.0-1.0) mg/dL Direct Bilirubin 0.3 (0.0-0.5) mg/dL AST 35 (5-37) U/L ALT 41 H (0-40) U/L Alkaline Phosphatase 79 (39-117) U/L Ammonia 29 (13-55) umol/L C-Reactive Protein 0.83 H (< or = 0.50) mg/dL B-Natriuretic Peptide 17 (<100) pg/mL Total Protein 7.8 (6.5-8.0) g/dL Albumin 4.9 (3.5-5.0) g/dL TSH 1.36 (0.32-4.0) uIU/mL Ethyl Alcohol < 10 mg/dL Influenza Type A (PCR) NEGATIVE (Negative) Influenza Type B (PCR) NEGATIVE (Negative) RSV RNA Qual (PCR) NEGATIVE (Negative) SARS-CoV-2 RNA (RT-PCR) NEGATIVE (Negative) Independent Interpretation I performed an independent interpretation of an: EKG, Plain X-Ray (no pneumonia) and CT Scan (normal ) Interpretation: Rate: 101 Rhythm: sinus tach [place]: normal Normal P waves. Normal DOMINGUEZ. Normal QRS complex. ST T wave : normal no KVNG qTC: 471 prior studies: no acute ischemia The study has been interpreted contemporaneously by me. . Radiology Impression Discussion of test interpretation with radiology: I have reviewed the radiologist's reading. Independent Historian Clinical information obtained from an independent historian. History obtained from or confirmed by: EMS spouse Maggy notes he has been paranoid for about 1 week - she notes he signed out AMA today, left house at 10pm paranoid External Record Review External record reviewed: Inpatient record and Outpatient record Discharge Plan Discharge Clinical Impression: Acute paranoia, Acute hyponatremia Patient Disposition: Admitted As Inpatient Prescriptions: No Action (DME) FreeStyle Lite Strips Strip See Rx Instructions .ROUTE .MEDSUPPLY Qty: 400 3RF Rx Instructions: As directed four times a day topiramate [Topamax] 50 mg Tablet 50 mg PO DAILY Gemtesa 75 mg tablet 75 mg DAILY aripiprazole 2 mg tablet 2 mg PO DAILY Trulicity 1.5 mg/0.5 mL pen injector 1.5 mg SUBCUT SA sennosides [senna] 8.6 mg tablet 8.6 mg PO DAILY famotidine 40 mg tablet 40 mg PO BEDTIME insulin aspart U-100 [Novolog FlexPen U-100 Insulin] 100 unit/mL (3 mL) insulin pen 8 unit subcut TIDWM Patient Comments: Sliding scale 6-8 units Rx Instructions: Sliding scale 6-8 units subcut; Creon 24,000-76,000 -120,000 unit capsule,delayed release(DR/EC) 1 cap PO TIDAC Rx Instructions: administer with meals and/or snacks oxycodone-acetaminophen 5-325 mg tablet 1 tab PO TID PRN (Reason: Pain) mirtazapine 30 mg tablet 30 mg PO BEDTIME aspirin 81 mg tablet,delayed release (DR/EC) 81 mg PO DAILY losartan 50 mg tablet 50 mg PO DAILY metoprolol tartrate 50 mg tablet 50 mg PO BID hydrochlorothiazide 25 mg tablet 25 mg PO DAILY febuxostat [Uloric] 40 mg tablet 40 mg PO DAILY (DME) blood-glucose meter [FreeStyle Lite Meter] Kit See Rx Instructions .ROUTE .MEDSUPPLY Qty: 1 0RF Rx Instructions: As directed (DME) lancets 28 gauge misc See Rx Instructions topical TID Qty: 400 3RF Rx Instructions: 4/day cetirizine 10 mg tablet 10 mg PO DAILY PRN (Reason: Allergy Symptoms) testosterone 20.25 mg/1.25 gram (1.62 %) gel in metered-dose pump 3 pump topical DAILY PRN (Reason: hormone therapy) Patient Comments: Uses intermittently. Stops using when he feels better omeprazole 20 mg capsule,delayed release(DR/EC) 20 mg PO DAILY Qty: 90 2RF metformin 500 mg tablet extended release 24 hr 500 mg PO BID insulin degludec [Tresiba FlexTouch U-100] 100 unit/mL (3 mL) insulin pen 16 unit subcut BEDTIME gabapentin 300 mg capsule 300 mg PO BEDTIME Repatha Syringe 140 mg/mL syringe 140 mg subcut FR Print Language: Swedish
--- NOTE | 2024-10-27 01:15 | ECG_ITS ---
Test Reason : check qtc Blood Pressure : */* mmHG Vent. Rate : 101 BPM Atrial Rate : 101 BPM P-R Int : 170 ms QRS Dur : 92 ms QT Int : 364 ms P-R-T Axes : 82 12 52 degrees QTcB Int : 471 ms Sinus tachycardia Otherwise normal ECG When compared with ECG of 24-Oct-2024 16:19, No significant change was found Referred By: Diamond Smith Electronically Signed By: FERNANDO OCHOA MD
[2024-10-27 02:35] LABS: Basophils Absolute Auto 0.1 X10*3/uL (0.0-0.2); Basophils Percent Auto 1.1 % (0-2); Eosinophils Absolute Auto 0.2 X10*3/uL (0.0-0.4); Eosinophils Percent Auto 1.3 % (0-4); Hematocrit 41.4 % (42.0-52.0); Imm Gran Abs Auto 0.04 X10*3/uL (0.00-0.03); Imm Gran Pct Auto 0.3 % (0.0-0.4); Lymphocytes Absolute Auto 2.8 X10*3/uL (1.2-4.9); Lymphocytes Percent Auto 23.1 % (20-40); MANUAL DIFF FLAG NO; Mean Corpuscular HGB Conc 36.2 g/dl (31.0-36.0); Mean Corpuscular Volume 82.8 fL (80.0-98.0); Mean Platelet Volume 8.8 fL (9.4-12.4); Monocytes Absolute Auto 1.2 X10*3/uL (0.1-1.2); Monocytes Percent Auto 9.8 % (2-11); Neutrophils Absolute Auto 7.9 x10*3/uL (2.0-8.3); Neutrophils Percent Auto 64.4 % (45-73); Platelet Count 298 X10*3/uL (160-400); Red Cell Distribution Width 13.3 % (11.0-16.0); White Blood Count 12.3 X10*3/uL (4.8-10.8)
[2024-10-27 02:46] LABS: Prothrombin Time 11.5 SEC (10.9-12.4)
[2024-10-27 02:47] LABS: Ammonia 29 umol/L (13-55)
[2024-10-27 03:02] LABS: Alanine Aminotransferase 41 U/L (0-40); Albumin Level 4.9 g/dL (3.5-5.0); Alkaline Phosphatase 79 U/L (39-117); Anion Gap 17 (12-20); Aspartate Amino Transferase 35 U/L (5-37); Bilirubin Direct 0.3 mg/dL (0.0-0.5); Bilirubin Total 0.5 mg/dL (0.0-1.0); Blood Urea Nitrogen 12 mg/dL (9-16); C Reactive Protein 0.83 mg/dL (< or = 0.50); Calcium 9.8 mg/dL (8.4-10.2); Carbon Dioxide 19 mmol/L (22-29); Chloride 93 mmol/L (96-108); Creatinine Clr Calc Pharmacy 53.1; Estimated Glomerular Filt Rate 49; Ethanol < 10 mg/dL; Glucose Random 125 mg/dL (60-115); Magnesium 1.9 mg/dL (1.6-2.6); Potassium 3.6 mmol/L (3.3-5.1); Sodium 125 mmol/L (135-145); Total Protein 7.8 g/dL (6.5-8.0)
[2024-10-27 03:15] LABS: Influenza A PCR NEGATIVE (Negative); Influenza B PCR NEGATIVE (Negative); Resp Syncy Virus RNA Qual PCR NEGATIVE (Negative); SARS COV2 PCR INHOUSE NEGATIVE (Negative); TSH reflex Free T4 1.36 uIU/mL (0.32-4.0)
--- NOTE | 2024-10-27 03:19 | MHC.EDTECH ---
knife locked up with security, patient aware to apple picker knife when he is discharged in security office.
[2024-10-27 03:32] LABS: B Type Natriuretic Peptide 17 pg/mL (<100)
--- NOTE | 2024-10-27 03:39 | MHC.EDTECH ---
[facility]
--- NOTE | 2024-10-27 04:36 | PM.IMHP ---
History of Present Illness Date of Service: 10/27/24 Chief Complaint: AMS This is a 69-year-old male with pertinent history of CKD stage 3, seizure disorder, insulin-dependent diabetes mellitus, polycythemia, HCV, history of benign tumor status post ablation, hypertension, gastroesophageal reflux disease, gout, IBS, mood disorder who was brought to the emergency department for evaluation of confusion and paranoia. Patient was recently admitted on 10/24 with hyponatremia due to hydrochlorothiazide and he left against medical advice on 10/26. History obtained with the help of political science instructor. Patient is only oriented to self and place at the time of my evaluation. He does not know why he is in the hospital. Patient apparently drove himself to a police station and reported that people from [place] were following him and putting things in his food and taking his Percocet. Spoke to the who thinks that this behavior started about a week ago and it has been on and off for about a week. She stated that she was in the car when he was driving and seeing that people were following them in the car but she did not see anybody following them. Unable to obtain complete review of systems. Review of Systems Review of Systems: Yes Unobtainable due to mental status PMFSH Medical History Left against medical advice Colon cancer screening Irritable bowel syndrome with both constipation and diarrhea long term current use of insulin Chronic idiopathic constipation Hepatitis C Hypogonadism Vitamin D deficiency CTS (carpal tunnel syndrome) Seizures 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 bowel syndrome) GERD (gastroesophageal reflux disease) Gout Chronic kidney disease, stage 3 Polycythemia vera Fibromyalgia BPH (benign prostatic hyperplasia) CAD (coronary artery disease) Type 2 diabetes mellitus with hyperglycemia, with long-term current use of insulin Type 2 diabetes mellitus with polyneuropathy Essential hypertension Hyperlipidemia LDL goal <70 Obesity due to excess calories Type 2 diabetes mellitus with hyperglycemia Family History Father Bladder cancer Mother CVD (cardiovascular disease) Diabetes Sister Colon cancer Surgical History History of prostate surgery Hx of biopsy Hx of angioplasty Hx of cystoscopy Hx of colonoscopy Social History Household Members: Spouse Housing: House Are you a primary resident care assistant to a significant other at home: No Do you presently have visiting nurse or other home services: No Alcohol intake: former Patient Tobacco Use Status: Former Tobacco user Tobacco use type: Cigar Substance Use Type: Crack/Cocaine, Former Substance User and Marijuana Advance Directives: No Advance Directives Information Provided: No service: No Current occupational status: disabled Meds Allergies Allergy/AdvReac Type Severity Reaction Status Date / Time atorvastatin [Lipitor] Allergy Unknown muscle Verified 10/27/24 01:21 damage rosuvastatin [Crestor] Allergy Unknown muscle Verified 10/27/24 01:21 damage From CRESTOR Allergy Severe MUSCLES Uncoded 09/28/24 08:50 PAIN From LIPITOR Allergy Severe MUSCLES Uncoded 09/28/24 08:50 PAIN Home Medications ?Medication ?Instructions ?Recorded ?Confirmed ?Last Taken ?Type aspirin 81 mg tablet,delayed 81 mg PO DAILY 05/16/20 10/24/24 02/25/22 History release febuxostat 40 mg tablet (Uloric) 40 mg PO DAILY 05/16/20 10/24/24 Unknown History hydrochlorothiazide 25 mg tablet 25 mg PO DAILY 05/16/20 10/24/24 Unknown History losartan 50 mg tablet 50 mg PO DAILY 05/16/20 10/24/24 Unknown History metoprolol tartrate 50 mg tablet 50 mg PO BID 05/16/20 10/24/24 Unknown History mirtazapine 30 mg tablet 30 mg PO BEDTIME 05/16/20 10/24/24 Unknown History oxycodone-acetaminophen 5 mg-325 1 tab PO TID PRN Pain 05/16/20 10/24/24 Unknown History mg tablet topiramate 50 mg tablet (Topamax) 50 mg PO DAILY 08/09/20 10/24/24 Unknown History cetirizine 10 mg tablet 10 mg PO DAILY PRN Allergy Symptoms 04/21/21 10/24/24 Unknown History testosterone 3 pump topical DAILY PRN hormone 10/30/22 10/24/24 Unknown History therapy vibegron 75 mg tablet (Gemtesa) 75 mg DAILY 06/06/23 10/24/24 Unknown History gabapentin 300 mg capsule 300 mg PO BEDTIME 10/23/23 10/24/24 Unknown History insulin degludec 100 unit/mL (3 16 unit subcut BEDTIME 10/23/23 10/24/24 Unknown History mL) subcutaneous pen (Tresiba FlexTouch U-100 insulin) metformin 500 mg tablet,extended 500 mg PO BID 10/23/23 10/24/24 Unknown History release 24 hr evolocumab 140 mg/mL subcutaneous 140 mg subcut FR 08/11/24 10/24/24 10/23/24 History syringe (Repatha Syringe) aripiprazole 2 mg tablet 2 mg PO DAILY 10/24/24 10/24/24 Unknown History dulaglutide 1.5 mg/0.5 mL 1.5 mg subcut SA 10/24/24 10/24/24 10/17/24 History subcutaneous pen injector (Trulicity) famotidine 40 mg tablet 40 mg PO BEDTIME 10/24/24 10/24/24 Unknown History insulin aspart U-100 100 unit/mL 8 unit subcut TIDWM 10/24/24 10/24/24 Unknown History (3 mL) subcutaneous pen (Novolog FlexPen U-100 Insulin aspart) [id number] 1 cap PO TIDAC 10/24/24 10/24/24 Unknown History 24,000-76,000-120,000 unit capsule,delayed rel (Creon) sennosides 8.6 mg tablet (senna) 8.6 mg PO DAILY 10/24/24 10/24/24 Unknown History Physical Exam Vital Signs and Narrative: Vital Signs: Last Vital Signs Temp 97.9 F 10/27/24 01:13 Pulse 96 10/27/24 03:24 Resp 18 10/27/24 03:24 BP 172/101 H 10/27/24 03:24 Pulse Ox 95 10/27/24 03:24 O2 Del Method Room Air 10/27/24 03:24 BMI result Body Mass Index 36.0 Middle-aged male lying in bed in no distress Neck supple, no JVD Regular rate and rhythm, S1-S2 heard Regular breath sounds bilaterally, no wheezing or crackles appreciated Abdomen soft nontender, no guarding, no rigidity Patient is lethargic but awakens to voice and is oriented to self and place, disoriented to time and person ; no focal motor deficit Psych: Drowsy No pedal edema Results Labs 10/27/24 02:28 10/27/24 02:28 Labs: Laboratory Results - last 24 hr 10/27/24 02:28 MCV 82.8 MCH 30.0 MCHC 36.2 H RDW 13.3 Plt Count 298 MPV 8.8 L Immature Gran % (Auto) 0.3 Neut % (Auto) 64.4 Lymph % (Auto) 23.1 Ocean % (Auto) 9.8 Eos % (Auto) 1.3 Baso % (Auto) 1.1 Lymph # (Auto) 2.8 Ocean # (Auto) 1.2 Eos # (Auto) 0.2 Baso # (Auto) 0.1 Abs Immat Gran (auto) 0.04 H Absolute Neuts (auto) 7.9 Absolute Nucleated RBC 0.000 Nucleated RBC % (auto) 0.0 PT 11.5 INR 1.0 Anion Gap 17 Estim Creat Clear Calc 53.1 Estimated GFR 49 Random Glucose 125 H Calcium 9.8 Magnesium 1.9 Total Bilirubin 0.5 Direct Bilirubin 0.3 AST 35 ALT 41 H Alkaline Phosphatase 79 Ammonia 29 C-Reactive Protein 0.83 H B-Natriuretic Peptide 17 Total Protein 7.8 Albumin 4.9 TSH 1.36 Ethyl Alcohol < 10 Influenza Type A (PCR) NEGATIVE Influenza Type B (PCR) NEGATIVE RSV RNA Qual (PCR) NEGATIVE SARS-CoV-2 RNA (RT-PCR) NEGATIVE Assessment and Plan (1) Encephalopathy: Status: Acute (2) Acute paranoia: Status: Acute Plan This is a 69-year-old male with pertinent history of CKD stage 3, seizure disorder, insulin-dependent diabetes mellitus, polycythemia, HCV, history of benign tumor status post ablation, hypertension, gastroesophageal reflux disease, gout, IBS, mood disorder who was brought to the emergency department for evaluation of confusion and paranoia. #. Acute encephalopathy: reports that paranoia started about a week ago. CT head without acute abnormality. Ammonia and TSH okay. Will obtain blood gas and B12. ?overdose of opiates as patient is paranoid about people stealing his Percocet. UDS pending. Consulted Neurology. No fever. Will keep NPO until mentation improves #. Hyponatremia due to hydrochlorothiazide: Improved from 116. Continue to monitor sodium levels. NaCl tablets once able #. Hypertension: Resume home antihypertensives once no longer NPO #. Insulin-dependent diabetes mellitus: Initiating Accu-Cheks with sliding scale insulin every 6 hours #. Mood disorder: Hold in the setting of encephalopathy #. Seizure disorder: On topiramate Med rec pending DVT prophylaxis: Lovenox Full code Admit as inpatient and will require two night minimum hospital stay for management of encephalopathy and hyponatremia (as above), which is not possible in a lesser acute setting. Specialist consult pending Quality Stroke Does the patient have a stroke diagnosis?: No VTE Prior VTE?: No VTE Risk Level:: Medical - moderate - high VTE Device Contraindication: Treatment Not Indicated VTE Drug Contraindication: N/A - Med Ordered
[2024-10-27 05:37] LABS: MANUAL DIFF FLAG NO
[2024-10-27 05:38] LABS: Glucose, Whole Blood 155 mg/dL (60-115)
[2024-10-27 05:46] LABS: VBG Base Excess -2.7 mmol/L; VBG HCO3 21 mmol/L (22-26); VBG pCO2 35 mmHg; VBG pH 7.38 (7.32-7.43); VBG pO2 62 mmHg
[2024-10-27] MEDS: Enoxaparin Sodium 40 MG/0.4 ML SYRINGE SUBCUT (05:47)
[2024-10-27] MEDS: Lactated Ringers 1,000 ML 999 ML IV (05:48)
[2024-10-27] MEDS: Insulin Lispro 100 UNIT/ML 3 ML VIAL SUBCUT (05:48)
[2024-10-27 05:49] LABS: Basophils Absolute Auto 0.1 X10*3/uL (0.0-0.2); Basophils Percent Auto 0.8 % (0-2); Eosinophils Absolute Auto 0.1 X10*3/uL (0.0-0.4); Eosinophils Percent Auto 0.6 % (0-4); Hematocrit 43.2 % (42.0-52.0); Hemoglobin 15.3 g/dl (14.0-18.0); Imm Gran Abs Auto 0.07 X10*3/uL (0.00-0.03); Imm Gran Pct Auto 0.5 % (0.0-0.4); Lymphocytes Absolute Auto 1.7 X10*3/uL (1.2-4.9); Lymphocytes Percent Auto 13.5 % (20-40); Mean Corpuscular HGB Conc 35.4 g/dl (31.0-36.0); Mean Corpuscular Hemoglobin 29.9 pg (27.0-33.0); Mean Corpuscular Volume 84.4 fL (80.0-98.0); Mean Platelet Volume 9.1 fL (9.4-12.4); Monocytes Percent Auto 7.7 % (2-11); Neutrophils Absolute Auto 9.8 x10*3/uL (2.0-8.3); Neutrophils Percent Auto 76.9 % (45-73); Platelet Count 307 X10*3/uL (160-400); Red Blood Count 5.12 X10*6/uL (4.60-5.80); Red Cell Distribution Width 13.2 % (11.0-16.0); White Blood Count 12.8 X10*3/uL (4.8-10.8)
[2024-10-27 06:00] LABS: Anion Gap 17 (12-20); Blood Urea Nitrogen 12 mg/dL (9-16); Carbon Dioxide 19 mmol/L (22-29); Chloride 92 mmol/L (96-108); Creatinine Clr Calc Pharmacy 56.2; Estimated Glomerular Filt Rate 53; Glucose Random 137 mg/dL (60-115); Potassium 3.7 mmol/L (3.3-5.1); Sodium 124 mmol/L (135-145)
[2024-10-27 06:28] LABS: Vitamin B12 487 pg/mL (200-900)
[2024-10-27 06:31] LABS: Venous Blood Gas Refer to POC result
[2024-10-27 07:21] LABS: Appearance Urine Cloudy; Color Urine Yellow; Glucose Urine UA Negative (Negative); Leukocyte Esterase Urine Negative (Negative); Nitrite Urine Negative (Negative); Specific Gravity - Urine 1.015 (1.005-1.025); UMIC TRIGGER UACC YES; Urine Blood Negative (Negative); Urine Ketones Trace mg/dL (Negative); Urine Protein 100 (2+) mg/dL (Neg-Trace)
[2024-10-27 07:28] LABS: Amphetamine Screen Urine Not Detected (Not Detect); Barbiturates, Urine Not Detected (Not Detect); Benzodiazepines Screen Urine Not Detected (Not Detect); Buprenorphine Scr Not Detected (Not Detect); Cannabinoid Screen Urine Not Detected (Not Detect); Cocaine Screen Urine Not Detected (Not Detect); Fentanyl, urine Not Detected (Not Detect); Methadone Screen, Urine Not Detected (Not Detect); Opiate Screen Urine POSITIVE (Not Detect); Oxycodone Screen Urine Positive (Not Detect); Phencyclidine Screen Urine Not Detected (Not Detect)
[2024-10-27 07:31] LABS: Bacteria Urine None Seen (None Seen); Calcium Oxalate Crystals Urine Present; Hyaline Casts Urine 0-2 /LPF (0-2); RBC Urine 0-2 /HPF (0-2); Squamous Epithelial Cell Urine 0-2 /HPF (0-2); WBC Urine 0-5 /HPF (0-5)
[2024-10-27] MEDS: Labetalol HCL 100 MG/20 ML VIAL 10 MG IVPUSH (09:17)
[2024-10-27] MEDS: 0.9 % Sodium Chloride Flush 3 ML SYRINGE IVFLUSH ×2 (09:18→21:53)
--- NOTE | 2024-10-27 09:41 | PC.NURSE ---
69 M presented to ED d/t disorientation/AMS and paranoia. Pt reported to PD saying he was being followed. A+Ox2-3, knows his name and knows he's in the hospital but thinks he's here for an appointment, knows his name, and knows the day of the week. RR even and unlabored. Pt denies any pain at this time. Pt denies n/v/c/d. Pt was hypertensive in 180s systolic and received metoprolol with good results. Pt calm, cooperative.
--- NOTE | 2024-10-27 11:28 | MHC.CM.PN ---
IMM 10/27/24, Pt. lives with his , he does not have home health services. PCP is confirmed: Yoli Ruiz TYPE [employer] [employer]. For DME, he has a cane, walker and CPAP machine. His will transport him home at DC, DCP: home, self care. CM to follow for DC needs.
--- NOTE | 2024-10-27 11:43 | PM.NEUROCN ---
History of Present Illness Data of Consult Service Date: 10/27/24 Primary Care Provider: Unknown Physician HPI Reason for consult: Altered mental status This is a 69-year-old male with h/o CKD stage 3, seizure disorder, insulin-dependent diabetes mellitus, polycythemia, HCV, benign tumor status post ablation, hypertension, gastroesophageal reflux disease, gout, IBS, mood disorder who was brought to the emergency department for evaluation of confusion and paranoia. Patient was recently admitted on 10/24 with hyponatremia due to hydrochlorothiazide and he left against medical advice on 10/26. Patient is only oriented to self and place at the time of my evaluation. He does not know why he is in the hospital. Patient apparently drove himself to a police station and reported that people from [place] were following him and putting things in his food and taking his Percocet. According to his , this behavior started about a week ago and it has been on and off for about a week. She stated that she was in the car when he was driving and seeing that people were following them in the car but she did not see anybody following them PMFSH Past Medical History Medical History Left against medical advice Colon cancer screening Irritable bowel syndrome with both constipation and diarrhea [facility] current use of insulin Chronic idiopathic constipation Hepatitis C Hypogonadism Vitamin D deficiency CTS (carpal tunnel syndrome) Seizures 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 bowel syndrome) GERD (gastroesophageal reflux disease) Gout Chronic kidney disease, stage 3 Polycythemia vera Fibromyalgia BPH (benign prostatic hyperplasia) CAD (coronary artery disease) Type 2 diabetes mellitus with hyperglycemia, with long-term current use of insulin Type 2 diabetes mellitus with polyneuropathy Essential hypertension Hyperlipidemia LDL goal <70 Obesity due to excess calories Type 2 diabetes mellitus with hyperglycemia Family History Family History Father Bladder cancer Mother CVD (cardiovascular disease) Diabetes Sister Colon cancer Surgical History Surgical History History of prostate surgery Hx of biopsy Hx of angioplasty Hx of cystoscopy Hx of colonoscopy Social History Social History Household Members: Spouse Housing: House Are you a primary child care worker to a significant other at home: No Do you presently have visiting nurse or other home services: No Alcohol intake: former Patient Tobacco Use Status: Former Tobacco user Tobacco use type: Cigar Use of substances other than those prescribed or required for medical reasons: No Substance Use Type: Crack/Cocaine, Former Substance User and Marijuana Advance Directives: No Advance Directives Information Provided: No service: No Current occupational status: disabled Meds Allergies Allergy/AdvReac Type Severity Reaction Status Date / Time atorvastatin [Lipitor] Allergy Unknown muscle Verified 10/27/24 01:21 damage rosuvastatin [Crestor] Allergy Unknown muscle Verified 10/27/24 01:21 damage From CRESTOR Allergy Severe MUSCLES Uncoded 09/28/24 08:50 PAIN From LIPITOR Allergy Severe MUSCLES Uncoded 09/28/24 08:50 PAIN Active Medications: Current Medications Acetaminophen (Acetaminophen 325 Mg Tablet) 650 mg PO Q6H PRN PRN Reason: Pain, Mild 1-3,fever,headache Calcium Carbonate (Calcium Carbonate 750 Mg Tab.Chew) 750 mg PO Q4H PRN PRN Reason: Heartburn Dextrose (Dextrose 50 % 25 Gm/50 Ml Syringe) 25 gm IVPUSH Q15M PRN; Protocol PRN Reason: per Hypoglycemia Standing Ord. Enoxaparin Sodium (Enoxaparin Sodium 40 Mg/0.4 Ml Syringe) 40 mg SUBCUT Q24H COUNT INCLUDES THE [facility] Last Admin: 10/27/24 05:47 Dose: 40 mg Glucose (Glucose Gel 15 Gm Gel..Gram.) 15 gm PO Q15M PRN; Protocol PRN Reason: per Hypoglycemia Standing Ord. Insulin Human Lispro (Insulin Lispro 100 Unit/Ml 3 Ml Vial) 0 unit SUBCUT Q6H COUNT INCLUDES THE [facility]; Protocol Last Admin: 10/27/24 05:48 Dose: 2 unit Magnesium Hydroxide (Milk Of Magnesia 30 Ml Oral.Susp) 30 ml PO DAILY PRN PRN Reason: Constipation Melatonin (Melatonin 3 Mg Tablet) 6 mg PO BEDTIME PRN PRN Reason: Insomnia Ondansetron HCl (Ondansetron Hcl 4 Mg/2 Ml Vial) 4 mg IVPUSH Q8H PRN PRN Reason: Nausea and Vomiting Sodium Chloride (0.9 % Sodium Chloride Flush 3 Ml Syringe) [facility] Last Admin: 10/27/24 09:18 Dose: 3 ml Home Medications ?Medication ?Instructions ?Recorded ?Confirmed ?Last Taken ?Type aspirin 81 mg tablet,delayed 81 mg PO DAILY 05/16/20 10/27/24 02/25/22 History release febuxostat 40 mg tablet (Uloric) 40 mg PO BID 05/16/20 10/27/24 Unknown History hydrochlorothiazide 25 mg tablet 25 mg PO DAILY 05/16/20 10/27/24 Unknown History losartan 50 mg tablet 50 mg PO DAILY 05/16/20 10/27/24 Unknown History metoprolol tartrate 50 mg tablet 50 mg PO BID 05/16/20 10/27/24 Unknown History mirtazapine 30 mg tablet 30 mg PO BEDTIME 05/16/20 10/27/24 Unknown History oxycodone-acetaminophen 5 mg-325 1 tab PO TID PRN Pain 05/16/20 10/27/24 Unknown History mg tablet topiramate 50 mg tablet (Topamax) 50 mg PO BEDTIME 08/09/20 10/27/24 Unknown History cetirizine 10 mg tablet 10 mg PO DAILY PRN Allergy Symptoms 04/21/21 10/27/24 Unknown History testosterone 3 pump topical DAILY PRN hormone 10/30/22 10/27/24 Unknown History therapy vibegron 75 mg tablet (Gemtesa) 75 mg DAILY 06/06/23 10/27/24 Unknown History gabapentin 300 mg capsule 300 mg PO BEDTIME 10/23/23 10/27/24 Unknown History insulin degludec 100 unit/mL (3 16 unit subcut BEDTIME 10/23/23 10/27/24 Unknown History mL) subcutaneous pen (Tresiba FlexTouch U-100 insulin) metformin 500 mg tablet,extended 500 mg PO BID 10/23/23 10/27/24 Unknown History release 24 hr evolocumab 140 mg/mL subcutaneous 140 mg subcut Q2W 08/11/24 10/27/24 10/23/24 History syringe (Repatha Syringe) aripiprazole 2 mg tablet 2 mg PO DAILY 10/24/24 10/27/24 Unknown History dulaglutide 1.5 mg/0.5 mL 1.5 mg subcut SA 10/24/24 10/27/24 10/17/24 History subcutaneous pen injector (Trulicity) insulin aspart U-100 100 unit/mL 8 unit subcut TIDWM 10/24/24 10/27/24 Unknown History (3 mL) subcutaneous pen (Novolog FlexPen U-100 Insulin aspart) [id number] 1 cap PO TIDAC 10/24/24 10/27/24 Unknown History 24,000-76,000-120,000 unit capsule,delayed rel (Creon) sennosides 8.6 mg tablet (senna) 8.6 mg PO DAILY 10/24/24 10/27/24 Unknown History fluticasone 250 mcg-salmeterol 50 1 ea inhalation Q12H 10/27/24 10/27/24 Unknown History mcg/dose blistr powdr for inhalation (Wixela Inhub) omeprazole 20 mg capsule,delayed 20 mg PO DAILY@0630 10/27/24 10/27/24 Unknown History release sumatriptan succinate 50 mg tablet 50 mg PO DAILY MRX1 10/27/24 10/27/24 Unknown History Physical Exam Vital Signs: Vital Signs: Last Vital Signs Temp 97.7 F 10/27/24 07:23 Pulse 102 H 10/27/24 11:15 Resp 18 10/27/24 11:15 BP 123/57 L 10/27/24 11:15 Pulse Ox 96 10/27/24 11:15 O2 Del Method Room Air 10/27/24 11:15 BMI result Body Mass Index 36.0 Neuro: Other: limitedexam . Non focal. Results Labs 10/27/24 04:47 10/27/24 04:47 Labs: Short CBC 10/27/24 10/27/24 Range/Units 02:28 04:47 WBC 12.3 H 12.8 H (4.8-10.8) X10*3/uL Hgb 15.0 15.3 (14.0-18.0) g/dl Hct 41.4 L 43.2 (42.0-52.0) % Plt Count 298 307 (160-400) X10*3/uL BMP 10/27/24 10/27/24 02:28 04:47 Sodium 125 L 124 L Potassium 3.6 3.7 Chloride 93 L 92 L Carbon Dioxide 19 L 19 L BUN 12 12 Creatinine 1.42 H 1.34 Calcium 9.8 10.0 Liver Function 10/27/24 Range/Units 02:28 Total Bilirubin 0.5 (0.0-1.0) mg/dL Direct Bilirubin 0.3 (0.0-0.5) mg/dL AST 35 (5-37) U/L ALT 41 H (0-40) U/L Alkaline Phosphatase 79 (39-117) U/L Albumin 4.9 (3.5-5.0) g/dL Urine 10/27/24 Range/Units 07:05 Urine Color Yellow Urine Appearance Cloudy Urine pH 7.0 (5.0-9.0) Ur Specific [place] 1.015 (1.005-1.025) Urine Protein 100 (2+) H (Neg-Trace) mg/dL Urine Glucose (UA) Negative (Negative) mg/dL Assessment and Plan (1) Encephalopathy: Status: Acute probably metabolic. R/o infection. Recom. EEG, CT brain. Correction of electrolytes (2) Seizures: Status: Acute Continue current meds. Procedures Date of Service Date of Service: 10/27/24
[2024-10-27 11:50] LABS: Glucose, Whole Blood 116 mg/dL (60-115)
[2024-10-27 13:25] LABS: Glucose, Whole Blood 128 mg/dL (60-115)
--- NOTE | 2024-10-27 14:43 | PHA.MEDREC ---
Pharmacy Consult ? Medication Reconciliation Pharmacy has completed the medication reconciliation. Pt is AMS, tried calling and brother 3x each, without success. Utilized pharmacy claims to complete med rec until family can confirm meds.
[2024-10-27 18:48] LABS: Glucose, Whole Blood 94 mg/dL (60-115)
[2024-10-27] MEDS: Topiramate 25 MG TABLET 50 MG PO (21:48)
--- NOTE | 2024-10-27 22:51 | PC.NURSE ---
late entry: This patient was my new admit and before he came up VMT had called the unit secretary to confirm if he still needed a camera because patient had a fall and due to delirium. I had no knowledge this patient had a camera and a sitter or experienced a fall in the ED, as it was not mentioned in report. I messaged ED nurse and he also had no knowledge of fall but patient told me he did. Patient is experiencing AMS so I am not 100% sure if his experience of what happened is completely accurate.
--- NOTE | 2024-10-27 23:20 | P.CDIM_ITS ---
PROVIDER RESPONSE TEXT: To clarify, the appropriate diagnosis supported by the clinical indicators: Clinically unable to determine (explain): unknown etilogy QUERY TEXT: PHYSICIAN'S DOCUMENTATION REQUEST Date of Query: 10/27/2024 10:32 AM EDT Patient Name: Rommel Narvaez Admit Date: 10/27/2024 Dear Lesley Adkins MD, A review of the medical record indicates additional documentation may be needed. Please review below and update the documentation accordingly. Clinical Indicators: Progress note: Acute encephalopathy: reported that paranoia started about a week ago. Hyponatremia, Mood disorder, stating people are stealing his Percocet. He is oriented then starts talking abut things in his food. He was just admitted for hyponatremia and left AMA yesterday Na 116 to 126. ED 10/27/24 - Clinical impression - Hyponatremia, paranoia LABS: Sodium 124 L IV Fluids Based on the above, please further specify, in the Progress Notes, the known or suspected type of the documented encephalopathy: Metabolic Toxic Toxic metabolic Hepatic (reported as hepatic failure and needs further specificity as to acute, subacute, or chronic) Due to a specified condition (such as UTI, hyponatremia, CVA, etc.) Other (explain) Clinically unable to determine (explain) Thank you, Lisset Jean Baptiste, CCS, CDIS Use of terms such as suspected, likely, concern for, or probable (associated with a specific diagnosi s that is being evaluated, monitored, or treated as if it exists) are acceptable and can be coded in the inpatient se tting, when documented at the time of discharge. Please use your independent medical judgment in providing your response. THIS QUERY IS PART OF THE PERMANENT MEDICAL RECORD
[2024-10-27 23:48] LABS: Glucose, Whole Blood 115 mg/dL (60-115)
--- NOTE | 2024-10-28 | EEG_ITS ---
FINDINGS: The waking background activity consists of low-voltage fast frequency seen diffusely intermixed with a low-voltage posterior 8 to 9 Hz alpha frequency. Photic stimulation is without activation. Hyperventilation was omitted. No sleep stages are identified. No focal, lateralizing, or paroxysmal discharges are seen. IMPRESSION: This waking EEG is within normal limits. MD SUDHIR Blanchard/BRADLEY / [id number]
[2024-10-28] MEDS: Acetaminophen 325 MG TABLET 650 MG PO ×3 (00:47→16:26)
[2024-10-28 03:20] VITALS: BP 134/84; PULSE 88; RESP 16; TEMP 36.1; O2SAT 97
[2024-10-28 05:58] LABS: Glucose, Whole Blood 123 mg/dL (60-115)
[2024-10-28] MEDS: Enoxaparin Sodium 40 MG/0.4 ML SYRINGE SUBCUT (06:00)
[2024-10-28 07:30] VITALS: BP 143/82; PULSE 89; RESP 16; TEMP 36.3; O2SAT 96
[2024-10-28 07:33] LABS: Glucose, Whole Blood 116 mg/dL (60-115)
[2024-10-28] MEDS: Aspirin Enteric Coated 81 MG TABLET.DR PO (09:42)
[2024-10-28] MEDS: SUMAtriptan succinate 50 MG TABLET PO (09:43)
[2024-10-28] MEDS: Metoprolol Tartrate 50 MG TABLET PO ×2 (09:44→20:19)
[2024-10-28] MEDS: oxyCODONE HCl Immed Release 5 MG TABLET PO ×2 (09:44→16:26)
[2024-10-28] MEDS: 0.9 % Sodium Chloride Flush 3 ML SYRINGE IVFLUSH ×3 (09:44→20:24)
[2024-10-28 10:27] LABS: Anion Gap 11 (12-20); Blood Urea Nitrogen 10 mg/dL (9-16); Calcium 9.7 mg/dL (8.4-10.2); Carbon Dioxide 24 mmol/L (22-29); Chloride 94 mmol/L (96-108); Creatinine Clr Calc Pharmacy 61.8; Estimated Glomerular Filt Rate 59; Glucose Random 107 mg/dL (60-115); Potassium 3.9 mmol/L (3.3-5.1); Sodium 125 mmol/L (135-145)
[2024-10-28 11:05] LABS: Glucose, Whole Blood 128 mg/dL (60-115)
[2024-10-28] MEDS: Fluticasone/Vilanterol 100/25 BLST.W.DEV 1 PUFF INHALE (11:18)
[2024-10-28 11:20] VITALS: PULSE 75; RESP 18; O2SAT 96
--- NOTE | 2024-10-28 14:38 | P.PNIM_ITS ---
Subjective Subjective Date of Service: 10/28/24 Interval History: seen and evaluated more alert and interactive denies fever or chills no other events Review of Systems Review of Systems: Yes all other systems are reviewed and are negative Physical Exam 2 Vital Signs: Vital Signs: Last Vital Signs Temp 97.4 F 10/28/24 07:30 Pulse 75 10/28/24 11:20 Resp 18 10/28/24 11:20 BP 143/82 H 10/28/24 07:30 Pulse Ox 96 10/28/24 07:30 O2 Del Method Room Air 10/28/24 07:30 BMI result Body Mass Index 36.0 Const: Other: Constitutional : interactive, not in distress Cardiovascular : no JVP, no lower extremity edema Respiratory : bilateral chest movement, not in resp distress Gastrointestinal: soft, lax, Non tender Skin : Warm, Dry Neurological : Alert & oriented to self only not to time, place or people , No focal deficit Objective Data Active Medications Acetaminophen (Acetaminophen 325 Mg Tablet) 650 mg PO Q6H PRN PRN Reason: Pain, Mild 1-3,fever,headache Last Admin: 10/28/24 09:44 Dose: 650 mg Documented By: SANJUANA Aspirin (Aspirin Enteric Coated 81 Mg Tablet.Dr) 81 mg PO DAILY [facility] Last Admin: 10/28/24 09:42 Dose: 81 mg Documented By: SANJUANA Calcium Carbonate (Calcium Carbonate 750 Mg Tab.Chew) 750 mg PO Q4H PRN PRN Reason: Heartburn Dextrose (Dextrose 50 % 25 Gm/50 Ml Syringe) 25 gm IVPUSH Q15M PRN; Protocol PRN Reason: per Hypoglycemia Standing Ord. Enoxaparin Sodium (Enoxaparin Sodium 40 Mg/0.4 Ml Syringe) 40 mg SUBCUT Q24H [facility] Last Admin: 10/28/24 06:00 Dose: 40 mg Documented By: ELOINA Fluticasone/Vilanterol (Fluticasone/Vilanterol 100/25 Blst.W.Dev) 1 puff INHALE RDAILY [facility] Last Admin: 10/28/24 11:18 Dose: 1 puff Documented By: NEELA Glucose (Glucose Gel 15 Gm Gel..Gram.) 15 gm PO Q15M PRN; Protocol PRN Reason: per Hypoglycemia Standing Ord. Insulin Human Lispro (Insulin Lispro 100 Unit/Ml 3 Ml Vial) 0 unit SUBCUT QIDACHS [facility]; Protocol Magnesium Hydroxide (Milk Of Magnesia 30 Ml Oral.Susp) 30 ml PO DAILY PRN PRN Reason: Constipation Melatonin (Melatonin 3 Mg Tablet) 6 mg PO BEDTIME PRN PRN Reason: Insomnia Metoprolol Tartrate (Metoprolol Tartrate 50 Mg Tablet) 50 mg PO BID [facility]; Protocol Last Admin: 10/28/24 09:44 Dose: 50 mg Documented By: SANJUANA Non-Formulary Medication (Febuxostat [Uloric]) 40 mg PO BID [facility] Omeprazole (Omeprazole 20 Mg Capsule.Dr) 20 mg PO DAILY@629 [facility] Ondansetron HCl (Ondansetron Hcl 4 Mg/2 Ml Vial) 4 mg IVPUSH Q8H PRN PRN Reason: Nausea and Vomiting Oxycodone HCl (Oxycodone Hcl Immed Release 5 Mg Tablet) 5 mg PO TID PRN PRN Reason: Pain, Severe (Pain Scale 7-10) Last Admin: 10/28/24 09:44 Dose: 5 mg Documented By: SANJUANA Sodium Chloride (0.9 % Sodium Chloride Flush 3 Ml Syringe) 3 ml IVFLUSH QSHIFT [facility] Last Admin: 10/28/24 09:44 Dose: 3 ml Documented By: SANJUANA Sumatriptan Succinate (Sumatriptan Succinate 50 Mg Tablet) 50 mg PO DAILY MRX1 [facility] Last Admin: 10/28/24 09:54 Dose: Not Given Documented By: SANJUANA Non-Admin Reason: pt does not have a headache Topiramate (Topiramate 25 Mg Tablet) 50 mg PO BEDTIME [facility] Last Admin: 10/27/24 21:48 Dose: 50 mg Documented By: ELOINA Labs 10/27/24 04:47 10/28/24 08:53 Labs: Laboratory Results - last 24 hr 10/27/24 10/27/24 10/28/24 18:44 23:44 05:55 Anion Gap Estim Creat Clear Calc Estimated GFR POC Glucose 94 115 123 H Random Glucose Calcium 10/28/24 10/28/24 10/28/24 07:11 08:53 11:01 Anion Gap 11 L Estim Creat Clear Calc 61.8 Estimated GFR 59 POC Glucose 116 H 128 H Random Glucose 107 Calcium 9.7 Assessment and Plan (1) Encephalopathy: Status: Acute (2) Acute hyponatremia: Status: Acute (3) Acute paranoia: Status: Acute Plan This is a 69-year-old male with pertinent history of CKD stage 3, seizure disorder, insulin-dependent diabetes mellitus, polycythemia, HCV, history of benign tumor status post ablation, hypertension, gastroesophageal reflux disease, gout, IBS, mood disorder who was brought to the emergency department for evaluation of confusion and paranoia. # Acute metabolic encephalopathy from acute hyponatremia Paranoia for more than a week now CT head without acute abnormality Ammonia and TSH normal Neurology input appreciated, check EEG Hold HCT Na improving to 126 with fluid restriction add Urea Continue to monitor sodium levels Start physical therapy # Acute paranoia could be related to delerium, advancing dementia or metabolic abnormalities redirect and follow consider Psych eval # Hypertension Metoprolol for now Hold Losartan and HCT # Insulin-dependent diabetes mellitus sliding scale insulin # Mood disorder Hold in the setting of encephalopathy # Seizure disorder On topiramate Med rec pending DVT prophylaxis: Lovenox Full code Admit as inpatient and will require overnight minimum hospital stay for management of encephalopathy and hyponatremia (as above), which is not possible in a lesser acute setting. Specialist consult pending Quality Stroke Does the patient have a stroke diagnosis?: No VTE Prior VTE?: No VTE Risk Level:: Medical - moderate - high VTE Device Contraindication: Treatment Not Indicated VTE Drug Contraindication: N/A - Med Ordered
[2024-10-28 15:39] VITALS: BP 149/78; PULSE 76; RESP 18; TEMP 36.4; O2SAT 96
[2024-10-28] MEDS: Urea 15 GM POWDER 30 GM PO (16:26)
[2024-10-28 16:31] LABS: Glucose, Whole Blood 139 mg/dL (60-115)
[2024-10-28 19:44] VITALS: BP 158/69; PULSE 85; RESP 18; TEMP 36.1; O2SAT 94
[2024-10-28] MEDS: Topiramate 25 MG TABLET 50 MG PO (20:19)
[2024-10-28 20:40] LABS: Glucose, Whole Blood 146 mg/dL (60-115)
[2024-10-29 04:00] VITALS: BP 148/82; PULSE 85; RESP 18; TEMP 36; O2SAT 94
[2024-10-29] MEDS: Omeprazole 20 MG CAPSULE.DR PO (05:10)
[2024-10-29] MEDS: Enoxaparin Sodium 40 MG/0.4 ML SYRINGE SUBCUT (05:10)
[2024-10-29 06:04] LABS: MANUAL DIFF FLAG NO
[2024-10-29 06:07] LABS: Basophils Absolute Auto 0.1 X10*3/uL (0.0-0.2); Basophils Percent Auto 1.2 % (0-2); Eosinophils Absolute Auto 0.2 X10*3/uL (0.0-0.4); Eosinophils Percent Auto 2.5 % (0-4); Hematocrit 44.4 % (42.0-52.0); Hemoglobin 15.1 g/dl (14.0-18.0); Imm Gran Abs Auto 0.03 X10*3/uL (0.00-0.03); Imm Gran Pct Auto 0.3 % (0.0-0.4); Lymphocytes Absolute Auto 2.8 X10*3/uL (1.2-4.9); Lymphocytes Percent Auto 28.9 % (20-40); Mean Corpuscular Hemoglobin 29.4 pg (27.0-33.0); Mean Corpuscular Volume 86.5 fL (80.0-98.0); Monocytes Absolute Auto 0.9 X10*3/uL (0.1-1.2); Monocytes Percent Auto 9.1 % (2-11); Neutrophils Absolute Auto 5.6 x10*3/uL (2.0-8.3); Platelet Count 321 X10*3/uL (160-400); Red Blood Count 5.13 X10*6/uL (4.60-5.80); Red Cell Distribution Width 13.7 % (11.0-16.0); White Blood Count 9.6 X10*3/uL (4.8-10.8)
[2024-10-29 06:20] LABS: Anion Gap 13 (12-20); Blood Urea Nitrogen 24 mg/dL (9-16); Calcium 9.9 mg/dL (8.4-10.2); Carbon Dioxide 23 mmol/L (22-29); Chloride 98 mmol/L (96-108); Creatinine Clr Calc Pharmacy 54.6; Estimated Glomerular Filt Rate 51; Glucose Random 119 mg/dL (60-115); Potassium 4.4 mmol/L (3.3-5.1); Sodium 130 mmol/L (135-145)
[2024-10-29 07:59] VITALS: BP 136/72; PULSE 80; RESP 18; TEMP 36.6; O2SAT 93
[2024-10-29 08:01] LABS: Glucose, Whole Blood 132 mg/dL (60-115)
[2024-10-29] MEDS: Fluticasone/Vilanterol 100/25 BLST.W.DEV 1 PUFF INHALE (08:17)
[2024-10-29 08:18] VITALS: PULSE 91; RESP 16; O2SAT 96
[2024-10-29] MEDS: Urea 15 GM POWDER 30 GM PO (08:42)
[2024-10-29] MEDS: SUMAtriptan succinate 50 MG TABLET PO (08:43)
[2024-10-29 08:44] VITALS: BP 140/85
[2024-10-29] MEDS: Losartan Potassium 50 MG TABLET PO (08:44)
[2024-10-29 08:45] VITALS: BP 140/85; PULSE 87
[2024-10-29] MEDS: Metoprolol Tartrate 50 MG TABLET PO (08:45)
[2024-10-29] MEDS: Aspirin Enteric Coated 81 MG TABLET.DR PO (08:45)
[2024-10-29] MEDS: 0.9 % Sodium Chloride Flush 3 ML SYRINGE IVFLUSH (08:46)
--- NOTE | 2024-10-29 10:47 | MHC.CM.PN ---
Addendum entered by Yary Contreras RN 10/29/24 13:42: [facility] WILL PROVIDE SEVICES Original Note: PT TO BE MEDICALLY CLEARED AFTER OT FOR MOCA, PT WILL HAVE [facility] FOR SN/OT/PT AND FAMILY FOR TRANSPORT
[2024-10-29 11:17] LABS: Glucose, Whole Blood 168 mg/dL (60-115)
--- NOTE | 2024-10-29 11:21 | P.F2F_ITS ---
Service Date Service Date: 10/29/24 Encounter Date of encounter: 10/29/24 Reasons for Services Signs and symptoms assessed: physical deconditioning Dementia Medications changes Reason for half-way: medication management and teach disease management Reason for physical therapy: home safety and mobility and therapeutic exercises Reason for occupational therapy: therapeutic exercises, ADL training and other (MOCA evaluation ) Homebound: Leaving the home is medically contraindicated at this time without the asist of a device and/or another person due th the listed conditions above and below. Reason homebound: unsteady gait / fall risk and unable to drive Certification: Based on the above findings, I certify that this patient is confined to the home and needs intermittent half-way care, physical therapy and/or speech therapy, or continues to need occupational therapy. The patient is under my care, and I have initiated the establishment of the plan of care. The patient will be followed by a physician who will periodically review the plan of care. Time Spent With Patient Time: Total time managing care of this patient today ____ minutes.
--- NOTE | 2024-10-29 11:24 | P.DS_ITS ---
DS: Providers Provider Date of Service: 10/29/24 Date of admission: 10/27/24 04:01 Date of discharge: 10/29/24 Primary care physician: STEPHEN Sommers Consults: 10/27/24 04:51 Consult to Neurology Routine Consulting Provider: [facility] Reason for consultation: encephalopathy DS: Diagnosis Discharge Diagnosis (1) Encephalopathy: Status: Acute (2) Acute hyponatremia: Status: Acute (3) Acute paranoia: Status: Acute (4) Drug-induced hyponatremia: Status: Acute DS: Summary Hospital Course Hospital Course: Admission note HPI This is a 69-year-old male with pertinent history of CKD stage 3, seizure disorder, insulin-dependent diabetes mellitus, polycythemia, HCV, history of benign tumor status post ablation, hypertension, gastroesophageal reflux disease, gout, IBS, mood disorder who was brought to the emergency department for evaluation of confusion and paranoia. Patient was recently admitted on 10/24 with hyponatremia due to hydrochlorothiazide and he left against medical advice on 10/26. History obtained with the help of progress developer. Patient is only oriented to self and place at the time of my evaluation. He does not know why he is in the hospital. Patient apparently drove himself to a police station and reported that people from [place] were following him and putting things in his food and taking his Percocet. Spoke to the who thinks that this behavior started about a week ago and it has been on and off for about a week. She stated that she was in the car when he was driving and seeing that people were following them in the car but she did not see anybody following them. Unable to obtain complete review of systems. Hospital course The patient was admitted for evaluation of Acute metabolic encephalopathy in the setting of acute hyponatremia from water overdrinking as CT head without acute abnormality but Diffuse cortical volume loss. Mild nonspecific white matter hypodensities, most commonly associated with chronic microangiopathic changes.. Ammonia and TSH normal. Neurology team evaluated the patient and recommended to check EEG which was normal with no seizure activity. He was treated for hyponatremia with fluid restriction and Holding HCT. Sodium levels improved to 130s as his mentation improved. he remains partially confused at baseline. Evaluated by OT team for concern of dementia and had MOCA score 19/30. To be followed as outpatient. Seen by PT team who recommended PT at home. For Acute paranoia it could be related to delerium and advancing dementia with metabolic abnormalities. redirected and improved. He will need to continue his Aripiprazole and follow with psychiatry as outpatient. Discharge plan Fluid restriction to 1.8 Liters a day ; have electrolyte drinks rather than Water only Stop Hydrochlorothiazide (lowers Sodium level) Hold Gabapentin and Mirtazapine (worsens confusion) Follow with Primary care next 1-2 weeks to address medications Physical and occupational therapy at home Time Attestation Discharge Coordination Time (in mins): 38 Quality: Safe Use of Opioids Does Pt have an Active Cancer Diagnosis on the Problem List?: No Quality: Stroke Does the patient have a stroke diagnosis?: No Physical Exam Vital Signs: Vital Signs: Last Vital Signs Temp 97.9 F 10/29/24 07:59 Pulse 87 10/29/24 08:45 Resp 16 10/29/24 08:18 BP 140/85 H 10/29/24 08:45 Pulse Ox 93 10/29/24 07:59 O2 Del Method Room Air 10/29/24 07:59 BMI result Body Mass Index 36.0 Const: Other: Constitutional : interactive, not in distress Cardiovascular : no JVP, no lower extremity edema Respiratory : bilateral chest movement, not in resp distress Gastrointestinal: soft, lax, Non tender Skin : Warm, Dry Neurological : Alert & oriented to self, time, place and people but slow in answering, No focal deficit DS: Data Data Completed and Pending Labs on day of discharge: Laboratory Results - last 24 hr 10/28/24 10/28/24 10/29/24 16:21 20:32 05:38 WBC 9.6 RBC 5.13 Hgb 15.1 Hct 44.4 MCV 86.5 MCH 29.4 MCHC 34.0 RDW 13.7 Plt Count 321 MPV 9.0 L Immature Gran % (Auto) 0.3 Neut % (Auto) 58.0 Lymph % (Auto) 28.9 [place] % (Auto) 9.1 Eos % (Auto) 2.5 Baso % (Auto) 1.2 Lymph # (Auto) 2.8 [place] # (Auto) 0.9 Eos # (Auto) 0.2 Baso # (Auto) 0.1 Abs Immat Gran (auto) 0.03 Absolute Neuts (auto) 5.6 Absolute Nucleated RBC 0.000 Nucleated RBC % (auto) 0.0 Sodium 130 L Potassium 4.4 Chloride 98 Carbon Dioxide 23 Anion Gap 13 BUN 24 H Creatinine 1.38 Estim Creat Clear Calc 54.6 Estimated GFR 51 POC Glucose 139 H 146 H Random Glucose 119 H Calcium 9.9 10/29/24 10/29/24 07:55 11:12 WBC RBC Hgb Hct MCV MCH MCHC RDW Plt Count MPV Immature Gran % (Auto) Neut % (Auto) Lymph % (Auto) [place] % (Auto) Eos % (Auto) Baso % (Auto) Lymph # (Auto) [place] # (Auto) Eos # (Auto) Baso # (Auto) Abs Immat Gran (auto) Absolute Neuts (auto) Absolute Nucleated RBC Nucleated RBC % (auto) Sodium Potassium Chloride Carbon Dioxide Anion Gap BUN Creatinine Estim Creat Clear Calc Estimated GFR POC Glucose 132 H 168 H Random Glucose Calcium Imaging CT scan - head: Radiologist's impression: IMPRESSION: No acute intracranial findings. Nonemergent/incidental findings in the report. Discharge Plan Discharge Anticipated Discharge Date/Time: 10/29/24 11:03 Patient Disposition: Home Health Service Discharge Diagnosis: Hyponatremia; low sodium Confusion Referrals: Yoli Ruiz FNP [Primary Care Provider] - 1 Week Discharge Medications: Continued (DME) FreeStyle Lite Strips Strip See Rx Instructions .ROUTE .MEDSUPPLY Qty: 400 3RF Rx Instructions: As directed four times a day topiramate [Topamax] 50 mg Tablet 50 mg PO BEDTIME Gemtesa 75 mg tablet 75 mg DAILY aripiprazole 2 mg tablet 2 mg PO DAILY Trulicity 1.5 mg/0.5 mL pen injector 1.5 mg SUBCUT SA sennosides [senna] 8.6 mg tablet 8.6 mg PO DAILY insulin aspart U-100 [Novolog FlexPen U-100 Insulin] 100 unit/mL (3 mL) insulin pen 8 unit subcut TIDWM Patient Comments: Sliding scale 6-8 units Rx Instructions: Sliding scale 6-8 units subcut; Creon 24,000-76,000 -120,000 unit capsule,delayed release(DR/EC) 1 cap PO TIDAC Rx Instructions: administer with meals and/or snacks fluticasone propion-salmeterol [Wixela Inhub] 250-50 mcg/dose blister with device 1 ea INHALATION Q12H sumatriptan succinate 50 mg tablet 50 mg PO DAILY MRX1 omeprazole 20 mg capsule,delayed release(DR/EC) 20 mg PO DAILY@0630 oxycodone-acetaminophen 5-325 mg tablet 1 tab PO TID PRN (Reason: Pain) aspirin 81 mg tablet,delayed release (DR/EC) 81 mg PO DAILY losartan 50 mg tablet 50 mg PO DAILY metoprolol tartrate 50 mg tablet 50 mg PO BID febuxostat [Uloric] 40 mg tablet 40 mg PO BID (DME) blood-glucose meter [FreeStyle Lite Meter] Kit See Rx Instructions .ROUTE .MEDSUPPLY Qty: 1 0RF Rx Instructions: As directed (DME) lancets 28 gauge misc See Rx Instructions topical TID Qty: 400 3RF Rx Instructions: 4/day cetirizine 10 mg tablet 10 mg PO DAILY PRN (Reason: Allergy Symptoms) testosterone 20.25 mg/1.25 gram (1.62 %) gel in metered-dose pump 3 pump topical DAILY PRN (Reason: hormone therapy) Patient Comments: Uses intermittently. Stops using when he feels better metformin 500 mg tablet extended release 24 hr 500 mg PO BID insulin degludec [Tresiba FlexTouch U-100] 100 unit/mL (3 mL) insulin pen 16 unit subcut BEDTIME Repatha Syringe 140 mg/mL syringe 140 mg subcut Q2W Rx Instructions: q 2 weeks on saturday Held mirtazapine 30 mg tablet 30 mg PO BEDTIME Hold Instructions: Hold until you see your primary care gabapentin 300 mg capsule 300 mg PO BEDTIME Hold Instructions: Hold until you follow with Primary care Discontinued hydrochlorothiazide 25 mg tablet 25 mg PO DAILY Discharge Orders: Discharge Order (Routine); Ordered 10/29/24 Ordered By: Mónica Do Diet: Advance to usual diet Activity on Discharge: As tolerated Stand Alone Forms: Patient Portal Discharge page Print Language: Azeri Care Plan Goals: Fluid restriction to 1.8 Liters a day ; have electrolyte drinks rather than W[place] r only Stop Hydrochlorothiazide (lowers Sodium level) Hold Gabapentin and Mirtazapine (worsens confusion) Follow with Primary care next 1-2 weeks to address medications Physical and occupational therapy at home Health Concerns: Dementia Low sodium level Plan of Treatment: Hold Mirtazapine and Gabapentin Discontinue Hydrochlorothiazide Follow with Primary care physician Assessment: as above
[2024-10-29] MEDS: Insulin Lispro 100 UNIT/ML 3 ML VIAL SUBCUT (12:23)
[2024-10-29 13:44] VITALS: BP 154/92; PULSE 74; RESP 18; TEMP 36.2; O2SAT 96
--- NOTE | 2024-10-30 08:33 | PC.NURSE ---
Pt grandson states he left his glucometer at the hospital, No such belonging on the list.
== END 2024-10-29 13:52 | disposition home health service (06) | DRG 640 ==
LOC: HO.ED 03:58 → HO.EDOVER 04:04 → HO.S3 19:17
PROVIDERS: Admitting Provider Student in an Organized Health Care Education/Training Program; Emergency Provider Emergency Medicine; PCP Registered Nurse; Visit Provider Student in an Organized Health Care Education/Training Program
DX: E87.1 Hypo-osmolality and hyponatremia (principal); G93.41 Metabolic encephalopathy; F05 Delirium due to known physiological condition; F03.92 Unspecified dementia, unspecified severity, with psychotic disturbance; I12.9 Hypertensive chronic kidney disease with stage 1 through stage 4 chronic kidney disease, or unspecified chronic kidney disease; I25.10 Atherosclerotic heart disease of native coronary artery without angina pectoris; N18.30 Chronic kidney disease, stage 3 unspecified; E11.22 Type 2 diabetes mellitus with diabetic chronic kidney disease; E11.42 Type 2 diabetes mellitus with diabetic polyneuropathy; G40.909 Epilepsy, unspecified, not intractable, without status epilepticus; T50.2X5A Adverse effect of carbonic-anhydrase inhibitors, benzothiadiazides and other diuretics, initial encounter; F39 Unspecified mood [affective] disorder; Z87.891 Personal history of nicotine dependence; Z20.822 Contact with and (suspected) exposure to COVID-19; Z79.4 Long term (current) use of insulin; Z79.84 Long term (current) use of oral hypoglycemic drugs; Z79.82 Long term (current) use of aspirin; Z79.85 Long-term (current) use of injectable non-insulin antidiabetic drugs; Z79.899 Other long term (current) drug therapy
CPT/HCPCS: 0241U; 36415; 70450; 71045; 80048; 80076; 80307; 81001; 82140; 82607; 82803; 82947; 83735; 83880; 84443; 85025; 85610; 86140; 93005; 94640; 95816; 97116; 97162; 97165; 99285; J1650; J1920; J7120

== ENCOUNTER → 2024-10-27 01:15 | Outpatient (BNV) | payer OTHER, SELFPAY | PROVIDERS: Admitting Provider Student in an Organized Health Care Education/Training Program; Emergency Provider Emergency Medicine; Visit Provider Internal Medicine Cardiovascular Disease | DX: R00.0 Tachycardia, unspecified (principal) | CPT/HCPCS: 93010 ==

== ENCOUNTER → 2024-10-27 01:15 | Outpatient (BNV) | payer OTHER, SELFPAY | PROVIDERS: Emergency Provider Emergency Medicine; Visit Provider Radiology Diagnostic Radiology | DX: R41.82 Altered mental status, unspecified (principal); R53.1 Weakness | CPT/HCPCS: 70450; 71045 ==

== ENCOUNTER → 2024-10-27 04:01 | Outpatient (BNV) | payer OTHER, SELFPAY | PROVIDERS: Admitting Provider Student in an Organized Health Care Education/Training Program; Emergency Provider Emergency Medicine; Visit Provider Psychiatry & Neurology Neurology | DX: G93.40 Encephalopathy, unspecified (principal); R56.9 Unspecified convulsions | CPT/HCPCS: 99222 ==

== ENCOUNTER → 2024-10-27 04:01 | Outpatient (BNV) | payer OTHER, SELFPAY | PROVIDERS: Admitting Provider Student in an Organized Health Care Education/Training Program; Emergency Provider Emergency Medicine; Visit Provider Student in an Organized Health Care Education/Training Program | DX: G93.40 Encephalopathy, unspecified (principal); E87.1 Hypo-osmolality and hyponatremia; F22 Delusional disorders | CPT/HCPCS: 99233 ==

== ENCOUNTER 2024-11-02 09:16 | Outpatient (REF) | payer OTHER, SELFPAY ==
--- OUTSIDE RECORDS SUMMARY | 2024-11-02 09:56 | XMS_ITS | Encounter Summary ---
Author Organization [employer] Address [address] [place] [address] Care Team Providers Care Marble Supervisor Name Role Phone Yoli Ruiz TIRE BUILDING SUPERVISOR Primary Care Provider [phone] Encounter Details Date Type Department Care Team ([facility] Contact Info) Description 09/24/2022 Orders Only [facility] [address] [place] [address] Alessandra Alcala LPN Social History Tobacco Use [...] Team ([facility] Contact Info) Description 11/12/2024 2:45 PM EDT Office Visit [facility] [address] [place] [address] Yoandy Adhikari MD [address] [place] [address] 11/23/2024 9:00 AM EDT Office Visit [facility] [address] [place] [address] Yoli Ruiz FNP [address] [place] [address] 11/24/2024 9:45 AM EDT Office Visit [facility] [address] [place] [address] documented as of this encounter Visit Diagnoses Not on filedocumented in this encounter Care Teams Marble Supervisor Relationship Specialty Start Date End Date Yoli Ruiz FNP [address] [place] [address] PCP - General Family Medicine 03/13/21 documented as of this encounter
[2024-11-02 11:03] LABS: Anion Gap 14 (12-20); Blood Urea Nitrogen 12 mg/dL (9-16); Calcium 10.1 mg/dL (8.4-10.2); Carbon Dioxide 20 mmol/L (22-29); Chloride 100 mmol/L (96-108); Estimated Glomerular Filt Rate 52; Glucose Random 102 mg/dL (60-115); Potassium 3.8 mmol/L (3.3-5.1); Sodium 130 mmol/L (135-145)
== END 2024-11-02 09:17 | disposition home or self-care (01) ==
LOC: HO.LAB 09:16
PROVIDERS: Family Medicine; PCP Registered Nurse; Visit Provider Registered Nurse
DX: E87.1 Hypo-osmolality and hyponatremia (principal)
CPT/HCPCS: 36415; 80048

== ENCOUNTER 2025-02-01 08:10 | Outpatient (AMB) | payer OTHER, SELFPAY ==
[2025-02-01 08:34] VITALS: BP 124/86; PULSE 60; O2SAT 97; BMI 34.5
--- NOTE | 2025-02-01 08:34 | A.OFFVIS_ITS ---
Vital Signs 02/01/25 08:34 Height 5 ft 6 in Weight 213 lb 13.574 oz BMI 34.5 BP 124/86 Blood Pressure Location Rt brachial Position Sitting Pulse 60 Pulse Source Pulse Oximeter Pulse Oximetry (%) 97 Oxygen Delivery Method Room Air Intake Visit Reasons: Dyspnea Uniform Force Captain Required: Yes Uniform Force Captain Language: Lean Process Deployment Consultant Services: Uniform Force Captain Present Uniform Force Captain Name: Grace Donis LM Allergies atorvastatin (Lipitor) Allergy (Unknown, Verified 02/01/25 08:38) muscle damage rosuvastatin (Crestor) Allergy (Unknown, Verified 02/01/25 08:38) muscle damage From CRESTOR Allergy (Severe, Uncoded 02/01/25 08:38) MUSCLES PAIN From LIPITOR Allergy (Severe, Uncoded 02/01/25 08:38) MUSCLES PAIN HPI HPI Dyspnea: Details: Rommel is a pleasant 69 year old male, 20+ pyh smoker, quit 2022 with underlying asthma, h/o [place], [place] on CPAP, HTN, DMII, HLD, Epilepsy, CKDIII, Polycythemia Vera, and BPH. He was treated for LLL PNA in May, PCP placed on Augmentin and repeat CT chest in July revealed resolution of opacity, with no other significant findings. He is currently not enrolled in the lung screening program, agreeable to referral today. He reports suboptimal control of respiratory symptoms reporting dyspnea and dry cough, using Wixela 250 mcg 3-4 times per day, despite prescription of BID. He denies any visits to urgent care or hospitalizations related to respiratory distress since the last visit. Of note, he reports intermittent epitaxis over the last three weeks and continues to use nasal spray. Discussed importance of discontinuing nasal spray and if persists to follow up with PCP. 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 Chronic idiopathic constipation Hepatitis C Hypogonadism Vitamin D deficiency CTS (carpal tunnel syndrome) Seizures 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 bowel syndrome) GERD (gastroesophageal reflux disease) Gout Chronic kidney disease, stage 3 Polycythemia vera Fibromyalgia BPH (benign prostatic hyperplasia) CAD (coronary artery disease) Type 2 diabetes mellitus with hyperglycemia, with long-term current use of insulin Type 2 diabetes mellitus with polyneuropathy Essential hypertension Hyperlipidemia LDL goal <70 Obesity due to excess calories Type 2 diabetes mellitus with hyperglycemia Surgical History History of prostate surgery Hx of biopsy Hx of angioplasty Hx of cystoscopy Hx of colonoscopy Family History Father Bladder cancer Mother CVD (cardiovascular disease) Diabetes Sister Colon cancer Social History Household Members: Spouse Household Members Other:: patient says he lives alone Housing: House Are you a primary healthcare consulting manager to a significant other at home: No Do you presently have visiting nurse or other home services: Yes Alcohol intake: former Comment: 1:1 sitter Patient Tobacco Use Status: Former Tobacco user Tobacco use type: Cigar Substance Use Type: Crack/Cocaine, Former Substance User and Marijuana service: No Current occupational status: disabled Review of Systems Const Denies chills, Denies excessive sweating, Denies fever(s), Denies headache(s) and Denies night sweats Eyes Denies dry eyes, Denies irritation and Denies itchy eyes ENT Reports Normal hearing present, Denies headache(s), Denies post nasal drip and Denies sore throat Card Denies chest pain, Denies chest pain at rest, Denies chest pain with activity, Denies claudication, Denies leg edema, Reports dyspnea on exertion and Denies paroxysmal nocturnal dyspnea Resp Denies change in phlegm color, Denies chest congestion, Reports cough, Denies hemoptysis, Denies excessive phlegm production, Denies pain on inspiration, Denies pain with cough, Reports dyspnea on exertion, Denies stridor and Denies wheezing Musc Denies myalgias Neuro Reports Normal hearing present and Denies headache(s) Endo Denies excessive sweating Garrett/Lymph Denies lymphadenopathy Aller/Immun Denies itchy eyes, Denies seasonal rhinorrhea and Denies wheezing Physical Exam Vital Signs: Last Vital Signs Pulse 60 02/01/25 08:34 BP 124/86 02/01/25 08:34 Pulse Ox 97 02/01/25 08:34 Oxygen Delivery Method Room Air 02/01/25 08:34 BMI result Body Mass Index 34.5 Const General: cooperative, healthy appearing, comfortable, no acute distress, well developed and alert Nutritional Appearance: obese Orientation/consciousness: patient oriented x3 Limitations: no limitations HEENT Head: Yes normal to inspection, Yes normocephalic and Yes atraumatic Ears: hearing grossly normal bilaterally and external ears normal Eyes General: appearance normal, both eyes and all related structures Eyelids: Yes eyelids normal Sclerae: sclerae normal EOM: EOMs intact bilaterally Neck Neck: Yes normal visual inspection and Yes no lymphadenopathy Lymphatic: no lymphadenopathy noted Chest Chest palpation & inspection: normal inspection of the chest Resp Effort & Inspection: normal respiratory effort, able to speak in complete sentences, no audible wheezes, no cough, no stridor, not tachypneic, no tripod positioning and no use of accessory muscles Auscultation: clear to auscultation bilaterally Cardio Jugular venous distension: no JVD Rate: regular rate Rhythm: regular rhythm Skin Other: warm, dry General skin exam: no rashes or lesions noted Neuro General: patient oriented x3 Cranial nerves: Yes Normal hearing present Cognition (Neuro): normal cognition Gait exam (Neuro): Normal gait present Extrem General: Yes normal to inspection, Yes capillary refill normal, Yes no clubbing, cyanosis or edema and Yes no pedal edema Psych Appearance: grossly normal and well kempt Speech and movement: Normal speech and movement present and Clear speech present Affect: normal affect Attitude: cooperative Thought process: Normal thought process present Thought content: Normal thought content present Insight: Good insight present (Psych) Judgement: Good judgement present (Psych) Assessment & Plan Assessment & Plan (1) Asthma: Code(s): J45.909 - Unspecified asthma, uncomplicated Category: Medical (2) Dyspnea: Code(s): R06.00 - Dyspnea, unspecified Category: Medical (3) Cough: Code(s): R05.9 - Cough, unspecified Category: Medical (4) Personal history of tobacco use: Code(s): Z87.891 - Personal history of nicotine dependence Category: Social Hx Plan At this time, Rommel reports suboptimal control of respiratory symptoms, overusing Wixela. Discussed importance of medication compliance and adhering to prescribed doses. Will increase Wixela dose and add albuterol MDI PRN. He is aware to call if symptoms do not improve. Prior chest CT unremarkable, will refer to lung screening program given smoking history. All questions were answered and patient is in agreement of plan. Will follow up in 8 weeks or sooner if needed. Orders: Referrals Lung Cancer Screening Referral Z87.891 - Personal history of nicotine dependence Medications: New fluticasone propion-salmeterol 500-50 mcg/dose (Wixela Inhub) 1 inh inhalation Q12H 60 ea 3RF albuterol sulfate 90 mcg/actuation 2 puffs inhalation Q4-6H PRN 1 ea 0RF shortness of breath or wheezing Coding Level of Care Code Est Pt Level 4 (91038) Diagnoses Asthma J45.909 Dyspnea R06.00 Cough R05.9 Personal history of tobacco use Z87.898
== END 2025-02-01 08:57 | disposition home or self-care (01) ==
LOC: HO.HPS 08:11
PROVIDERS: PCP Registered Nurse; Visit Provider Nurse Practitioner Family
DX: J45.909 Unspecified asthma, uncomplicated (principal); R06.00 Dyspnea, unspecified; R05.9 Cough, unspecified; Z87.891 Personal history of nicotine dependence
CPT/HCPCS: 99214

== ENCOUNTER → 2025-02-01 08:10 | Outpatient (BNVA) | payer OTHER, SELFPAY | PROVIDERS: PCP Registered Nurse; Visit Provider Nurse Practitioner Family | DX: J45.909 Unspecified asthma, uncomplicated (principal); R06.00 Dyspnea, unspecified; Z87.891 Personal history of nicotine dependence | CPT/HCPCS: 99212 ==